=== PATIENT | male | born 1950 | race African-American/Black ===

== ENCOUNTER 2018-08-28 20:59 | Emergency (ER) | payer MEDICARE, MEDICAID ==
[~2018-08-28] VITALS: Ht 193 cm; Wt 111.1 kg
[~2018-08-28 20:59] MED LIST: ACET-1156 PO; BIS10RS PR; DIPH25CA66 PO; DOCU100T15 PO; FAMO-12 PO; HYDR-4683 PO; INSLANTI SC; INSR100KIT IV; IPRIH IN; METF-370 PO; MOMLQ PO; SIMV-8 PO; SODIENE35 RE; WARF2.5T PO
[2018-08-28] MEDS ORDERED: IOHEXOL 300 MG/ML 100ML BOTTLE IJ ONE ×2 (21:39→23:18)
[2018-08-28] MEDS ORDERED: GASTROGRAFIN 30 ML SOL ONE (21:39)
[2018-08-28 22:42] LABS: INR 0.93 (0.9-1.15); Partial Thromboplastin Time 27.7 sec (23.78-33.04)
[2018-08-28 22:46] LABS: Alanine Aminotransferase 42 U/L (16-61); Albumin 2.7 g/dL (3.4-5.0); Amylase 47 U/L (25-115); Anion Gap 8 (5-15); Aspartate Aminotransferase 37 U/L (15-37); Blood Urea Nitrogen 9 mg/dL (7-18); Calcium 9.4 mg/dL (8.5-10.1); Carbon Dioxide 26 mmol/L (21-32); Chloride 107 mmol/L (98-107); Glucose 124 mg/dL (74-106); Lipase 129 U/L (73-393); Magnesium 2.2 mg/dL (1.6-2.6); Potassium 3.5 mmol/L (3.5-5.1); Sodium 141 mmol/L (136-145)
[2018-08-28 22:51] LABS: Alkaline Phosphatase 117 U/L (45-117); Bilirubin, Total 0.2 mg/dL (0.2-1.0); GFR African American 96 mL/min; GFR Non-African American 80 mL/min; Total Protein 9.2 g/dL (6.4-8.2)
[2018-08-28 23:59] LABS: Basophils # (auto) 0.1 uL; Eosinophils # (auto) 0.5 uL; Nucleated Red Blood Cells % 0.1 %
[2018-08-29] LABS: Basophils % (auto) 1.2 % (0.0-2.0); Hematocrit 35.4 % (41.0-53.0); Hemoglobin 11.3 g/dL (13.5-17.5); Lymphocytes # (auto) 3.1 uL; Lymphocytes % (auto) 32.2 % (10.0-50.0); Mean Corpuscular Hemoglobin 28.2 pg (28.0-32.0); Mean Corpuscular Hgb Conc. 32.1 g/dL (32.0-36.0); Mean Corpuscular Volume 87.9 fL (80.0-100.0); Monocytes # (auto) 0.7 uL; Neutrophils # (auto) 5.2 uL; Neutrophils % (auto) 54.6 % (37.0-80.0); Platelet Count (auto) 494 10^3/uL (140-450); Red Blood Cells 4.02 10^6/uL (4.5-5.90); Red Cell Distribution Width 17.1 % (11.8-14.3); White Blood Cell 9.6 10^3/uL (4.4-10.8)
[2018-08-29] MEDS ORDERED: SODIUM CHLORIDE 0.9% 1,000 ML IV ONE (09:15)
[2018-08-29 10:50] VITALS: BP 114/74
== END 2018-08-29 11:09 | disposition home or self-care (01) ==
LOC: ER 20:59 → EDBD 20:59 → ER 08-29 11:09
DX: K86.3 Pseudocyst of pancreas (principal); K57.90 Diverticulosis of intestine, part unspecified, without perforation or abscess without bleeding; J44.9 Chronic obstructive pulmonary disease, unspecified; I11.0 Hypertensive heart disease with heart failure; I50.9 Heart failure, unspecified; E11.65 Type 2 diabetes mellitus with hyperglycemia; K21.9 Gastro-esophageal reflux disease without esophagitis; I48.91 Unspecified atrial fibrillation; E78.5 Hyperlipidemia, unspecified; Z86.73 Personal history of transient ischemic attack (TIA), and cerebral infarction without residual deficits; Z87.440 Personal history of urinary (tract) infections; Z90.49 Acquired absence of other specified parts of digestive tract; Z79.4 Long term (current) use of insulin; Z79.899 Other long term (current) drug therapy
CPT/HCPCS: 36415; 74177; 76705; 80053; 82150; 83605; 83690; 83735; 83880; 84484; 85025; 85610; 85730; 87040; 93005; 94761; 96360; 99284; Q9963; Q9967

== ENCOUNTER 2019-01-26 08:18 | Inpatient (IN) | payer MEDICARE, MEDICAID | END 2019-01-30 16:00 | LOC: ER 08:18 → TELE 08:19 → TELE-EAST 17:23 | DX: A41.9 Sepsis, unspecified organism (principal); G82.50 Quadriplegia, unspecified; I63.9 Cerebral infarction, unspecified; R65.21 Severe sepsis with septic shock; N39.0 Urinary tract infection, site not specified; I13.0 Hypertensive heart and chronic kidney disease with heart failure and stage 1 through stage 4 chronic kidney disease, or unspecified chronic kidney disease; E44.0 Moderate protein-calorie malnutrition; I50.22 Chronic systolic (congestive) heart failure; E11.65 Type 2 diabetes mellitus with hyperglycemia; Z79.4 Long term (current) use of insulin; E11.22 Type 2 diabetes mellitus with diabetic chronic kidney disease; I25.10 Atherosclerotic heart disease of native coronary artery without angina pectoris; J44.9 Chronic obstructive pulmonary disease, unspecified; E66.9 Obesity, unspecified; N18.3 Chronic kidney disease, stage 3 (moderate); Z86.73 Personal history of transient ischemic attack (TIA), and cerebral infarction without residual deficits ==

== ENCOUNTER 2019-04-12 04:13 | Inpatient (IN) | payer MEDICARE, MEDICAID ==
[~2019-04-12] VITALS: Ht 193 cm; Wt 120.0 kg
[~2019-04-12 04:13] MED LIST changes: -HYDR-4683 PO; +HYDR-4833 PO
[2019-04-12 05:15] LABS: Urine Bacteria MOD /hpf (None Seen); Urine Blood 1+ /uL (Negative); Urine Hyaline Cast MANY /lpf (0 - 2); Urine Mucus FEW (None Seen); Urine Specific Gravity 1.014 (1.001-1.035); Urine WBC 203 /hpf (0 - 3); Urine WBC Clumps PRESENT /hpf (None Seen)
[2019-04-12 05:20] LABS: Basophils # (auto) 0.1 uL; Eosinophils # (auto) 0.3 uL; Eosinophils % (auto) 2.7 % (0.0-7.0); Hematocrit 44.8 % (41.0-53.0); Hemoglobin 15.2 g/dL (13.5-17.5); Lymphocytes # (auto) 3.7 uL; Lymphocytes % (auto) 39.5 % (10.0-50.0); Mean Corpuscular Hemoglobin 30.6 pg (28.0-32.0); Mean Corpuscular Hgb Conc. 33.9 g/dL (32.0-36.0); Mean Corpuscular Volume 90.3 fL (80.0-100.0); Monocytes # (auto) 0.6 uL; Monocytes % (auto) 6.5 % (0.0-12.0); Neutrophils # (auto) 4.8 uL; Neutrophils % (auto) 50.3 % (37.0-80.0); Nucleated Red Blood Cells % 0.1 %; Platelet Count (auto) 261 10^3/uL (140-450); Red Blood Cells 4.97 10^6/uL (4.5-5.90); Red Cell Distribution Width 14.3 % (11.8-14.3); White Blood Cell 9.5 10^3/uL (4.4-10.8)
[2019-04-12 05:33] LABS: Albumin 3.1 g/dL (3.4-5.0); Anion Gap 14 (5-15); Blood Urea Nitrogen 12 mg/dL (7-18); Calcium 8.9 mg/dL (8.5-10.1); Carbon Dioxide 20 mmol/L (21-32); Chloride 108 mmol/L (98-107); Glucose 152 mg/dL (74-106); Sodium 142 mmol/L (136-145)
[2019-04-12 05:35] LABS: Potassium 2.9 mmol/L (3.5-5.1)
[2019-04-12 05:38] LABS: Alanine Aminotransferase 25 U/L (16-61); Alkaline Phosphatase 113 U/L (45-117); Aspartate Aminotransferase 28 U/L (15-37); Bilirubin, Total 0.4 mg/dL (0.2-1.0); GFR African American 78 mL/min; GFR Non-African American 64 mL/min
[2019-04-12] MEDS ORDERED: SODIUM CHLORIDE 0.9% 500 ML IV ONE (05:45)
[2019-04-12] MEDS ORDERED: POTASSIUM EFFERVESENT TAB 25 MEQ PO ONE (05:45)
[2019-04-12] MEDS ORDERED: POTASSIUM CHL 20MEQ/100ML 100 ML IV ONE (05:45)
[2019-04-12 07:09] LABS: Lactic Acid w/Reflex 3.2 mmol/L (0.4-2.0)
[2019-04-12] MEDS ORDERED: PIPERACILLIN-TAZOB 3.375GM 100 ML IV ONE (07:30)
[2019-04-12] MEDS ORDERED: DEXTROSE (50%) 50ML SYRG IV PRN (09:15)
[2019-04-12] MEDS ORDERED: ONDANSETRON HCL 4 MG/2 ML VIAL IV PRN (09:15)
[2019-04-12] MEDS ORDERED: ACETAMINOPHEN 500 MG TAB PO PRN (09:15)
[2019-04-12] MEDS ORDERED: NITROGLYCERIN 0.4 MG SL TAB SL PRN (09:15)
[2019-04-12] MEDS ORDERED: HYDROcodone-ACET 5/325MG TAB PO PRN (09:15)
[2019-04-12] MEDS ORDERED: MORPHINE SULF INJ 2 MG/ML SYRINGE 1ML IV PRN ×2 (09:15)
[2019-04-12] MEDS: SODIUM CHLORIDE 0.9% 1,000 ML IV SCH ×3 (09:28→22:14)
[2019-04-12] MEDS: ENOXAPARIN SOD 40 MG/0.4 ML SYRINGE SC SCH (10:13)
[2019-04-12 10:35] LABS: INR 1.09 (0.9-1.15); Partial Thromboplastin Time 30.2 sec (23.64-32.05)
[2019-04-12] MEDS: InsuLIN REG 1unit/0.01ml Soln (100units/ml) SC SCH ×3 (11:30→22:00)
[2019-04-12] MEDS: ACCU-CHEK COMFORT CURVE STRIP VI SCH ×3 (11:30→22:13)
[2019-04-12 12:40] VITALS: BP 127/78
[2019-04-12 13:00] VITALS: BP 127/78
--- NOTE | 2019-04-12 14:06 | NUR ---
RECEIVED PT TO ROOM 282 AT APPROX. 1100. A/O X 4. VSS. WILL CONTINUE TO MONITOR.
[2019-04-12 17:00] VITALS: BP 142/83
[2019-04-12] MEDS: TAMSULOSIN HYDROCHLORIDE 0.4 MG CAP PO SCH (18:25)
[2019-04-12 20:00] VITALS: BP 110/74
[2019-04-12 22:00] VITALS: BP 110/74
[2019-04-13 05:27] VITALS: BP 114/75
[2019-04-13] MEDS: INSULIN LANTUS (GLARGINE) 1 /0.01ml (100units/ml) SC SCH (06:15)
[2019-04-13] MEDS: InsuLIN REG 1unit/0.01ml Soln (100units/ml) SC SCH ×4 (06:15→21:47)
[2019-04-13] MEDS: ACCU-CHEK COMFORT CURVE STRIP VI SCH ×4 (06:15→21:47)
[2019-04-13 08:52] LABS: Basophils # (auto) 0.1 uL; Basophils % (auto) 0.8 % (0.0-2.0); Eosinophils # (auto) 0.3 uL; Eosinophils % (auto) 3.3 % (0.0-7.0); Hematocrit 43.2 % (41.0-53.0); Hemoglobin 14.4 g/dL (13.5-17.5); Lymphocytes # (auto) 3.4 uL; Lymphocytes % (auto) 37.4 % (10.0-50.0); Mean Corpuscular Hemoglobin 30.3 pg (28.0-32.0); Mean Corpuscular Hgb Conc. 33.3 g/dL (32.0-36.0); Mean Corpuscular Volume 91.1 fL (80.0-100.0); Monocytes # (auto) 0.5 uL; Monocytes % (auto) 5.8 % (0.0-12.0); Neutrophils # (auto) 4.7 uL; Neutrophils % (auto) 52.7 % (37.0-80.0); Nucleated Red Blood Cells % 0.2 %; Platelet Count (auto) 221 10^3/uL (140-450); Red Blood Cells 4.74 10^6/uL (4.5-5.90); Red Cell Distribution Width 14.2 % (11.8-14.3)
[2019-04-13] MEDS: cefTRIAXone 1GM/50ML D5W 50 ML IV SCH (09:00)
[2019-04-13 09:06] VITALS: BP 124/81
[2019-04-13 09:09] LABS: BUN/Creatinine Ratio 9.6; Calcium 8.8 mg/dL (8.5-10.1); Potassium 3.5 mmol/L (3.5-5.1)
[2019-04-13] MEDS: SODIUM CHLORIDE 0.9% 1,000 ML IV SCH ×2 (09:30→17:03)
[2019-04-13] MEDS: ENOXAPARIN SOD 40 MG/0.4 ML SYRINGE SC SCH (09:30)
[2019-04-13] MEDS: ASPirin-EC 81 mg tab PO SCH (09:30)
[2019-04-13] MEDS: APIXABAN 2.5 MG TAB PO SCH ×2 (10:00→21:47)
[2019-04-13 12:30] VITALS: BP 108/79
[2019-04-13 12:44] LABS: Folate (Folic Acid) 13.2 ng/mL (5.38-24)
--- NOTE | 2019-04-13 14:50 | NUR ---
Assessment and SS consult Pt is a 68 yr old alert and oriented male. SS consult for "pt lives with brother. Brother not a good caregiver and support for him. Pt is incontinent of bowel and bladder and brother changes him once a day. Pt has nurse coming twice weekly." SW met with pt bedside and pt stated that he was living at [facility] for over a year in fdc care until a week ago, he decided, against medical advisement, that he wanted to move home with his brother. Pt stated that he thought he would get better support from his brother and thought that he personally was more able than he was. Pt stated that he was wrong and that his brother is unable to help him with the high level of care that he needs. Pt stated that through HH he has a nurse come out twice weekly and a ELECTROMECHANIC 3 times weekly and it's not enough. Pt currently is non-ambulatory, uses a powerchair, robert lift and sling and hospital bed in the home. Pt receives 1500 income monthly from and [employer] pension. Pt stated that he has an AD on file. Pt stated that he wants to go back to living at [facility] as a fdc pt. SW discussed situation with Dr Han, and the doctor stated that he has called that facility and that they are going to accept the pt back in fdc care. Pt will be d/c back to [facility] upon medical clearance. Addendum: 04/13/19 at 1508 by JORGE NOLAN Amended: Links added.
--- NOTE | 2019-04-13 16:46 | NUR ---
Discharge planning per consult, patient has orders to dc to skilled nursing SNF placement. Referral was sent to [facility] [phone], patient was accepted to room [address] Han. Patient will dc will IV X Jon. Transportation was set up with the General [phone]. Nurse Patricia was advised of dc plan. Addendum: 04/13/19 at 1656 by LIZZETH GUSMAN Amended: Links added.
[2019-04-13 16:48] VITALS: BP 138/84
[2019-04-13 17:26] VITALS: BP 120/90
--- NOTE | 2019-04-13 17:39 | NUR ---
PER DR LACKEY, PT WILL NOT BE TRANSFERRED TO [facility] UNTIL TOMORROW 04/14. MANAGER RELIABILITY MAP MAKER NOTIFIED.
--- NOTE | 2019-04-13 17:50 | NUR ---
o/c note attempted to call general transport to cancel transport but no milling machine set up operator answered stating mailbox has not been set up, so could not leave message.
[2019-04-13] MEDS: TAMSULOSIN HYDROCHLORIDE 0.4 MG CAP PO SCH (18:24)
--- NOTE | 2019-04-13 18:25 | NUR ---
o/c note General transport called back and stated [facility] had already canceled transport
--- NOTE | 2019-04-13 19:00 | NUR ---
Opening Shift Note Assumed care of patient, awake and alert. No S/S of distress/SOB or pain. POC discussed and questions answered. Patient encouraged to call for assistance as needed, will continue to monitor for changes Q1hr and PRN.
[2019-04-13 21:45] VITALS: BP 125/79
[2019-04-14] MEDS: SODIUM CHLORIDE 0.9% 1,000 ML IV SCH ×3 (03:47→17:03)
[2019-04-14 05:33] VITALS: BP 144/86
[2019-04-14] MEDS: INSULIN LANTUS (GLARGINE) 1 /0.01ml (100units/ml) SC SCH (06:19)
[2019-04-14] MEDS: ACCU-CHEK COMFORT CURVE STRIP VI SCH ×3 (06:19→16:31)
[2019-04-14] MEDS: InsuLIN REG 1unit/0.01ml Soln (100units/ml) SC SCH ×3 (06:19→16:34)
[2019-04-14] MEDS: cefTRIAXone 1GM/50ML D5W 50 ML IV SCH (08:42)
[2019-04-14 09:00] VITALS: BP 150/95
[2019-04-14] MEDS: APIXABAN 2.5 MG TAB PO SCH (10:28)
[2019-04-14] MEDS: ASPirin-EC 81 mg tab PO SCH (10:28)
[2019-04-14 13:00] VITALS: BP 110/81
--- NOTE | 2019-04-14 14:23 | NUR ---
[facility] Lisa to see if [facility] has a bed for today, they did not have one yesterday.
--- NOTE | 2019-04-14 16:11 | NUR ---
SNF pt to go to rm 507 bed 2 and [facility] at 1630 hrs and [facility] to arrange transport
--- NOTE | 2019-04-14 16:36 | NUR ---
Discharge planning per SS consult, patient has orders to dc to SNF. Patient was accepted at [facility] [phone] to room [address] Han. Transportation was arranged with the General [phone] for a pick remover time of 6:30-7:30pm. Nurse Gomez was advised of dc plan.
[2019-04-14 17:00] VITALS: BP 129/89
--- NOTE | 2019-04-14 17:54 | NUR ---
REPORT CALLED TO CAROLEE, RECEIVING NURSE AT [facility].
[2019-04-14] MEDS: TAMSULOSIN HYDROCHLORIDE 0.4 MG CAP PO SCH (18:00)
--- NOTE | 2019-04-14 18:44 | NUR ---
SELLERS REMOVED WITHOUT DIFFICULTY. NOTED SMALL OPEN AREA/SKIN TEAR ON PT LEFT BUTTOCK. PHOTOGRAPH TAKEN. NOTIFIED NURSE AT [facility].
--- NOTE | 2019-04-14 19:30 | NUR ---
PATIENT DISCHARGED TO [facility]. NO SIGNS OR SYMPTOMS OF DISTRESS NOTED.
== END 2019-04-14 19:25 | DRG 690 ==
LOC: EDBD 04:13 → ER 04:14 → OVERFLOW 04:15 → WEST WING 10:34
PROVIDERS: ADMIT Nurse Practitioner Acute Care; ATTEND Family Medicine
DX: N30.00 Acute cystitis without hematuria (principal); E44.1 Mild protein-calorie malnutrition; I25.10 Atherosclerotic heart disease of native coronary artery without angina pectoris; N18.3 Chronic kidney disease, stage 3 (moderate); E11.22 Type 2 diabetes mellitus with diabetic chronic kidney disease; I12.9 Hypertensive chronic kidney disease with stage 1 through stage 4 chronic kidney disease, or unspecified chronic kidney disease; E11.65 Type 2 diabetes mellitus with hyperglycemia; E66.9 Obesity, unspecified; E87.6 Hypokalemia; K21.9 Gastro-esophageal reflux disease without esophagitis; I48.91 Unspecified atrial fibrillation; J44.9 Chronic obstructive pulmonary disease, unspecified; Z79.01 Long term (current) use of anticoagulants; Z79.4 Long term (current) use of insulin; Z68.32 Body mass index [BMI] 32.0-32.9, adult; Z95.5 Presence of coronary angioplasty implant and graft; Z86.73 Personal history of transient ischemic attack (TIA), and cerebral infarction without residual deficits; Z79.899 Other long term (current) drug therapy; Z80.1 Family history of malignant neoplasm of trachea, bronchus and lung
CPT/HCPCS: 36415; 71045; 80048; 80053; 81001; 82607; 82746; 82962; 83036; 83605; 83880; 84443; 84484; 85025; 85379; 85610; 85730; 87040; 87086; 93005; 96361; 96365; 96372; G0378; J0696; J1815; J2543; J3480

== ENCOUNTER 2021-09-18 10:24 | Inpatient (IN) | payer MEDICARE, MEDICAID ==
[~2021-09-18] VITALS: Ht 193 cm; Wt 112.0 kg
[2021-09-18 11:34] LABS: Basophils # (auto) 0.1 10 ^3/uL (0-0.2); Basophils % (auto) 1.1 % (0.0-2.0); Eosinophils # (auto) 0.3 10 ^3/uL (0-0.8); Eosinophils % (auto) 3.5 % (0.0-7.0); Hematocrit 47.4 % (41.0-53.0); Hemoglobin 15.6 g/dL (13.5-17.5); Lymphocytes # (auto) 2.7 10 ^3/uL (0.4-5.4); Lymphocytes % (auto) 30.7 % (10.0-50.0); Mean Corpuscular Hemoglobin 29.9 pg (28.0-32.0); Mean Corpuscular Hgb Conc. 32.9 g/dL (32.0-36.0); Monocytes # (auto) 0.5 10 ^3/uL (0-1.3); Monocytes % (auto) 5.8 % (0.0-12.0); Neutrophils # (auto) 5.1 10 ^3/uL (1.6-8.6); Neutrophils % (auto) 58.9 % (37.0-80.0); Nucleated Red Blood Cells % 0.4 %; Red Blood Cells 5.21 10^6/uL (4.5-5.90); Red Cell Distribution Width 14.4 % (11.8-14.3); White Blood Cell 8.7 10^3/uL (4.4-10.8)
[2021-09-18 11:50] LABS: Albumin 3.5 g/dL (3.4-5.0); Calcium 9.6 mg/dL (8.5-10.1); Potassium 3.8 mmol/L (3.5-5.1)
[2021-09-18 11:52] LABS: Bilirubin, Total 0.6 mg/dL (0.2-1.0); Total Protein 7.9 g/dL (6.4-8.2)
[2021-09-18 13:08] LABS: Urine Bacteria NONE SEEN /hpf (None Seen); Urine Blood 3+ /uL (Negative); Urine Hyaline Cast MANY /lpf (0 - 2); Urine Mucus FEW (None Seen); Urine Specific Gravity 1.018 (1.001-1.035); Urine WBC 2550 /hpf (0 - 3); Urine WBC Clumps PRESENT /hpf (None Seen)
[2021-09-18] MEDS ORDERED: cefTRIAXone 1GM/50ML D5W 50 ML IV ONE (13:15)
[2021-09-18] MEDS ORDERED: ACETAMINOPHEN 325 MG TAB PO PRN (13:45)
[2021-09-18] MEDS ORDERED: NITROGLYCERIN 0.4 MG SL TAB SL PRN (13:45)
[2021-09-18] MEDS ORDERED: ONDANSETRON HCL 4 MG/2 ML VIAL IV PRN (13:45)
[2021-09-18] MEDS ORDERED: MORPHINE SULFATE INJECTION 2 MG/ML SYRG IV PRN (13:45)
[2021-09-18] MEDS ORDERED: SODIUM CHLORIDE 0.9% 1,000 ML IV SCH (13:45)
[2021-09-18] MEDS ORDERED: HYDROmorphone HCL 2 MG/ML VL IV PRN (13:45)
[2021-09-18] MEDS ORDERED: ALUM & MAG HYDROX-SIMETH LIQ(MAALOX) 30 ML PO PRN (13:45)
[2021-09-18] MEDS ORDERED: HYDROcodone-ACET 5/325MG TAB PO PRN (13:45)
[2021-09-18] MEDS: SODIUM CHLOR 0.9% PF (SALINE LOCK) 10ML VIAL/SYR IV SCH ×2 (13:50→22:31)
[2021-09-18 14:12] LABS: INR 1.08 (0.9-1.15)
[2021-09-18] MEDS ORDERED: cloNIDine HCL 0.1 MG TAB PO PRN (17:45)
[2021-09-18] MEDS ORDERED: hydrALAZINE HCL 20 MG/ML VL IV PRN (17:45)
[2021-09-18 18:04] VITALS: BP 102/72
[2021-09-18 22:29] VITALS: BP 110/70
[2021-09-18] MEDS: APIXABAN 2.5 MG TAB PO SCH (22:31)
[2021-09-19 04:35] LABS: Hematocrit 42.6 % (41.0-53.0); Hemoglobin 14.1 g/dL (13.5-17.5); Mean Corpuscular Hemoglobin 29.9 pg (28.0-32.0); Mean Corpuscular Volume 90.5 fL (80.0-100.0); Red Blood Cells 4.71 10^6/uL (4.5-5.90); Red Cell Distribution Width 14.7 % (11.8-14.3); White Blood Cell 8.3 10^3/uL (4.4-10.8)
[2021-09-19 05:29] VITALS: BP 120/75
[2021-09-19] MEDS: SODIUM CHLOR 0.9% PF (SALINE LOCK) 10ML VIAL/SYR IV SCH ×3 (05:34→21:49)
[2021-09-19 09:00] VITALS: BP 120/66
[2021-09-19] MEDS: APIXABAN 2.5 MG TAB PO SCH (09:51)
[2021-09-19] MEDS: cefTRIAXone 1GM/50ML D5W 50 ML IV SCH (09:51)
[2021-09-19 12:49] VITALS: BP 111/66
[2021-09-19] MEDS ORDERED: DEXTROSE (50%) 50ML SYRG IV PRN (14:00)
[2021-09-19 14:45] LABS: Cholesterol 63 mg/dL (< 200); Triglycerides 95 mg/dL (< 150)
[2021-09-19 14:47] LABS: HDL Cholesterol 30 mg/dL (40-59); LDL Cholesterol 28 mg/dL (< 100)
[2021-09-19 16:36] VITALS: BP 116/75
[2021-09-19] MEDS: InsuLIN REG 1unit/0.01ml Soln (100units/ml) SC SCH ×2 (17:00→21:41)
[2021-09-19] MEDS: ACCU-CHEK COMFORT CURVE STRIP VI SCH ×2 (17:00→21:41)
[2021-09-19 22:00] VITALS: BP 98/55
[2021-09-20 05:00] VITALS: BP 110/58
[2021-09-20 05:36] LABS: Basophils # (auto) 0.1 10 ^3/uL (0-0.2); Basophils % (auto) 1.1 % (0.0-2.0); Eosinophils # (auto) 0.2 10 ^3/uL (0-0.8); Hematocrit 43.8 % (41.0-53.0); Hemoglobin 14.7 g/dL (13.5-17.5); Lymphocytes # (auto) 3.2 10 ^3/uL (0.4-5.4); Lymphocytes % (auto) 39.2 % (10.0-50.0); Mean Corpuscular Hemoglobin 30.5 pg (28.0-32.0); Mean Corpuscular Hgb Conc. 33.5 g/dL (32.0-36.0); Mean Corpuscular Volume 90.9 fL (80.0-100.0); Monocytes # (auto) 0.5 10 ^3/uL (0-1.3); Monocytes % (auto) 6.6 % (0.0-12.0); Neutrophils # (auto) 4.1 10 ^3/uL (1.6-8.6); Neutrophils % (auto) 50.1 % (37.0-80.0); Nucleated Red Blood Cells % 0.3 %; Red Blood Cells 4.82 10^6/uL (4.5-5.90); Red Cell Distribution Width 14.6 % (11.8-14.3); White Blood Cell 8.1 10^3/uL (4.4-10.8)
[2021-09-20 05:57] LABS: BUN/Creatinine Ratio 11.5; Calcium 9.1 mg/dL (8.5-10.1); Potassium 3.6 mmol/L (3.5-5.1)
[2021-09-20] MEDS: SODIUM CHLOR 0.9% PF (SALINE LOCK) 10ML VIAL/SYR IV SCH ×3 (06:02→21:03)
[2021-09-20] MEDS: InsuLIN REG 1unit/0.01ml Soln (100units/ml) SC SCH ×4 (06:02→21:02)
[2021-09-20] MEDS: ACCU-CHEK COMFORT CURVE STRIP VI SCH ×4 (06:03→21:03)
[2021-09-20 09:00] VITALS: BP 150/93
[2021-09-20] MEDS: cefTRIAXone 1GM/50ML D5W 50 ML IV SCH ×2 (09:30→11:31)
[2021-09-20] MEDS ORDERED: FLUCONAZOLE 100 MG TAB PO ONE (10:30)
[2021-09-20 13:00] VITALS: BP 140/76
[2021-09-20 17:00] VITALS: BP 139/98
[2021-09-20 21:57] VITALS: BP 133/71
[2021-09-21 04:25] VITALS: BP 144/82
[2021-09-21] MEDS: SODIUM CHLOR 0.9% PF (SALINE LOCK) 10ML VIAL/SYR IV SCH ×3 (05:42→20:57)
[2021-09-21] MEDS: InsuLIN REG 1unit/0.01ml Soln (100units/ml) SC SCH ×4 (06:22→21:00)
[2021-09-21] MEDS: ACCU-CHEK COMFORT CURVE STRIP VI SCH ×4 (06:23→20:57)
[2021-09-21 08:00] VITALS: BP 126/85
[2021-09-21 09:00] VITALS: BP 126/85
[2021-09-21] MEDS: cefTRIAXone 1GM/50ML D5W 50 ML IV SCH (09:07)
[2021-09-21] MEDS: FLUCONAZOLE 100 MG TAB PO SCH (11:13)
[2021-09-21 13:00] VITALS: BP 101/71
[2021-09-21 17:00] VITALS: BP 124/82
[2021-09-21 21:20] VITALS: BP 126/81
[2021-09-22] VITALS (7 sets, daily range): BP systolic 113–140; BP diastolic 77–96
[2021-09-22 05:51] LABS: Basophils # (auto) 0.1 10 ^3/uL (0-0.2); Basophils % (auto) 0.6 % (0.0-2.0); Eosinophils # (auto) 0.4 10 ^3/uL (0-0.8); Eosinophils % (auto) 3.7 % (0.0-7.0); Hemoglobin 15.1 g/dL (13.5-17.5); Lymphocytes # (auto) 3.1 10 ^3/uL (0.4-5.4); Lymphocytes % (auto) 32.4 % (10.0-50.0); Mean Corpuscular Hemoglobin 30.7 pg (28.0-32.0); Mean Corpuscular Hgb Conc. 34.3 g/dL (32.0-36.0); Mean Corpuscular Volume 89.4 fL (80.0-100.0); Monocytes # (auto) 0.6 10 ^3/uL (0-1.3); Neutrophils # (auto) 5.5 10 ^3/uL (1.6-8.6); Neutrophils % (auto) 57.3 % (37.0-80.0); Nucleated Red Blood Cells % 0.1 %; Red Blood Cells 4.92 10^6/uL (4.5-5.90); Red Cell Distribution Width 14.7 % (11.8-14.3); White Blood Cell 9.7 10^3/uL (4.4-10.8)
[2021-09-22] MEDS: SODIUM CHLOR 0.9% PF (SALINE LOCK) 10ML VIAL/SYR IV SCH ×3 (05:58→20:51)
[2021-09-22] MEDS: ACCU-CHEK COMFORT CURVE STRIP VI SCH ×4 (05:58→20:52)
[2021-09-22] MEDS: InsuLIN REG 1unit/0.01ml Soln (100units/ml) SC SCH ×4 (06:03→20:58)
[2021-09-22 06:15] LABS: Potassium 3.6 mmol/L (3.5-5.1)
[2021-09-22 06:27] LABS: Calcium 9.5 mg/dL (8.5-10.1)
[2021-09-22] MEDS: cefTRIAXone 1GM/50ML D5W 50 ML IV SCH (08:48)
[2021-09-22] MEDS ORDERED: ALBUTEROL SULF 2.5 MG/0.5ML(0.5%) NEB SOLN NEB PRN (10:30)
[2021-09-22] MEDS ORDERED: IPRATROPIUM BROM 0.5 MG/2.5ML INH SOL NEB PRN (10:30)
[2021-09-22] MEDS ORDERED: FUROSEMIDE 20 MG/2 ML VIAL IV ONE (10:30)
[2021-09-22] MEDS: FLUCONAZOLE 100 MG TAB PO SCH (11:41)
[2021-09-22] MEDS: LACTULOSE 20Gm/30ML SOLN PO PRN (19:30)
[2021-09-22] MEDS: DOCUSATE SOD 100 MG CAP PO SCH (20:51)
[2021-09-23 05:00] VITALS: BP 126/81
[2021-09-23] MEDS: SODIUM CHLOR 0.9% PF (SALINE LOCK) 10ML VIAL/SYR IV SCH ×2 (05:01→13:20)
[2021-09-23] MEDS: LACTULOSE 20Gm/30ML SOLN PO PRN (05:01)
[2021-09-23] MEDS: ACCU-CHEK COMFORT CURVE STRIP VI SCH ×2 (06:09→11:58)
[2021-09-23] MEDS: InsuLIN REG 1unit/0.01ml Soln (100units/ml) SC SCH ×2 (06:11→12:03)
[2021-09-23 08:00] VITALS: BP 131/90
[2021-09-23 09:00] VITALS: BP 131/90
[2021-09-23] MEDS: DOCUSATE SOD 100 MG CAP PO SCH (10:01)
[2021-09-23] MEDS: FLUCONAZOLE 100 MG TAB PO SCH (10:01)
[2021-09-23] MEDS: cefTRIAXone 1GM/50ML D5W 50 ML IV SCH (10:01)
[2021-09-23] MEDS ORDERED: CEFEPIME 1GM/ 50ML 50 ML IV ONE (11:30)
[2021-09-23] MEDS ORDERED: BISACODYL 10 MG RECT SUPP PR ONE (11:30)
[2021-09-23 13:00] VITALS: BP 134/93
[2021-09-23 14:00] LABS: Basophils # (auto) 0.1 10 ^3/uL (0-0.2); Basophils % (auto) 0.6 % (0.0-2.0); Eosinophils # (auto) 0.4 10 ^3/uL (0-0.8); Eosinophils % (auto) 4.2 % (0.0-7.0); Hematocrit 44.9 % (41.0-53.0); Hemoglobin 15.3 g/dL (13.5-17.5); Lymphocytes # (auto) 3.1 10 ^3/uL (0.4-5.4); Lymphocytes % (auto) 33.3 % (10.0-50.0); Mean Corpuscular Hemoglobin 30.6 pg (28.0-32.0); Mean Corpuscular Hgb Conc. 34.1 g/dL (32.0-36.0); Mean Corpuscular Volume 89.8 fL (80.0-100.0); Monocytes # (auto) 0.7 10 ^3/uL (0-1.3); Monocytes % (auto) 7.2 % (0.0-12.0); Neutrophils # (auto) 5.1 10 ^3/uL (1.6-8.6); Neutrophils % (auto) 54.7 % (37.0-80.0); Nucleated Red Blood Cells % 0.2 %; Red Cell Distribution Width 14.7 % (11.8-14.3); White Blood Cell 9.3 10^3/uL (4.4-10.8)
[2021-09-23 14:14] LABS: Calcium 9.5 mg/dL (8.5-10.1); Potassium 3.5 mmol/L (3.5-5.1)
[2021-09-23 16:32] VITALS: BP 134/93
[2021-09-23 17:00] VITALS: BP 129/97
[2021-09-23] MEDS ORDERED: CEFEPIME 1GM/ 50ML 50 ML IV SCH (21:00)
== END 2021-09-23 17:48 | DRG 689 ==
LOC: EDBD 10:24 → ER 10:24 → OVERFLOW 13:33 → CENTRAL 17:40
PROVIDERS: ADMIT Internal Medicine; ATTEND Internal Medicine Pulmonary Disease
DX: N30.01 Acute cystitis with hematuria (principal); G82.50 Quadriplegia, unspecified; D68.9 Coagulation defect, unspecified; I13.0 Hypertensive heart and chronic kidney disease with heart failure and stage 1 through stage 4 chronic kidney disease, or unspecified chronic kidney disease; N18.30 Chronic kidney disease, stage 3 unspecified; E66.9 Obesity, unspecified; I25.10 Atherosclerotic heart disease of native coronary artery without angina pectoris; I48.91 Unspecified atrial fibrillation; E11.22 Type 2 diabetes mellitus with diabetic chronic kidney disease; I50.9 Heart failure, unspecified; J44.9 Chronic obstructive pulmonary disease, unspecified; Z79.4 Long term (current) use of insulin; Z79.899 Other long term (current) drug therapy; Z80.1 Family history of malignant neoplasm of trachea, bronchus and lung; Z82.49 Family history of ischemic heart disease and other diseases of the circulatory system; Z83.3 Family history of diabetes mellitus; Z85.118 Personal history of other malignant neoplasm of bronchus and lung; Z86.73 Personal history of transient ischemic attack (TIA), and cerebral infarction without residual deficits; Z87.440 Personal history of urinary (tract) infections; Z87.442 Personal history of urinary calculi; K21.9 Gastro-esophageal reflux disease without esophagitis; Z74.01 Bed confinement status; Z90.49 Acquired absence of other specified parts of digestive tract; Z20.822 Contact with and (suspected) exposure to COVID-19
CPT/HCPCS: 36415; 51702; 71045; 80048; 80053; 80061; 81001; 82306; 82962; 83036; 83880; 84154; 84443; 84484; 85025; 85027; 85610; 87040; 87086; 87088; 87186; 96365; G0378; J0696; J1815

== ENCOUNTER 2022-01-27 14:25 | Inpatient (IN) | payer MEDICARE, MEDICAID ==
[~2022-01-27] VITALS: Ht 193 cm; Wt 112.6 kg
[2022-01-27 18:03] LABS: Albumin 3.2 g/dL (3.4-5.0)
[2022-01-27 18:08] LABS: BUN/Creatinine Ratio 19.6; Bilirubin, Total 0.7 mg/dL (0.2-1.0); Total Protein 7.7 g/dL (6.4-8.2)
[2022-01-27 18:17] LABS: Basophils # (auto) 0.1 10 ^3/uL (0-0.2); Basophils % (auto) 0.7 % (0.0-2.0); Eosinophils # (auto) 0.1 10 ^3/uL (0-0.8); Eosinophils % (auto) 1.5 % (0.0-7.0); Hemoglobin 14.3 g/dL (13.5-17.5); Lymphocytes # (auto) 3.5 10 ^3/uL (0.4-5.4); Lymphocytes % (auto) 40.4 % (10.0-50.0); Mean Corpuscular Hemoglobin 29.1 pg (28.0-32.0); Mean Corpuscular Hgb Conc. 31.9 g/dL (32.0-36.0); Mean Corpuscular Volume 91.1 fL (80.0-100.0); Monocytes # (auto) 0.8 10 ^3/uL (0-1.3); Monocytes % (auto) 9.6 % (0.0-12.0); Neutrophils # (auto) 4.1 10 ^3/uL (1.6-8.6); Neutrophils % (auto) 47.8 % (37.0-80.0); Nucleated Red Blood Cells % 0.1 %; Red Blood Cells 4.94 10^6/uL (4.5-5.90); Red Cell Distribution Width 15.1 % (11.8-14.3); White Blood Cell 8.6 10^3/uL (4.4-10.8)
[2022-01-27] MEDS ORDERED: methylPREDNISolone SOD SUCC 125 MG/2 ML VL IV ONE (19:15)
[2022-01-27] MEDS ORDERED: cefTRIAXone 1GM/50ML D5W 50 ML IV ONE (19:15)
[2022-01-27] MEDS ORDERED: SODIUM CHLORIDE 0.9% 1,000 ML IV ONE (19:15)
[2022-01-27 19:42] LABS: Basophils # (auto) 0.3 10 ^3/uL (0-0.2); Basophils % (auto) 3.3 % (0.0-2.0); Eosinophils # (auto) 0.1 10 ^3/uL (0-0.8); Eosinophils % (auto) 1.7 % (0.0-7.0); Hematocrit 45.1 % (41.0-53.0); Hemoglobin 14.8 g/dL (13.5-17.5); Lymphocytes # (auto) 2.5 10 ^3/uL (0.4-5.4); Lymphocytes % (auto) 29.3 % (10.0-50.0); Mean Corpuscular Hemoglobin 29.2 pg (28.0-32.0); Mean Corpuscular Hgb Conc. 32.9 g/dL (32.0-36.0); Mean Corpuscular Volume 88.9 fL (80.0-100.0); Monocytes # (auto) 0.9 10 ^3/uL (0-1.3); Monocytes % (auto) 10.9 % (0.0-12.0); Neutrophils # (auto) 4.7 10 ^3/uL (1.6-8.6); Neutrophils % (auto) 54.8 % (37.0-80.0); Nucleated Red Blood Cells % 0.1 %; Red Blood Cells 5.07 10^6/uL (4.5-5.90); Red Cell Distribution Width 15.2 % (11.8-14.3); White Blood Cell 8.5 10^3/uL (4.4-10.8)
[2022-01-27 20:03] LABS: Albumin 3.4 g/dL (3.4-5.0); BUN/Creatinine Ratio 19.8; Calcium 8.9 mg/dL (8.5-10.1); Potassium 4.1 mmol/L (3.5-5.1)
[2022-01-27 20:06] LABS: Bilirubin, Total 0.8 mg/dL (0.2-1.0); Total Protein 7.4 g/dL (6.4-8.2)
[2022-01-27 20:33] LABS: Urine Bacteria FEW /hpf (None Seen); Urine Blood 3+ /uL (Negative); Urine Mucus FEW (None Seen); Urine Specific Gravity 1.016 (1.001-1.035); Urine WBC 765 /hpf (0 - 3); Urine WBC Clumps PRESENT /hpf (None Seen)
[2022-01-27] MEDS ORDERED: HYDROmorphone HCL 2 MG/ML VL/or syr IV PRN (23:15)
[2022-01-27] MEDS ORDERED: ONDANSETRON HCL 4 MG/2 ML VIAL IV PRN (23:15)
[2022-01-27] MEDS ORDERED: NITROGLYCERIN 0.4 MG SL TAB SL PRN (23:15)
[2022-01-27] MEDS ORDERED: MORPHINE SULFATE INJ 2 MG/ml SYRG IV PRN (23:15)
[2022-01-27] MEDS ORDERED: ACETAMINOPHEN 325 MG TAB PO PRN (23:15)
[2022-01-27] MEDS ORDERED: IPRATROPIUM BROMIDE HFA AER IN PRN (23:15)
[2022-01-27 23:30] VITALS: BP 133/82
[2022-01-27] MEDS ORDERED: ERTAPENEM SOD INJ 1 GM in SODIUM CHL 0.9% 50 ML IV ONE (23:30)
[2022-01-27] MEDS ORDERED: ERGOCALCIFEROL 50,000 UNIT(1.25MG) CAP PO SCH (23:30)
[2022-01-27] MEDS ORDERED: DEXTROSE (50%) 50ML SYRG IV PRN (23:30)
[2022-01-28 05:00] VITALS: BP 150/90
[2022-01-28 05:11] VITALS: BP 150/90
[2022-01-28] MEDS: SODIUM CHLOR 0.9% PF (SALINE LOCK) 10ML VIAL/SYR IV SCH ×3 (06:32→21:25)
[2022-01-28] MEDS: INSULIN LANTUS (GLARGINE) 1 /0.01ml (100units/ml) SC SCH ×2 (06:44→21:40)
[2022-01-28] MEDS: ACCU-CHEK COMFORT CURVE STRIP VI SCH ×4 (06:44→21:43)
[2022-01-28] MEDS: InsuLIN REG 1unit/0.01ml Soln (100units/ml) SC SCH ×4 (06:44→21:38)
[2022-01-28 08:33] LABS: Albumin 3.3 g/dL (3.4-5.0); Potassium 4.9 mmol/L (3.5-5.1)
[2022-01-28 08:36] LABS: BUN/Creatinine Ratio 19.4; Bilirubin, Total 0.6 mg/dL (0.2-1.0); Total Protein 7.9 g/dL (6.4-8.2)
[2022-01-28 09:00] VITALS: BP 152/84
[2022-01-28] MEDS ORDERED: CAR125T PO (09:24)
[2022-01-28] MEDS: APIXABAN 2.5 MG TAB PO SCH ×2 (09:38→21:24)
[2022-01-28] MEDS: ERTAPENEM SOD INJ 1 GM in SODIUM CHL 0.9% 50 ML IV SCH (09:39)
[2022-01-28] MEDS: ASPirin 81 mg TAB PO SCH (09:39)
[2022-01-28 13:00] VITALS: BP 142/93
[2022-01-28 17:01] VITALS: BP 142/92
[2022-01-28] MEDS: ATORVASTATIN 20 MG TAB PO SCH (21:24)
[2022-01-28] MEDS: FAMOTIDINE 20 MG TAB PO SCH (21:25)
[2022-01-28] MEDS: HYDROcodone-ACET 5/325MG TAB PO PRN (21:25)
[2022-01-28 22:00] VITALS: BP 131/84
[2022-01-28] MEDS: ALBUTEROL SULF HFA 90MCG INH 200DOSE IN SCH (22:00)
[2022-01-29 05:00] VITALS: BP 103/76
[2022-01-29] MEDS: ALBUTEROL SULF HFA 90MCG INH 200DOSE IN SCH ×2 (06:00→14:14)
[2022-01-29] MEDS: INSULIN LANTUS (GLARGINE) 1 /0.01ml (100units/ml) SC SCH ×2 (06:41→21:10)
[2022-01-29] MEDS: InsuLIN REG 1unit/0.01ml Soln (100units/ml) SC SCH ×4 (06:42→21:10)
[2022-01-29] MEDS: SODIUM CHLOR 0.9% PF (SALINE LOCK) 10ML VIAL/SYR IV SCH ×3 (06:42→21:03)
[2022-01-29] MEDS: ACCU-CHEK COMFORT CURVE STRIP VI SCH ×4 (06:43→21:03)
[2022-01-29 09:00] VITALS: BP 115/76
[2022-01-29] MEDS: ASPirin 81 mg TAB PO SCH (10:10)
[2022-01-29] MEDS: ERTAPENEM SOD INJ 1 GM in SODIUM CHL 0.9% 50 ML IV SCH (10:10)
[2022-01-29] MEDS: APIXABAN 2.5 MG TAB PO SCH ×2 (10:10→21:02)
[2022-01-29 12:40] VITALS: BP 129/78
[2022-01-29 17:00] VITALS: BP 121/70
[2022-01-29] MEDS: FAMOTIDINE 20 MG TAB PO SCH (21:02)
[2022-01-29] MEDS: HYDROcodone-ACET 5/325MG TAB PO PRN (21:02)
[2022-01-29] MEDS: ATORVASTATIN 20 MG TAB PO SCH (21:02)
[2022-01-29 22:00] VITALS: BP 116/77
[2022-01-30] MEDS ORDERED: ALBUTEROL SULF HFA 90MCG INH 200DOSE IN PRN (02:45)
[2022-01-30 05:00] VITALS: BP 124/75
[2022-01-30] MEDS: InsuLIN REG 1unit/0.01ml Soln (100units/ml) SC SCH ×2 (06:22→12:49)
[2022-01-30] MEDS: SODIUM CHLOR 0.9% PF (SALINE LOCK) 10ML VIAL/SYR IV SCH ×2 (06:22→14:07)
[2022-01-30] MEDS: ACCU-CHEK COMFORT CURVE STRIP VI SCH ×2 (06:22→12:49)
[2022-01-30] MEDS: INSULIN LANTUS (GLARGINE) 1 /0.01ml (100units/ml) SC SCH (06:32)
[2022-01-30 08:00] VITALS: BP 115/78
[2022-01-30 09:00] VITALS: BP 123/79
[2022-01-30] MEDS: ERTAPENEM SOD INJ 1 GM in SODIUM CHL 0.9% 50 ML IV SCH (10:13)
[2022-01-30] MEDS: ASPirin 81 mg TAB PO SCH (10:13)
[2022-01-30] MEDS: APIXABAN 2.5 MG TAB PO SCH (10:13)
[2022-01-30] MEDS: HYDROcodone-ACET 5/325MG TAB PO PRN (10:13)
[2022-01-30 13:00] VITALS: BP 99/70
[2022-01-30] MEDS ORDERED: FLUCONAZOLE 100 MG TAB PO ONE (13:45)
== END 2022-01-30 16:02 | DRG 178 ==
LOC: EDBD 14:25 → ER 14:25 → OVERFLOW 23:15 → CENTRAL 01-28 03:54
PROVIDERS: ADMIT Internal Medicine; ATTEND Internal Medicine
DX: U07.1 COVID-19 (principal); E44.0 Moderate protein-calorie malnutrition; N39.0 Urinary tract infection, site not specified; E11.9 Type 2 diabetes mellitus without complications; I10 Essential (primary) hypertension; I25.10 Atherosclerotic heart disease of native coronary artery without angina pectoris; I48.91 Unspecified atrial fibrillation; J44.9 Chronic obstructive pulmonary disease, unspecified; Z74.01 Bed confinement status; Z85.118 Personal history of other malignant neoplasm of bronchus and lung; Z86.73 Personal history of transient ischemic attack (TIA), and cerebral infarction without residual deficits; Z87.440 Personal history of urinary (tract) infections; Z68.30 Body mass index [BMI] 30.0-30.9, adult
CPT/HCPCS: 36415; 70450; 71045; 80053; 81001; 82962; 83036; 84484; 85025; 87086; 93005; 93306; 94640; 96365; 96375; 99291; G0378; J0696; J1335; J1815

== ENCOUNTER 2023-03-14 10:32 | Inpatient (IN) | payer MEDICARE, MEDICAID ==
[~2023-03-14] VITALS: Ht 193 cm; Wt 122.2 kg
[~2023-03-14 10:32] MED LIST changes: -ACET-1156 PO; +ACET-1881 PO; +CAR125T PO; -SIMV-8 PO; +SIMV20TA20 PO; -WARF2.5T PO
[2023-03-14 12:02] LABS: Basophils # (auto) 0 10 ^3/uL (0-0.2); Basophils % (auto) 0.6 % (0.0-2.0); Eosinophils # (auto) 0.3 10 ^3/uL (0-0.8); Eosinophils % (auto) 3.3 % (0.0-7.0); Hematocrit 39.9 % (41.0-53.0); Hemoglobin 12.9 g/dL (13.5-17.5); Lymphocytes # (auto) 2.4 10 ^3/uL (0.4-5.4); Lymphocytes % (auto) 31.5 % (10.0-50.0); Mean Corpuscular Hemoglobin 28.3 pg (28.0-32.0); Mean Corpuscular Hgb Conc. 32.4 g/dL (32.0-36.0); Mean Corpuscular Volume 87.4 fL (80.0-100.0); Monocytes # (auto) 0.7 10 ^3/uL (0-1.3); Monocytes % (auto) 8.6 % (0.0-12.0); Neutrophils # (auto) 4.3 10 ^3/uL (1.6-8.6); Nucleated Red Blood Cells % 0.1 %; Red Blood Cells 4.57 10^6/uL (4.5-5.90); White Blood Cell 7.7 10^3/uL (4.4-10.8)
[2023-03-14 12:23] LABS: Alkaline Phosphatase 85 U/L (46-116); Anion Gap 7 (5-15); Aspartate Aminotransferase 14 U/L (13-40); BUN/Creatinine Ratio 11.3 (10.0-20.0); Bilirubin, Total 0.4 mg/dL (0.2-1.0); Blood Urea Nitrogen 12 mg/dL (9-23); Calcium 9.6 mg/dL (8.7-10.4); Carbon Dioxide 27 mmol/L (20-30); Chloride 108 mmol/L (98-107); Glucose 127 mg/dL (74-106); Potassium 3.8 mmol/L (3.5-5.1); Sodium 142 mmol/L (136-145); Total Protein 7.2 g/dL (5.7-8.2)
[2023-03-14 12:24] LABS: Alanine Aminotransferase 9 U/L (7-40)
[2023-03-14 12:25] VITALS: PULSE 80; RESP 15; O2SAT 97
[2023-03-14] MEDS ORDERED: MEROPENEM 1GM IVPB 100 ML IV SCH (14:00)
[2023-03-14] MEDS ORDERED: MORPHINE SULFATE INJ 2 MG/ml SYRG IV PRN (14:00)
[2023-03-14] MEDS ORDERED: SODIUM CHLORIDE 0.9% 1,000 ML IV ONE (14:00)
[2023-03-14] MEDS ORDERED: NITROGLYCERIN 0.4 MG SL TAB SL PRN (14:00)
[2023-03-14] MEDS ORDERED: DEXTROSE (50%) 50ML SYRG IV PRN (14:15)
[2023-03-14] MEDS ORDERED: HYDROcodone-ACET 5/325MG TAB PO PRN (14:15)
[2023-03-14] MEDS ORDERED: BISACODYL 10 MG RECT SUPP PR PRN (14:15)
[2023-03-14] MEDS ORDERED: ACETAMINOPHEN 325 MG TAB PO PRN (14:15)
[2023-03-14] MEDS: ERTAPENEM SOD INJ 1 GM in SODIUM CHL 0.9% 50 ML IV SCH (14:16)
[2023-03-14 14:30] LABS: Folate (Folic Acid) > 24.00 ng/mL (>5.38)
[2023-03-14] MEDS: InsuLIN REG 1unit/0.01ml Soln (100units/ml) SC SCH ×2 (17:00→21:27)
[2023-03-14 17:34] VITALS: BP 134/90; PULSE 78; RESP 19; TEMP 97.5; O2SAT 95
[2023-03-14] MEDS: ACCU-CHEK COMFORT CURVE STRIP VI SCH ×2 (17:50→21:18)
[2023-03-14 19:25] LABS: Urine Bacteria FEW /hpf (None Seen); Urine Blood 3+ /uL (Negative); Urine Clarity HAZY (Clear); Urine Color Yellow (Yellow); Urine Mucus FEW (None Seen); Urine Protein, UAD 1+ (Negative); Urine Specific Gravity 1.013 (1.001-1.035); Urine Urobilinogen Normal (Negative); Urine WBC 570 /hpf (0 - 3); Urine WBC Clumps PRESENT /hpf (None Seen)
[2023-03-14 20:00] VITALS: BP 135/80; PULSE 77; RESP 18; O2SAT 98
[2023-03-14] MEDS: SODIUM CHLORIDE 0.9% 1,000 ML IV SCH (21:00)
[2023-03-14] MEDS ORDERED: ONDANSETRON HCL 4 MG/2 ML VIAL IV PRN (21:00)
[2023-03-14] MEDS ORDERED: hydrALAZINE HCL 20 MG/ML VL IV PRN (21:15)
[2023-03-14] MEDS: DOCUSATE SOD 100 MG CAP PO SCH (21:18)
[2023-03-14] MEDS: ATORVASTATIN 20 MG TAB PO SCH (21:18)
[2023-03-14] MEDS: CARVEDILOL 12.5 MG TAB PO SCH (21:18)
[2023-03-14] MEDS: FAMOTIDINE 20 MG TAB PO SCH (21:18)
[2023-03-14 22:00] VITALS: BP 139/59; PULSE 66; RESP 20; TEMP 98.6; O2SAT 95
[2023-03-15] MEDS: INSULIN LANTUS (GLARGINE) 1 /0.01ml (100units/ml) SC SCH ×2 (03:37→21:46)
[2023-03-15 05:02] VITALS: BP 120/74; PULSE 85; RESP 18; TEMP 97.7; O2SAT 93
[2023-03-15] MEDS: ACCU-CHEK COMFORT CURVE STRIP VI SCH ×4 (05:58→21:42)
[2023-03-15] MEDS: SODIUM CHLORIDE 0.9% 1,000 ML IV SCH (06:00)
[2023-03-15] MEDS: InsuLIN REG 1unit/0.01ml Soln (100units/ml) SC SCH ×4 (06:04→21:33)
[2023-03-15 07:19] LABS: Basophils # (auto) 0.1 10 ^3/uL (0-0.2); Basophils % (auto) 0.8 % (0.0-2.0); Eosinophils # (auto) 0.2 10 ^3/uL (0-0.8); Eosinophils % (auto) 3.2 % (0.0-7.0); Hematocrit 39.7 % (41.0-53.0); Hemoglobin 13.1 g/dL (13.5-17.5); Lymphocytes # (auto) 2.3 10 ^3/uL (0.4-5.4); Lymphocytes % (auto) 30.8 % (10.0-50.0); Mean Corpuscular Hemoglobin 28.5 pg (28.0-32.0); Mean Corpuscular Volume 86.3 fL (80.0-100.0); Monocytes # (auto) 0.6 10 ^3/uL (0-1.3); Monocytes % (auto) 8.1 % (0.0-12.0); Neutrophils # (auto) 4.3 10 ^3/uL (1.6-8.6); Neutrophils % (auto) 57.1 % (37.0-80.0); White Blood Cell 7.5 10^3/uL (4.4-10.8)
[2023-03-15 07:31] LABS: % Iron Saturation 25.8 % (20-55); Alanine Aminotransferase 10 U/L (7-40); Albumin 3.8 g/dL (3.2-4.8); Alkaline Phosphatase 80 U/L (46-116); Anion Gap 6 (5-15); Aspartate Aminotransferase 11 U/L (13-40); BUN/Creatinine Ratio 10.9 (10.0-20.0); Bilirubin, Total 0.7 mg/dL (0.2-1.0); Blood Urea Nitrogen 12 mg/dL (9-23); Calcium 9.2 mg/dL (8.5-10.1); Carbon Dioxide 26 mmol/L (20-30); Chloride 110 mmol/L (98-107); Cholesterol 93 mg/dL (< 200); Glucose 143 mg/dL (74-106); HDL Cholesterol 28 mg/dL (40-59); LDL Cholesterol 52 mg/dL (< 100); Potassium 3.7 mmol/L (3.5-5.1); Sodium 142 mmol/L (136-145); Triglycerides 91 mg/dL (< 150)
[2023-03-15 07:51] LABS: Magnesium 1.8 mg/dL (1.6-2.6)
[2023-03-15 07:57] LABS: INR 1.08 (0.9-1.15); Prothrombin Time 11.3 sec (9.3-11.8)
[2023-03-15 08:00] VITALS: BP 135/80; PULSE 77; PULSE 85; RESP 18; O2SAT 98
[2023-03-15] MEDS: DOCUSATE SOD 100 MG CAP PO SCH ×2 (08:24→21:42)
[2023-03-15] MEDS: CARVEDILOL 12.5 MG TAB PO SCH ×2 (08:26→21:43)
[2023-03-15] MEDS: PANTOPRAZOLE 40 MG TAB PO SCH (08:26)
[2023-03-15] MEDS: ERTAPENEM SOD INJ 1 GM in SODIUM CHL 0.9% 50 ML IV SCH (10:39)
[2023-03-15 12:56] VITALS: BP 131/79; PULSE 83; RESP 14; TEMP 98; O2SAT 95
[2023-03-15 17:00] VITALS: BP 148/78; PULSE 77; RESP 16; TEMP 98.2; O2SAT 98
[2023-03-15 20:00] VITALS: PULSE 70; RESP 20; O2SAT 95
[2023-03-15] MEDS: FAMOTIDINE 20 MG TAB PO SCH (21:42)
[2023-03-15] MEDS: ATORVASTATIN 20 MG TAB PO SCH (21:42)
[2023-03-15 22:00] VITALS: BP 123/73; PULSE 89; RESP 20; TEMP 98.7; O2SAT 97
[2023-03-16] VITALS (7 sets, daily range): BP systolic 90–138; BP diastolic 51–79; PULSE 73–89; RESP 14–20; TEMP 98.2–98.8; O2SAT 94–98
[2023-03-16] MEDS: InsuLIN REG 1unit/0.01ml Soln (100units/ml) SC SCH ×4 (06:14→22:00)
[2023-03-16] MEDS: ACCU-CHEK COMFORT CURVE STRIP VI SCH ×4 (06:14→22:24)
[2023-03-16 06:22] LABS: Basophils # (auto) 0.1 10 ^3/uL (0-0.2); Basophils % (auto) 0.8 % (0.0-2.0); Eosinophils # (auto) 0.2 10 ^3/uL (0-0.8); Hematocrit 38.6 % (41.0-53.0); Hemoglobin 12.7 g/dL (13.5-17.5); Lymphocytes # (auto) 2.5 10 ^3/uL (0.4-5.4); Lymphocytes % (auto) 31.2 % (10.0-50.0); Mean Corpuscular Hemoglobin 28.4 pg (28.0-32.0); Mean Corpuscular Volume 86.1 fL (80.0-100.0); Monocytes # (auto) 0.7 10 ^3/uL (0-1.3); Monocytes % (auto) 9.2 % (0.0-12.0); Neutrophils # (auto) 4.4 10 ^3/uL (1.6-8.6); Neutrophils % (auto) 55.8 % (37.0-80.0); Red Blood Cells 4.48 10^6/uL (4.5-5.90); Red Cell Distribution Width 16.1 % (11.8-14.3); White Blood Cell 7.9 10^3/uL (4.4-10.8)
[2023-03-16] MEDS: INSULIN LANTUS (GLARGINE) 1 /0.01ml (100units/ml) SC SCH ×2 (06:29→22:23)
[2023-03-16 06:36] LABS: Calcium 9.4 mg/dL (8.7-10.4); Chloride 108 mmol/L (98-107); Potassium 3.7 mmol/L (3.5-5.1); Sodium 141 mmol/L (136-145)
[2023-03-16 06:37] LABS: Anion Gap 9 (5-15); Carbon Dioxide 24 mmol/L (20-30)
[2023-03-16 06:42] LABS: BUN/Creatinine Ratio 13.3 (10.0-20.0); Blood Urea Nitrogen 14 mg/dL (9-23); Glucose 122 mg/dL (74-106); Magnesium 1.8 mg/dL (1.6-2.6)
[2023-03-16] MEDS: PANTOPRAZOLE 40 MG TAB PO SCH (09:21)
[2023-03-16] MEDS: ERTAPENEM SOD INJ 1 GM in SODIUM CHL 0.9% 50 ML IV SCH (09:21)
[2023-03-16] MEDS: DOCUSATE SOD 100 MG CAP PO SCH ×2 (09:23→22:14)
[2023-03-16] MEDS: CARVEDILOL 12.5 MG TAB PO SCH ×2 (09:23→22:15)
[2023-03-16] MEDS: SODIUM CHLORIDE 0.9% 1,000 ML IV SCH (09:26)
[2023-03-16] MEDS: FAMOTIDINE 20 MG TAB PO SCH (22:15)
[2023-03-16] MEDS: ATORVASTATIN 20 MG TAB PO SCH (22:17)
[2023-03-17 05:00] VITALS: BP 141/78; PULSE 79; RESP 20; TEMP 97.9; O2SAT 94
[2023-03-17] MEDS: INSULIN LANTUS (GLARGINE) 1 /0.01ml (100units/ml) SC SCH (06:50)
[2023-03-17] MEDS: ACCU-CHEK COMFORT CURVE STRIP VI SCH ×3 (06:50→17:00)
[2023-03-17] MEDS: InsuLIN REG 1unit/0.01ml Soln (100units/ml) SC SCH ×3 (06:50→17:00)
[2023-03-17 06:57] LABS: Basophils # (auto) 0.1 10 ^3/uL (0-0.2); Basophils % (auto) 0.7 % (0.0-2.0); Eosinophils # (auto) 0.2 10 ^3/uL (0-0.8); Eosinophils % (auto) 2.9 % (0.0-7.0); Hematocrit 39.6 % (41.0-53.0); Hemoglobin 12.8 g/dL (13.5-17.5); Lymphocytes # (auto) 2.6 10 ^3/uL (0.4-5.4); Lymphocytes % (auto) 31.2 % (10.0-50.0); Mean Corpuscular Hgb Conc. 32.3 g/dL (32.0-36.0); Mean Corpuscular Volume 86.5 fL (80.0-100.0); Monocytes # (auto) 0.8 10 ^3/uL (0-1.3); Monocytes % (auto) 9.6 % (0.0-12.0); Neutrophils # (auto) 4.6 10 ^3/uL (1.6-8.6); Neutrophils % (auto) 55.6 % (37.0-80.0); Nucleated Red Blood Cells % 0.2 %; Red Blood Cells 4.57 10^6/uL (4.5-5.90); Red Cell Distribution Width 16.3 % (11.8-14.3); White Blood Cell 8.3 10^3/uL (4.4-10.8)
[2023-03-17 07:09] LABS: Albumin 3.9 g/dL (3.2-4.8); Alkaline Phosphatase 88 U/L (46-116); Anion Gap 6 (5-15); Aspartate Aminotransferase 8 U/L (13-40); BUN/Creatinine Ratio 11.1 (10.0-20.0); Bilirubin, Total 0.7 mg/dL (0.2-1.0); Blood Urea Nitrogen 13 mg/dL (9-23); Calcium 9.1 mg/dL (8.7-10.4); Carbon Dioxide 27 mmol/L (20-30); Chloride 109 mmol/L (98-107); Glucose 106 mg/dL (74-106); Potassium 3.7 mmol/L (3.5-5.1); Sodium 142 mmol/L (136-145); Total Protein 6.9 g/dL (5.7-8.2)
[2023-03-17 07:30] LABS: Alanine Aminotransferase < 9 U/L (7-40)
[2023-03-17] MEDS: PANTOPRAZOLE 40 MG TAB PO SCH (09:27)
[2023-03-17] MEDS: CARVEDILOL 12.5 MG TAB PO SCH (09:27)
[2023-03-17] MEDS: DOCUSATE SOD 100 MG CAP PO SCH (09:27)
[2023-03-17] MEDS: ERTAPENEM SOD INJ 1 GM in SODIUM CHL 0.9% 50 ML IV SCH (09:28)
[2023-03-17] MEDS: SODIUM CHLORIDE 0.9% 1,000 ML IV SCH (09:28)
[2023-03-17 13:00] VITALS: BP 108/71; PULSE 78; RESP 14; TEMP 97.5; O2SAT 98
[2023-03-17 17:00] VITALS: BP 115/78; PULSE 83; RESP 16; TEMP 98.7; O2SAT 95
[2023-03-17] MEDS ORDERED: FLUCONAZOLE 100 MG TAB PO SCH (17:45)
[2023-03-17] MEDS ORDERED: TAMSULOSIN HYDROCHLORIDE 0.4 MG CAP PO SCH (18:00)
[2023-03-17 18:20] VITALS: BP 108/71; PULSE 78; RESP 14; TEMP 97.8; O2SAT 98
== END 2023-03-17 19:01 | DRG 689 ==
LOC: ER 10:32 → EDUNIT# 10:32 → EDBD 10:32 → OVERFLOW 14:02 → WEST WING 17:18
PROVIDERS: ADMIT Internal Medicine; ATTEND Student in an Organized Health Care Education/Training Program
DX: N13.6 Pyonephrosis (principal); G82.50 Quadriplegia, unspecified; D64.9 Anemia, unspecified; I10 Essential (primary) hypertension; E66.9 Obesity, unspecified; E11.65 Type 2 diabetes mellitus with hyperglycemia; J44.9 Chronic obstructive pulmonary disease, unspecified; I25.10 Atherosclerotic heart disease of native coronary artery without angina pectoris; L97.519 Non-pressure chronic ulcer of other part of right foot with unspecified severity; I48.91 Unspecified atrial fibrillation; K21.9 Gastro-esophageal reflux disease without esophagitis; Z79.4 Long term (current) use of insulin; Z79.899 Other long term (current) drug therapy; Z86.73 Personal history of transient ischemic attack (TIA), and cerebral infarction without residual deficits; Z79.84 Long term (current) use of oral hypoglycemic drugs; Z80.1 Family history of malignant neoplasm of trachea, bronchus and lung; Z74.01 Bed confinement status
CPT/HCPCS: 36415; 71045; 71250; 74176; 80048; 80053; 80061; 81001; 82306; 82607; 82746; 82962; 83036; 83540; 83550; 83605; 83735; 83880; 84443; 84484; 85025; 85610; 87040; 87081; 87086; 87088; 96365; G0378; J1335; J1815

== ENCOUNTER 2023-04-01 18:00 | Inpatient (IN) | payer MEDICARE, MEDICAID ==
[~2023-04-01] VITALS: Ht 193 cm; Wt 113.0 kg
[2023-04-01 19:30] VITALS: PULSE 99; RESP 20; O2SAT 92
[2023-04-01 21:09] LABS: Basophils # (auto) 0.1 10 ^3/uL (0-0.2); Basophils % (auto) 0.8 % (0.0-2.0); Eosinophils # (auto) 0 10 ^3/uL (0-0.8); Eosinophils % (auto) 0.3 % (0.0-7.0); Hematocrit 38.1 % (41.0-53.0); Hemoglobin 12.1 g/dL (13.5-17.5); Lymphocytes # (auto) 2.8 10 ^3/uL (0.4-5.4); Lymphocytes % (auto) 18.9 % (10.0-50.0); Mean Corpuscular Hemoglobin 27.6 pg (28.0-32.0); Mean Corpuscular Hgb Conc. 31.6 g/dL (32.0-36.0); Mean Corpuscular Volume 87.1 fL (80.0-100.0); Monocytes # (auto) 1.2 10 ^3/uL (0-1.3); Monocytes % (auto) 8.2 % (0.0-12.0); Neutrophils # (auto) 10.8 10 ^3/uL (1.6-8.6); Neutrophils % (auto) 71.8 % (37.0-80.0); Red Blood Cells 4.38 10^6/uL (4.5-5.90); Red Cell Distribution Width 16.1 % (11.8-14.3)
[2023-04-01 21:24] LABS: INR 1.12 (0.9-1.15); Partial Thromboplastin Time 34.2 SEC (24.5-34.5); Prothrombin Time 11.7 sec (9.3-11.8)
[2023-04-01 21:27] LABS: Lipase 37 U/L (12-53); Magnesium 1.8 mg/dL (1.6-2.6)
[2023-04-01 21:30] LABS: BUN/Creatinine Ratio 6.3 (10.0-20.0)
[2023-04-01 21:39] LABS: Alanine Aminotransferase 12 U/L (7-40); Albumin 3.9 g/dL (3.2-4.8); Alkaline Phosphatase 113 U/L (46-116); Anion Gap 7 (5-15); Aspartate Aminotransferase 14 U/L (13-40); Blood Urea Nitrogen 9 mg/dL (9-23); CRP High Sensitivity 5.99 mg/dL (<1.0); Carbon Dioxide 27 mmol/L (20-30); Chloride 107 mmol/L (98-107); Glucose 150 mg/dL (74-106); Potassium 3.6 mmol/L (3.5-5.1); Sodium 141 mmol/L (136-145); Total Protein 7.5 g/dL (5.7-8.2)
[2023-04-01 22:09] LABS: Erythrocyte Sedimentation Rate 53 mm/hr (0-20)
[2023-04-01 22:31] LABS: Urine Bacteria FEW /hpf (None Seen); Urine Blood 1+ /uL (Negative); Urine Clarity HAZY (Clear); Urine Color Yellow (Yellow); Urine Mucus FEW (None Seen); Urine Protein, UAD 2+ (Negative); Urine Specific Gravity 1.015 (1.001-1.035); Urine Urobilinogen Normal (Negative); Urine WBC 254 /hpf (0 - 3)
[2023-04-01] MEDS ORDERED: ONDANSETRON HCL 4 MG/2 ML VIAL IV PRN (22:45)
[2023-04-01] MEDS ORDERED: HYDROcodone-ACET 5/325MG TAB PO PRN (22:45)
[2023-04-01] MEDS ORDERED: ACETAMINOPHEN 325 MG TAB PO PRN (22:45)
[2023-04-01] MEDS ORDERED: DEXTROSE (50%) 50ML SYRG IV PRN (22:45)
[2023-04-01 22:57] LABS: COVID19 ANTIGEN SOFIA FIA NEGATIVE (NEGATIVE)
[2023-04-01] MEDS ORDERED: levoFLOXacin 500MG 100 ML IV ONE (23:30)
[2023-04-02 05:51] LABS: Basophils # (auto) 0.1 10 ^3/uL (0-0.2); Basophils % (auto) 0.4 % (0.0-2.0); Eosinophils # (auto) 0.1 10 ^3/uL (0-0.8); Eosinophils % (auto) 0.6 % (0.0-7.0); Hematocrit 36.1 % (41.0-53.0); Hemoglobin 11.8 g/dL (13.5-17.5); Lymphocytes # (auto) 2.5 10 ^3/uL (0.4-5.4); Lymphocytes % (auto) 18.9 % (10.0-50.0); Mean Corpuscular Hemoglobin 28.1 pg (28.0-32.0); Mean Corpuscular Hgb Conc. 32.6 g/dL (32.0-36.0); Monocytes % (auto) 7.9 % (0.0-12.0); Neutrophils # (auto) 9.6 10 ^3/uL (1.6-8.6); Neutrophils % (auto) 72.2 % (37.0-80.0); Red Cell Distribution Width 16.1 % (11.8-14.3); White Blood Cell 13.2 10^3/uL (4.4-10.8)
[2023-04-02 06:01] LABS: Alanine Aminotransferase 11 U/L (7-40); Albumin 3.9 g/dL (3.2-4.8); Alkaline Phosphatase 110 U/L (46-116); Anion Gap 8 (5-15); Aspartate Aminotransferase 14 U/L (13-40); BUN/Creatinine Ratio 8.7 (10.0-20.0); Bilirubin, Total 1.2 mg/dL (0.2-1.0); Blood Urea Nitrogen 11 mg/dL (9-23); Carbon Dioxide 26 mmol/L (20-30); Chloride 108 mmol/L (98-107); Glucose 155 mg/dL (74-106); Potassium 3.8 mmol/L (3.5-5.1); Sodium 142 mmol/L (136-145); Total Protein 7.3 g/dL (5.7-8.2)
[2023-04-02] MEDS: ACCU-CHEK COMFORT CURVE STRIP VI SCH ×4 (06:41→21:13)
[2023-04-02] MEDS: InsuLIN REG 1unit/0.01ml Soln (100units/ml) SC SCH ×4 (06:46→21:16)
[2023-04-02 08:00] VITALS: PULSE 83; RESP 13; O2SAT 99
[2023-04-02] MEDS ORDERED: ENOXAPARIN SOD 30 MG/0.3 ML SYRINGE SC SCH (10:00)
[2023-04-02] MEDS: APIXABAN 2.5 MG TAB PO SCH ×2 (11:02→21:12)
[2023-04-02] MEDS: CARVEDILOL 12.5 MG TAB PO SCH ×2 (11:02→21:12)
[2023-04-02] MEDS ORDERED: ERTAPENEM SOD INJ 1 GM in SODIUM CHL 0.9% 50 ML IV ONE (11:45)
[2023-04-02] MEDS ORDERED: IOHEXOL 350 MG/ML 100ML IJ ONE (14:04)
[2023-04-02 16:58] VITALS: BP 106/63; PULSE 84; RESP 18; TEMP 97.9; O2SAT 96
[2023-04-02] MEDS: TAMSULOSIN HYDROCHLORIDE 0.4 MG CAP PO SCH (18:32)
[2023-04-02 19:00] VITALS: PULSE 76; RESP 16; O2SAT 98
[2023-04-02 19:43] VITALS: BP 106/63; PULSE 84; RESP 18; TEMP 97.9; O2SAT 98
[2023-04-02 20:00] VITALS: PULSE 76; RESP 16; O2SAT 98
[2023-04-02] MEDS: DOXYCYCLINE 100 MG TAB/CAP PO SCH (21:12)
[2023-04-02] MEDS: ATORVASTATIN 20 MG TAB PO SCH (21:12)
[2023-04-02 22:00] VITALS: BP 122/68; PULSE 68; PULSE 76; RESP 16; TEMP 98.4; O2SAT 100; O2SAT 98
[2023-04-02] MEDS ORDERED: levoFLOXacin 500MG 100 ML IV SCH (22:00)
[2023-04-03 05:00] VITALS: BP 98/61; PULSE 84; RESP 18; TEMP 98.4; O2SAT 98
[2023-04-03] MEDS: ACCU-CHEK COMFORT CURVE STRIP VI SCH ×4 (06:49→21:00)
[2023-04-03] MEDS: InsuLIN REG 1unit/0.01ml Soln (100units/ml) SC SCH ×4 (06:51→21:06)
[2023-04-03 06:55] LABS: Chloride 107 mmol/L (98-107); Potassium 3.8 mmol/L (3.5-5.1); Sodium 139 mmol/L (136-145)
[2023-04-03 07:01] LABS: BUN/Creatinine Ratio 7.8 (10.0-20.0); Blood Urea Nitrogen 9 mg/dL (9-23); Glucose 151 mg/dL (74-106)
[2023-04-03 07:05] LABS: Basophils # (auto) 0 10 ^3/uL (0-0.2); Basophils % (auto) 0.4 % (0.0-2.0); Eosinophils # (auto) 0.3 10 ^3/uL (0-0.8); Eosinophils % (auto) 2.5 % (0.0-7.0); Hematocrit 36.9 % (41.0-53.0); Hemoglobin 11.7 g/dL (13.5-17.5); Lymphocytes # (auto) 1.9 10 ^3/uL (0.4-5.4); Lymphocytes % (auto) 17.7 % (10.0-50.0); Mean Corpuscular Hgb Conc. 31.6 g/dL (32.0-36.0); Mean Corpuscular Volume 88.6 fL (80.0-100.0); Monocytes # (auto) 0.8 10 ^3/uL (0-1.3); Monocytes % (auto) 7.6 % (0.0-12.0); Neutrophils # (auto) 7.9 10 ^3/uL (1.6-8.6); Neutrophils % (auto) 71.8 % (37.0-80.0); Nucleated Red Blood Cells % 0.1 %; Red Blood Cells 4.17 10^6/uL (4.5-5.90); Red Cell Distribution Width 16.2 % (11.8-14.3)
[2023-04-03 07:36] LABS: Anion Gap 11 (5-15); Carbon Dioxide 21 mmol/L (20-30)
[2023-04-03] MEDS ORDERED: CHOL1CAP58 PO (07:48)
[2023-04-03] MEDS ORDERED: ATOR10TA52 PO (07:48)
[2023-04-03] MEDS ORDERED: INSLANTI SC (07:48)
[2023-04-03] MEDS ORDERED: INSREG3 SC (07:48)
[2023-04-03] MEDS ORDERED: ONDA-155 PO (07:48)
[2023-04-03] MEDS ORDERED: TAMS-35 PO (07:48)
[2023-04-03] MEDS ORDERED: PANT40TA2 PO (07:48)
[2023-04-03] MEDS ORDERED: MULT-733 OR (07:48)
[2023-04-03] MEDS ORDERED: MISC1CAP PO (07:48)
[2023-04-03] MEDS ORDERED: NITR0.4S29 SL (07:48)
[2023-04-03 09:13] LABS: Hepatitis B Surface Antigen Negative (Negative)
[2023-04-03 09:34] LABS: Hepatitis C Antibody Negative (Negative)
[2023-04-03] MEDS: DOXYCYCLINE 100 MG TAB/CAP PO SCH ×2 (09:40→21:02)
[2023-04-03] MEDS: CARVEDILOL 12.5 MG TAB PO SCH ×2 (09:40→21:01)
[2023-04-03] MEDS: ERTAPENEM SOD INJ 1 GM in SODIUM CHL 0.9% 50 ML IV SCH (09:53)
[2023-04-03] MEDS ORDERED: PROPOFOL 10 MG/ML 20 ML IV ONE (13:09)
[2023-04-03] MEDS ORDERED: LIDOCAINE 2% (LOCAL ANESTH.) PF 5ml SDV ONE (13:10)
[2023-04-03] MEDS ORDERED: DexAMETHasone SOD PHOS 10MG/1ML VIAL INJ ONE (13:10)
[2023-04-03] MEDS ORDERED: KETOROLAC TROMETH 30 MG/ML 1ML VIAL ONE (13:10)
[2023-04-03] MEDS ORDERED: GLYCOPYRROLATE 0.2 MG/ML 1ML VIAL ONE (13:10)
[2023-04-03] MEDS ORDERED: ONDANSETRON HCL 4 MG/2 ML VIAL ONE (13:10)
[2023-04-03] MEDS ORDERED: fentaNYL CITRATE 100 MCG/2 ML VL ONE (13:11)
[2023-04-03] MEDS ORDERED: ceFAZolin 2 GM/D5W100ml 100 ML IV ONE (14:37)
[2023-04-03] MEDS ORDERED: SODIUM CHLORIDE LOCK 10 ML ONE ×2 (14:47→14:58)
[2023-04-03] MEDS ORDERED: ePHEDrine SULFATE 50 MG/ML AMP ONE (14:47)
[2023-04-03] MEDS ORDERED: PHENYLEPHRINE HCL 10 MG/ML VL ONE (14:58)
[2023-04-03 16:19] VITALS: O2SAT 99
[2023-04-03 17:00] VITALS: BP 89/29; PULSE 74; RESP 18; TEMP 98.3; O2SAT 98
[2023-04-03] MEDS: TAMSULOSIN HYDROCHLORIDE 0.4 MG CAP PO SCH (17:39)
[2023-04-03 20:02] VITALS: PULSE 74; RESP 16; O2SAT 98
[2023-04-03] MEDS: APIXABAN 2.5 MG TAB PO SCH (21:01)
[2023-04-03] MEDS: ATORVASTATIN 20 MG TAB PO SCH (21:01)
[2023-04-03 22:00] VITALS: BP 133/101; PULSE 94; RESP 18; TEMP 98.2; O2SAT 97
[2023-04-04] VITALS (7 sets, daily range): BP systolic 98–150; BP diastolic 53–70; PULSE 74–80; RESP 16–20; TEMP 97.3–98; O2SAT 94–98
[2023-04-04] MEDS: InsuLIN REG 1unit/0.01ml Soln (100units/ml) SC SCH ×4 (06:11→21:48)
[2023-04-04] MEDS: ACCU-CHEK COMFORT CURVE STRIP VI SCH ×4 (06:11→21:48)
[2023-04-04 06:46] LABS: Basophils # (auto) 0 10 ^3/uL (0-0.2); Basophils % (auto) 0.2 % (0.0-2.0); Eosinophils # (auto) 0 10 ^3/uL (0-0.8); Hematocrit 36.6 % (41.0-53.0); Hemoglobin 12.1 g/dL (13.5-17.5); Lymphocytes # (auto) 1.1 10 ^3/uL (0.4-5.4); Lymphocytes % (auto) 11.5 % (10.0-50.0); Mean Corpuscular Hemoglobin 28.5 pg (28.0-32.0); Mean Corpuscular Hgb Conc. 33.2 g/dL (32.0-36.0); Mean Corpuscular Volume 86.1 fL (80.0-100.0); Monocytes # (auto) 0.4 10 ^3/uL (0-1.3); Monocytes % (auto) 3.7 % (0.0-12.0); Neutrophils # (auto) 8.4 10 ^3/uL (1.6-8.6); Neutrophils % (auto) 84.6 % (37.0-80.0); Nucleated Red Blood Cells % 0.1 %; Red Blood Cells 4.25 10^6/uL (4.5-5.90); White Blood Cell 9.9 10^3/uL (4.4-10.8)
[2023-04-04 06:52] LABS: Chloride 104 mmol/L (98-107); Potassium 4.2 mmol/L (3.5-5.1); Sodium 139 mmol/L (136-145)
[2023-04-04 06:53] LABS: Anion Gap 9 (5-15); Carbon Dioxide 26 mmol/L (20-30)
[2023-04-04 06:54] LABS: Calcium 9.3 mg/dL (8.5-10.1)
[2023-04-04 06:58] LABS: BUN/Creatinine Ratio 12.3 (10.0-20.0); Blood Urea Nitrogen 16 mg/dL (9-23); Glucose 216 mg/dL (74-106)
[2023-04-04] MEDS: APIXABAN 2.5 MG TAB PO SCH ×2 (10:00→10:44)
[2023-04-04] MEDS: ERTAPENEM SOD INJ 1 GM in SODIUM CHL 0.9% 50 ML IV SCH (10:44)
[2023-04-04] MEDS: DOXYCYCLINE 100 MG TAB/CAP PO SCH ×2 (10:44→21:45)
[2023-04-04] MEDS: CARVEDILOL 12.5 MG TAB PO SCH ×2 (10:45→21:48)
[2023-04-04] MEDS: TAMSULOSIN HYDROCHLORIDE 0.4 MG CAP PO SCH (18:18)
[2023-04-04] MEDS: ATORVASTATIN 20 MG TAB PO SCH (21:45)
[2023-04-05 05:00] VITALS: BP 133/78; PULSE 83; RESP 16; TEMP 97.9; O2SAT 94
[2023-04-05] MEDS: ACCU-CHEK COMFORT CURVE STRIP VI SCH ×4 (06:28→22:17)
[2023-04-05] MEDS: InsuLIN REG 1unit/0.01ml Soln (100units/ml) SC SCH ×4 (06:30→22:19)
[2023-04-05 06:32] LABS: Basophils # (auto) 0.1 10 ^3/uL (0-0.2); Basophils % (auto) 0.7 % (0.0-2.0); Eosinophils # (auto) 0.1 10 ^3/uL (0-0.8); Eosinophils % (auto) 0.8 % (0.0-7.0); Hematocrit 35.2 % (41.0-53.0); Hemoglobin 11.3 g/dL (13.5-17.5); Lymphocytes # (auto) 2.2 10 ^3/uL (0.4-5.4); Lymphocytes % (auto) 23.3 % (10.0-50.0); Mean Corpuscular Hemoglobin 27.7 pg (28.0-32.0); Mean Corpuscular Hgb Conc. 32.1 g/dL (32.0-36.0); Monocytes # (auto) 0.7 10 ^3/uL (0-1.3); Monocytes % (auto) 7.3 % (0.0-12.0); Neutrophils # (auto) 6.3 10 ^3/uL (1.6-8.6); Neutrophils % (auto) 67.9 % (37.0-80.0); Red Cell Distribution Width 15.9 % (11.8-14.3); White Blood Cell 9.3 10^3/uL (4.4-10.8)
[2023-04-05 07:20] LABS: Anion Gap 9 (5-15); Carbon Dioxide 25 mmol/L (20-30); Chloride 106 mmol/L (98-107); Potassium 3.7 mmol/L (3.5-5.1); Sodium 140 mmol/L (136-145)
[2023-04-05 07:21] LABS: Calcium 9.1 mg/dL (8.7-10.4)
[2023-04-05 07:26] LABS: BUN/Creatinine Ratio 15.8 (10.0-20.0); Blood Urea Nitrogen 21 mg/dL (9-23); Glucose 187 mg/dL (74-106)
[2023-04-05 09:00] VITALS: BP 116/70; PULSE 82; RESP 18; TEMP 98.9; O2SAT 95
[2023-04-05] MEDS: DOXYCYCLINE 100 MG TAB/CAP PO SCH ×2 (09:32→22:16)
[2023-04-05] MEDS: CARVEDILOL 12.5 MG TAB PO SCH ×2 (09:33→22:16)
[2023-04-05] MEDS: ERTAPENEM SOD INJ 1 GM in SODIUM CHL 0.9% 50 ML IV SCH (09:33)
[2023-04-05 17:20] VITALS: BP 130/82; PULSE 75; RESP 19; TEMP 98.1; O2SAT 95
[2023-04-05] MEDS: TAMSULOSIN HYDROCHLORIDE 0.4 MG CAP PO SCH (17:20)
[2023-04-05 20:00] VITALS: BP 136/60; PULSE 79; RESP 16; TEMP 98.1; O2SAT 96
[2023-04-05 22:00] VITALS: BP 136/60; PULSE 79; RESP 16; TEMP 98.1; O2SAT 96
[2023-04-05] MEDS: ATORVASTATIN 20 MG TAB PO SCH (22:16)
[2023-04-06 04:59] VITALS: BP 124/72; PULSE 72; RESP 17; TEMP 98.2; O2SAT 95
[2023-04-06] MEDS: ACCU-CHEK COMFORT CURVE STRIP VI SCH ×4 (06:23→23:23)
[2023-04-06] MEDS: InsuLIN REG 1unit/0.01ml Soln (100units/ml) SC SCH ×4 (06:32→23:24)
[2023-04-06 06:56] LABS: Basophils # (auto) 0.1 10 ^3/uL (0-0.2); Basophils % (auto) 0.9 % (0.0-2.0); Eosinophils # (auto) 0.3 10 ^3/uL (0-0.8); Eosinophils % (auto) 3.2 % (0.0-7.0); Hematocrit 35.1 % (41.0-53.0); Hemoglobin 11.3 g/dL (13.5-17.5); Lymphocytes # (auto) 2.4 10 ^3/uL (0.4-5.4); Lymphocytes % (auto) 29.5 % (10.0-50.0); Mean Corpuscular Hgb Conc. 32.3 g/dL (32.0-36.0); Mean Corpuscular Volume 86.7 fL (80.0-100.0); Monocytes # (auto) 0.7 10 ^3/uL (0-1.3); Monocytes % (auto) 9.1 % (0.0-12.0); Neutrophils # (auto) 4.7 10 ^3/uL (1.6-8.6); Neutrophils % (auto) 57.3 % (37.0-80.0); Nucleated Red Blood Cells % 0.1 %; Red Blood Cells 4.05 10^6/uL (4.5-5.90); Red Cell Distribution Width 15.8 % (11.8-14.3); White Blood Cell 8.3 10^3/uL (4.4-10.8)
[2023-04-06 07:05] LABS: Chloride 107 mmol/L (98-107); Potassium 3.7 mmol/L (3.5-5.1); Sodium 141 mmol/L (136-145)
[2023-04-06 07:06] LABS: Anion Gap 7 (5-15); Carbon Dioxide 27 mmol/L (20-30)
[2023-04-06 07:07] LABS: Calcium 9.1 mg/dL (8.5-10.1)
[2023-04-06 07:11] LABS: BUN/Creatinine Ratio 13.3 (10.0-20.0); Blood Urea Nitrogen 14 mg/dL (9-23); Glucose 168 mg/dL (74-106)
[2023-04-06 09:11] VITALS: BP 158/83; PULSE 82; RESP 20; TEMP 97.8; O2SAT 94
[2023-04-06] MEDS: DOXYCYCLINE 100 MG TAB/CAP PO SCH ×2 (09:31→23:21)
[2023-04-06] MEDS: CARVEDILOL 12.5 MG TAB PO SCH ×2 (09:32→23:22)
[2023-04-06] MEDS: ERTAPENEM SOD INJ 1 GM in SODIUM CHL 0.9% 50 ML IV SCH (13:11)
[2023-04-06 13:12] VITALS: BP 132/76; PULSE 76; RESP 20; TEMP 97.9; O2SAT 96
[2023-04-06] MEDS: TAMSULOSIN HYDROCHLORIDE 0.4 MG CAP PO SCH (17:15)
[2023-04-06 17:32] VITALS: BP 125/78; PULSE 71; RESP 20; TEMP 97.9; O2SAT 92
[2023-04-06 20:00] VITALS: BP 135/71; PULSE 82; RESP 16; TEMP 98.2; O2SAT 96
[2023-04-06 22:00] VITALS: BP 135/71; PULSE 82; RESP 16; TEMP 98.2; O2SAT 96
[2023-04-06] MEDS: ATORVASTATIN 20 MG TAB PO SCH (23:22)
[2023-04-07 04:56] LABS: Basophils # (auto) 0 10 ^3/uL (0-0.2); Basophils % (auto) 0.4 % (0.0-2.0); Eosinophils # (auto) 0.2 10 ^3/uL (0-0.8); Eosinophils % (auto) 2.9 % (0.0-7.0); Hematocrit 34.8 % (41.0-53.0); Hemoglobin 11.4 g/dL (13.5-17.5); Lymphocytes # (auto) 2.3 10 ^3/uL (0.4-5.4); Lymphocytes % (auto) 27.4 % (10.0-50.0); Mean Corpuscular Hemoglobin 28.2 pg (28.0-32.0); Mean Corpuscular Hgb Conc. 32.8 g/dL (32.0-36.0); Monocytes # (auto) 0.7 10 ^3/uL (0-1.3); Neutrophils # (auto) 5.2 10 ^3/uL (1.6-8.6); Neutrophils % (auto) 61.3 % (37.0-80.0); Nucleated Red Blood Cells % 0.2 %; Red Blood Cells 4.05 10^6/uL (4.5-5.90); Red Cell Distribution Width 15.6 % (11.8-14.3); White Blood Cell 8.4 10^3/uL (4.4-10.8)
[2023-04-07 05:00] VITALS: BP 125/83; PULSE 85; RESP 16; TEMP 98.1; O2SAT 97
[2023-04-07 05:04] LABS: Chloride 106 mmol/L (98-107); Potassium 3.7 mmol/L (3.5-5.1); Sodium 139 mmol/L (136-145)
[2023-04-07 05:05] LABS: Anion Gap 9 (5-15); Carbon Dioxide 24 mmol/L (20-30)
[2023-04-07 05:06] LABS: Calcium 9.2 mg/dL (8.7-10.4)
[2023-04-07 05:10] LABS: BUN/Creatinine Ratio 11.7 (10.0-20.0); Blood Urea Nitrogen 12 mg/dL (9-23); Glucose 161 mg/dL (74-106)
[2023-04-07 05:11] LABS: Magnesium 1.8 mg/dL (1.6-2.6)
[2023-04-07] MEDS: ACCU-CHEK COMFORT CURVE STRIP VI SCH ×3 (06:26→17:00)
[2023-04-07] MEDS: InsuLIN REG 1unit/0.01ml Soln (100units/ml) SC SCH ×3 (06:36→17:00)
[2023-04-07 09:00] VITALS: BP 122/77; PULSE 77; RESP 19; TEMP 97.8; O2SAT 97
[2023-04-07] MEDS: DOXYCYCLINE 100 MG TAB/CAP PO SCH (10:12)
[2023-04-07] MEDS: ERTAPENEM SOD INJ 1 GM in SODIUM CHL 0.9% 50 ML IV SCH (10:12)
[2023-04-07] MEDS: CARVEDILOL 12.5 MG TAB PO SCH (10:13)
[2023-04-07 13:00] VITALS: BP 114/74; PULSE 84; RESP 16; TEMP 98; O2SAT 99
[2023-04-07] MEDS ORDERED: CIPROFLOXACIN HCL 500 MG TAB PO ONE (13:45)
== END 2023-04-07 16:58 | DRG 853 ==
LOC: EDBD 18:00 → ER 18:00 → OVERFLOW 22:53 → WEST WING 04-02 16:17
PROVIDERS: ADMIT Internal Medicine
PROC: 5A09357 Assistance with Respiratory Ventilation, Less than 24 Consecutive Hours, Continuous Positive Airway Pressure (ICD-10-PCS; 2023-04-02)
PROC: 0TC78ZZ Extirpation of Matter from Left Ureter, Via Natural or Artificial Opening Endoscopic (ICD-10-PCS; 2023-04-03)
PROC: 0T778DZ Dilation of Left Ureter with Intraluminal Device, Via Natural or Artificial Opening Endoscopic (ICD-10-PCS; principal; 2023-04-03 14:40)
PROC: 0TC18ZZ Extirpation of Matter from Left Kidney, Via Natural or Artificial Opening Endoscopic (ICD-10-PCS; 2023-04-03 14:40)
PROC: 05HF33Z Insertion of Infusion Device into Left Cephalic Vein, Percutaneous Approach (ICD-10-PCS; 2023-04-04)
PROC: B54NZZA Ultrasonography of Left Upper Extremity Veins, Guidance (ICD-10-PCS; 2023-04-04)
DX: A41.9 Sepsis, unspecified organism (principal); G82.50 Quadriplegia, unspecified; J96.01 Acute respiratory failure with hypoxia; J15.69 Pneumonia due to other Gram-negative bacteria; J15.9 Unspecified bacterial pneumonia; N13.6 Pyonephrosis; J44.0 Chronic obstructive pulmonary disease with (acute) lower respiratory infection; D64.9 Anemia, unspecified; E78.5 Hyperlipidemia, unspecified; Z20.822 Contact with and (suspected) exposure to COVID-19; I48.91 Unspecified atrial fibrillation; R33.9 Retention of urine, unspecified; R79.82 Elevated C-reactive protein (CRP); Z74.01 Bed confinement status; I12.9 Hypertensive chronic kidney disease with stage 1 through stage 4 chronic kidney disease, or unspecified chronic kidney disease; E11.22 Type 2 diabetes mellitus with diabetic chronic kidney disease; E66.9 Obesity, unspecified; N18.2 Chronic kidney disease, stage 2 (mild); R70.0 Elevated erythrocyte sedimentation rate; K21.9 Gastro-esophageal reflux disease without esophagitis; Z80.1 Family history of malignant neoplasm of trachea, bronchus and lung; Z82.49 Family history of ischemic heart disease and other diseases of the circulatory system; Z83.3 Family history of diabetes mellitus; Z86.73 Personal history of transient ischemic attack (TIA), and cerebral infarction without residual deficits; Z87.440 Personal history of urinary (tract) infections; Z87.442 Personal history of urinary calculi; Z90.49 Acquired absence of other specified parts of digestive tract; Z68.30 Body mass index [BMI] 30.0-30.9, adult
CPT/HCPCS: 36415; 71045; 71275; 74176; 80048; 80053; 81001; 82010; 82962; 83605; 83690; 83735; 83880; 84443; 84484; 85025; 85610; 85652; 85730; 86141; 86803; 86850; 86900; 86901; 87081; 87086; 87088; 87186; 87340; 87426; 93005; 94660; G0378; J1100; J1335; J1815; J1885; J1956; J2001; J2405; J2704

== ENCOUNTER 2023-04-26 19:07 | Inpatient (IN) | payer MEDICARE, MEDICAID ==
[~2023-04-26] VITALS: Ht 193 cm; Wt 114.0 kg
[~2023-04-26 19:07] MED LIST changes: +ATOR10TA52 PO; +CHOL1CAP58 PO; -DIPH25CA66 PO; -INSR100KIT IV; +INSREG3 SC; -IPRIH IN; -METF-370 PO; +MISC1CAP PO; +MULT-733 OR; +NITR0.4S29 SL; +ONDA-155 PO; +PANT40TA2 PO; -SIMV20TA20 PO; +TAMS-35 PO
[2023-04-26 20:38] LABS: Basophils # (auto) 0.1 10 ^3/uL (0-0.2); Basophils % (auto) 0.5 % (0.0-2.0); Eosinophils # (auto) 0.1 10 ^3/uL (0-0.8); Eosinophils % (auto) 0.5 % (0.0-7.0); Hematocrit 42.5 % (41.0-53.0); Hemoglobin 13.7 g/dL (13.5-17.5); Lymphocytes % (auto) 7.6 % (10.0-50.0); Mean Corpuscular Hemoglobin 27.6 pg (28.0-32.0); Mean Corpuscular Hgb Conc. 32.1 g/dL (32.0-36.0); Mean Corpuscular Volume 85.8 fL (80.0-100.0); Monocytes # (auto) 0.7 10 ^3/uL (0-1.3); Monocytes % (auto) 5.6 % (0.0-12.0); Neutrophils # (auto) 11.4 10 ^3/uL (1.6-8.6); Neutrophils % (auto) 85.8 % (37.0-80.0); Red Blood Cells 4.95 10^6/uL (4.5-5.90); Red Cell Distribution Width 16.6 % (11.8-14.3); White Blood Cell 13.3 10^3/uL (4.4-10.8)
[2023-04-26 20:55] LABS: Alanine Aminotransferase 12 U/L (7-40); Alkaline Phosphatase 111 U/L (46-116); Anion Gap 6 (5-15); Aspartate Aminotransferase 19 U/L (13-40); BUN/Creatinine Ratio 9.6 (10.0-20.0); Blood Urea Nitrogen 11 mg/dL (9-23); Calcium 9.2 mg/dL (8.7-10.4); Carbon Dioxide 26 mmol/L (20-30); Chloride 108 mmol/L (98-107); Glucose 146 mg/dL (74-106); Potassium 3.8 mmol/L (3.5-5.1); Sodium 140 mmol/L (136-145)
[2023-04-26 20:56] LABS: Bilirubin, Total 1.1 mg/dL (0.2-1.0); Total Protein 7.5 g/dL (5.7-8.2)
[2023-04-26] MEDS ORDERED: ACETAMINOPHEN 325 MG TAB PO PRN (21:15)
[2023-04-26] MEDS ORDERED: VANCOMYCIN PER PHARMACY 0 MG IV SCH (21:15)
[2023-04-26] MEDS ORDERED: SODIUM CHLORIDE 0.9% 4,500 ML IV ONE (21:15)
[2023-04-26] MEDS ORDERED: PANTOPRAZOLE 40 MG/10 ML VIAL INJ IV ONE (21:15)
[2023-04-26 21:52] LABS: INR 1.09 (0.9-1.15); Partial Thromboplastin Time 32.6 SEC (24.5-34.5); Prothrombin Time 11.4 sec (9.3-11.8)
[2023-04-26 22:00] VITALS: PULSE 106; RESP 28; O2SAT 98
[2023-04-26] MEDS ORDERED: VANCOMYCIN 1GM/250ML 250 ML IV ONE (22:30)
[2023-04-26 23:48] LABS: COVID19 ANTIGEN SOFIA FIA NEGATIVE (NEGATIVE)
[2023-04-26 23:49] LABS: Rapid Influenza A Negative (Negative); Rapid Influenza B Negative (Negative)
[2023-04-27] MEDS ORDERED: PIPERACILLIN-TAZOB 3.375GM 100 ML IV SCH
[2023-04-27 01:37] LABS: Urine Bacteria FEW /hpf (None Seen); Urine Blood 3+ /uL (Negative); Urine Clarity HAZY (Clear); Urine Color Yellow (Yellow); Urine Hyaline Cast MOD /lpf (0 - 2); Urine Mucus FEW (None Seen); Urine Protein, UAD 1+ (Negative); Urine Specific Gravity 1.014 (1.001-1.035); Urine Urobilinogen Normal (Negative); Urine WBC 541 /hpf (0 - 3); Urine WBC Clumps PRESENT /hpf (None Seen)
[2023-04-27] MEDS ORDERED: ALBUMIN 25% 100 ML IV ONE (03:00)
[2023-04-27] MEDS ORDERED: SODIUM CHLORIDE 0.9% 1,000 ML IV ONE (03:00)
[2023-04-27] MEDS ORDERED: ALBUMIN 5% 250 ML IV ONE (05:30)
[2023-04-27] MEDS ORDERED: MORPHINE SULFATE INJ 2 MG/ml SYRG IV PRN (05:30)
[2023-04-27] MEDS ORDERED: DEXTROSE (50%) 50ML SYRG IV PRN (05:30)
[2023-04-27] MEDS ORDERED: ALBUTEROL MEDNEB 2.5 mg/3ml NEB NEB PRN (05:30)
[2023-04-27] MEDS ORDERED: ONDANSETRON HCL 4 MG/2 ML VIAL IV PRN (05:30)
[2023-04-27] MEDS ORDERED: NITROGLYCERIN 0.4 MG SL TAB SL PRN (05:30)
[2023-04-27] MEDS: InsuLIN REG 1unit/0.01ml Soln (100units/ml) SC SCH ×4 (07:16→22:17)
[2023-04-27] MEDS: ACCU-CHEK COMFORT CURVE STRIP VI SCH ×4 (07:17→22:11)
[2023-04-27 07:36] VITALS: BP 84/55; PULSE 106; RESP 28; TEMP 99.1; O2SAT 98
[2023-04-27 07:44] VITALS: O2SAT 98
[2023-04-27 07:45] VITALS: PULSE 69; RESP 16; O2SAT 95
[2023-04-27] MEDS: cefTRIAXone 1GM/50ML D5W 50 ML IV SCH (09:34)
[2023-04-27] MEDS: AZITHROMYCIN 500MG/ 250ML 250 ML IV SCH (10:00)
[2023-04-27] MEDS: FUROSEMIDE 40 MG TAB PO SCH (10:36)
[2023-04-27] MEDS: VANCOMYCIN 1GM/250ML 250 ML IV SCH ×2 (10:38→18:21)
[2023-04-27 19:15] VITALS: O2SAT 100
[2023-04-27 19:30] VITALS: PULSE 85; RESP 20; O2SAT 95
[2023-04-27] MEDS: ATORVASTATIN 20 MG TAB PO SCH (22:16)
[2023-04-28] VITALS (7 sets, daily range): BP systolic 93–140; BP diastolic 54–80; PULSE 65–83; RESP 16–20; TEMP 97.5–98.4; O2SAT 91–99
[2023-04-28] MEDS: VANCOMYCIN 1GM/250ML 250 ML IV SCH ×3 (02:35→17:37)
[2023-04-28] MEDS: ACCU-CHEK COMFORT CURVE STRIP VI SCH ×4 (05:38→22:51)
[2023-04-28] MEDS: InsuLIN REG 1unit/0.01ml Soln (100units/ml) SC SCH ×4 (05:38→22:47)
[2023-04-28 07:28] LABS: Basophils # (auto) 0 10 ^3/uL (0-0.2); Basophils % (auto) 0.5 % (0.0-2.0); Eosinophils # (auto) 0.4 10 ^3/uL (0-0.8); Eosinophils % (auto) 3.9 % (0.0-7.0); Hematocrit 34.9 % (41.0-53.0); Hemoglobin 11.2 g/dL (13.5-17.5); Lymphocytes # (auto) 1.4 10 ^3/uL (0.4-5.4); Lymphocytes % (auto) 15.5 % (10.0-50.0); Mean Corpuscular Hemoglobin 27.9 pg (28.0-32.0); Mean Corpuscular Hgb Conc. 32.2 g/dL (32.0-36.0); Mean Corpuscular Volume 86.8 fL (80.0-100.0); Monocytes # (auto) 0.7 10 ^3/uL (0-1.3); Monocytes % (auto) 7.4 % (0.0-12.0); Neutrophils # (auto) 6.6 10 ^3/uL (1.6-8.6); Neutrophils % (auto) 72.7 % (37.0-80.0); Nucleated Red Blood Cells % 0.1 %; Red Blood Cells 4.02 10^6/uL (4.5-5.90)
[2023-04-28 07:42] LABS: Alanine Aminotransferase 11 U/L (7-40); Albumin 3.6 g/dL (3.2-4.8); Alkaline Phosphatase 76 U/L (46-116); Anion Gap 2 (5-15); Aspartate Aminotransferase 24 U/L (13-40); BUN/Creatinine Ratio 10.2 (10.0-20.0); Bilirubin, Total 0.9 mg/dL (0.2-1.0); Blood Urea Nitrogen 11 mg/dL (9-23); Calcium 8.4 mg/dL (8.7-10.4); Carbon Dioxide 29 mmol/L (20-30); Chloride 109 mmol/L (98-107); Glucose 186 mg/dL (74-106); Potassium 3.7 mmol/L (3.5-5.1); Sodium 140 mmol/L (136-145); Total Protein 6.6 g/dL (5.7-8.2)
[2023-04-28] MEDS: AZITHROMYCIN 500MG/ 250ML 250 ML IV SCH (10:02)
[2023-04-28] MEDS: FUROSEMIDE 40 MG TAB PO SCH (10:03)
[2023-04-28] MEDS: cefTRIAXone 1GM/50ML D5W 50 ML IV SCH (10:03)
[2023-04-28] MEDS ORDERED: APIX5TAB4 PO (13:53)
[2023-04-28] MEDS ORDERED: METF-370 PO (13:54)
[2023-04-28] MEDS ORDERED: INSU100I68 SC (13:54)
[2023-04-28] MEDS: ACETAMINOPHEN 325 MG TAB PO PRN (15:48)
[2023-04-28] MEDS ORDERED: FUROSEMIDE 20 MG/2 ML VIAL IV ONE (17:15)
[2023-04-28] MEDS ORDERED: POTASSIUM CHL 20 Meq TABLET PO ONE (17:15)
[2023-04-28] MEDS: ATORVASTATIN 20 MG TAB PO SCH (22:48)
[2023-04-29] VITALS (8 sets, daily range): BP systolic 118–149; BP diastolic 72–85; PULSE 75–94; RESP 16–20; TEMP 97.8–100.5; O2SAT 95–98
[2023-04-29] MEDS: VANCOMYCIN 1GM/250ML 250 ML IV SCH ×3 (02:06→18:29)
[2023-04-29 05:24] LABS: Chloride 106 mmol/L (98-107); Potassium 3.2 mmol/L (3.5-5.1); Sodium 140 mmol/L (136-145)
[2023-04-29 05:25] LABS: Anion Gap 6 (5-15); Calcium 8.8 mg/dL (8.7-10.4); Carbon Dioxide 28 mmol/L (20-30)
[2023-04-29 05:30] LABS: Glucose 153 mg/dL (74-106)
[2023-04-29 05:31] LABS: BUN/Creatinine Ratio 8.8 (10.0-20.0); Blood Urea Nitrogen 10 mg/dL (9-23); Magnesium 1.7 mg/dL (1.6-2.6)
[2023-04-29 05:37] LABS: Basophils # (auto) 0 10 ^3/uL (0-0.2); Basophils % (auto) 0.4 % (0.0-2.0); Eosinophils # (auto) 0.3 10 ^3/uL (0-0.8); Hematocrit 34.5 % (41.0-53.0); Hemoglobin 11.4 g/dL (13.5-17.5); Lymphocytes # (auto) 2.2 10 ^3/uL (0.4-5.4); Lymphocytes % (auto) 25.2 % (10.0-50.0); Mean Corpuscular Hemoglobin 28.6 pg (28.0-32.0); Mean Corpuscular Hgb Conc. 33.1 g/dL (32.0-36.0); Mean Corpuscular Volume 86.4 fL (80.0-100.0); Monocytes # (auto) 0.8 10 ^3/uL (0-1.3); Monocytes % (auto) 9.9 % (0.0-12.0); Neutrophils # (auto) 5.3 10 ^3/uL (1.6-8.6); Neutrophils % (auto) 61.5 % (37.0-80.0); Red Blood Cells 3.99 10^6/uL (4.5-5.90); Red Cell Distribution Width 16.6 % (11.8-14.3); White Blood Cell 8.6 10^3/uL (4.4-10.8)
[2023-04-29] MEDS: InsuLIN REG 1unit/0.01ml Soln (100units/ml) SC SCH ×4 (06:51→22:27)
[2023-04-29] MEDS: ACCU-CHEK COMFORT CURVE STRIP VI SCH ×4 (06:52→22:11)
[2023-04-29] MEDS: cefTRIAXone 1GM/50ML D5W 50 ML IV SCH (08:45)
[2023-04-29] MEDS ORDERED: MAGNESIUM OXIDE 400 MG TAB PO ONE (09:45)
[2023-04-29] MEDS ORDERED: POTASSIUM CHL 20 Meq TABLET PO ONE (09:45)
[2023-04-29] MEDS: FUROSEMIDE 20 MG/2 ML VIAL IV SCH (10:12)
[2023-04-29] MEDS: AZITHROMYCIN 500MG/ 250ML 250 ML IV SCH (11:28)
[2023-04-29] MEDS ORDERED: FLUCONAZOLE 100 MG TAB PO ONE (13:00)
[2023-04-29] MEDS ORDERED: LACTULOSE 20Gm/30ML SOLN PO ONE (16:30)
[2023-04-29] MEDS: ACETAMINOPHEN 325 MG TAB PO PRN (16:39)
[2023-04-29] MEDS: DOXYCYCLINE 100 MG TAB/CAP PO SCH (22:03)
[2023-04-29] MEDS: APIXABAN 2.5 MG TAB PO SCH (22:04)
[2023-04-29] MEDS: ATORVASTATIN 20 MG TAB PO SCH (22:04)
[2023-04-30] MEDS: ACETAMINOPHEN 325 MG TAB PO PRN ×2 (01:23→23:21)
[2023-04-30] MEDS: VANCOMYCIN 1GM/250ML 250 ML IV SCH (02:00)
[2023-04-30 05:00] LABS: Basophils # (auto) 0.1 10 ^3/uL (0-0.2); Basophils % (auto) 0.9 % (0.0-2.0); Eosinophils # (auto) 0.2 10 ^3/uL (0-0.8); Eosinophils % (auto) 2.4 % (0.0-7.0); Hematocrit 35.5 % (41.0-53.0); Hemoglobin 11.6 g/dL (13.5-17.5); Lymphocytes # (auto) 2.2 10 ^3/uL (0.4-5.4); Mean Corpuscular Hemoglobin 27.9 pg (28.0-32.0); Mean Corpuscular Hgb Conc. 32.8 g/dL (32.0-36.0); Monocytes # (auto) 0.8 10 ^3/uL (0-1.3); Monocytes % (auto) 9.4 % (0.0-12.0); Neutrophils # (auto) 5.7 10 ^3/uL (1.6-8.6); Neutrophils % (auto) 63.3 % (37.0-80.0); Nucleated Red Blood Cells % 0.1 %; Red Blood Cells 4.18 10^6/uL (4.5-5.90); Red Cell Distribution Width 16.1 % (11.8-14.3)
[2023-04-30 05:08] LABS: Chloride 105 mmol/L (98-107); Potassium 3.6 mmol/L (3.5-5.1); Sodium 139 mmol/L (136-145)
[2023-04-30 05:09] LABS: Anion Gap 6 (5-15); Calcium 9.2 mg/dL (8.5-10.1); Carbon Dioxide 28 mmol/L (20-30)
[2023-04-30 05:14] LABS: BUN/Creatinine Ratio 8.6 (10.0-20.0); Blood Urea Nitrogen 9 mg/dL (9-23); Glucose 165 mg/dL (74-106)
[2023-04-30 05:33] LABS: Magnesium 1.8 mg/dL (1.6-2.6)
[2023-04-30] MEDS: ACCU-CHEK COMFORT CURVE STRIP VI SCH ×4 (06:51→21:24)
[2023-04-30] MEDS: InsuLIN REG 1unit/0.01ml Soln (100units/ml) SC SCH ×4 (06:52→21:03)
[2023-04-30 08:50] VITALS: BP 128/78; PULSE 96; RESP 20; TEMP 98.4; O2SAT 96
[2023-04-30] MEDS: cefTRIAXone 1GM/50ML D5W 50 ML IV SCH (09:00)
[2023-04-30] MEDS: DOXYCYCLINE 100 MG TAB/CAP PO SCH ×2 (11:36→21:01)
[2023-04-30] MEDS: FLUCONAZOLE 100 MG TAB PO SCH (11:37)
[2023-04-30] MEDS: APIXABAN 2.5 MG TAB PO SCH ×2 (11:37→21:00)
[2023-04-30] MEDS: FUROSEMIDE 20 MG/2 ML VIAL IV SCH (11:37)
[2023-04-30 13:00] VITALS: BP 129/84; PULSE 91; RESP 20; TEMP 97.8; O2SAT 98
[2023-04-30] MEDS ORDERED: PANTOPRAZOLE 40 MG TAB PO ONE (13:15)
[2023-04-30 14:15] VITALS: BP 128/78
[2023-04-30 17:00] VITALS: BP 120/79; PULSE 94; RESP 20; TEMP 98.3; O2SAT 97
[2023-04-30] MEDS: ATORVASTATIN 20 MG TAB PO SCH (21:01)
[2023-04-30 22:00] VITALS: BP 129/77; PULSE 103; RESP 19; TEMP 98.4; O2SAT 93
[2023-05-01 05:00] VITALS: BP 106/73; PULSE 106; RESP 18; TEMP 97.8; O2SAT 95
[2023-05-01] MEDS: ACCU-CHEK COMFORT CURVE STRIP VI SCH ×2 (06:44→12:45)
[2023-05-01] MEDS: InsuLIN REG 1unit/0.01ml Soln (100units/ml) SC SCH ×2 (06:47→12:49)
[2023-05-01 08:55] VITALS: BP 123/83; PULSE 98; RESP 18; TEMP 97.8; O2SAT 95
[2023-05-01] MEDS: cefTRIAXone 1GM/50ML D5W 50 ML IV SCH (08:56)
[2023-05-01] MEDS ORDERED: PANTOPRAZOLE 40 MG TAB PO SCH (10:00)
[2023-05-01] MEDS: FLUCONAZOLE 100 MG TAB PO SCH (10:15)
[2023-05-01] MEDS: FUROSEMIDE 20 MG/2 ML VIAL IV SCH (10:15)
[2023-05-01] MEDS: DOXYCYCLINE 100 MG TAB/CAP PO SCH (10:15)
[2023-05-01] MEDS: APIXABAN 2.5 MG TAB PO SCH (10:15)
[2023-05-01 12:40] VITALS: BP 116/72; PULSE 106; RESP 18; TEMP 98.3; O2SAT 93
[2023-05-01 17:00] VITALS: BP 123/80; PULSE 104; RESP 18; TEMP 98.3; O2SAT 93
== END 2023-05-01 17:30 | DRG 871 ==
LOC: ER 19:07 → EDBD 19:07 → TELE 04-27 05:25 → TELE-EAST 04-28 04:14 → EAST 04-28 05:25
PROVIDERS: ADMIT Nurse Practitioner; ATTEND Internal Medicine
DX: A41.9 Sepsis, unspecified organism (principal); G82.50 Quadriplegia, unspecified; I50.31 Acute diastolic (congestive) heart failure; J15.69 Pneumonia due to other Gram-negative bacteria; D68.9 Coagulation defect, unspecified; I13.0 Hypertensive heart and chronic kidney disease with heart failure and stage 1 through stage 4 chronic kidney disease, or unspecified chronic kidney disease; J44.0 Chronic obstructive pulmonary disease with (acute) lower respiratory infection; N39.0 Urinary tract infection, site not specified; Z68.42 Body mass index [BMI] 45.0-49.9, adult; K21.9 Gastro-esophageal reflux disease without esophagitis; E66.01 Morbid (severe) obesity due to excess calories; E11.22 Type 2 diabetes mellitus with diabetic chronic kidney disease; N18.9 Chronic kidney disease, unspecified; I48.91 Unspecified atrial fibrillation; Z86.73 Personal history of transient ischemic attack (TIA), and cerebral infarction without residual deficits; Z74.01 Bed confinement status; Z90.49 Acquired absence of other specified parts of digestive tract
CPT/HCPCS: 36415; 71045; 80048; 80053; 80202; 81001; 82962; 83605; 83735; 83880; 84484; 85025; 85610; 85730; 86850; 86900; 86901; 87040; 87081; 87086; 87088; 87186; 87426; 87804; 93005; 93306; C9113; G0378; J0696; J1815; J2543; P9047

== ENCOUNTER 2023-10-24 05:07 | Inpatient (IN) | payer MEDICARE, MEDICAID ==
[~2023-10-24] VITALS: Ht 188 cm; Wt 112.0 kg
[~2023-10-24 05:07] MED LIST changes: +APIX2.5T PO; +CRAN400T6 PO; -FAMO-12 PO; -HYDR-4833 PO; -INSLANTI SC; +INSU100I74 SC; +MAGN1TAB29 PO; +METF-370 PO; -ONDA-155 PO
[2023-10-24 06:01] LABS: Basophils # (auto) 0.1 10 ^3/uL (0-0.2); Basophils % (auto) 0.5 % (0.0-2.0); Eosinophils # (auto) 0 10 ^3/uL (0-0.8); Hematocrit 40.6 % (41.0-53.0); Hemoglobin 13.4 g/dL (13.5-17.5); Lymphocytes # (auto) 1.7 10 ^3/uL (0.4-5.4); Lymphocytes % (auto) 9.8 % (10.0-50.0); Mean Corpuscular Hemoglobin 26.6 pg (28.0-32.0); Mean Corpuscular Hgb Conc. 32.9 g/dL (32.0-36.0); Mean Corpuscular Volume 80.9 fL (80.0-100.0); Monocytes # (auto) 1.3 10 ^3/uL (0-1.3); Monocytes % (auto) 7.9 % (0.0-12.0); Neutrophils # (auto) 13.9 10 ^3/uL (1.6-8.6); Neutrophils % (auto) 81.8 % (37.0-80.0); Red Blood Cells 5.02 10^6/uL (4.5-5.90); Red Cell Distribution Width 18.6 % (11.8-14.3)
[2023-10-24 06:17] LABS: Alanine Aminotransferase 11 U/L (7-40); Albumin 4.6 g/dL (3.2-4.8); Alkaline Phosphatase 99 U/L (46-116); Anion Gap 8 (5-15); Aspartate Aminotransferase 16 U/L (13-40); BUN/Creatinine Ratio 8.3 (10.0-20.0); Blood Urea Nitrogen 14 mg/dL (9-23); Calcium 10.6 mg/dL (8.5-10.1); Carbon Dioxide 25 mmol/L (20-30); Chloride 104 mmol/L (98-107); Glucose 122 mg/dL (74-106); Potassium 4.2 mmol/L (3.5-5.1); Sodium 137 mmol/L (136-145)
[2023-10-24 06:18] LABS: Bilirubin, Total 0.7 mg/dL (0.2-1.0); Total Protein 8.4 g/dL (5.7-8.2)
[2023-10-24 07:30] VITALS: PULSE 104; RESP 14; O2SAT 99
[2023-10-24] MEDS: FUROSEMIDE 40 MG/4 ML VIAL IV ONE (07:48)
[2023-10-24] MEDS ORDERED: MAGNESIUM PO SCH ×2 (10:00→10:15)
[2023-10-24] MEDS ORDERED: MORPHINE SULFATE INJ 2 MG/ml SYRG IV PRN (10:00)
[2023-10-24] MEDS: CARVEDILOL 12.5 MG TAB PO SCH (10:00)
[2023-10-24] MEDS ORDERED: NITROGLYCERIN 0.4 MG SL TAB SL PRN (10:00)
[2023-10-24] MEDS ORDERED: ENOXAPARIN SOD 40 MG/0.4 ML SYRINGE SC SCH (10:00)
[2023-10-24] MEDS ORDERED: DEXTROSE (50%) 50ML SYRG IV PRN ×2 (10:15→10:30)
[2023-10-24 10:22] LABS: Urine Bacteria FEW /hpf (None Seen); Urine Blood 2+ /uL (Negative); Urine Clarity Ex.Turbid (Clear); Urine Color Light-Orange (Yellow); Urine Mucus FEW (None Seen); Urine Protein, UAD 1+ (Negative); Urine Specific Gravity 1.009 (1.001-1.035); Urine Urobilinogen Normal (Negative); Urine WBC 1824 /hpf (0 - 3); Urine WBC Clumps PRESENT /hpf (None Seen); Urine pH 5.5 (5.0-9.0)
[2023-10-24 10:31] LABS: Triglycerides 74 mg/dL (< 150)
[2023-10-24 10:32] LABS: LDL Cholesterol 50 mg/dL (< 100)
[2023-10-24 10:33] LABS: Cholesterol 98 mg/dL (< 200); HDL Cholesterol 32 mg/dL (40-59)
[2023-10-24 11:16] LABS: INR 1.23 (0.9-1.15); Prothrombin Time 12.8 sec (9.3-11.8)
[2023-10-24] MEDS: InsuLIN REG 1unit/0.01ml Soln (100units/ml) SC SCH (11:30)
[2023-10-24] MEDS ORDERED: InsuLIN REG 1unit/0.01ml Soln (100units/ml) SC SCH (11:30)
[2023-10-24] MEDS ORDERED: ACCU-CHEK COMFORT CURVE STRIP VI SCH (11:30)
[2023-10-24] MEDS: ACCU-CHEK COMFORT CURVE STRIP VI SCH (11:53)
[2023-10-24] MEDS: SODIUM CHLORIDE 0.9% 1,000 ML IV ONE (11:59)
[2023-10-24] MEDS: PANTOPRAZOLE 40 MG TAB PO SCH (13:21)
[2023-10-24 15:03] VITALS: RESP 16
[2023-10-24 15:13] VITALS: BP 96/56; PULSE 94; RESP 14; TEMP 98.7; O2SAT 95
[2023-10-24 17:00] VITALS: BP 85/55; PULSE 88; RESP 15; TEMP 98.3; O2SAT 91
[2023-10-24] MEDS: TAMSULOSIN HYDROCHLORIDE 0.4 MG CAP PO SCH (17:17)
[2023-10-24] MEDS ORDERED: PATIENTS OWN MEDICATION (Atorvastatin Calcium 1 TAB) PO SCH ×2 (18:00)
[2023-10-24 19:30] VITALS: PULSE 78; PULSE 79; RESP 16; O2SAT 97
[2023-10-24 21:00] VITALS: BP 86/59; PULSE 78; RESP 21; TEMP 97.8; O2SAT 100
[2023-10-24] MEDS: MAGNESIUM OXIDE 400 MG TAB PO SCH (21:24)
[2023-10-24] MEDS: ATORVASTATIN 20 MG TAB PO SCH (21:24)
[2023-10-25] VITALS (9 sets, daily range): BP systolic 106–119; BP diastolic 59–90; PULSE 79–101; RESP 16–21; TEMP 98.1–101.1; O2SAT 96–100
[2023-10-25 06:04] LABS: Basophils # (auto) 0.1 10 ^3/uL (0-0.2); Basophils % (auto) 0.4 % (0.0-2.0); Lymphocytes # (auto) 2.1 10 ^3/uL (0.4-5.4); Neutrophils # (auto) 11.7 10 ^3/uL (1.6-8.6); Red Cell Distribution Width 18.8 % (11.8-14.3)
[2023-10-25 06:07] LABS: Eosinophils # (auto) 0.2 10 ^3/uL (0-0.8); Hematocrit 34.8 % (41.0-53.0); Hemoglobin 11.3 g/dL (13.5-17.5); Lymphocytes % (auto) 13.9 % (10.0-50.0); Mean Corpuscular Hemoglobin 26.2 pg (28.0-32.0); Mean Corpuscular Hgb Conc. 32.5 g/dL (32.0-36.0); Mean Corpuscular Volume 80.7 fL (80.0-100.0); Monocytes # (auto) 1.1 10 ^3/uL (0-1.3); Monocytes % (auto) 7.4 % (0.0-12.0); Neutrophils % (auto) 77.3 % (37.0-80.0); Red Blood Cells 4.31 10^6/uL (4.5-5.90); White Blood Cell 15.1 10^3/uL (4.4-10.8)
[2023-10-25 06:30] LABS: Alanine Aminotransferase 15 U/L (7-40); Albumin 3.9 g/dL (3.2-4.8); Alkaline Phosphatase 88 U/L (46-116); Anion Gap 8 (5-15); Aspartate Aminotransferase 20 U/L (13-40); Carbon Dioxide 25 mmol/L (20-30); Chloride 104 mmol/L (98-107); Glucose 102 mg/dL (74-106); Potassium 3.9 mmol/L (3.5-5.1); Sodium 137 mmol/L (136-145)
[2023-10-25 06:33] LABS: BUN/Creatinine Ratio 13.1 (10.0-20.0); Blood Urea Nitrogen 17 mg/dL (9-23)
[2023-10-25 06:35] LABS: Bilirubin, Total 0.8 mg/dL (0.2-1.0); Total Protein 7.3 g/dL (5.7-8.2)
[2023-10-25] MEDS ORDERED: FUROSEMIDE 20 MG/2 ML VIAL IV SCH (10:00)
[2023-10-25] MEDS: ENOXAPARIN SOD 40 MG/0.4 ML SYRINGE SC SCH (10:18)
[2023-10-25] MEDS: FUROSEMIDE 20 MG/2 ML VIAL IV SCH (10:20)
[2023-10-25] MEDS: cefTRIAXone 1GM/50ML D5W 50 ML IV ONE (13:07)
[2023-10-25] MEDS: ACETAMINOPHEN 500 MG TAB PO ONE (17:45)
[2023-10-25] MEDS: FLECAINIDE ACETATE 50 MG TAB PO SCH (22:00)
[2023-10-26] VITALS (8 sets, daily range): BP systolic 104–131; BP diastolic 65–72; PULSE 77–95; RESP 16–20; TEMP 98.4–100; O2SAT 94–100
[2023-10-26] MEDS: ACETAMINOPHEN 500 MG TAB PO PRN (01:55)
[2023-10-26] MEDS: cefTRIAXone 1GM/50ML D5W 50 ML IV SCH (09:49)
[2023-10-26] MEDS: MUPIROCIN 2% OINT 15gm or 22gm FOR MRSA NARES EACHNOSTRI SCH (21:27)
[2023-10-27] VITALS (8 sets, daily range): BP systolic 98–139; BP diastolic 62–77; PULSE 65–96; RESP 14–20; TEMP 97.3–98.4; O2SAT 94–98
[2023-10-27 07:03] LABS: Basophils # (auto) 0.1 10 ^3/uL (0-0.2); Basophils % (auto) 0.7 % (0.0-2.0); Eosinophils # (auto) 0.2 10 ^3/uL (0-0.8); Eosinophils % (auto) 2.3 % (0.0-7.0); Hematocrit 32.2 % (41.0-53.0); Hemoglobin 10.5 g/dL (13.5-17.5); Lymphocytes # (auto) 2.4 10 ^3/uL (0.4-5.4); Lymphocytes % (auto) 24.5 % (10.0-50.0); Mean Corpuscular Hemoglobin 26.5 pg (28.0-32.0); Mean Corpuscular Hgb Conc. 32.5 g/dL (32.0-36.0); Mean Corpuscular Volume 81.4 fL (80.0-100.0); Neutrophils % (auto) 62.5 % (37.0-80.0); Red Blood Cells 3.95 10^6/uL (4.5-5.90); Red Cell Distribution Width 18.3 % (11.8-14.3); White Blood Cell 9.6 10^3/uL (4.4-10.8)
[2023-10-27 09:47] LABS: Anion Gap 7 (5-15); Carbon Dioxide 26 mmol/L (20-30); Chloride 103 mmol/L (98-107); Potassium 3.9 mmol/L (3.5-5.1); Sodium 136 mmol/L (136-145)
[2023-10-27 09:48] LABS: Calcium 9.9 mg/dL (8.5-10.1)
[2023-10-27 09:53] LABS: BUN/Creatinine Ratio 10.5 (10.0-20.0); Blood Urea Nitrogen 13 mg/dL (9-23); Glucose 110 mg/dL (74-106)
[2023-10-27 09:54] LABS: Magnesium 1.9 mg/dL (1.6-2.6)
[2023-10-28] VITALS (7 sets, daily range): BP systolic 97–116; BP diastolic 46–67; PULSE 58–87; RESP 17–20; TEMP 97.9–98.5; O2SAT 95–100
== END 2023-10-28 18:30 | DRG 871 ==
LOC: ER 05:07 → TELE 10:06 → ER 10:06 → TELE-WESTW 14:30 → WEST WING 10-25 03:35 → TELE-WESTW 10-25 16:13
PROVIDERS: ADMIT Registered Nurse; ATTEND Internal Medicine
DX: A41.9 Sepsis, unspecified organism (principal); G82.50 Quadriplegia, unspecified; I50.33 Acute on chronic diastolic (congestive) heart failure; J81.0 Acute pulmonary edema; I48.20 Chronic atrial fibrillation, unspecified; I13.0 Hypertensive heart and chronic kidney disease with heart failure and stage 1 through stage 4 chronic kidney disease, or unspecified chronic kidney disease; N13.6 Pyonephrosis; N17.9 Acute kidney failure, unspecified; S00.81XA Abrasion of other part of head, initial encounter; N18.32 Chronic kidney disease, stage 3b; E11.22 Type 2 diabetes mellitus with diabetic chronic kidney disease; K21.9 Gastro-esophageal reflux disease without esophagitis; N40.0 Benign prostatic hyperplasia without lower urinary tract symptoms; I48.0 Paroxysmal atrial fibrillation; E66.9 Obesity, unspecified; B96.20 Unspecified Escherichia coli [E. coli] as the cause of diseases classified elsewhere; E78.00 Pure hypercholesterolemia, unspecified; J44.9 Chronic obstructive pulmonary disease, unspecified; S09.8XXA Other specified injuries of head, initial encounter; W18.39XA Other fall on same level, initial encounter; G90.9 Disorder of the autonomic nervous system, unspecified; R29.6 Repeated falls; Z79.01 Long term (current) use of anticoagulants; Z74.01 Bed confinement status; Z87.442 Personal history of urinary calculi; I25.2 Old myocardial infarction; Z90.49 Acquired absence of other specified parts of digestive tract; Z83.3 Family history of diabetes mellitus; Z86.718 Personal history of other venous thrombosis and embolism; Y93.89 Activity, other specified; Y92.89 Other specified places as the place of occurrence of the external cause; Y99.8 Other external cause status; Z82.49 Family history of ischemic heart disease and other diseases of the circulatory system; Z80.1 Family history of malignant neoplasm of trachea, bronchus and lung; Z79.4 Long term (current) use of insulin; I69.365 Other paralytic syndrome following cerebral infarction, bilateral; Z68.31 Body mass index [BMI] 31.0-31.9, adult
CPT/HCPCS: 36415; 70450; 71045; 71250; 72125; 74176; 80048; 80053; 80061; 81001; 82962; 83036; 83605; 83735; 83880; 84443; 84484; 85025; 85610; 87040; 87081; 87086; 87088; 87186; 93005; 93306; 96361; 96374; 99291; G0378; J1815

== ENCOUNTER 2024-02-26 11:33 | Inpatient (IN) | payer MEDICARE, MEDICAID ==
[~2024-02-26] VITALS: Ht 177.8 cm; Wt 110.1 kg
[2024-02-26] MEDS: ONDANSETRON HCL 4 MG/2 ML VIAL IV ONE (11:45)
[2024-02-26 12:13] VITALS: PULSE 93; RESP 16; O2SAT 97
[2024-02-26 12:16] LABS: Basophils # (auto) 0.1 10 ^3/uL (0-0.2); Basophils % (auto) 0.7 % (0.0-2.0); Eosinophils # (auto) 0.1 10 ^3/uL (0-0.8); Eosinophils % (auto) 0.5 % (0.0-7.0); Hematocrit 44.2 % (41.0-53.0); Lymphocytes # (auto) 2.1 10 ^3/uL (0.4-5.4); Mean Corpuscular Hemoglobin 30.6 pg (28.0-32.0); Mean Corpuscular Hgb Conc. 33.9 g/dL (32.0-36.0); Mean Corpuscular Volume 90.5 fL (80.0-100.0); Monocytes # (auto) 1.2 10 ^3/uL (0-1.3); Monocytes % (auto) 10.5 % (0.0-12.0); Neutrophils # (auto) 7.7 10 ^3/uL (1.6-8.6); Neutrophils % (auto) 69.3 % (37.0-80.0); Nucleated Red Blood Cells % 0.1 %; Platelet Count (auto) 184 10^3/uL (140-450); Red Blood Cells 4.88 10^6/uL (4.5-5.90); Red Cell Distribution Width 14.3 % (11.8-14.3); White Blood Cell 11.1 10^3/uL (4.4-10.8)
[2024-02-26 12:34] LABS: Alanine Aminotransferase 13 U/L (7-40); Albumin 3.7 g/dL (3.2-4.8); Alkaline Phosphatase 89 U/L (46-116); Anion Gap 8 (5-15); Aspartate Aminotransferase 28 U/L (13-40); BUN/Creatinine Ratio 7.2 (10.0-20.0); Blood Urea Nitrogen 16 mg/dL (9-23); Calcium 9.3 mg/dL (8.7-10.4); Carbon Dioxide 26 mmol/L (20-31); Chloride 106 mmol/L (98-107); Glucose 99 mg/dL (74-106); Potassium 3.6 mmol/L (3.5-5.1); Sodium 140 mmol/L (136-145)
[2024-02-26 12:35] LABS: Bilirubin, Total 1.3 mg/dL (0.2-1.0); Total Protein 6.9 g/dL (5.7-8.2)
[2024-02-26 13:39] LABS: Urine Bacteria None Seen /hpf (None Seen)
[2024-02-26 14:03] LABS: Urine Blood 3+ /uL (Negative); Urine Clarity Ex.Turbid (Clear); Urine Color Light-Orange (Yellow); Urine Protein, UAD 2+ (Negative); Urine Specific Gravity 1.014 (1.001-1.035); Urine Urobilinogen Normal (Negative); Urine WBC 3562 /hpf (0 - 3); Urine WBC Clumps PRESENT /hpf (None Seen); Urine pH 5.5 (5.0-9.0)
[2024-02-26] MEDS: ACETAMINOPHEN 325 MG TAB PO ONE (20:22)
[2024-02-27] MEDS ORDERED: DOCUSATE SOD 100 MG CAP PO PRN
[2024-02-27] MEDS ORDERED: HYDROcodone-ACET 5/325MG TAB PO PRN
[2024-02-27] MEDS ORDERED: ONDANSETRON HCL 4 MG/2 ML VIAL IV PRN
[2024-02-27] MEDS ORDERED: MORPHINE SULFATE INJ 2 MG/ml SYRG IV PRN
[2024-02-27] MEDS ORDERED: NITROGLYCERIN 0.4 MG SL TAB SL PRN
[2024-02-27] MEDS ORDERED: DEXTROSE (50%) 50ML SYRG IV PRN
[2024-02-27] MEDS: cefTRIAXone 1GM/50ML D5W 50 ML IV ONE (01:02)
[2024-02-27] MEDS: cefTRIAXone 1GM/50ML D5W 50 ML IV SCH (01:08)
[2024-02-27] MEDS: ACETAMINOPHEN 325 MG TAB PO PRN (01:34)
[2024-02-27 04:23] LABS: Basophils # (auto) 0 10 ^3/uL (0-0.2); Basophils % (auto) 0.3 % (0.0-2.0); Eosinophils # (auto) 0.1 10 ^3/uL (0-0.8); Eosinophils % (auto) 0.5 % (0.0-7.0); Hematocrit 42.2 % (41.0-53.0); Hemoglobin 14.3 g/dL (13.5-17.5); Lymphocytes # (auto) 1.6 10 ^3/uL (0.4-5.4); Lymphocytes % (auto) 13.5 % (10.0-50.0); Mean Corpuscular Hemoglobin 30.6 pg (28.0-32.0); Mean Corpuscular Hgb Conc. 33.9 g/dL (32.0-36.0); Mean Corpuscular Volume 90.4 fL (80.0-100.0); Monocytes # (auto) 1.3 10 ^3/uL (0-1.3); Neutrophils # (auto) 8.7 10 ^3/uL (1.6-8.6); Neutrophils % (auto) 74.7 % (37.0-80.0); Platelet Count (auto) 185 10^3/uL (140-450); Red Blood Cells 4.67 10^6/uL (4.5-5.90); Red Cell Distribution Width 14.4 % (11.8-14.3); White Blood Cell 11.7 10^3/uL (4.4-10.8)
[2024-02-27 04:38] LABS: Alanine Aminotransferase 12 U/L (7-40); Albumin 3.7 g/dL (3.2-4.8); Alkaline Phosphatase 87 U/L (46-116); Anion Gap 9 (5-15); Aspartate Aminotransferase 28 U/L (13-40); BUN/Creatinine Ratio 7.8 (10.0-20.0); Blood Urea Nitrogen 17 mg/dL (9-23); Calcium 9.2 mg/dL (8.7-10.4); Carbon Dioxide 25 mmol/L (20-31); Chloride 104 mmol/L (98-107); Glucose 101 mg/dL (74-106); Potassium 3.8 mmol/L (3.5-5.1); Sodium 138 mmol/L (136-145)
[2024-02-27] MEDS ORDERED: MEROPENEM 500MG IVPB 50 ML IV ONE (05:45)
[2024-02-27] MEDS: SODIUM CHLOR 0.9% PF (SALINE LOCK) 10ML VIAL/SYR IV SCH (05:52)
[2024-02-27] MEDS: MEROPENEM 1GM IVPB 50 ML IV SCH (06:47)
[2024-02-27] MEDS: InsuLIN REG 1unit/0.01ml Soln (100units/ml) SC SCH (06:56)
[2024-02-27] MEDS: ACCU-CHEK COMFORT CURVE STRIP VI SCH (06:56)
[2024-02-27] MEDS: APIXABAN 2.5 MG TAB PO SCH (12:05)
[2024-02-27] MEDS: CARVEDILOL 3.125 MG TAB PO SCH (12:05)
[2024-02-27 14:12] VITALS: BP 164/90; PULSE 116; RESP 18; TEMP 98.7; O2SAT 95
[2024-02-27 14:20] VITALS: BP 164/90; PULSE 116; RESP 18; TEMP 98.7; O2SAT 95
[2024-02-27 17:02] VITALS: BP 152/95; PULSE 62; RESP 20; TEMP 99; O2SAT 95
[2024-02-27 20:00] VITALS: PULSE 74
[2024-02-27 20:58] VITALS: BP 113/63; PULSE 82; RESP 19; TEMP 100.3; O2SAT 95
[2024-02-27] MEDS: ATORVASTATIN 20 MG TAB PO SCH (22:25)
[2024-02-27] MEDS ORDERED: hydrALAZINE HCL 20 MG/ML VL IV PRN (23:00)
[2024-02-28 00:56] VITALS: BP 123/81; PULSE 93; RESP 18; TEMP 100.3; O2SAT 95
[2024-02-28 04:46] VITALS: BP 102/63; PULSE 78; RESP 18; TEMP 98.7; O2SAT 94
[2024-02-28 06:57] LABS: Basophils # (auto) 0 10 ^3/uL (0-0.2); Basophils % (auto) 0.3 % (0.0-2.0); Eosinophils # (auto) 0 10 ^3/uL (0-0.8); Hematocrit 43.2 % (41.0-53.0); Hemoglobin 14.6 g/dL (13.5-17.5); Lymphocytes # (auto) 0.9 10 ^3/uL (0.4-5.4); Lymphocytes % (auto) 7.5 % (10.0-50.0); Mean Corpuscular Hemoglobin 30.5 pg (28.0-32.0); Mean Corpuscular Hgb Conc. 33.8 g/dL (32.0-36.0); Monocytes % (auto) 7.8 % (0.0-12.0); Neutrophils # (auto) 10.6 10 ^3/uL (1.6-8.6); Neutrophils % (auto) 84.4 % (37.0-80.0); Nucleated Red Blood Cells % 0.1 %; Platelet Count (auto) 190 10^3/uL (140-450); Red Cell Distribution Width 14.3 % (11.8-14.3); White Blood Cell 12.6 10^3/uL (4.4-10.8)
[2024-02-28 07:16] LABS: Alanine Aminotransferase 15 U/L (7-40); Albumin 3.8 g/dL (3.2-4.8); Alkaline Phosphatase 92 U/L (46-116); Anion Gap 12 (5-15); Aspartate Aminotransferase 25 U/L (13-40); BUN/Creatinine Ratio 8.7 (10.0-20.0); Blood Urea Nitrogen 19 mg/dL (9-23); Calcium 9.6 mg/dL (8.7-10.4); Carbon Dioxide 25 mmol/L (20-31); Chloride 100 mmol/L (98-107); Glucose 94 mg/dL (74-106); Potassium 4.2 mmol/L (3.5-5.1); Sodium 137 mmol/L (136-145)
[2024-02-28 07:17] LABS: Total Protein 7.1 g/dL (5.7-8.2)
[2024-02-28 09:00] VITALS: BP 141/73; PULSE 110; RESP 18; TEMP 100.9; O2SAT 98
[2024-02-28 13:00] VITALS: BP 131/66; PULSE 59; RESP 18; TEMP 100.7; O2SAT 98
[2024-02-28 17:00] VITALS: BP 152/66; PULSE 58; RESP 18; TEMP 102.8; O2SAT 93
[2024-02-28 19:28] LABS: Creatinine, Urine 168.27 mg/dL (30.0-125.0)
[2024-02-28 19:32] LABS: Protein, Urine 411.5 mg/dL (1-14)
[2024-02-28 21:00] VITALS: BP 116/52; PULSE 55; RESP 19; TEMP 98.2; O2SAT 96
[2024-02-28] MEDS: MUPIROCIN 2% OINT 15gm or 22gm FOR MRSA NARES EACHNOSTRI SCH (21:50)
[2024-02-29] VITALS (10 sets, daily range): BP systolic 92–128; BP diastolic 53–69; PULSE 43–99; RESP 14–19; TEMP 98.1–101.3; O2SAT 94–100
[2024-02-29 11:03] LABS: Basophils # (auto) 0.1 10 ^3/uL (0-0.2); Basophils % (auto) 0.8 % (0.0-2.0); Eosinophils # (auto) 0 10 ^3/uL (0-0.8); Eosinophils % (auto) 0.1 % (0.0-7.0); Hematocrit 44.8 % (41.0-53.0); Hemoglobin 15.3 g/dL (13.5-17.5); Lymphocytes # (auto) 0.8 10 ^3/uL (0.4-5.4); Lymphocytes % (auto) 9.4 % (10.0-50.0); Mean Corpuscular Hemoglobin 30.5 pg (28.0-32.0); Mean Corpuscular Hgb Conc. 34.1 g/dL (32.0-36.0); Mean Corpuscular Volume 89.5 fL (80.0-100.0); Monocytes # (auto) 0.8 10 ^3/uL (0-1.3); Monocytes % (auto) 9.5 % (0.0-12.0); Neutrophils # (auto) 6.6 10 ^3/uL (1.6-8.6); Neutrophils % (auto) 80.2 % (37.0-80.0); Platelet Count (auto) 199 10^3/uL (140-450); Red Blood Cells 5.01 10^6/uL (4.5-5.90); Red Cell Distribution Width 14.4 % (11.8-14.3); White Blood Cell 8.2 10^3/uL (4.4-10.8)
[2024-02-29 11:16] LABS: Alanine Aminotransferase 31 U/L (7-40); Albumin 3.8 g/dL (3.2-4.8); Alkaline Phosphatase 92 U/L (46-116); Anion Gap 8 (5-15); Aspartate Aminotransferase 51 U/L (13-40); BUN/Creatinine Ratio 12.6 (10.0-20.0); Blood Urea Nitrogen 24 mg/dL (9-23); Calcium 9.5 mg/dL (8.7-10.4); Carbon Dioxide 25 mmol/L (20-31); Chloride 103 mmol/L (98-107); Glucose 101 mg/dL (74-106); Potassium 4.3 mmol/L (3.5-5.1); Sodium 136 mmol/L (136-145)
[2024-02-29 11:17] LABS: Bilirubin, Total 0.5 mg/dL (0.2-1.0); Total Protein 7.4 g/dL (5.7-8.2)
[2024-03-01] VITALS (8 sets, daily range): BP systolic 98–132; BP diastolic 65–83; PULSE 64–95; RESP 19–20; TEMP 97.8–99; O2SAT 97–99
[2024-03-01 08:06] LABS: PSA Free 0.51 ng/mL; Prostate Specific Antigen 7.8 ng/mL (0.0-4.0)
[2024-03-01 08:56] LABS: Hepatitis B Surface Antigen Negative (Negative)
[2024-03-01 09:17] LABS: Hepatitis C Antibody Negative (Negative)
[2024-03-01 10:04] LABS: Basophils # (auto) 0 10 ^3/uL (0-0.2); Basophils % (auto) 0.5 % (0.0-2.0); Eosinophils # (auto) 0 10 ^3/uL (0-0.8); Eosinophils % (auto) 0.5 % (0.0-7.0); Hematocrit 43.2 % (41.0-53.0); Hemoglobin 14.7 g/dL (13.5-17.5); Lymphocytes # (auto) 1.1 10 ^3/uL (0.4-5.4); Lymphocytes % (auto) 14.5 % (10.0-50.0); Mean Corpuscular Hemoglobin 30.6 pg (28.0-32.0); Mean Corpuscular Hgb Conc. 34.1 g/dL (32.0-36.0); Mean Corpuscular Volume 89.7 fL (80.0-100.0); Monocytes # (auto) 0.9 10 ^3/uL (0-1.3); Monocytes % (auto) 11.6 % (0.0-12.0); Neutrophils # (auto) 5.4 10 ^3/uL (1.6-8.6); Neutrophils % (auto) 72.9 % (37.0-80.0); Platelet Count (auto) 199 10^3/uL (140-450); Red Blood Cells 4.82 10^6/uL (4.5-5.90); Red Cell Distribution Width 14.4 % (11.8-14.3); White Blood Cell 7.4 10^3/uL (4.4-10.8)
[2024-03-01 10:27] LABS: Chloride 101 mmol/L (98-107); Potassium 3.6 mmol/L (3.5-5.1); Sodium 134 mmol/L (136-145)
[2024-03-01 10:28] LABS: Anion Gap 5 (5-15); Calcium 9.6 mg/dL (8.7-10.4); Carbon Dioxide 28 mmol/L (20-31)
[2024-03-01 10:33] LABS: Blood Urea Nitrogen 25 mg/dL (9-23); Glucose 134 mg/dL (74-106)
[2024-03-01] MEDS: SODIUM CHLORIDE 0.9% 500 ML IV ONE (14:40)
[2024-03-01 16:58] LABS: INR 1.15 (0.9-1.15); Partial Thromboplastin Time 41.3 SEC (24.5-34.5); Prothrombin Time 12.1 sec (9.3-11.8)
[2024-03-02] VITALS (9 sets, daily range): BP systolic 20–122; BP diastolic 52–134; PULSE 65–92; RESP 17–20; TEMP 97.8–98.9; O2SAT 91–97
[2024-03-02 07:41] LABS: Basophils # (auto) 0 10 ^3/uL (0-0.2); Basophils % (auto) 0.5 % (0.0-2.0); Eosinophils # (auto) 0 10 ^3/uL (0-0.8); Eosinophils % (auto) 0.2 % (0.0-7.0); Hematocrit 41.3 % (41.0-53.0); Lymphocytes # (auto) 1.4 10 ^3/uL (0.4-5.4); Lymphocytes % (auto) 16.1 % (10.0-50.0); Mean Corpuscular Hemoglobin 30.5 pg (28.0-32.0); Mean Corpuscular Hgb Conc. 33.9 g/dL (32.0-36.0); Mean Corpuscular Volume 89.8 fL (80.0-100.0); Monocytes # (auto) 1.3 10 ^3/uL (0-1.3); Monocytes % (auto) 15.5 % (0.0-12.0); Neutrophils # (auto) 5.7 10 ^3/uL (1.6-8.6); Neutrophils % (auto) 67.7 % (37.0-80.0); Platelet Count (auto) 211 10^3/uL (140-450); Red Blood Cells 4.59 10^6/uL (4.5-5.90); Red Cell Distribution Width 14.4 % (11.8-14.3); White Blood Cell 8.4 10^3/uL (4.4-10.8)
[2024-03-02 08:10] LABS: Alanine Aminotransferase 74 U/L (7-40); Albumin 3.6 g/dL (3.2-4.8); Alkaline Phosphatase 89 U/L (46-116); Anion Gap 7 (5-15); Aspartate Aminotransferase 87 U/L (13-40); Bilirubin, Total 0.4 mg/dL (0.2-1.0); Blood Urea Nitrogen 26 mg/dL (9-23); Calcium 9.4 mg/dL (8.7-10.4); Carbon Dioxide 26 mmol/L (20-31); Chloride 104 mmol/L (98-107); Glucose 98 mg/dL (74-106); Potassium 3.7 mmol/L (3.5-5.1); Sodium 137 mmol/L (136-145); Total Protein 6.8 g/dL (5.7-8.2)
[2024-03-02] MEDS: AMPICILLIN INJ 1 GM in SODIUM CHL 0.9% 100 ML IV SCH (12:00)
[2024-03-02] MEDS: levoFLOXacin 500MG 100 ML IV ONE (12:22)
[2024-03-02] MEDS ORDERED: MIDAZOLAM HCL 2MG/2ML 2ml VIAL (1mg/ml) ONE (13:43)
[2024-03-02] MEDS ORDERED: KETAMINE 50mg/ML 1ml syringe ONE (13:43)
[2024-03-02] MEDS ORDERED: GLYCOPYRROLATE 0.2 MG/ML 1ML VIAL ONE (13:44)
[2024-03-02] MEDS ORDERED: PROPOFOL 10 MG/ML 20 ML IV ONE (13:44)
[2024-03-02] MEDS ORDERED: ONDANSETRON HCL 4 MG/2 ML VIAL ONE (13:44)
[2024-03-02] MEDS: IOHEXOL 300 MG/ML 100ML BOTTLE IJ ONE (14:16)
[2024-03-02] MEDS: ACCU-CHEK COMFORT CURVE STRIP VI ONE (14:45)
[2024-03-02] MEDS ORDERED: NITR-52 PO (15:46)
[2024-03-03 01:00] VITALS: BP 99/58; PULSE 76; RESP 18; TEMP 98; O2SAT 95
[2024-03-03 05:00] VITALS: BP 106/70; PULSE 67; RESP 20; TEMP 98.8; O2SAT 96
[2024-03-03 08:00] VITALS: PULSE 70; RESP 17; O2SAT 97
[2024-03-03 09:00] VITALS: BP 121/74; PULSE 70; RESP 17; TEMP 98.5; O2SAT 97
[2024-03-03 13:00] VITALS: BP 106/69; PULSE 69; RESP 21; TEMP 97.7; O2SAT 93
== END 2024-03-03 16:06 | DRG 853 ==
LOC: EDBD 11:33 → ER 11:33 → EDUNIT# 11:33 → TELE 23:56 → TELE-EAST 02-27 14:06 → TELE-E-ADS 02-27 23:51 → TELE-CENTR 02-28 18:08 → CENTRAL 03-03 05:04
PROVIDERS: ADMIT Internal Medicine; ATTEND Internal Medicine
PROC: 0T778DZ Dilation of Left Ureter with Intraluminal Device, Via Natural or Artificial Opening Endoscopic (ICD-10-PCS; principal; 2024-03-02 13:45)
DX: A41.81 Sepsis due to Enterococcus (principal); N17.0 Acute kidney failure with tubular necrosis; G82.20 Paraplegia, unspecified; N13.6 Pyonephrosis; K52.9 Noninfective gastroenteritis and colitis, unspecified; I12.9 Hypertensive chronic kidney disease with stage 1 through stage 4 chronic kidney disease, or unspecified chronic kidney disease; J44.9 Chronic obstructive pulmonary disease, unspecified; N18.31 Chronic kidney disease, stage 3a; E11.22 Type 2 diabetes mellitus with diabetic chronic kidney disease; K21.9 Gastro-esophageal reflux disease without esophagitis; E78.5 Hyperlipidemia, unspecified; I48.0 Paroxysmal atrial fibrillation; I25.2 Old myocardial infarction; Z86.73 Personal history of transient ischemic attack (TIA), and cerebral infarction without residual deficits; Z83.3 Family history of diabetes mellitus; Z90.49 Acquired absence of other specified parts of digestive tract; Z87.442 Personal history of urinary calculi; Z82.49 Family history of ischemic heart disease and other diseases of the circulatory system; Z80.1 Family history of malignant neoplasm of trachea, bronchus and lung; Z74.01 Bed confinement status; Z79.01 Long term (current) use of anticoagulants
CPT/HCPCS: 36415; 71045; 74018; 74176; 76000; 76775; 80048; 80053; 81001; 82570; 82962; 83880; 83935; 84154; 84156; 84300; 84484; 85025; 85610; 85730; 86803; 86850; 86900; 86901; 87081; 87086; 87088; 87186; 87340; 97110; 97163; 97530; 99291; G0378; J1815; J1956; J2185; J2250; J2405; J2704

== ENCOUNTER 2024-03-19 05:13 | Inpatient (IN) | payer MEDICARE, MEDICAID ==
[~2024-03-19] VITALS: Ht 193 cm; Wt 106.2 kg
[2024-03-19] VITALS (17 sets, daily range): BP systolic 93–111; BP diastolic 53–87; PULSE 73–123; RESP 10–20; TEMP 97.3–102.8; O2SAT 85–100
[~2024-03-19 05:13] MED LIST changes: +NITR-52 PO
[2024-03-19 06:58] LABS: Basophils # (auto) 0 10 ^3/uL (0-0.2); Basophils % (auto) 0.3 % (0.0-2.0); Eosinophils # (auto) 0 10 ^3/uL (0-0.8); Eosinophils % (auto) 0.2 % (0.0-7.0); Hematocrit 46.3 % (41.0-53.0); Hemoglobin 15.6 g/dL (13.5-17.5); Lymphocytes # (auto) 1.3 10 ^3/uL (0.4-5.4); Lymphocytes % (auto) 8.8 % (10.0-50.0); Mean Corpuscular Hemoglobin 30.1 pg (28.0-32.0); Mean Corpuscular Hgb Conc. 33.7 g/dL (32.0-36.0); Mean Corpuscular Volume 89.5 fL (80.0-100.0); Monocytes # (auto) 0.9 10 ^3/uL (0-1.3); Monocytes % (auto) 5.9 % (0.0-12.0); Neutrophils # (auto) 12.3 10 ^3/uL (1.6-8.6); Neutrophils % (auto) 84.8 % (37.0-80.0); Platelet Count (auto) 200 10^3/uL (140-450); Red Blood Cells 5.17 10^6/uL (4.5-5.90); White Blood Cell 14.5 10^3/uL (4.4-10.8)
[2024-03-19 07:08] LABS: Alanine Aminotransferase 15 U/L (7-40); Albumin 3.9 g/dL (3.2-4.8); Alkaline Phosphatase 113 U/L (46-116); Anion Gap 8 (5-15); Aspartate Aminotransferase 17 U/L (13-40); BUN/Creatinine Ratio 7.8 (10.0-20.0); Blood Urea Nitrogen 10 mg/dL (9-23); Calcium 9.6 mg/dL (8.7-10.4); Carbon Dioxide 25 mmol/L (20-31); Chloride 108 mmol/L (98-107); Glucose 170 mg/dL (74-106); Potassium 4.3 mmol/L (3.5-5.1); Sodium 141 mmol/L (136-145)
[2024-03-19 07:09] LABS: Bilirubin, Total 1.7 mg/dL (0.2-1.0); Total Protein 7.5 g/dL (5.7-8.2)
[2024-03-19 07:50] LABS: Urine Bacteria FEW /hpf (None Seen); Urine Blood 2+ /uL (Negative); Urine Mucus FEW (None Seen); Urine Protein, UAD 2+ (Negative); Urine Specific Gravity 1.014 (1.001-1.035); Urine Urobilinogen Normal (Negative); Urine WBC 1657 /hpf (0 - 3); Urine WBC Clumps PRESENT /hpf (None Seen)
[2024-03-19 07:51] LABS: Urine Clarity Cloudy (Clear); Urine Color Yellow (Yellow)
[2024-03-19] MEDS: IOHEXOL 350 MG/ML 100ML IJ ONE (08:16)
[2024-03-19 08:43] LABS: Rapid Influenza A Negative (Negative); Rapid Influenza B Negative (Negative)
[2024-03-19 08:44] LABS: COVID19 ANTIGEN SOFIA FIA NEGATIVE (NEGATIVE)
[2024-03-19] MEDS: cefTRIAXone 1GM/50ML D5W 50 ML IV ONE (09:07)
[2024-03-19] MEDS ORDERED: ACETAMINOPHEN 325 MG TAB PO PRN (11:15)
[2024-03-19] MEDS ORDERED: NITROGLYCERIN 0.4 MG SL TAB SL PRN (11:15)
[2024-03-19] MEDS ORDERED: MORPHINE SULFATE INJ 2 MG/ml SYRG IV PRN ×2 (11:15)
[2024-03-19] MEDS ORDERED: HYDROcodone-ACET 5/325MG TAB PO PRN (11:15)
[2024-03-19] MEDS ORDERED: BISACODYL 10 MG RECT SUPP PR PRN (11:15)
[2024-03-19] MEDS ORDERED: DEXTROSE (50%) 50ML SYRG IV PRN (11:15)
[2024-03-19] MEDS ORDERED: ONDANSETRON HCL 4 MG/2 ML VIAL IV PRN (11:15)
[2024-03-19] MEDS ORDERED: MILK OF MAGNESIA 30ML SUSP PO PRN (11:15)
[2024-03-19] MEDS ORDERED: VANCOMYCIN PER PHARMACY 0 MG IV SCH (11:15)
[2024-03-19] MEDS: ACCU-CHEK COMFORT CURVE STRIP VI SCH (11:30)
[2024-03-19] MEDS: InsuLIN REG 1unit/0.01ml Soln (100units/ml) SC SCH ×2 (11:30→22:00)
[2024-03-19] MEDS ORDERED: InsuLIN REG 1unit/0.01ml Soln (100units/ml)(for Drip) SC SCH (11:30)
[2024-03-19] MEDS ORDERED: InsuLIN REG 1unit/0.01ml Soln (100units/ml) SC SCH (11:44)
[2024-03-19] MEDS: VANCOMYCIN 1GM/200ML PREMIX 200 ML IV SCH (12:06)
[2024-03-19] MEDS: AMIODARONE BOLUS KIT 100 ML IV ONE (12:06)
[2024-03-19] MEDS: AMIODARONE 450mg/250ml AE 250 ML IV SCH (12:07)
[2024-03-19] MEDS: FLUCONAZOLE 200MG/100ML 100 ML IV SCH (13:00)
[2024-03-19 13:13] LABS: Urine Bacteria FEW /hpf (None Seen); Urine Blood 1+ /uL (Negative); Urine Protein, UAD Negative (Negative); Urine Specific Gravity 1.016 (1.001-1.035); Urine Urobilinogen Normal (Negative); Urine WBC 221 /hpf (0 - 3); Urine pH 5.5 (5.0-9.0)
[2024-03-19 13:16] LABS: Urine Clarity Cloudy (Clear); Urine Color Yellow (Yellow)
[2024-03-19] MEDS: SODIUM CHLOR 0.9% PF (SALINE LOCK) 10ML VIAL/SYR IV SCH (14:00)
[2024-03-19] MEDS: ACETAMINOPHEN 325 MG TAB PO PRN (16:13)
[2024-03-19] MEDS: SODIUM CHLORIDE 0.9% 2,000 ML IV ONE (17:30)
[2024-03-19] MEDS: CEFEPIME 1GM/ 50ML 50 ML IV SCH (17:54)
[2024-03-19] MEDS: TAMSULOSIN HYDROCHLORIDE 0.4 MG CAP PO SCH (18:34)
[2024-03-19] MEDS: ENOXAPARIN SOD 100 MG/1 ML SYRINGE SC SCH (22:00)
[2024-03-20] VITALS (67 sets, daily range): BP systolic 80–124; BP diastolic 45–74; PULSE 59–103; RESP 7–18; TEMP 97.7–100.2; O2SAT 86–99
[2024-03-20] MEDS: VANCOMYCIN 1GM/200ML PREMIX IV SCH
[2024-03-20] MEDS: NOREPINEPHRINE 8 MG/250ML KIT 250 ML IV SCH (01:20)
[2024-03-20] MEDS: AMIODARONE 450mg/250ml AE 250 ML IV SCH (01:30)
[2024-03-20 05:04] LABS: Basophils # (auto) 0 10 ^3/uL (0-0.2); Basophils % (auto) 0.3 % (0.0-2.0); Eosinophils # (auto) 0.1 10 ^3/uL (0-0.8); Eosinophils % (auto) 0.9 % (0.0-7.0); Hematocrit 42.3 % (41.0-53.0); Hemoglobin 13.9 g/dL (13.5-17.5); Lymphocytes % (auto) 16.7 % (10.0-50.0); Mean Corpuscular Hemoglobin 30.1 pg (28.0-32.0); Mean Corpuscular Hgb Conc. 32.8 g/dL (32.0-36.0); Mean Corpuscular Volume 91.7 fL (80.0-100.0); Monocytes % (auto) 8.4 % (0.0-12.0); Neutrophils # (auto) 8.7 10 ^3/uL (1.6-8.6); Neutrophils % (auto) 73.7 % (37.0-80.0); Platelet Count (auto) 138 10^3/uL (140-450); Red Blood Cells 4.61 10^6/uL (4.5-5.90); Red Cell Distribution Width 14.9 % (11.8-14.3); White Blood Cell 11.8 10^3/uL (4.4-10.8)
[2024-03-20 05:22] LABS: Chloride 111 mmol/L (98-107); Potassium 3.8 mmol/L (3.5-5.1); Sodium 136 mmol/L (136-145)
[2024-03-20 05:23] LABS: Anion Gap 5 (5-15); Carbon Dioxide 20 mmol/L (20-31)
[2024-03-20 05:24] LABS: Calcium 9.1 mg/dL (8.7-10.4)
[2024-03-20 05:28] LABS: Glucose 149 mg/dL (74-106)
[2024-03-20 05:29] LABS: BUN/Creatinine Ratio 8.5 (10.0-20.0); Blood Urea Nitrogen 12 mg/dL (9-23)
[2024-03-20] MEDS: PANTOPRAZOLE 40 MG TAB PO SCH (08:12)
[2024-03-20] MEDS: MULTIPLE VITAMINS W/ MINERALS TAB PO SCH (08:12)
[2024-03-20] MEDS: FLUCONAZOLE 200MG/100ML 100 ML IV SCH (08:12)
[2024-03-20] MEDS: CEFEPIME 1GM/ 50ML 50 ML IV SCH (10:01)
[2024-03-20] MEDS: AMIODARONE HCL 200 MG TAB PO ONE (15:32)
[2024-03-20] MEDS: SODIUM CHLORIDE 0.9% 1,000 ML IV SCH (15:33)
[2024-03-20] MEDS: AMIODARONE HCL 200 MG TAB ONE (15:38)
[2024-03-20] MEDS: AMIODARONE HCL 200 MG TAB PO SCH (21:50)
[2024-03-20] MEDS: MUPIROCIN 2% OINT 15gm or 22gm FOR MRSA NARES EACHNOSTRI SCH (22:00)
[2024-03-21] VITALS (8 sets, daily range): BP systolic 107–126; BP diastolic 53–69; PULSE 64–87; RESP 16–18; TEMP 97.9–99.2; O2SAT 94–98
[2024-03-21 08:09] LABS: Basophils # (auto) 0 10 ^3/uL (0-0.2); Basophils % (auto) 0.6 % (0.0-2.0); Eosinophils # (auto) 0.1 10 ^3/uL (0-0.8); Eosinophils % (auto) 1.2 % (0.0-7.0); Hematocrit 39.2 % (41.0-53.0); Hemoglobin 13.3 g/dL (13.5-17.5); Lymphocytes # (auto) 1.4 10 ^3/uL (0.4-5.4); Lymphocytes % (auto) 19.3 % (10.0-50.0); Mean Corpuscular Hemoglobin 30.3 pg (28.0-32.0); Mean Corpuscular Hgb Conc. 33.8 g/dL (32.0-36.0); Mean Corpuscular Volume 89.6 fL (80.0-100.0); Monocytes # (auto) 0.6 10 ^3/uL (0-1.3); Monocytes % (auto) 8.8 % (0.0-12.0); Neutrophils % (auto) 70.1 % (37.0-80.0); Platelet Count (auto) 157 10^3/uL (140-450); Red Blood Cells 4.37 10^6/uL (4.5-5.90); Red Cell Distribution Width 14.9 % (11.8-14.3); White Blood Cell 7.2 10^3/uL (4.4-10.8)
[2024-03-21 08:28] LABS: Alanine Aminotransferase 13 U/L (7-40); Albumin 3.5 g/dL (3.2-4.8); Alkaline Phosphatase 92 U/L (46-116); Anion Gap 9 (5-15); Aspartate Aminotransferase 15 U/L (13-40); BUN/Creatinine Ratio 10.8 (10.0-20.0); Blood Urea Nitrogen 14 mg/dL (9-23); Calcium 9.3 mg/dL (8.7-10.4); Carbon Dioxide 20 mmol/L (20-31); Chloride 109 mmol/L (98-107); Glucose 125 mg/dL (74-106); Potassium 3.7 mmol/L (3.5-5.1); Sodium 138 mmol/L (136-145)
[2024-03-21 08:29] LABS: Bilirubin, Total 1.1 mg/dL (0.2-1.0); Total Protein 6.9 g/dL (5.7-8.2)
[2024-03-21] MEDS: VANCOMYCIN 1GM/200ML PREMIX 200 ML IV SCH (18:03)
[2024-03-21] MEDS: CEFEPIME 1GM/ 50ML 50 ML IV SCH (19:18)
[2024-03-21] MEDS: FLECAINIDE ACETATE 50 MG TAB PO SCH (22:12)
[2024-03-22] VITALS (8 sets, daily range): BP systolic 106–139; BP diastolic 59–83; PULSE 64–87; RESP 16–18; TEMP 97.6–98.9; O2SAT 91–97
[2024-03-22 06:30] LABS: Basophils # (auto) 0 10 ^3/uL (0-0.2); Basophils % (auto) 0.8 % (0.0-2.0); Eosinophils # (auto) 0.1 10 ^3/uL (0-0.8); Eosinophils % (auto) 2.7 % (0.0-7.0); Hematocrit 37.7 % (41.0-53.0); Hemoglobin 12.8 g/dL (13.5-17.5); Lymphocytes % (auto) 38.4 % (10.0-50.0); Mean Corpuscular Hemoglobin 30.2 pg (28.0-32.0); Mean Corpuscular Hgb Conc. 33.9 g/dL (32.0-36.0); Mean Corpuscular Volume 89.2 fL (80.0-100.0); Monocytes # (auto) 0.8 10 ^3/uL (0-1.3); Monocytes % (auto) 14.5 % (0.0-12.0); Neutrophils # (auto) 2.3 10 ^3/uL (1.6-8.6); Neutrophils % (auto) 43.6 % (37.0-80.0); Platelet Count (auto) 158 10^3/uL (140-450); Red Blood Cells 4.23 10^6/uL (4.5-5.90); Red Cell Distribution Width 15.3 % (11.8-14.3); White Blood Cell 5.3 10^3/uL (4.4-10.8)
[2024-03-22] MEDS ORDERED: ERTAPENEM SOD INJ 1 GM in SODIUM CHL 0.9% 50 ML IV ONE (17:30)
[2024-03-22] MEDS: MEROPENEM 1GM IVPB 50 ML IV SCH (18:26)
[2024-03-23 05:00] VITALS: BP 138/82; PULSE 82; RESP 18; TEMP 98.3; O2SAT 95
[2024-03-23 05:29] LABS: Anion Gap 6 (5-15); Carbon Dioxide 23 mmol/L (20-31); Chloride 112 mmol/L (98-107); Potassium 3.6 mmol/L (3.5-5.1); Sodium 141 mmol/L (136-145)
[2024-03-23 05:30] LABS: Calcium 9.6 mg/dL (8.7-10.4)
[2024-03-23 05:35] LABS: BUN/Creatinine Ratio 7.3 (10.0-20.0); Blood Urea Nitrogen 8 mg/dL (9-23); Glucose 99 mg/dL (74-106)
[2024-03-23 08:00] VITALS: PULSE 84
[2024-03-23 09:00] VITALS: BP 133/76; PULSE 67; RESP 20; TEMP 97.9; O2SAT 94
[2024-03-23] MEDS ORDERED: ERTAPENEM SOD INJ 1 GM in SODIUM CHL 0.9% 50 ML IV SCH (10:00)
[2024-03-23 13:00] VITALS: BP 121/73; PULSE 76; RESP 20; TEMP 97.3; O2SAT 96
[2024-03-23 16:37] VITALS: BP 113/66; PULSE 77; RESP 19; TEMP 97.6; O2SAT 93
[2024-03-23 16:56] VITALS: BP 113/66; PULSE 77; RESP 19; TEMP 97.3; O2SAT 97
== END 2024-03-23 19:36 | DRG 871 ==
LOC: ER 05:13 → EDBD 05:13 → TELE 11:10 → TELE-WESTW 15:28 → DOU IN ICU 22:06 → ICU CENTRL 03-20 02:28 → TELE-CENTR 03-20 17:16
PROVIDERS: ADMIT Internal Medicine; ATTEND Internal Medicine
DX: A41.9 Sepsis, unspecified organism (principal); G82.50 Quadriplegia, unspecified; J69.0 Pneumonitis due to inhalation of food and vomit; R65.21 Severe sepsis with septic shock; J18.9 Pneumonia, unspecified organism; J44.0 Chronic obstructive pulmonary disease with (acute) lower respiratory infection; N10 Acute pyelonephritis; N13.8 Other obstructive and reflux uropathy; N20.2 Calculus of kidney with calculus of ureter; I13.0 Hypertensive heart and chronic kidney disease with heart failure and stage 1 through stage 4 chronic kidney disease, or unspecified chronic kidney disease; N17.9 Acute kidney failure, unspecified; I50.32 Chronic diastolic (congestive) heart failure; I25.10 Atherosclerotic heart disease of native coronary artery without angina pectoris; I44.0 Atrioventricular block, first degree; I49.1 Atrial premature depolarization; K21.9 Gastro-esophageal reflux disease without esophagitis; E78.5 Hyperlipidemia, unspecified; E66.9 Obesity, unspecified; E11.65 Type 2 diabetes mellitus with hyperglycemia; N18.32 Chronic kidney disease, stage 3b; E11.22 Type 2 diabetes mellitus with diabetic chronic kidney disease; Z20.822 Contact with and (suspected) exposure to COVID-19; N40.1 Benign prostatic hyperplasia with lower urinary tract symptoms; I48.0 Paroxysmal atrial fibrillation; Z79.2 Long term (current) use of antibiotics; Z79.899 Other long term (current) drug therapy; Z87.442 Personal history of urinary calculi; Z85.118 Personal history of other malignant neoplasm of bronchus and lung; Z83.3 Family history of diabetes mellitus; Z82.49 Family history of ischemic heart disease and other diseases of the circulatory system; Z80.1 Family history of malignant neoplasm of trachea, bronchus and lung; Z79.84 Long term (current) use of oral hypoglycemic drugs; Z79.4 Long term (current) use of insulin; Z79.01 Long term (current) use of anticoagulants; Z90.49 Acquired absence of other specified parts of digestive tract; Z68.28 Body mass index [BMI] 28.0-28.9, adult; Z74.01 Bed confinement status
CPT/HCPCS: 36415; 71275; 76775; 80048; 80053; 80202; 81001; 82565; 82962; 83036; 83605; 83735; 84484; 85025; 85379; 87040; 87081; 87086; 87088; 87186; 87426; 87804; 93005; 93306; 99291; G0378; J1450; J1815; J2185; J2405

== ENCOUNTER 2024-04-24 13:45 | Emergency (ER) | payer MEDICARE, MEDICAID ==
[~2024-04-24] VITALS: Ht 193 cm; Wt 106.0 kg
[2024-04-24 15:08] LABS: Basophils # (auto) 0.1 10 ^3/uL (0-0.2); Basophils % (auto) 0.7 % (0.0-2.0); Eosinophils # (auto) 0 10 ^3/uL (0-0.8); Eosinophils % (auto) 0.3 % (0.0-7.0); Hematocrit 46.3 % (41.0-53.0); Hemoglobin 15.7 g/dL (13.5-17.5); Lymphocytes # (auto) 1.7 10 ^3/uL (0.4-5.4); Lymphocytes % (auto) 15.7 % (10.0-50.0); Mean Corpuscular Hemoglobin 30.4 pg (28.0-32.0); Mean Corpuscular Hgb Conc. 33.9 g/dL (32.0-36.0); Mean Corpuscular Volume 89.7 fL (80.0-100.0); Monocytes # (auto) 0.7 10 ^3/uL (0-1.3); Monocytes % (auto) 6.7 % (0.0-12.0); Neutrophils # (auto) 8.1 10 ^3/uL (1.6-8.6); Neutrophils % (auto) 76.6 % (37.0-80.0); Platelet Count (auto) 236 10^3/uL (140-450); Red Blood Cells 5.16 10^6/uL (4.5-5.90); White Blood Cell 10.6 10^3/uL (4.4-10.8)
--- NOTE | 2024-04-24 15:16 | ED.PDOC ---
Musculoskeletal HPI Comments 73y M who presents to the ED via EMS for chief complaint of lower extremity pain. Pt states he has been having bilateral lower extremity leg pain. Pt states he has been having this pain for the past few months and states it has gotten progressively worse over the last month until today when the pain became unbearable. Pt is bed bound. Pt states he also feels constipated with last bowel movement 4 days prior. Pt otherwise denies any other symptoms at this time. Chief Complaint: Lower Extremity Time Seen by MD: 15:12 Primary Care Provider: UNKNOWN NAME Reviewed Notes: Drugless Physician Notes Allergies: Coded Allergies: NO KNOWN ALLERGIES (Unverified , 01/27/22) Home Meds Active Scripts Nitrofurantoin (Nitrofurantoin) 100 Mg Cap, 1 CAP PO BID for 5 Days, #14 CAP Prov:DEVEN RAMIREZ RESIDENT 03/02/24 Reported Medications Apixaban Base (ELIQUIS) 2.5 Mg Tab, 2.5 MG PO BID, TAB 08/15/23 Cranberry (CRANBERRY) 400 Mg Tab, 400 MG PO DAILY, TAB 08/15/23 Magnesium (Magnesium 400 mg) 1 Tab Tab, 1 TAB PO BID, TAB 08/15/23 Insulin Glargine (Insulin Glargine Solostar) 100 Unit/Ml Inj, 10 UNIT SC HS, INJ 04/28/23 Metformin Hydrochloride (Metformin Hcl) 500 Mg Tab, 1000 MG PO BID for 30 Days, MG 04/28/23 Nitroglycerin (Nitrostat) 0.4 Mg Sub, 0.4 MG SL, INJ 04/03/23 Insulin Regular (Human) (Humulin R) 100 Unit/Ml Inj, UNIT SC ACHS, INJ 04/03/23 Atorvastatin Calcium (ATORVASTATIN CALCIUM) 10 Mg Tab, 1 TAB PO QPM, #30 TAB 5 Refills 04/03/23 Tamsulosin Hcl (Flomax) 0.4 Mg Cap, 0.4 MG PO QPM, CAP 04/03/23 Misc Natural Products (Neuriva) 1 Cap Cap, 1 CAP PO QPM, CAP 04/03/23 Multiple Vitamins W/ Minerals (Centrum Silver) Silver Tab, 1 OR DAILY, TAB 04/03/23 Cholecalciferol (Vitamin D3 1.25 mg (27648 Ut)) 1 Cap Cap, 1 CAP PO DAILY, CAP 04/03/23 Pantoprazole Sodium Sesquihydr (Protonix) 40 Mg Tab, 40 MG PO DAILY, #30 TAB 04/03/23 Carvedilol (Coreg) 12.5 Mg Tab, 1 TAB PO BID, #180 TAB 1 Refill 01/28/22 Bisacodyl (DULCOLAX SUPPOSITORY) 10 Mg Rc, 10 MG CA DAILYP PRN for FOR CONSTIPATION, MG 08/06/18 Magnesium Hydroxide (MILK OF MAGNESIA ORAL SUSPENSION) 30 Ml Ss, 30 ML PO DAILYP PRN for FOR CONSTIPATION 08/06/18 Sodium Phosphates (FLEET ENEMA SIX PACK) Enema Sharon, 1 RE DAILYP PRN for FOR CONSTIPATION 08/06/18 Acetaminophen (Acetaminophen) 325 Mg Tab, 500 MG PO Q6HP PRN for MILD PAIN, 0 Refills 08/06/18 Docusate Sodium (Docusate Sodium) 100 Mg Tab, 100 MG PO BID 08/06/18 Information Source: Patient, Emergency Med Personnel Mode of Arrival: EMS Brought in by: EMS Past Medical History PAST MEDICAL HISTORY: AFIB, Anemia, CKF, COPD, CVA, DM, GERD, High Lipids, HTN, Kidney Stones, OR, TIA, UTI'S Surgical History: Appendectomy, Cholecystectomy Family History Family History: Reviewed,noncontributory to illness, Family hx of DM Social History Smoker: Non-Smoker Alcohol: Denies ETOH Use Drugs: Denies Drug Use Lives In: Assisted Care Constitutional: denies: chills, diaphoresis, fatigue, fever, malaise, sweats, weakness, others EENTM: denies: blurred vision, double vision, ear bleeding, ear discharge, ear drainage, ear pain, ear ringing, eye pain, eye redness, hearing loss, mouth pain, mouth swelling, nasal discharge, nose bleeding, nose congestion, nose pain, photophobia, tearing, throat pain, throat swelling, voice changes, others Respiratory: denies: cough, hemoptysis, orthopnea, SOB at rest, shortness of breath, SOB with excertion, stridor, wheezing, others Cardiovascular: denies: chest pain, dizzy spells, diaphoresis, Dyspnea on exertion, edema, irregular heart beat, left arm pain, lightheadedness, palpitations, PND, syncope, others Gastrointestinal: reports: constipated; denies: abdomen distended, abdominal pain, blood streaked bowels, diarrhea, dysphagia, difficulty swallowing, hematemesis, melena, nausea, poor appetite, poor fluid intake, rectal bleeding, rectal pain, vomiting, others Genitourinary: denies: burning, dysuria, flank pain, frequency, hematuria, incontinence, penile discharge, penile sore, pain, testicle pain, testicle swelling, urgency, others Neurological: denies: dizziness, fainting, headache, left sided numbness, left sided weakness, numbness, paresthesia, pre-existing deficit, right sided numbness, right sided weakness, seizure, speech problems, tingling, tremors, weakness, others Musculoskeletal: reports: joint pain (b/l lower extremity); denies: back pain, gout, joint swelling, muscle pain, muscle stiffness, neck pain, others Integumetry: denies: bruises, change in color, change in hair/nails, dryness, laceration, lesions, lumps, rash, wounds, others Allergic/Immunocompromised: denies: Difficulty Healing, Frequent Infections, Hives, Itching, others Hematologic/Lymphatic: denies: anemia, blood clots, easy bleeding, easy bruising, swollen glands, others Endocrine: denies: excessive hunger, excessive sweating, excessive thirst, excessive urination, flushing, intolerance to cold, intolerance to heat, unexplained weight gain, unexplained weight loss, others Psychiatric: denies: anxiety, bipolar disorder, depression, hopeless, panic disorder, schizophrenia, sleepless, suicidal, others All Other Systems: Reviewed and Negative Physical Exam General Appearance: No Apparent Distress, Normal HEENT: Normal ENT Inspection, Pharynx Normal, TMs Normal Neck: Full Range of Motion, Non-Tender, Normal, Normal Inspection Respiratory: Chest Non-Tender, Lungs Clear, No Accessory Muscle Use, No Respiratory Distress, Normal Breath Sounds Cardiovascular: No Edema, No JVD, No Murmur, No Gallop, Normal Peripheral Pulses, Regular Rate/Rhythm Breast Exam: Deferred Gastrointestinal: Other (decreased bowel sounds) Genitalia: Deferred Pelvic: Deferred Rectal: Deferred Extremities: No calf tenderness, Normal capillary refill, Normal inspection, Normal range of motion, Non-tender, No pedal edema Musculoskeletal : Apperance: Normal Neurologic: Alert, contract serviceman II-XII nml as Tested, No Motor Deficits, Normal Affect, Normal Mood, No Sensory Deficits Cerebellar Function: Normal Reflexes: Normal Skin: Dry, Normal Color, Warm Lymphatic: No Adenopathy Was a procedure done? Was a procedure done?: No Differential Diagnosis EXT Differential Diagnosis: CHF, Deep Vein Thrombosis, Neurovascular injury, Arthritis Other Differential Diagnosis constipation, lumbar radiculopathy, constipation, abdominal pain, colitis, sbo, stones X-Ray, Labs, Meds, VS Vital Signs Date Time Temp Pulse Resp B/P (MAP) Pulse Ox O2 Delivery O2 Flow Rate FiO2 04/24/24 14:48 98.6 88 18 114/72 (86) 94 Lab Test 04/24/24 14:49 Range/Units White Blood Count 10.6 4.4-10.8 10^3/uL Red Blood Count 5.16 4.5-5.90 10^6/uL Hemoglobin 15.7 13.5-17.5 g/dL Hematocrit 46.3 41.0-53.0 % Mean Corpuscular Volume 89.7 80.0-100.0 fL Mean Corpuscular Hemoglobin 30.4 28.0-32.0 pg Mean Corpuscular Hemoglobin Concent 33.9 32.0-36.0 g/dL Red Cell Distribution Width 16.0 H 11.8-14.3 % Platelet Count 236 140-450 10^3/uL Mean Platelet Volume 7.3 6.9-10.8 fL Neutrophils (%) (Auto) 76.6 37.0-80.0 % Lymphocytes (%) (Auto) 15.7 10.0-50.0 % Monocytes (%) (Auto) 6.7 0.0-12.0 % Eosinophils (%) (Auto) 0.3 0.0-7.0 % Basophils (%) (Auto) 0.7 0.0-2.0 % Neutrophils # (Auto) 8.1 1.6-8.6 10 ^3/uL Lymphocytes # (Auto) 1.7 0.4-5.4 10 ^3/uL Monocytes # (Auto) 0.7 0-1.3 10 ^3/uL Eosinophils # (Auto) 0 0-0.8 10 ^3/uL Basophils # (Auto) 0.1 0-0.2 10 ^3/uL Nucleated Red Blood Cells 0.0 % Sodium Level 139 136-145 mmol/L Potassium Level 4.4 3.5-5.1 mmol/L Chloride Level 105 98-107 mmol/L Carbon Dioxide Level 25 20-31 mmol/L Anion Gap 9 5-15 Blood Urea Nitrogen 11 9-23 mg/dL Creatinine 1.45 H 0.700-1.30 mg/dL Glomerular Filtration Rate Calc 52 >90 mL/min BUN/Creatinine Ratio 7.6 L 10.0-20.0 Serum Glucose 139 H 74-106 mg/dL Calcium Level 9.9 8.7-10.4 mg/dL Total Bilirubin 1.5 H 0.2-1.0 mg/dL Aspartate Amino Transferase (AST) 13 13-40 U/L Alanine Aminotransferase (ALT) 14 7-40 U/L Alkaline Phosphatase 126 H 46-116 U/L Total Protein 8.0 5.7-8.2 g/dL Albumin 4.2 3.2-4.8 g/dL Lipase 28 12-53 U/L [place] [id number] DIAGNOSTIC IMAGING Diagnostic Imaging Report : [id number] Signed PATIENT: INA PENA ACCT: [id number] UNIT: [id number] : 1950 LOC: ER ROOM / BED: / AGE / SEX: 73 / M ADM STATUS: REG ER SERVICE 1432 ORDERING PHYSICIAN: LEON MCRAE MD PROCEDURE(s): ABPL - CT AB PEL WO CON-NO ORAL OR IV REASON: pain ORDER NUMBER(s): [id number], ACCESSION NUMBER(s): [id number] Exam: CT CT AB PEL WO CON-NO ORAL OR IV History: pain Comparison Study: CT CT AB PEL WO CON-NO ORAL OR IV on DOS: 02/28/24, CT [facility] AB PEL WO CON-NO IV/ORAL on DOS: 10/24/23, CT CT AB PEL WO CON-NO ORAL OR IV on DOS: 04/01/23 TECHNIQUE: Multidetector CT of the abdomen and pelvis was performed from lung bases to pubic symphysis. Imaging was performed without IV contrast. Axial, coronal, and sagittal multiplanar reformats were obtained from the axial data set by the technologist. RADIATION DOSE: DLP 1460.44 mGy.cm; CTDI vol 25.39 mGy. Findings: Limited evaluation given noncontrast technique. Lungs: Dependent atelectasis Heart: The visualized heart is unremarkable. No cardiomegaly or pericardial effusion. Liver: Unremarkable. Gallbladder: Cholecystectomy. Spleen: Unremarkable Pancreas: Unremarkable Adrenals: Unremarkable Kidneys: Right renal hypodense lesion. Left nephrolithiasis with mild perinephric inflammatory changes. Resolved left hydronephrosis. Left double J nephroureteral stent. GI tract: Diverticulosis without evidence of acute diverticulitis. : The urinary bladder is decompressed via Luevano catheter. Vasculature: Mild aortoiliac atherosclerosis. Lymphadenopathy: Absent Peritoneum: No ascites Musculoskeletal: Moderate multilevel degenerative changes of the thoracolumbar spine Soft tissues: Unremarkable Impression: 1. Limited evaluation given noncontrast technique. 2. No acute abdominopelvic abnormalities. 3. Left nephrolithiasis with mild perinephric inflammatory changes. Resolved left hydronephrosis. 4. Double J nephroureteral stent is in adequate position. 5. Other non-acute, ancillary findings as described above. ATED BY: LAURA CRUZ DO DICTATED DATE/TIME: 04/24/241550 SIGNED BY: LAURA CRUZ DO SIGNED DATE/TIME: 04/24/241550 CC: Time of 1ST Reevaluation: 15:45 Reevaluation 1ST: Unchanged Time of 2ND Reevaluation: 17:19 Reevaluation 2ND: Resolved Patient Education/Counseling: Diagnosis, Treatment, Prognosis, Need For Follow Up Family Education/Counseling: No Family Present Additional Information pt had: no prior external notes the following tests were ordered in the ED: CBC, CMP, lipase, UA, CT abdomen- pelvis without contrast independent historians: EMS, reviewed and agreed with results interpreted by independent provider: radiologist results and treatments performed in the ED were discussed with: patient and medical personnel Departure 1 Departure Time of Disposition: 17:20 Impression: Primary Impression: Constipation Qualified Codes: K59.01 - Slow transit constipation Disposition: HOME / SELF CARE / HOMELESS Condition: Good e-Prescriptions Bisacodyl (Dulcolax) 10 Mg Sup 10 MG RE DAILY for 5 Days, #5 SUPP Prov: LEON MCRAE MD 11/23/24 Discharged With: Self Critical Care Note Critical Care Time?: No Stability Stability form required: No Heart Score Heart Score: Heart Score Response (Comments) Value History N/A 0 EKG N/A 0 Age N/A 0 Risk Factors N/A 0 Troponin N/A 0 Total 0 I personally scribed for LEON MCRAE MD ([facility]) on 04/24/24 at 15:16. Electronically submitted by Rick Romero ([facility] I personally scribed for LEON MCRAE MD ([facility]) on 04/24/24 at 16:20. Electronically submitted by Rick Romero ([facility] LEON MCRAE MD Apr 24, 2024 15:16
[2024-04-24 15:19] LABS: Alanine Aminotransferase 14 U/L (7-40); Albumin 4.2 g/dL (3.2-4.8); Alkaline Phosphatase 126 U/L (46-116); Anion Gap 9 (5-15); Aspartate Aminotransferase 13 U/L (13-40); BUN/Creatinine Ratio 7.6 (10.0-20.0); Bilirubin, Total 1.5 mg/dL (0.2-1.0); Blood Urea Nitrogen 11 mg/dL (9-23); Calcium 9.9 mg/dL (8.7-10.4); Carbon Dioxide 25 mmol/L (20-31); Chloride 105 mmol/L (98-107); Glucose 139 mg/dL (74-106); Lipase 28 U/L (12-53); Potassium 4.4 mmol/L (3.5-5.1); Sodium 139 mmol/L (136-145)
--- NOTE | 2024-04-24 15:54 | DVH ---
Exam: CT CT AB PEL WO CON-NO ORAL OR IV History: pain Comparison Study: CT CT AB PEL WO CON-NO ORAL OR IV on DOS: 02/28/24, CT [facility] AB PEL WO CON-NO IV/ORAL on DOS: 10/24/23, CT CT AB PEL WO CON-NO ORAL OR IV on DOS: 04/01/23 TECHNIQUE: Multidetector CT of the abdomen and pelvis was performed from lung bases to pubic symphysi s. Imaging was performed without IV contrast. Axial, coronal, and sagittal multiplanar reformats were obtained from the axial data set by the technologist. RADIATION DOSE: DLP 1460.44 mGy.cm; CTDI vol 25.39 mGy. Findings: Limited evaluation given noncontrast technique. Lungs: Dependent atelectasis Heart: The visualized heart is unremarkable. No cardiomegaly or pericardial effusion. Liver: Unremarkable. Gallbladder: Cholecystectomy. Spleen: Unremarkable Pancreas: Unremarkable Adrenals: Unremarkable Kidneys: Right renal hypodense lesion. Left nephrolithiasis with mild perinephric inflammatory change s. Resolved left hydronephrosis. Left double J nephroureteral stent. GI tract: Diverticulosis without evidence of acute diverticulitis. : The urinary bladder is decompressed via Luevano catheter. Vasculature: Mild aortoiliac atherosclerosis. Lymphadenopathy: Absent Peritoneum: No ascites Musculoskeletal: Moderate multilevel degenerative changes of the thoracolumbar spine Soft tissues: Unremarkable Impression: 1. Limited evaluation given noncontrast technique. 2. No acute abdominopelvic abnormalities. 3. Left nephrolithiasis with mild perinephric inflammatory changes. Resolved left hydronephrosis. 4. Double J nephroureteral stent is in adequate position. 5. Other non-acute, ancillary findings as described above.
[2024-04-24] MEDS ORDERED: BISA10SU45 RE (17:20)
[2024-04-24] MEDS: HYDROcodone-ACET 5/325MG TAB PO ONE (18:16)
[2024-04-24 18:22] VITALS: BP 107/70; PULSE 92; RESP 20; TEMP 98.2; O2SAT 96
== END 2024-04-24 18:27 | disposition home or self-care (01) ==
LOC: EDBD 13:45 → ER 13:45
DX: K59.00 Constipation, unspecified (principal); I12.9 Hypertensive chronic kidney disease with stage 1 through stage 4 chronic kidney disease, or unspecified chronic kidney disease; E11.22 Type 2 diabetes mellitus with diabetic chronic kidney disease; N18.9 Chronic kidney disease, unspecified; J44.9 Chronic obstructive pulmonary disease, unspecified; K21.9 Gastro-esophageal reflux disease without esophagitis; E78.5 Hyperlipidemia, unspecified; Z90.49 Acquired absence of other specified parts of digestive tract; Z90.89 Acquired absence of other organs; Z79.899 Other long term (current) drug therapy
CPT/HCPCS: 36415; 74176; 80053; 83690; 85025

== ENCOUNTER 2024-08-30 16:47 | Inpatient (IN) | payer MEDICARE, MEDICAID ==
[~2024-08-30] VITALS: Ht 193 cm; Wt 109.0 kg
[~2024-08-30 16:47] MED LIST changes: -CAR125T PO; +CARV3.1240 PO; +FLEC100T PO; +FURO20TA3 PO; +INSLANTI SC; +INSREG3 IV; -INSREG3 SC; -INSU100I74 SC; -NITR-52 PO
--- NOTE | 2024-08-30 17:02 | ECG ---
[facility] Test Date: 2024-08-30 Test Time: 16:53:03 Pat Name: INA PENA Department: ED Room: 0277 Gender: M Solderer Assembler: dejah : 1950 Requested By: EMERGENCY EMERGENCY Order Number: [id number] Reading MD: Mitch Plaza Measurements Intervals [place] Rate: 106 P: 0 AK: 0 QRS: -79 QRSD: 131 T: 41 QT: 356 QTc: 473 Interpretive Statements Junctional tachycardia Nonspecific IVCD with LAD ST elevation suggests acute pericarditis Baseline wander in lead(s) V3,V5 Electronically Signed On 09-01-2024 22:09:16 PDT by Mitch Plaza Please click the below link to view image of tracing.
[2024-08-30 18:19] VITALS: PULSE 104; RESP 18; O2SAT 94
--- NOTE | 2024-08-30 19:07 | DVH ---
CHEST RADIOGRAPH Indication: sob/fever Technique: Single frontal view of the chest was obtained Comparison: XY CHEST PORTABLE on DOS: 05/27/24, XY CHEST PORTABLE on DOS: 02/26/24, XY CHEST PORTABLE on DOS: 10/25/23 FINDINGS: Lungs are hypoventilated with interstitial edema particularly in the right lung and there is fluid in the right minor fissure. Heart size appears to be within normal limits. Findings are very similar to prior CT examination of March 2024 IMPRESSION: 1. Apparent interstitial edema in the right lung. Follow-up CT examination of the chest would be help ful for comparison to prior CT examination.
[2024-08-30 19:24] LABS: Basophils # (auto) 0.1 10 ^3/uL (0-0.2); Basophils % (auto) 0.5 % (0.0-2.0); Eosinophils # (auto) 0 10 ^3/uL (0-0.8); Eosinophils % (auto) 0.1 % (0.0-7.0); Hematocrit 48.3 % (41.0-53.0); Hemoglobin 15.9 g/dL (13.5-17.5); Lymphocytes # (auto) 1.5 10 ^3/uL (0.4-5.4); Mean Corpuscular Hemoglobin 29.3 pg (28.0-32.0); Mean Corpuscular Hgb Conc. 32.9 g/dL (32.0-36.0); Mean Corpuscular Volume 89.2 fL (80.0-100.0); Monocytes % (auto) 7.7 % (0.0-12.0); Neutrophils % (auto) 80.7 % (37.0-80.0); Nucleated Red Blood Cells % 0.1 %; Platelet Count (auto) 171 10^3/uL (140-450); Red Blood Cells 5.41 10^6/uL (4.5-5.90); Red Cell Distribution Width 16.1 % (11.8-14.3); White Blood Cell 13.6 10^3/uL (4.4-10.8)
--- NOTE | 2024-08-30 19:36 | ED.PDOC ---
GI ASSESSMENT HPI Comments 73 y.o male presents to the ED for a chief complaint of lower abdominal pain associated with SOB that started yesterday. Patient reports pain is constant with no alleviating or precipitating factors. Patient resides at [facility] facility in which staff today reported patient was hypoxic at 89% on room air. Patient is on oxygen at the facility. Patient was placed on 3 liters with SPO2 increasing to 95%. Patient denies any other symptoms or pain. VITALS: Temp: 97.7 F BP: 118/68 HR: 104 RR: 18 SPO2: 95% on 3 liters. Past medical history: PA< GERD, lipids, HTN, CVA x3, CKF, paraplegic, kidney stones, anemia and AFIB Past surgical history: Appendectomy, cholecystectomy kidney stones. Day, HPI: Poor Historian. REVIEW OF SYSTEMS: CONSTITUTIONAL: Denies acute: fever, diaphoresis, chills, HEAD: Denies acute: headache, photophobia Eyes: Denies acute: Double vision, vision loss, eye pain, eye discharge. EARS: Denies acute: tinnitus, hearing loss, ear discharge, ear pain, THROAT: Denies acute: sore throat, swelling, difficulty swallowing , pain with swallowing, change in voice. NECK: Denies acute: neck pain, neck swelling, stiff neck. HEART: Denies acute : chest pain, palpitations, LUNGS: Denies acute: , wheezing, cough, hemoptysis ABDOMEN: Denies acute: Nausea, Vomiting, diarrhea, melena , hematemesis, hematochezia SKIN: Denies acute: rash, redness, lesions, itchiness. EXTREMITIES: Denies acute: calf pain, numbness, tingling, weakness, denies pain in extremity. Denies acute: Low back pain. Neuro: Denies acute: focal neurological deficit, motor or sensory focal neurological deficit, tremors, seizure like activity, confusion, dizziness, change in mental status, loss of bowel or bladder function, cauda equina like symptoms. : Denies acute: dysuria, hematuria, flank pain, increase in urinary frequency. PSYCH: Denies acute: hallucination, suicidal ideation, homicidal ideation. PHYSICAL EXAM: General: ---[id number]----acute distress, awake and alert. Head: normocephalic, atraumatic. Neck: supple, trachea is midline, no swelling. Throat: Normal phonation. Eyes:, no erythema, no purulent discharge, no proptosis, no icterus. Heart: regular rate, regular rhythm, no significant murmur appreciated. Lungs: no apparent respiratory distress while on supplemental oxygen, Able to speak in full sentences. No wheezing, no rhonchi, no crackles. No stridors Clear to auscultation bilaterally. Abdomen: Periumbilical tender to palpation, non distended, soft, no guarding, no rebound, + bowel sounds. Neuro: Awake, Alert, oriented to name, self, situation, follows commands GCS=15. Speech is normal. Skin: no petechia, no purpura, no cyanosis, non-pale, not jaundice. Lower extremities: --no - Pitting edema no deformity, no focal swelling, no calf TTP. Makes eye contact. Face: no apparent facial droop. ED COURSE: Chief Complaint: Abdominal Pain Time Seen by MD: 19:25 Primary Care Provider: DARYA Reviewed Notes: Nurses Notes, Allergies Allergies: Coded Allergies: NO KNOWN ALLERGIES (Unverified , 01/27/22) Home Meds Reported Medications Insulin Regular (Human) (Humulin R) 100 Unit/Ml Inj, UNIT IV UD for 15 Days, #10 05/26/24 Insulin Glargine (Lantus) 100 Unit/Ml Inj, UNIT SC UD for 28 Days, #10 05/26/24 Flecainide Acetate (Flecainide Acetate) 100 Mg Tab, 1 TAB PO BID for 31 Days, #62 05/26/24 Carvedilol (Carvedilol) 3.125 Mg Tab, 1 TAB PO BID for 31 Days, #62 05/26/24 Apixaban Base (ELIQUIS) 2.5 Mg Tab, 1 TAB PO BID for 28 Days, #14 08/15/23 Nitroglycerin (Nitrostat) 0.4 Mg Sub, 0.4 MG SL, INJ 04/03/23 Atorvastatin Calcium (ATORVASTATIN CALCIUM) 10 Mg Tab, 1 TAB PO QPM for 31 Days, #31 04/03/23 Tamsulosin Hcl (Flomax) 0.4 Mg Cap, 1 TAB PO DAILY for 31 Days, #31 04/03/23 Multiple Vitamins W/ Minerals (Centrum Silver) Silver Tab, 1 OR DAILY, TAB 04/03/23 Pantoprazole Sodium Sesquihydr (Protonix) 40 Mg Tab, 1 TAB PO DAILY for 31 Days, #31 04/03/23 Bisacodyl (DULCOLAX SUPPOSITORY) 10 Mg Rc, 10 MG MD DAILYP PRN for FOR CONSTIPATION, MG 08/06/18 Magnesium Hydroxide (MILK OF MAGNESIA ORAL SUSPENSION) 30 Ml Ss, 30 ML PO DAILYP PRN for FOR CONSTIPATION 08/06/18 Sodium Phosphates (FLEET ENEMA SIX PACK) Enema Sharon, 1 RE DAILYP PRN for FOR CONSTIPATION 08/06/18 Acetaminophen (Acetaminophen) 325 Mg Tab, 500 MG PO Q6HP PRN for MILD PAIN, 0 Refills 08/06/18 Docusate Sodium (Docusate Sodium) 100 Mg Tab, 100 MG PO BID 08/06/18 Discontinued Reported Medications Furosemide (Furosemide) 20 Mg Tab, 1 TAB PO DAILY for 31 Days, #31 05/26/24 Cranberry (CRANBERRY) 400 Mg Tab, 400 MG PO DAILY, TAB 08/15/23 Magnesium (Magnesium 400 mg) 1 Tab Tab, 1 TAB PO BID, TAB 08/15/23 Metformin Hydrochloride (Metformin Hcl) 500 Mg Tab, 1000 MG PO BID for 30 Days, MG 04/28/23 Misc Natural Products (Neuriva) 1 Cap Cap, 1 CAP PO QPM, CAP 04/03/23 Cholecalciferol (Vitamin D3 1.25 mg (33081 Ut)) 1 Cap Cap, 1 CAP PO DAILY, CAP 04/03/23 Information Source: Patient Mode of Arrival: EMS Past Medical History PAST MEDICAL HISTORY: AFIB, Anemia, CKF, COPD, CVA, DM, GERD, High Lipids, HTN, Kidney Stones, PA, TIA, UTI'S Surgical History: Appendectomy, Cholecystectomy, PTCA Family History Family History: Reviewed,noncontributory to illness, Family hx of DM Social History Smoker: Non-Smoker Alcohol: Denies ETOH Use Drugs: Denies Drug Use Lives In: Assisted Care, [facility] Was a procedure done? Was a procedure done?: No GI differential Dx Differential Diagnosis: Esophagitis, Gastroenteritis, Viral, Other (DDx include ACS, unstable angina, anxiety, PE, pneumothroax, neoplasm, cardiac ischemia, COPD, asthma, CHF, pleural effusion, tobacco abuse, pneumonia, hypoxia, hypercapnia, anemia., infection/sepsis., pulmonary edema. Asthma, Cardiac tamponade, infection.) X-Ray, Labs, Meds, VS Vital Signs Date Time Temp Pulse Resp B/P (MAP) Pulse Ox O2 Delivery O2 Flow Rate FiO2 08/30/24 22:45 98.8 87 17 98/56 (70) 99 98.8 08/30/24 22:10 98.9 98.9 08/30/24 21:47 98.5 94 20 110/65 (80) 99 98.5 08/30/24 20:47 90 15 99 Nasal Cannula* 2 28 08/30/24 19:58 98.4 90 15 95/64 (74) 99 98.4 08/30/24 18:41 104 08/30/24 18:19 104 18 94 Nasal Cannula* 2 28 08/30/24 18:12 104 24 95/54 (68) 90 08/30/24 17:24 97.6 97.6 08/30/24 16:53 106 08/30/24 16:53 97.7 104 18 118/68 (85) 95 97.7 Lab Test 08/30/24 21:46 08/30/24 19:40 08/30/24 19:38 08/30/24 18:40 Range/Units Sodium Level 142 136-145 mmol/L Potassium Level 4.6 3.5-5.1 mmol/L Chloride Level 110 H 98-107 mmol/L Carbon Dioxide Level 23 20-31 mmol/L Anion Gap 9 5-15 Blood Urea Nitrogen 18 9-23 mg/dL Creatinine 1.73 H 0.700-1.30 mg/dL Glomerular Filtration Rate Calc 42 >90 mL/min BUN/Creatinine Ratio 10.4 10.0-20.0 Serum Glucose 159 H 74-106 mg/dL Calcium Level 9.4 8.7-10.4 mg/dL Magnesium Level 2.0 1.6-2.6 mg/dL Total Bilirubin 1.6 H 0.2-1.0 mg/dL Aspartate Amino Transferase (AST) 23 13-40 U/L Alanine Aminotransferase (ALT) 16 7-40 U/L Alkaline Phosphatase 106 46-116 U/L Troponin I High Sensitivity 15 14 15 </=54 ng/L Total Protein 7.4 5.7-8.2 g/dL Albumin 4.0 3.2-4.8 g/dL Influenza Type A Antigen Negative Negative Influenza Type B Antigen Negative Negative SARS-CoV-2 Antigen (Rapid) Negative NEGATIVE White Blood Count 13.6 H 4.4-10.8 10^3/uL Red Blood Count 5.41 4.5-5.90 10^6/uL Hemoglobin 15.9 13.5-17.5 g/dL Hematocrit 48.3 41.0-53.0 % Mean Corpuscular Volume 89.2 80.0-100.0 fL Mean Corpuscular Hemoglobin 29.3 28.0-32.0 pg Mean Corpuscular Hemoglobin Concent 32.9 32.0-36.0 g/dL Red Cell Distribution Width 16.1 H 11.8-14.3 % Platelet Count 171 140-450 10^3/uL Mean Platelet Volume 8.0 6.9-10.8 fL Neutrophils (%) (Auto) 80.7 H 37.0-80.0 % Lymphocytes (%) (Auto) 11.0 10.0-50.0 % Monocytes (%) (Auto) 7.7 0.0-12.0 % Eosinophils (%) (Auto) 0.1 0.0-7.0 % Basophils (%) (Auto) 0.5 0.0-2.0 % Neutrophils # (Auto) 11.0 H 1.6-8.6 10 ^3/uL Lymphocytes # (Auto) 1.5 0.4-5.4 10 ^3/uL Monocytes # (Auto) 1.0 0-1.3 10 ^3/uL Eosinophils # (Auto) 0 0-0.8 10 ^3/uL Basophils # (Auto) 0.1 0-0.2 10 ^3/uL Nucleated Red Blood Cells 0.1 % D-Dimer, Quantitative 0.57 H 0.0-0.49 mg/L FEU Lactic Acid Level 1.3 0.4-2.0 mmol/L B-Type Natriuretic Peptide 276.51 0-100 pg/mL Microbiology Date/Time Source Procedure Growth Status 08/30/24 18:40 Blood Blood Culture - Preliminary NO GROWTH AFTER 72 HOURS OF INCUBATION. Resulted 08/30/24 18:30 Blood Blood Culture - Preliminary NO GROWTH AFTER 72 HOURS OF INCUBATION. Resulted [place] [address] Ph: [phone] DIAGNOSTIC IMAGING Diagnostic Imaging Report : [id number] Signed PATIENT: INA PENA ACCT: [id number] UNIT: [id number] : 1950 LOC: ER ROOM / BED: / AGE / SEX: 73 / M ADM STATUS: REG ER SERVICE 06 ORDERING PHYSICIAN: STEFANO PADILLA DO PROCEDURE(s): CXRP - CHEST PORTABLE REASON: sob/fever ORDER NUMBER(s): [id number], ACCESSION NUMBER(s): [id number] CHEST RADIOGRAPH Indication: sob/fever Technique: Single frontal view of the chest was obtained Comparison: XY CHEST PORTABLE on DOS: 05/27/24, XY CHEST PORTABLE on DOS: 02/26/24, XY CHEST PORTABLE on DOS: 10/25/23 FINDINGS: Lungs are hypoventilated with interstitial edema particularly in the right lung and there is fluid in the right minor fissure. Heart size appears to be within normal limits. Findings are very similar to prior CT examination of March 2024 IMPRESSION: 1. Apparent interstitial edema in the right lung. Follow-up CT examination of the chest would be helpful for comparison to prior CT examination. ATED BY: KURT HUERTA MD DICTATED DATE/TIME: 08/30/241904 SIGNED BY: KURT HUERTA MD SIGNED DATE/TIME: 08/30/241904 CC: [place] [address] Ph: [phone] DIAGNOSTIC IMAGING Diagnostic Imaging Report : [id number] Signed PATIENT: INA PENA ACCT: [id number] UNIT: [id number] : 1950 LOC: ER ROOM / BED: / AGE / SEX: 73 / M ADM STATUS: REG ER SERVICE 06 ORDERING PHYSICIAN: STEFANO PADILLA DO PROCEDURE(s): ABPL - CT AB PEL WO CON-NO ORAL OR IV REASON: sob/fever ORDER NUMBER(s): [id number], ACCESSION NUMBER(s): [id number] Procedure: CT CT AB PEL WO CON-NO ORAL OR IV 08/30/2024 06:18 PM Indication: sob/fever Comparison Study: CT CT AB PEL WO CON-NO ORAL OR IV on DOS: 05/25/24, CT CT AB PEL WO CON-NO ORAL OR IV on DOS: 04/24/24, CT CT AB PEL WO CON-NO ORAL OR IV on DOS: 02/28/24 Technique: Axial images were obtained and reformatted in coronal and sagittal planes. All CT scans at this medical facility are performed using dose modulation techniques as appropriate to a performed exam including the following: Automated exposure control was utilized; adjustment of the MA and/or KV according to patient size; and use of iterative reconstruction technique. CT Dose: CTDI volume is 24.43 mGy. Dose-length product is 1514.42 mGy*cm FINDINGS: Lower Chest: Bibasilar subsegmental atelectasis is noted. Mild bibasilar pulmonary opacities Hepatobiliary: Gallbladder is surgically absent. Spleen: Unremarkable. Pancreas: Unremarkable. Adrenal Glands: Unremarkable. tract: The kidneys are normal in size bilaterally . Mild left hydronephrosis and hydroureter noted without obstructing calculi. Several left renal nonobstructing calculi are seen measuring up to 1.4 cm. Moderate bilateral perinephric fat stranding noted. Several small right renal cysts measuring up to 1.2 cm. Circumferential mural thickening of the urinary bladder and mild pericystic fat stranding. GI tract: The stomach is grossly normal in appearance. No evidence of small bowel obstruction. Scattered colonic diverticula are noted without evidence of diverticulitis. The appendix is not visualized. No inflammatory change is noted in the right lower quadrant. Lymphatics: No mesenteric, retroperitoneal or periportal lymphadenopathy. Vasculature: The abdominal aorta is normal in caliber. Diffuse calcified plaque formation is noted. Pelvic Organs: Unremarkable Bones/soft tissues: No acute to abnormality. Other: None. IMPRESSION: 1. Mild left hydronephrosis and hydroureter without obstructing calculi. There is bladder wall thickening pericystic inflammation. The findings are suggestive of UTI with cystitis pyelitis/pyelonephritis. Differential diagnosis includes a recently passed stone. Recommend clinical and biochemical correlation.Several nonobstructing 2. Left renal calculi noted. 3. Diffuse colonic diverticulosis without diverticulitis. 4. Mild bibasilar streaky opacities likely subsegmental atelectasis. Developing pneumonia can not be ruled out. Recommend clinical and biochemical correlation. ATED BY: AMMY PULIDO MD DICTATED DATE/TIME: 08/30/242001 SIGNED BY: AMMY PULIDO MD SIGNED DATE/TIME: 08/30/242001 CC: Time of 1ST Reevaluation: 19:29 Reevaluation 1ST: Unchanged Time of 2ND Reevaluation: 21:29 (CMP is still pending) Time of 3RD Reevaluation: 21:52 (CMP and urinalysis are still pending) Patient Education/Counseling: Diagnosis, Treatment Family Education/Counseling: No Family Present Comments Sepsis protocol was initiated. Given the patient's history of chronic kidney disease and chest x-ray findings of interstitial edema, patient was given conservative fluid hydration. Patient presented with the above HPI.----abdominal pain and dyspnea--workup was initiated. patient was found with the above mentioned diagnosis. the following medications were ordered: please refer to order lists of meds and tests obtained by myself Dr. Padilla. Patient ED course and VS have been stabilized. Patient has been reassessed in the ED and remained in a stable condition. Pertinent incidental findings were discussed with the patient and/or family. Patient/family voices understanding and is agreeable with plan. Patient has been observed in the ED adequate length of time to insure improvement/stability. Escalation of care considered: Consideration of escalation to observation or admission Patient was ADMITTED to the medicine team for further evaluation and treatment of their presentation. All the reports of any imaging studies that were ordered by myself were reviewed by myself. Departure 1 Departure Time of Disposition: 20:14 Impression: Primary Impression: Hypoxemia Additional Impressions: Pneumonia Pyelonephritis Sepsis Disposition: ADMITTED INPATIENT Admit to: Tele Condition: Guarded Discharged With: Self Critical Care Note Critical Care Time?: Yes (45 min-critical care time only) I personally scribed for STEFANO PADILLA DO ([email or web address]) on 08/30/24 at 19:36. Electronically submitted by Jessica Porter ([facility]). I personally scribed for STEFANO PADILLA DO ([email or web address]) on 08/30/24 at 20:08. Electronically submitted by Jessica Porter ([facility]). STEFANO PADILLA DO Aug 30, 2024 19:36
[2024-08-30] MEDS: PIPERACILLIN-TAZOB 3.375GM 100 ML IV ONE (19:47)
--- NOTE | 2024-08-30 20:04 | DVH ---
Procedure: CT CT AB PEL WO CON-NO ORAL OR IV 08/30/2024 06:18 PM Indication: sob/fever Comparison Study: CT CT AB PEL WO CON-NO ORAL OR IV on DOS: 05/25/24, CT CT AB PEL WO CON-NO ORAL OR IV on DOS: 04/24/24, CT CT AB PEL WO CON-NO ORAL OR IV on DOS: 02/28/24 Technique: Axial images were obtained and reformatted in coronal and sagittal planes. All CT scans at this medical facility are performed using dose modulation techniques as appropriate to a performed e xam including the following: Automated exposure control was utilized; adjustment of the MA and/or KV according to patient size; and use of iterative reconstruction technique. CT Dose: CTDI volume is 24. 43 mGy. Dose-length product is 1514.42 mGy*cm FINDINGS: Lower Chest: Bibasilar subsegmental atelectasis is noted. Mild bibasilar pulmonary opacities Hepatobiliary: Gallbladder is surgically absent. Spleen: Unremarkable. Pancreas: Unremarkable. Adrenal Glands: Unremarkable. tract: The kidneys are normal in size bilaterally . Mild left hydronephrosis and hydroureter note d without obstructing calculi. Several left renal nonobstructing calculi are seen measuring up to 1. 4 cm. Moderate bilateral perinephric fat stranding noted. Several small right renal cysts measuring up to 1.2 cm. Circumferential mural thickening of the urinary bladder and mild pericystic fat strandi ng. GI tract: The stomach is grossly normal in appearance. No evidence of small bowel obstruction. Scatte red colonic diverticula are noted without evidence of diverticulitis. The appendix is not visualized. No inflammatory change is noted in the right lower quadrant. Lymphatics: No mesenteric, retroperitoneal or periportal lymphadenopathy. Vasculature: The abdominal aorta is normal in caliber. Diffuse calcified plaque formation is noted. Pelvic Organs: Unremarkable Bones/soft tissues: No acute to abnormality. Other: None. IMPRESSION: 1. Mild left hydronephrosis and hydroureter without obstructing calculi. There is bladder wall thicke mj pericystic inflammation. The findings are suggestive of UTI with cystitis pyelitis/pyelonephrit is. Differential diagnosis includes a recently passed stone. Recommend clinical and biochemical elizabeth elation.Several nonobstructing 2. Left renal calculi noted. 3. Diffuse colonic diverticulosis without diverticulitis. 4. Mild bibasilar streaky opacities likely subsegmental atelectasis. Developing pneumonia can not be ruled out. Recommend clinical and biochemical correlation.
[2024-08-30 20:47] VITALS: PULSE 90; RESP 15; O2SAT 99
[2024-08-30 21:05] LABS: Rapid Influenza A Negative (Negative); Rapid Influenza B Negative (Negative)
[2024-08-30 21:06] LABS: COVID19 ANTIGEN SOFIA FIA NEGATIVE (NEGATIVE)
[2024-08-30] MEDS: SODIUM CHLORIDE 0.9% 500 ML IV ONE (22:04)
[2024-08-30 23:07] LABS: BUN/Creatinine Ratio 10.4 (10.0-20.0)
[2024-08-30 23:09] LABS: Alanine Aminotransferase 16 U/L (7-40); Alkaline Phosphatase 106 U/L (46-116); Aspartate Aminotransferase 23 U/L (13-40); Blood Urea Nitrogen 18 mg/dL (9-23); Carbon Dioxide 23 mmol/L (20-31); Glucose 159 mg/dL (74-106)
[2024-08-30 23:10] LABS: Bilirubin, Total 1.6 mg/dL (0.2-1.0); Calcium 9.4 mg/dL (8.7-10.4); Total Protein 7.4 g/dL (5.7-8.2)
--- NOTE | 2024-08-30 23:15 | DVHHPRES ---
History of Present Illness Resident Creating Document: CAMILLA SALVADOR RESIDENT Reason for Visit: hypoxic and adominal pains History of Present Illness Patient is a 73 year old male with a past medical history of NC, GERD,CVA with hemiplegic presented to the ED today with complaints of severe abdominal pain of one day's duration. Patient is a poor historian who a resident at the [facility]. He was brought into the ED today because of abdominal pain and discomfort. Patient kept saying the is due to have stents removed form his abdomen. He had obvious surgical scars but not fresh wounds. Also patient was noted to be hypoxic with SpO2 of 89 on room air at the [facility]. Thus, he was brought to the ED for evaluation. Initial lab work and vitals reveal a septic picture. Past medical history: NC. GERD, lipids, HTN, CVA x3, CKF, paraplegic, kidney stones, anemia and AFIB Past surgical history: Appendectomy, cholecystectomy kidney stones. Social history: Lives at [facility] Family history: Noncontributory Past Medical History See HPI Family History See HPI Review of Systems Review of Systems Constitutional: Denies fever no chills no feeling of malaise HEENT: Denies headache, ear pain, ear discharges, conjunctivitis, nasal discharge throat pain Cardiovascular: Denies chest pain, palpitation, orthopnea, PND, or pedal edema Respiratory: Denies shortness of breath, cough cough, sputum production, hemoptysis, GI: abdominal pain, nausea, vomiting, diarrhea, hematemesis, hematochezia, : Denies frequency, urgency, hematuria, Endocrine: Denies unintentional weight gain or weight loss, feeling of hot flashes, [place]: Denies easy bruising, bleeding disorders, epistaxis Musculoskeletal: muscle weakness bilateral R> left Psych: No evidence of depression, zohreh, suicidal ideation Allergies: Coded Allergies: NO KNOWN ALLERGIES (Unverified , 01/27/22) Exam Vital Signs Vital Signs Date Time Temp Pulse Resp B/P (MAP) Pulse Ox O2 Delivery O2 Flow Rate FiO2 08/30/24 22:45 98.8 87 17 98/56 (70) 99 98.8 08/30/24 20:47 Nasal Cannula* 2 28 Exam General Appearance: seemed confused and repeating same comment about his abdomen HEENT: Atraumatic, PERRLA, EOMI, Respiratory: diminished air entry, faint crackles Cardiovascular: Regular rate, Normal S1, Normal S2, No murmurs, no chest wall tenderness Abdominal: soft and tenderness, bowel sounds present, no scars noted Extremities: No clubbing, No cyanosis, No edema, Normal pulses, No tenderness/swelling Skin: No rashes, No breakdown, No significant lesion Neur Normal speech, Strength weak R> L Sensation intact, Cranial nerves 3-12 NL, Reflexes 2+ unable to test clearly, but patient was not cooperating Psych/Mental Status: unable to assess. Labs/Xrays Labs Test 08/30/24 21:46 08/30/24 19:40 08/30/24 18:40 Range/Units Carbon Dioxide Level 23 20-31 mmol/L Blood Urea Nitrogen 18 9-23 mg/dL Creatinine 1.73 H 0.700-1.30 mg/dL Glomerular Filtration Rate Calc 42 >90 mL/min BUN/Creatinine Ratio 10.4 10.0-20.0 Serum Glucose 159 H 74-106 mg/dL Calcium Level 9.4 8.7-10.4 mg/dL Magnesium Level 2.0 1.6-2.6 mg/dL Total Bilirubin 1.6 H 0.2-1.0 mg/dL Aspartate Amino Transferase (AST) 23 13-40 U/L Alanine Aminotransferase (ALT) 16 7-40 U/L Alkaline Phosphatase 106 46-116 U/L Troponin I High Sensitivity 15 </=54 ng/L Total Protein 7.4 5.7-8.2 g/dL Albumin 4.0 3.2-4.8 g/dL Influenza Type A Antigen Negative Negative Influenza Type B Antigen Negative Negative SARS-CoV-2 Antigen (Rapid) Negative NEGATIVE White Blood Count 13.6 H 4.4-10.8 10^3/uL Red Blood Count 5.41 4.5-5.90 10^6/uL Hemoglobin 15.9 13.5-17.5 g/dL Hematocrit 48.3 41.0-53.0 % Mean Corpuscular Volume 89.2 80.0-100.0 fL Mean Corpuscular Hemoglobin 29.3 28.0-32.0 pg Mean Corpuscular Hemoglobin Concent 32.9 32.0-36.0 g/dL Red Cell Distribution Width 16.1 H 11.8-14.3 % Platelet Count 171 140-450 10^3/uL Mean Platelet Volume 8.0 6.9-10.8 fL Neutrophils (%) (Auto) 80.7 H 37.0-80.0 % Lymphocytes (%) (Auto) 11.0 10.0-50.0 % Monocytes (%) (Auto) 7.7 0.0-12.0 % Eosinophils (%) (Auto) 0.1 0.0-7.0 % Basophils (%) (Auto) 0.5 0.0-2.0 % Neutrophils # (Auto) 11.0 H 1.6-8.6 10 ^3/uL Lymphocytes # (Auto) 1.5 0.4-5.4 10 ^3/uL Monocytes # (Auto) 1.0 0-1.3 10 ^3/uL Eosinophils # (Auto) 0 0-0.8 10 ^3/uL Basophils # (Auto) 0.1 0-0.2 10 ^3/uL Nucleated Red Blood Cells 0.1 % D-Dimer, Quantitative 0.57 H 0.0-0.49 mg/L FEU Lactic Acid Level 1.3 0.4-2.0 mmol/L B-Type Natriuretic Peptide 276.51 0-100 pg/mL Assessment/Plan Assessment/Plan ASSESSMENT Severe Sepsis due to UTI, Pneumonia Pneumonia UTI with cystitis pyelitis/pyelonephritis Mild left hydronephrosis and hydroureter without obstructing calculi. Left renal calculi noted. Diffuse colonic diverticulosis without diverticulitis. Mild bibasilar streaky opacities likely subsegmental atelectasis. STEFFEN on CKD 3 due to VMN Metabolic encephalopathy hyperbilirubinemia DVT ruled out Coagulopathy Plan Continue antibiotics(Vancomycin and Zosyn) Furosemide 20 mg one time dose for congestion Give lactated ringers 500ml over 5 hours Repeat labs in the AM Adequate hydration, whilst monitory the heart Echo pending Pending UA Diet: renal diet DVT prophylaxis: Lovenox Goal of care discussed for more than 35 minutes: Full code Case and plan discussed with Dr. Han Plan discussed with: Patient Date of Service: Aug 30, 2024 Billing Provider: ALEXIA HAN MD Common Visit Codes: [id number] INP/OBS CARE (HIGH) Secondary Visit Codes: [id number] CARE PLAN 30 MINUTES CAMILLA SALVADOR RESIDENT Aug 30, 2024 23:15 ALEXIA HAN MD Aug 31, 2024 11:04
[2024-08-30 23:17] LABS: Anion Gap 9 (5-15); Chloride 110 mmol/L (98-107); Potassium 4.6 mmol/L (3.5-5.1); Sodium 142 mmol/L (136-145)
--- NOTE | 2024-08-31 01:08 | DVH ---
Bilateral lower extremity venous duplex Clinical History: RULE OUT dvt Comparison: None Technique: Duplex Doppler evaluation of the deep venous systems of both lower extremities from the common femora l veins to the popliteal veins including color Doppler and spectral/pulsed waveform analysis was perf ormed. Findings: RIGHT SIDE: The common femoral vein demonstrates appropriate compressibility and waveform variability. There is compressibility/patency of the great saphenous vein at the proximal thigh. The femoral vein demonstrates appropriate compressibility and waveform variability. The deep femoral vein demonstrates appropriate compressibility and waveform variability. The popliteal vein demonstrates appropriate compressibility and waveform variability. There is normal compressibility at the tibioperoneal trunk. LEFT SIDE: The common femoral vein demonstrates appropriate compressibility and waveform variability. There is compressibility/patency of the great saphenous vein at the proximal thigh. The femoral vein demonstrates appropriate compressibility and waveform variability. The deep femoral vein demonstrates appropriate compressibility and waveform variability. The popliteal vein demonstrates appropriate compressibility and waveform variability. There is normal compressibility at the tibioperoneal trunk. Impression: No right or left femoropopliteal venous thrombosis.
[2024-08-31] MEDS: ONDANSETRON HCL 4 MG/2 ML VIAL IV PRN (01:45)
[2024-08-31] MEDS: ACETAMINOPHEN 325 MG TAB PO PRN (01:45)
[2024-08-31] MEDS ORDERED: VANCOMYCIN PER PHARMACY 0 MG IV SCH (02:45)
[2024-08-31] MEDS: FUROSEMIDE 20 MG/2 ML VIAL IV ONE ×2 (03:18→09:22)
[2024-08-31] MEDS: LACTATED RINGER'S 500 ML IV SCH (03:27)
[2024-08-31] MEDS: VANCOMYCIN 1GM/250mL NS or D5W KIT IV SCH (03:30)
[2024-08-31] MEDS ORDERED: PIPERACILLIN-TAZOB 3.375GM 100 ML IV SCH (06:00)
[2024-08-31 07:44] LABS: Basophils # (auto) 0.1 10 ^3/uL (0-0.2); Basophils % (auto) 0.3 % (0.0-2.0); Eosinophils # (auto) 0 10 ^3/uL (0-0.8); Eosinophils % (auto) 0.1 % (0.0-7.0); Hematocrit 44.6 % (41.0-53.0); Hemoglobin 14.8 g/dL (13.5-17.5); Lymphocytes # (auto) 3.5 10 ^3/uL (0.4-5.4); Lymphocytes % (auto) 18.1 % (10.0-50.0); Mean Corpuscular Hemoglobin 29.7 pg (28.0-32.0); Mean Corpuscular Hgb Conc. 33.2 g/dL (32.0-36.0); Mean Corpuscular Volume 89.6 fL (80.0-100.0); Monocytes # (auto) 2.9 10 ^3/uL (0-1.3); Neutrophils % (auto) 66.5 % (37.0-80.0); Platelet Count (auto) 161 10^3/uL (140-450); Red Blood Cells 4.98 10^6/uL (4.5-5.90); Red Cell Distribution Width 16.3 % (11.8-14.3); White Blood Cell 19.6 10^3/uL (4.4-10.8)
[2024-08-31 08:01] LABS: Alanine Aminotransferase 19 U/L (7-40); Albumin 3.9 g/dL (3.2-4.8); Alkaline Phosphatase 104 U/L (46-116); Aspartate Aminotransferase 16 U/L (13-40); BUN/Creatinine Ratio 11.7 (10.0-20.0); Blood Urea Nitrogen 21 mg/dL (9-23); Calcium 9.1 mg/dL (8.7-10.4); Carbon Dioxide 24 mmol/L (20-31); Potassium 4.1 mmol/L (3.5-5.1); Sodium 141 mmol/L (136-145); Total Protein 7.2 g/dL (5.7-8.2)
[2024-08-31 08:02] LABS: Bilirubin, Total 2.1 mg/dL (0.2-1.0); Glucose 130 mg/dL (74-106)
[2024-08-31 09:16] LABS: Anion Gap 8 (5-15)
--- NOTE | 2024-08-31 09:23 | DVH ---
RENAL ULTRASOUND CLINICAL HISTORY: r/o obstruction TECHNIQUE: Multiple ultrasound images of the kidneys and bladder were obtained. COMPARISON: CT abdomen and pelvis 08/30/2024 FINDINGS: The right kidney measures 10.9 cm in length. The left kidney measures 10.3 cm. There are calculi in t he upper pole of the left kidney measuring up to 6 mm. There is no right renal calculus. There is no significant hydronephrosis identified by ultrasound. The bladder prevoid volume measures 263 cc. There is layering debris seen within the bladder. IMPRESSION: 1. There are calculi in the left kidney measuring up to 6 mm. There is no significant hydronephrosis identified by ultrasound. 2. Layering debris seen in the bladder. HS:Y
[2024-08-31 09:24] LABS: Chloride 109 mmol/L (98-107)
[2024-08-31 09:41] LABS: Erythrocyte Sedimentation Rate 33 mm/hr (0-20)
[2024-08-31 09:45] LABS: Opiate Scree,Urine Neg (NEGATIVE)
[2024-08-31 09:53] LABS: Amphetamine Screen, Urine Neg (NEGATIVE); Barbiturate Scree,Urine Neg (NEGATIVE); Benzodiazephine Screen, Urine Neg (NEGATIVE); Cannabinoid Screen, Urine Neg (NEGATIVE); Cocaine Screen, Urine Neg (NEGATIVE); Phencyclidine Screen, Urine Neg (NEGATIVE)
[2024-08-31] MEDS: MEROPENEM 1GM IVPB 50 ML IV ONE (10:14)
[2024-08-31] MEDS: LACTULOSE 20Gm/30ML SOLN PO SCH (10:16)
[2024-08-31] MEDS: ENOXAPARIN SOD 40 MG/0.4 ML SYRINGE SC SCH (10:16)
--- NOTE | 2024-08-31 11:56 | DVHPNRES ---
Progress Note Date Seen: Aug 31, 2024 Resident Creating Document: ABIMAEL HILARIO RESIDENT Medical Necessity Reason Pt with a Central, PICC or Fol: No Subjective Review of Systems This is a 73 year old male who presented to the ED today with complaints of severe abdominal pain of one day's duration. Past medical history: ND. GERD, lipids, HTN, CVA x3, CKF, paraplegic, kidney stones, anemia and AFIB Past surgical history: Appendectomy, cholecystectomy kidney stones. Social history: Lives at [facility] Family history: Noncontributory Patient is a resident at the [facility]. He was brought into the ED today because of abdominal pain and discomfort. Patient kept saying the is due to have stents removed form his abdomen. Also patient was noted to be hypoxic with SpO2 of 89 on room air at the facility. Thus, he was brought to the ED for evaluation. Initial lab work and vitals reveal a septic picture. On my initial assessment, patient was seen and examined at bedside. He currently states feeling better than on admission. Denies any significant shortness of breath, chest pain, abdominal pain, dysuria, nausea, vomiting, diarrhea, constipation, dizziness, lightheadedness. He's currently tolerating diet. Patient's has a left ureteral stent placed last year, he is coming in today for possible removal of the stents. A CT revealed mild left hydronephrosis, left renal calculi. Patient was placed on IV fluids, he will also seem to have UTI, she was started on meropenem and vancomycin given history of ESBL Klebsiella and Enterococcus faecalis. Objective vital signs Vital Sign Date Time Temp Pulse Resp B/P (MAP) Pulse Ox O2 Delivery O2 Flow Rate FiO2 08/31/24 10:00 82 18 119/74 (89) 99 08/31/24 08:00 97.8 97.8 08/30/24 20:47 Nasal Cannula* 2 28 Total Intake and Output 08/30/24 08/30/24 08/31/24 15:00 23:00 07:00 Intake Total 600 ml 800 ml Balance 600 ml 800 ml medications Current Medications Medications Dose Ordered Sig/Karely Route Start Time Stop Time Status Last Admin Dose Admin Acetaminophen 650 mg Q6HP PRN PO 08/30/24 23:15 08/31/24 01:45 650 MG Ondansetron HCl 4 mg Q4HP PRN IV 3/31/25 23:15 08/31/24 01:45 4 MG Enoxaparin Sodium 40 mg DAILY SC 08/31/24 10:00 08/31/24 10:16 40 MG Vancomycin HCl 0 ml @ 0 mls/hr UD IV 08/31/24 02:45 Meropenem 50 ml @ 17 mls/hr Q8HR IV 08/31/24 14:00 Tamsulosin HCl 0.4 mg QPM PO 08/31/24 18:00 Lactulose 10 ml BID PO 08/31/24 10:00 08/31/24 10:16 10 ML Examination Physical examination as below: General: Awake, alert, comfortable appearing, in no acute distress. HEENT: Head is normocephalic and atraumatic. Pupils are equal, round, and reactive to light. Extraocular muscles are intact. No nasal discharge. No facial trauma. Intraoral exam shows moist mucous membranes with no tonsillar enlargement or exudate. Neck: Supple with no cervical lymphadenopathy. Heart: Regular rate without murmur, rub, or gallop. Lungs: Equal breath sounds bilaterally with no wheezing, rales, or rhonchi. There is no chest wall tenderness or instability. Abdomen: No external sign of injury. Bowel sounds are present. Abdomen is soft, nontender. No rebound, no guarding, no rigidity. There are no palpable masses. There is no flank pain on exam. Extremities: Strong peripheral pulses. There is no clubbing, no cyanosis, and no edema. Skin: No rash. Neuro: Strength weak R> L Sensation intact laboratory and microbiology Laboratory Tests 08/31/24 07:30 Test 08/31/24 07:30 Range/Units Serum Glucose 130 H 74-106 mg/dL Labs and/or images reviewed: Labs reviewed by me, Image(s) reviewed by me Problem List/Assessment/Plan Problem List/Assessment/Plan Sepsis due to UTI, Pneumonia Pneumonia gram (+) vs gram (-), atypicals UTI with cystitis, pyelonephritis Mild left hydronephrosis and hydroureter Left renal calculi Diffuse colonic diverticulosis without diverticulitis. Atelectasis STEFFEN on CKD 3 due to VMN Metabolic encephalopathy hyperbilirubinemia DVT ruled out Bedbound Plan: Continue antibiotics Vancomycin and Merrem IV, given history of ESBL Klebsiella and Enterococcus faecalis Pending UA Pending urologist consult for possible left ureteral stent removal Pending urine culture Duonebs prn Diet: renal diet DVT prophylaxis: Lovenox Goal of care discussed for more than 30 minutes: Full code Case and plan discussed with Dr. Han Plan discussed with: Patient, Other (RN) Date of Service: Aug 31, 2024 Billing Provider: ALEXIA HAN MD Common Visit Codes: [id number] INP/OBS CARE(HIGH) ABIMAEL HILARIO RESIDENT Aug 31, 2024 11:56 ALEXIA HAN MD Sep 01, 2024 14:22
[2024-08-31] MEDS: MEROPENEM 1GM IVPB 50 ML IV SCH (13:53)
[2024-08-31 17:25] VITALS: BP 115/69; PULSE 75; RESP 18; TEMP 97.6; O2SAT 98
[2024-08-31] MEDS ORDERED: IPRATROPIUM BROM 0.5 MG/2.5ML INH SOL NEB PRN (19:00)
[2024-08-31] MEDS ORDERED: ALBUTEROL SULF 2.5 MG/0.5ML(0.5%) NEB SOLN NEB PRN (19:00)
[2024-08-31] MEDS: TAMSULOSIN HYDROCHLORIDE 0.4 MG CAP PO SCH (19:46)
[2024-08-31 20:21] VITALS: O2SAT 100
[2024-08-31 20:22] VITALS: BP 115/69; PULSE 79; RESP 16; TEMP 97.6; O2SAT 100
[2024-09-01] VITALS (10 sets, daily range): BP systolic 104–126; BP diastolic 54–72; PULSE 74–83; RESP 16–20; TEMP 97.7–98.2; O2SAT 93–100
[2024-09-01 07:31] LABS: Basophils # (auto) 0 10 ^3/uL (0-0.2); Basophils % (auto) 0.4 % (0.0-2.0); Eosinophils # (auto) 0.1 10 ^3/uL (0-0.8); Eosinophils % (auto) 1.3 % (0.0-7.0); Hematocrit 44.9 % (41.0-53.0); Hemoglobin 14.9 g/dL (13.5-17.5); Lymphocytes # (auto) 1.6 10 ^3/uL (0.4-5.4); Lymphocytes % (auto) 14.4 % (10.0-50.0); Mean Corpuscular Hemoglobin 29.9 pg (28.0-32.0); Mean Corpuscular Hgb Conc. 33.3 g/dL (32.0-36.0); Mean Corpuscular Volume 89.7 fL (80.0-100.0); Monocytes # (auto) 0.8 10 ^3/uL (0-1.3); Monocytes % (auto) 6.9 % (0.0-12.0); Neutrophils # (auto) 8.4 10 ^3/uL (1.6-8.6); Platelet Count (auto) 164 10^3/uL (140-450); Red Cell Distribution Width 15.9 % (11.8-14.3); White Blood Cell 10.9 10^3/uL (4.4-10.8)
--- NOTE | 2024-09-01 07:36 | DVHINCON2 ---
Date of service: Sep 01, 2024 Referring Physician Hospitalist Reason for Consultation UTI and urinary obstruction History of Present Illness History Source: Patient, RN Notes, MD Notes, Old Records Exam Limitations: No limitations HPI 73 yo male SNF resident, known to service for kidney stones. He had left [facility] with Calyxo and stent removal 05/27/24. past medical history of GA, GERD,CVA with hemiplegia presented to the ED today with complaints of severe abdominal pain of one day's duration. Patient is a poor historian who a resident at the [facility]. He was brought into the ED today because of abdominal pain and discomfort. Home Meds Reported Medications Insulin Regular (Human) (Humulin R) 100 Unit/Ml Inj, UNIT IV UD for 15 Days, #10 05/26/24 Insulin Glargine (Lantus) 100 Unit/Ml Inj, UNIT SC UD for 28 Days, #10 05/26/24 Flecainide Acetate (Flecainide Acetate) 100 Mg Tab, 1 TAB PO BID for 31 Days, # 62 05/26/24 Carvedilol (Carvedilol) 3.125 Mg Tab, 1 TAB PO BID for 31 Days, #62 05/26/24 Apixaban Base (ELIQUIS) 2.5 Mg Tab, 1 TAB PO BID for 28 Days, #14 08/15/23 Nitroglycerin (Nitrostat) 0.4 Mg Sub, 0.4 MG SL, INJ 04/03/23 Atorvastatin Calcium (ATORVASTATIN CALCIUM) 10 Mg Tab, 1 TAB PO QPM for 31 Days, #31 04/03/23 Tamsulosin Hcl (Flomax) 0.4 Mg Cap, 1 TAB PO DAILY for 31 Days, #31 04/03/23 Multiple Vitamins W/ Minerals (Centrum Silver) Silver Tab, 1 OR DAILY, TAB 04/03/23 Pantoprazole Sodium Sesquihydr (Protonix) 40 Mg Tab, 1 TAB PO DAILY for 31 Days, #31 04/03/23 Bisacodyl (DULCOLAX SUPPOSITORY) 10 Mg Rc, [address] DAILYP PRN for FOR CONSTIPATION, MG 08/06/18 Magnesium Hydroxide (MILK OF MAGNESIA ORAL SUSPENSION) 30 Ml Ss, 30 ML PO DAILYP PRN for FOR CONSTIPATION 08/06/18 Sodium Phosphates (FLEET ENEMA SIX PACK) Enema Sharon, 1 RE DAILYP PRN for FOR CONSTIPATION 08/06/18 Acetaminophen (Acetaminophen) 325 Mg Tab, 500 MG PO Q6HP PRN for MILD PAIN, 0 Refills 08/06/18 Docusate Sodium (Docusate Sodium) 100 Mg Tab, 100 MG PO BID 08/06/18 Discontinued Reported Medications Furosemide (Furosemide) 20 Mg Tab, 1 TAB PO DAILY for 31 Days, #31 05/26/24 Cranberry (CRANBERRY) 400 Mg Tab, 400 MG PO DAILY, TAB 08/15/23 Magnesium (Magnesium 400 mg) 1 Tab Tab, 1 TAB PO BID, TAB 08/15/23 Metformin Hydrochloride (Metformin Hcl) 500 Mg Tab, 1000 MG PO BID for 30 Days, MG 04/28/23 Misc Natural Products (Neuriva) 1 Cap Cap, 1 CAP PO QPM, CAP 04/03/23 Cholecalciferol (Vitamin D3 1.25 mg (90699 Ut)) 1 Cap Cap, 1 CAP PO DAILY, CAP 04/03/23 Past Medical History Patient Family History: Cardiovascular disease G8 MOTHER Diabetes mellitus G8 MOTHER FH: lung cancer G8 FATHER Sepsis G8 MOTHER H&P Exam Vital Signs Vital Signs Date Time Temp Pulse Resp B/P (MAP) Pulse Ox O2 Delivery O2 Flow Rate FiO2 09/01/24 05:00 98.0 82 16 118/71 (87) 98 98.0 08/31/24 20:22 3.0 32 08/31/24 20:21 Nasal Cannula* Labs/Xrays [place] [address] Ph: [phone] DIAGNOSTIC IMAGING Diagnostic Imaging Report : [id number] Signed PATIENT: INA PENA ACCT: [id number] UNIT: [id number] : 1950 LOC: OVERFLOW ROOM / BED: [address] [place] [address] / A AGE / SEX: 73 / M ADM STATUS: ADM IN SERVICE 5 ORDERING PHYSICIAN: LAMONT BUTT RESIDENT PROCEDURE(s): KIDUS - KIDNEY REASON: r/o obstruction ORDER NUMBER(s): [id number], ACCESSION NUMBER(s): [id number] RENAL ULTRASOUND CLINICAL HISTORY: r/o obstruction TECHNIQUE: Multiple ultrasound images of the kidneys and bladder were obtained. COMPARISON: CT abdomen and pelvis 08/30/2024 FINDINGS: The right kidney measures 10.9 cm in length. The left kidney measures 10.3 cm. There are calculi in the upper pole of the left kidney measuring up to 6 mm. There is no right renal calculus. There is no significant hydronephrosis identified by ultrasound. The bladder prevoid volume measures 263 cc. There is layering debris seen within the bladder. IMPRESSION: 1. There are calculi in the left kidney measuring up to 6 mm. There is no significant hydronephrosis identified by ultrasound. 2. Layering debris seen in the bladder. HS:Y ATED BY: TERRY GRANT MD DICTATED DATE/TIME: 08/31/24920 SIGNED BY: TERRY GRANT MD SIGNED DATE/TIME: 08/31/24920 CC: [place] [address] Ph: [phone] DIAGNOSTIC IMAGING Diagnostic Imaging Report : [id number] Signed PATIENT: INA PENA ACCT: [id number] UNIT: [id number] : 1950 LOC: ER ROOM / BED: / AGE / SEX: 73 / M ADM STATUS: REG ER SERVICE 06 ORDERING PHYSICIAN: STEFANO PADILLA DO PROCEDURE(s): ABPL - CT AB PEL WO CON-NO ORAL OR IV REASON: sob/fever ORDER NUMBER(s): [id number], ACCESSION NUMBER(s): [id number] Procedure: CT CT AB PEL WO CON-NO ORAL OR IV 08/30/2024 06:18 PM Indication: sob/fever Comparison Study: CT CT AB PEL WO CON-NO ORAL OR IV on DOS: 05/25/24, CT CT AB PEL WO CON-NO ORAL OR IV on DOS: 04/24/24, CT CT AB PEL WO CON-NO ORAL OR IV on DOS: 02/28/24 Technique: Axial images were obtained and reformatted in coronal and sagittal planes. All CT scans at this medical facility are performed using dose modulation techniques as appropriate to a performed exam including the following: Automated exposure control was utilized; adjustment of the MA and/or KV according to patient size; and use of iterative reconstruction technique. CT Dose: CTDI volume is 24.43 mGy. Dose-length product is 1514.42 mGy*cm FINDINGS: Lower Chest: Bibasilar subsegmental atelectasis is noted. Mild bibasilar pulmonary opacities Hepatobiliary: Gallbladder is surgically absent. Spleen: Unremarkable. Pancreas: Unremarkable. Adrenal Glands: Unremarkable. tract: The kidneys are normal in size bilaterally . Mild left hydronephrosis and hydroureter noted without obstructing calculi. Several left renal nonobstructing calculi are seen measuring up to 1.4 cm. Moderate bilateral perinephric fat stranding noted. Several small right renal cysts measuring up to 1.2 cm. Circumferential mural thickening of the urinary bladder and mild pericystic fat stranding. GI tract: The stomach is grossly normal in appearance. No evidence of small bowel obstruction. Scattered colonic diverticula are noted without evidence of diverticulitis. The appendix is not visualized. No inflammatory change is noted in the right lower quadrant. Lymphatics: No mesenteric, retroperitoneal or periportal lymphadenopathy. Vasculature: The abdominal aorta is normal in caliber. Diffuse calcified plaque formation is noted. Pelvic Organs: Unremarkable Bones/soft tissues: No acute to abnormality. Other: None. IMPRESSION: 1. Mild left hydronephrosis and hydroureter without obstructing calculi. There is bladder wall thickening pericystic inflammation. The findings are suggestive of UTI with cystitis pyelitis/pyelonephritis. Differential diagnosis includes a recently passed stone. Recommend clinical and biochemical correlation.Several nonobstructing 2. Left renal calculi noted. 3. Diffuse colonic diverticulosis without diverticulitis. 4. Mild bibasilar streaky opacities likely subsegmental atelectasis. Developing pneumonia can not be ruled out. Recommend clinical and biochemical correlation. ATED BY: AMMY PULIDO MD DICTATED DATE/TIME: 08/30/242001 SIGNED BY: AMMY PULIDO MD SIGNED DATE/TIME: 08/30/242001 CC: Labs Test 09/01/24 05:46 08/31/24 09:11 08/31/24 07:30 08/30/24 21:46 Range/Units Urine Opiates Screen Neg NEGATIVE Urine Fentanyl Screen Neg NEGATIVE Urine Barbiturates Screen Neg NEGATIVE Urine Phencyclidine Screen Neg NEGATIVE Urine Amphetamines Screen Neg NEGATIVE Urine Benzodiazepines Screen Neg NEGATIVE Urine Cocaine Screen Neg NEGATIVE Urine Cannabinoids Screen Neg NEGATIVE Eosinophils (%) (Auto) 0.1 0.0-7.0 % Eosinophils # (Auto) 0 0-0.8 10 ^3/uL Basophils # (Auto) 0.1 0-0.2 10 ^3/uL Nucleated Red Blood Cells 0.0 % Erythrocyte Sedimentation Rate 33 H 0-20 mm/hr Hemoglobin A1c 6.4 H <5.7 % A1C Lactic Acid Level 1.4 0.4-2.0 mmol/L Ammonia < 10 L 11-32 umol/L C-Reactive Protein High Sensitivity 11.33 H <1.0 mg/dL Thyroid Stimulating Hormone (TSH) 0.67 0.55-4.78 uIU/mL Magnesium Level 2.0 1.6-2.6 mg/dL Troponin I High Sensitivity 15 </=54 ng/L Test 08/30/24 19:40 08/30/24 18:40 Range/Units Influenza Type A Antigen Negative Negative Influenza Type B Antigen Negative Negative SARS-CoV-2 Antigen (Rapid) Negative NEGATIVE D-Dimer, Quantitative 0.57 H 0.0-0.49 mg/L FEU B-Type Natriuretic Peptide 276.51 0-100 pg/mL Microbiology Date/Time Source Procedure Growth Status 08/30/24 18:40 Blood Blood Culture - Preliminary NO GROWTH AFTER 24 HOURS OF INCUBATION. Resulted Assessment/Plan Problem List: (1) Renal stones (2) Sepsis due to urinary tract infection (3) Leukocytosis (4) History of CVA with residual deficit (5) Acute cystitis without hematuria (6) Insulin dependent diabetes mellitus Plan treat UTI - UCX pending CT A/P NC - non obstructing stones outpt f/u 2 weeks signing off Plan discussed with: Patient, Other ARTI LAWS NP Sep 01, 2024 07:36
[2024-09-01 07:56] LABS: Albumin 4.1 g/dL (3.2-4.8); Alkaline Phosphatase 101 U/L (46-116); Anion Gap 10 (5-15); Aspartate Aminotransferase 13 U/L (13-40); Blood Urea Nitrogen 22 mg/dL (9-23); Calcium 9.7 mg/dL (8.7-10.4); Carbon Dioxide 25 mmol/L (20-31); Chloride 105 mmol/L (98-107); Glucose 81 mg/dL (74-106); Sodium 140 mmol/L (136-145); Total Protein 7.8 g/dL (5.7-8.2)
[2024-09-01 07:57] LABS: Alanine Aminotransferase 9 U/L (7-40); Bilirubin, Total 1.6 mg/dL (0.2-1.0)
[2024-09-01 08:57] LABS: Urine Bacteria None Seen /hpf (None Seen)
[2024-09-01 09:23] LABS: Urine Blood 3+ /uL (Negative); Urine Clarity Turbid (Clear); Urine Color Light-Orange (Yellow); Urine Protein, UAD 2+ (Negative); Urine Specific Gravity 1.015 (1.001-1.035); Urine Squamous Epithelial Cell None Seen /hpf (<5); Urine Urobilinogen Normal (Negative); Urine WBC 354 /HPF (0-3); Urine WBC Clumps PRESENT /hpf (None Seen); Urine pH 5.5 (5.0-9.0)
--- NOTE | 2024-09-01 12:30 | DVH ---
CT CT AB PEL WO CON-NO ORAL OR IV INDICATION: stones EXAM DATE: 09/01/2024 10:46 AM COMPARISON: CT CT AB PEL WO CON-NO ORAL OR IV on DOS: 08/30/24, CT CT AB PEL WO CON-NO ORAL OR IV on D OS: 05/25/24, CT CT AB PEL WO CON-NO ORAL OR IV on DOS: 04/24/24 RADIATION DOSE: CTDIvol: 19.11 mGy, DLP: 1358.97 mGy*cm PROCEDURE: Helical CT images were obtained of the abdomen and pelvis without IV contrast Sagittal and coronal reconstructions are provided. ORAL CONTRAST: None. ADDITIONAL IMAGES / REFORMATS: None All C T scans at this medical facility are performed using dose modulation techniques as appropriate to a p erformed exam including the following: Automated exposure control was utilized; adjustment of the MA and/or KV according to patient size; and use of iterative reconstruction technique. FINDINGS: LUNG BASE: Streaky bibasilar airspace opacity. LIVER: Normal. GALLBLADDER AND BILIARY TREE: Cholecystectomy clips are seen. No intra- or extrahepatic biliary ducta l dilation. PANCREAS: Subcentimeter 7 mm cystic lesion in the pancreatic head could be an IPMN. SPLEEN: Normal. BOWEL: Severe colonic diverticulosis. ADRENALS: Normal. KIDNEYS AND URETER: Nonobstructive left kidney stones and small right kidney cysts with mild bilatera l perinephric edema. BLADDER: [place] is seen in the bladder. REPRODUCTIVE ORGANS: Normal. LYMPH NODES:No lymphadenopathy. PERITONEUM: No ascites or free air. No other fluid collection. VESSELS: Scattered atherosclerotic calcifications are noted. RETROPERITONEUM: Normal. ABDOMINAL WALL: Normal. BONES: Scattered osseous degenerative changes are noted. IMPRESSION: Nonobstructive left kidney stones and small right kidney cysts with mild bilateral perinephric edema.
[2024-09-01] MEDS: VANCOMYCIN 750mg/150ml 150 ML IV ONE (12:57)
--- NOTE | 2024-09-01 16:48 | DVHPNRES ---
Progress Note Date Seen: Sep 01, 2024 Resident Creating Document: ABIMAEL HILARIO RESIDENT Medical Necessity Reason Pt with a Central, PICC or Fol: No Subjective Review of Systems On my assessment, patient was seen and examined at bedside. Currently states feeling well, denies any significant shortness of breath, chest pain, abdominal pain, dysuria, nausea, vomiting, diarrhea, constipation, dizziness, lightheadedness. Currently tolerating diet. Objective vital signs Vital Sign Date Time Temp Pulse Resp B/P (MAP) Pulse Ox O2 Delivery O2 Flow Rate FiO2 09/01/24 12:49 97.7 80 16 104/54 (71) 98 97.7 09/01/24 10:00 Nasal Cannula 3.0 09/01/24 10:00 32 Total Intake and Output 08/31/24 08/31/24 09/01/24 15:00 23:00 07:00 Intake Total 17 ml 850 ml Output Total 1500 ml Balance 17 ml -650 ml medications Current Medications Medications Dose Ordered Sig/Karely Route Start Time Stop Time Status Last Admin Dose Admin Acetaminophen 650 mg Q6HP PRN PO 08/30/24 23:15 09/01/24 05:39 650 MG Ondansetron HCl 4 mg Q4HP PRN IV 08/30/24 23:15 08/31/24 01:45 4 MG Enoxaparin Sodium 40 mg DAILY SC 08/31/24 10:00 09/01/24 08:51 40 MG Vancomycin HCl 0 ml @ 0 mls/hr UD IV 08/31/24 02:45 Meropenem 50 ml @ 17 mls/hr Q8HR IV 08/31/24 14:00 09/01/24 05:28 17 MLS/HR Tamsulosin HCl 0.4 mg QPM PO 08/31/24 18:00 08/31/24 19:46 0.4 MG Lactulose 10 ml BID PO 08/31/24 10:00 09/01/24 08:50 10 ML Albuterol 2.5 mg Q6HPRN PRN NEB 08/31/24 19:00 Ipratropium [place] 0.5 mg Q6HPRN PRN NEB 08/31/24 19:00 Examination Physical examination as below: General: Awake, alert, comfortable appearing, in no acute distress. HEENT: Head is normocephalic and atraumatic. Pupils are equal, round, and reactive to light. Extraocular muscles are intact. No nasal discharge. No facial trauma. Intraoral exam shows moist mucous membranes with no tonsillar enlargement or exudate. Neck: Supple with no cervical lymphadenopathy. Heart: Regular rate without murmur, rub, or gallop. Lungs: Equal breath sounds bilaterally with no wheezing, rales, or rhonchi. There is no chest wall tenderness or instability. Abdomen: No external sign of injury. Bowel sounds are present. Abdomen is soft, nontender. No rebound, no guarding, no rigidity. There are no palpable masses. There is no flank pain on exam. Extremities: Strong peripheral pulses. There is no clubbing, no cyanosis, and no edema. Skin: No rash. Neuro: Strength weak R> L Sensation intact laboratory and microbiology Laboratory Tests 09/01/24 05:46 Test 09/01/24 05:46 Range/Units Serum Glucose 81 74-106 mg/dL Microbiology Date/Time Source Procedure Growth Status 08/31/24 09:11 Voided Urine Urine Culture - Preliminary Resulted 08/30/24 18:40 Blood Blood Culture - Preliminary NO GROWTH AFTER 24 HOURS OF INCUBATION. Resulted Labs and/or images reviewed: Labs reviewed by me, Image(s) reviewed by me Problem List/Assessment/Plan Problem List/Assessment/Plan Sepsis due to UTI, Pneumonia Pneumonia gram (+) vs gram (-), atypicals UTI with cystitis, pyelonephritis Mild left hydronephrosis and hydroureter Left renal calculi Diffuse colonic diverticulosis without diverticulitis. Atelectasis STEFFEN on CKD 3 due to VMN Metabolic encephalopathy hyperbilirubinemia DVT ruled out Bedbound Plan: Continue antibiotics Merrem IV, given history of ESBL Klebsiella, DC vancomycin Pending urine culture, growing gram (-) rods Duonebs prn Left ureteral stent was removed on 05/27/24 Continue home meds Diet: renal diet DVT prophylaxis: Lovenox Goal of care discussed for more than 30 minutes: Full code Case and plan discussed with Dr. Han Plan discussed with: Patient, Other (RN) My Orders My Orders Orders - ABIMAEL HILARIO Procedure Category Date Status Time Albuterol Medneb PHA 08/31/24 In Process (Ventolin Medneb) 19:00 Ipratropium Medneb PHA 08/31/24 In Process (Atrovent Medneb) 19:00 Med Neb Initial RT 08/31/24 Verified Treatment 18:59 Dietary NOTICE 09/01/24 Transmitted Recommendations 14:03 NS PHA 09/01/24 Transmitted 16:45 Complete Blood Count LAB 09/02/24 Verified 04:00 Basic Metabolic Panel LAB 09/02/24 Verified 04:00 Dietary Evaluation Review Comments: 1) CCHO 75 + renal specific 70gm protein 2) refer to CDCES on DC 3) Continue current plan of care Expected Outcomes/Goals: Pt will meet >75% estimated needs Fu 3-5 days Date of Service: Sep 01, 2024 Billing Provider: ALEXIA HAN MD Common Visit Codes: [id number] INP/OBS CARE(MOD) ABIMAEL HILARIO RESIDENT Sep 01, 2024 16:48 ALEXIA HAN MD Sep 07, 2024 12:11
[2024-09-01] MEDS: SODIUM CHLORIDE 0.9% 500 ML IV ONE (18:03)
--- NOTE | 2024-09-01 23:58 | DVHSR ---
APPROVED REPORT EXAM: LIMITED Two-dimensional echocardiogram with contrast. Blood Pressure: 118/71 mmHg INDICATION pleural effusion RISK FACTORS Height: 6'4, Weight: 232 DIMENSIONS LVDd (3.8-5.7cm)LA (2D)3.4 (1.9-4.0cm)Aortic Root3.3 (2.0-3.7cm) LVDs (2.5-4.0cm)LA (MM) (1.9-4.0cm)Aortic Cusp Exc1.7 (1.5-2.0cm) EF (%) 55.0 (55-70%)Rt. Atrium2.7 (1.9-4.0cm)Asc. Aorta cm IVSd (0.7-1.1cm)RV (D)4.0 (1.8-2.4cm) Mitral Valve MitralMitral Stenosis E wave0.59m/sMV Mean GR.mmHg A wave0.83m/sMV Peak GR.82mmHg E/A ratio0.72D MVAcm2 DECEL [id number] 1/2 Timems Aortic Valve Aortic ValveAortic Stenosis V10.88m/Ladi Mean GR.mmHg V21.16m/Ladi Peak GR.5mmHg LVOT Diameter2.1 (1.8-2.4cm)Doppler AVA2.63cm2 Tricuspid Valve TR Velocity2.17m/s [id number] Other Information Quality : Technically LimitedRhythm : Technically limited study due to patient position.body habitus. Conclusion TDS. Limited views. Grossly normal biventricular size and systolic function. LVEF 60-65%. Normal wall motion. Grade 1 bell stolic dysfunction. No obvious significant valvular disease. IVC not assessed. No pericardial effusion.
[2024-09-02] VITALS (8 sets, daily range): BP systolic 137–148; BP diastolic 67–75; PULSE 65–77; RESP 17–19; TEMP 98.1–98.5; O2SAT 96–100
[2024-09-02 06:36] LABS: Basophils # (auto) 0 10 ^3/uL (0-0.2); Basophils % (auto) 0.6 % (0.0-2.0); Eosinophils # (auto) 0.2 10 ^3/uL (0-0.8); Eosinophils % (auto) 2.5 % (0.0-7.0); Hematocrit 38.7 % (41.0-53.0); Lymphocytes # (auto) 1.2 10 ^3/uL (0.4-5.4); Lymphocytes % (auto) 17.2 % (10.0-50.0); Mean Corpuscular Hemoglobin 29.8 pg (28.0-32.0); Mean Corpuscular Hgb Conc. 33.6 g/dL (32.0-36.0); Mean Corpuscular Volume 88.8 fL (80.0-100.0); Monocytes # (auto) 0.7 10 ^3/uL (0-1.3); Monocytes % (auto) 9.7 % (0.0-12.0); Neutrophils # (auto) 4.9 10 ^3/uL (1.6-8.6); Platelet Count (auto) 160 10^3/uL (140-450); Red Blood Cells 4.36 10^6/uL (4.5-5.90); White Blood Cell 7.1 10^3/uL (4.4-10.8)
[2024-09-02 06:50] LABS: Potassium 3.9 mmol/L (3.5-5.1); Sodium 140 mmol/L (136-145)
[2024-09-02 06:51] LABS: Anion Gap 7 (5-15); Calcium 9.2 mg/dL (8.7-10.4); Carbon Dioxide 26 mmol/L (20-31)
[2024-09-02 06:52] LABS: Chloride 107 mmol/L (98-107)
[2024-09-02 06:56] LABS: BUN/Creatinine Ratio 12.3 (10.0-20.0); Blood Urea Nitrogen 18 mg/dL (9-23)
[2024-09-02 06:58] LABS: Glucose 132 mg/dL (74-106)
[2024-09-02] MEDS: SODIUM CHLORIDE 0.9% 500 ML IV ONE (11:13)
--- NOTE | 2024-09-02 12:42 | DVHPNRES ---
Progress Note Date Seen: Sep 02, 2024 Resident Creating Document: ABIMAEL HILARIO RESIDENT Medical Necessity Reason Pt with a Central, PICC or Fol: No Subjective Review of Systems On my assessment, patient was seen and examined at bedside. Currently states feeling well, denies any significant shortness of breath, chest pain, abdominal pain, dysuria, nausea, vomiting, diarrhea, constipation, dizziness, lightheadedness. Currently tolerating diet. Objective vital signs Vital Sign Date Time Temp Pulse Resp B/P (MAP) Pulse Ox O2 Delivery O2 Flow Rate FiO2 09/02/24 09:00 98.3 65 19 137/67 (90) 99 98.3 09/02/24 08:00 Nasal Cannula* 3 32 Total Intake and Output 09/01/24 09/01/24 09/02/24 14:59 22:59 06:59 Intake Total 1460 ml 720 ml Output Total 500 ml 650 ml Balance 960 ml 70 ml medications Current Medications Medications Dose Ordered Sig/Karely Route Start Time Stop Time Status Last Admin Dose Admin Acetaminophen 650 mg Q6HP PRN PO 08/30/24 23:15 09/01/24 18:06 650 MG Ondansetron HCl 4 mg Q4HP PRN IV 08/30/24 23:15 08/31/24 01:45 4 MG Enoxaparin Sodium 40 mg DAILY SC 08/31/24 10:00 09/02/24 09:48 40 MG Meropenem 50 ml @ 17 mls/hr Q8HR IV 08/31/24 14:00 09/02/24 05:36 17 MLS/HR Tamsulosin HCl 0.4 mg QPM PO 08/31/24 18:00 09/02/24 09:48 0.4 MG Lactulose 10 ml BID PO 08/31/24 10:00 09/02/24 09:47 10 ML Examination Physical examination as below: General: Awake, alert, comfortable appearing, in no acute distress. HEENT: Head is normocephalic and atraumatic. Pupils are equal, round, and reactive to light. Extraocular muscles are intact. No nasal discharge. No facial trauma. Intraoral exam shows moist mucous membranes with no tonsillar enlargement or exudate. Neck: Supple with no cervical lymphadenopathy. Heart: Regular rate without murmur, rub, or gallop. Lungs: Equal breath sounds bilaterally with no wheezing, rales, or rhonchi. There is no chest wall tenderness or instability. Abdomen: No external sign of injury. Bowel sounds are present. Abdomen is soft, nontender. No rebound, no guarding, no rigidity. There are no palpable masses. There is no flank pain on exam. Extremities: Strong peripheral pulses. There is no clubbing, no cyanosis, and no edema. Skin: No rash. Neuro: Strength weak R> L Sensation intact laboratory and microbiology Laboratory Tests 09/02/24 05:31 Test 09/02/24 05:31 Range/Units Serum Glucose 132 H 74-106 mg/dL Microbiology Date/Time Source Procedure Growth Status 08/31/24 09:11 Voided Urine Urine Culture - Preliminary Resulted 08/30/24 18:40 Blood Blood Culture - Preliminary NO GROWTH AFTER 48 HOURS OF INCUBATION. Resulted Labs and/or images reviewed: Labs reviewed by me, Image(s) reviewed by me Problem List/Assessment/Plan Problem List/Assessment/Plan Sepsis due to UTI, Pneumonia Pneumonia gram (+) vs gram (-), atypicals UTI with cystitis, pyelonephritis Mild left hydronephrosis and hydroureter Left renal calculi Diffuse colonic diverticulosis without diverticulitis. 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 pending picc line Left ureteral stent was removed on 05/27/24 Continue home meds Diet: renal diet DVT prophylaxis: Lovenox Goal of care discussed for more than 30 minutes: Full code Case and plan discussed with Dr. Padron Plan discussed with: Patient, Other (RN) My Orders My Orders Orders - ABIMAEL HILARIO RESIDENT Procedure Category Date Status Time Dietary NOTICE 09/01/24 Transmitted Recommendations 14:03 Dietary Evaluation Review Comments: 1) CCHO 75 + renal specific 70gm protein 2) refer to [facility] on DC 3) Continue current plan of care Expected Outcomes/Goals: Pt will meet >75% estimated needs Fu 3-5 days Date of Service: Sep 02, 2024 Billing Provider: YUE PADRON DO Common Visit Codes: [id number] INP/OBS CARE(HIGH) ABIMAEL HILARIO RESIDENT Sep 02, 2024 12:42 YUE PADRON DO Sep 03, 2024 11:56
[2024-09-03] VITALS (8 sets, daily range): BP systolic 136–173; BP diastolic 65–82; PULSE 73–95; RESP 17–18; TEMP 97.9–98.8; O2SAT 88–98
[2024-09-03] MEDS ORDERED: SORE THROAT SPRAY 6OZ BOTTLE MT PRN (13:00)
--- NOTE | 2024-09-03 13:40 | DVHDSRES ---
Discharge Summary Date of Admission Resident Creating Document: ABIMAEL HILARIO RESIDENT Aug 30, 2024 at 23:08 Date of Discharge: Sep 03, 2024 Admitting Diagnosis UTI Labs/Diagnostic Data: Laboratory Results Test 09/02/24 05:31 09/01/24 08:40 09/01/24 05:46 08/31/24 09:11 White Blood Count 7.1 10^3/uL (4.4-10.8) Red Blood Count 4.36 10^6/uL (4.5-5.90) Hemoglobin 13.0 g/dL (13.5-17.5) Hematocrit 38.7 % (41.0-53.0) Mean Corpuscular Volume 88.8 fL (80.0-100.0) Mean Corpuscular Hemoglobin 29.8 pg (28.0-32.0) Mean Corpuscular Hemoglobin Concent 33.6 g/dL (32.0-36.0) Red Cell Distribution Width 16.0 % (11.8-14.3) Platelet Count 160 10^3/uL (140-450) Mean Platelet Volume 7.9 fL (6.9-10.8) Neutrophils (%) (Auto) 70.0 % (37.0-80.0) Lymphocytes (%) (Auto) 17.2 % (10.0-50.0) Monocytes (%) (Auto) 9.7 % (0.0-12.0) Eosinophils (%) (Auto) 2.5 % (0.0-7.0) Basophils (%) (Auto) 0.6 % (0.0-2.0) Neutrophils # (Auto) 4.9 10 ^3/uL (1.6-8.6) Lymphocytes # (Auto) 1.2 10 ^3/uL (0.4-5.4) Monocytes # (Auto) 0.7 10 ^3/uL (0-1.3) Eosinophils # (Auto) 0.2 10 ^3/uL (0-0.8) Basophils # (Auto) 0 10 ^3/uL (0-0.2) Nucleated Red Blood Cells 0.0 % Sodium Level 140 mmol/L (136-145) Potassium Level 3.9 mmol/L (3.5-5.1) Chloride Level 107 mmol/L (98-107) Carbon Dioxide Level 26 mmol/L (20-31) Anion Gap 7 (5-15) Blood Urea Nitrogen 18 mg/dL (9-23) Creatinine 1.46 mg/dL (0.700-1.30) Glomerular Filtration Rate Calc 51 mL/min (>90) BUN/Creatinine Ratio 12.3 (10.0-20.0) Serum Glucose 132 mg/dL (74-106) Calcium Level 9.2 mg/dL (8.7-10.4) Urine Color Light-orange (Yellow) Urine Clarity Turbid (Clear) Urine pH 5.5 (5.0-9.0) Urine Specific Wisner 1.015 (1.001-1.035) Urine Protein 2+ (Negative) Urine Ketones Trace (Negative) Urine Blood 3+ /uL (Negative) Urine Nitrite Negative (Negative) Urine Bilirubin Negative (Negative) Urine Urobilinogen Normal mg/dL (Negative) Urine Leukocyte Esterase 3+ /uL (Negative) Urine RBC 94 /hpf (0 - 3) Urine WBC Clumps Present /hpf (None Seen) Urine Microscopic WBC 354 /HPF (0-3) Urine Squamous Epithelial Cells None seen /hpf (<5) Urine Bacteria None seen /hpf (None Seen) Urine Glucose Normal mg/dL (Normal) Total Bilirubin 1.6 mg/dL (0.2-1.0) Aspartate Amino Transferase (AST) 13 U/L (13-40) Alanine Aminotransferase (ALT) 9 U/L (7-40) Alkaline Phosphatase 101 U/L (46-116) Total Protein 7.8 g/dL (5.7-8.2) Albumin 4.1 g/dL (3.2-4.8) Random Vancomycin Level 7.7 ug/mL (5-10) Urine Opiates Screen Neg (NEGATIVE) Urine Fentanyl Screen Neg (NEGATIVE) Urine Barbiturates Screen Neg (NEGATIVE) Urine Phencyclidine Screen Neg (NEGATIVE) Urine Amphetamines Screen Neg (NEGATIVE) Urine Benzodiazepines Screen Neg (NEGATIVE) Urine Cocaine Screen Neg (NEGATIVE) Urine Cannabinoids Screen Neg (NEGATIVE) Test 08/31/24 07:30 08/30/24 21:46 08/30/24 19:40 08/30/24 18:40 Erythrocyte Sedimentation Rate 33 mm/hr (0-20) Hemoglobin A1c 6.4 % A1C (<5.7) Lactic Acid Level 1.4 mmol/L (0.4-2.0) Ammonia < 10 umol/L (11-32) C-Reactive Protein High Sensitivity 11.33 mg/dL (<1.0) Thyroid Stimulating Hormone (TSH) 0.67 uIU/mL (0.55-4.78) Magnesium Level 2.0 mg/dL (1.6-2.6) Troponin I High Sensitivity 15 ng/L (</=54) Influenza Type A Antigen Negative (Negative) Influenza Type B Antigen Negative (Negative) SARS-CoV-2 Antigen (Rapid) Negative (NEGATIVE) D-Dimer, Quantitative 0.57 mg/L FEU (0.0-0.49) B-Type Natriuretic Peptide 276.51 pg/mL (0-100) Other Laboratory Tests 09/02/24 05:31 Brief Hx & Hospital Course: This is a 73 year old male who presented to the ED today with complaints of severe abdominal pain of one day's duration. Past medical history: ND. GERD, lipids, HTN, CVA x3, CKF, paraplegic, kidney stones, anemia and AFIB Past surgical history: Appendectomy, cholecystectomy kidney stones. Social history: Lives at [facility] Family history: Noncontributory Patient is a resident at the [facility]. He was brought into the ED today because of abdominal pain and discomfort. Patient kept saying the is due to have stents removed form his abdomen. Also patient was noted to be hypoxic with SpO2 of 89 on room air at the facility. Thus, he was brought to the ED for evaluation. Initial lab work and vitals reveal a septic picture. On my initial assessment, patient was seen and examined at bedside. He currently states feeling better than on admission. Denies any significant shortness of breath, chest pain, abdominal pain, dysuria, nausea, vomiting, diarrhea, constipation, dizziness, lightheadedness. He's currently tolerating diet. Patient's had a left ureteral stent placed last year, he is coming in today for possible removal of the stents. A CT revealed mild left hydronephrosis, left renal calculi. Patient was placed on IV fluids, he will also seem to have UTI, she was started on meropenem and vancomycin given history of ESBL Klebsiella and Enterococcus faecalis. Further investigation revealed that the patient has had a left ureteral stent removed on 05/27/2024. A urine culture later grew ESBL Klebsiella sensitive to meropenem. Patient was continued on meropenem and we discontinued vancomycin. Patient has had significant clinical improvement from admission, he denied any significant abdominal pain, nausea, vomiting, fevers, chills, shortness of breath, chest pain. Currently tolerating diet. Physical examination as below: General: Awake, alert, comfortable appearing, in no acute distress. HEENT: Head is normocephalic and atraumatic. Pupils are equal, round, and reactive to light. Extraocular muscles are intact. No nasal discharge. No facial trauma. Intraoral exam shows moist mucous membranes with no tonsillar enlargement or exudate. Neck: Supple with no cervical lymphadenopathy. Heart: Regular rate without murmur, rub, or gallop. Lungs: Equal breath sounds bilaterally with no wheezing, rales, or rhonchi. There is no chest wall tenderness or instability. Abdomen: No external sign of injury. Bowel sounds are present. Abdomen is soft, nontender. No rebound, no guarding, no rigidity. There are no palpable masses. There is no flank pain on exam. Extremities: Strong peripheral pulses. There is no clubbing, no cyanosis, and no edema. Skin: No rash. Neuro: Strength weak R> L Sensation intact Patient will be discharge back to senior care facility to resume physical therapy and he will also continue on IV antibiotics meropenem 1 g every 8 hours for the next 10 days through midline, will continue home medications as prescribed. Follow-up with PCP in 1-2 weeks. Patient verbalized understanding and agree with the DC plan, we spent over 30 minutes explaining the plan. Case and plan discussed with Dr. Blum Consults/Reason for consult Urology was consulted due to urinary obstruction Operations or Procedures [place] [address] Ph: [phone] DIAGNOSTIC IMAGING Diagnostic Imaging Report : [id number] Signed PATIENT: INA PENA ACCT: [id number] UNIT: [id number] : 1950 LOC: [facility] ROOM / BED: 0277 / A AGE / SEX: 73 / M ADM STATUS: ADM IN SERVICE 0233 ORDERING PHYSICIAN: CAMILLA SALVADOR RESIDENT PROCEDURE(s): ECIDC - ECHO 2D MODE CARDIAC DOP REASON: PLEURAL EFFUSION ORDER NUMBER(s): [id number], ACCESSION NUMBER(s): [id number] APPROVED REPORT EXAM: LIMITED Two-dimensional echocardiogram with contrast. Blood Pressure: 118/71 mmHg INDICATION pleural effusion RISK FACTORS Height: 6'4, Weight: 232 DIMENSIONS LVDd (3.8-5.7cm) LA (2D) 3.4 (1.9-4.0cm) Aortic Root 3.3 (2.0- 3.7cm) LVDs (2.5-4.0cm) LA (MM) (1.9-4.0cm) Aortic Cusp Exc 1.7 (1.5- 2.0cm) EF (%) 55.0 (55-70%) Rt. Atrium 2.7 (1.9-4.0cm) Asc. Aorta cm IVSd (0.7-1.1cm) RV (D) 4.0 (1.8-2.4cm) Mitral Valve Mitral Mitral Stenosis E wave 0.59m/s MV Mean GR. mmHg A wave 0.83m/s MV Peak GR. 82mmHg E/A ratio 0.7 2D MVA cm2 DECEL Time 142ms PRESS 1/2 Time ms Aortic Valve Aortic Valve Aortic Stenosis V1 0.88m/s AO Mean GR. mmHg V2 1.16m/s AO Peak GR. 5mmHg LVOT Diameter 2.1 (1.8-2.4cm) Doppler FELICIANO 2.63cm2 Tricuspid Valve TR Velocity 2.17m/s RVSP 19mmHg Other Information Quality : Technically Limited Rhythm : Technically limited study due to patient position.body habitus. Conclusion TDS. Limited views. Grossly normal biventricular size and systolic function. LVEF 60-65%. Normal wall motion. Grade 1 diastolic dysfunction. No obvious significant valvular disease. IVC not assessed. No pericardial effusion. SIGNED BY: KECIA SHEPPARD DO SIGNED DATE/TIME: 09/01/24 0647 CC: [address] [address] Ph: [phone] DIAGNOSTIC IMAGING Diagnostic Imaging Report : [id number] Signed PATIENT: INA PENA ACCT: [id number] UNIT: [id number] : 1950 LOC: [facility] ROOM / BED: 0277 / A AGE / SEX: 73 / M ADM STATUS: ADM IN SERVICE 0233 ORDERING PHYSICIAN: CAMILLA SALVADOR PROCEDURE(s): ECIDC - ECHO 2D MODE CARDIAC DOP REASON: PLEURAL EFFUSION ORDER NUMBER(s): [id number], ACCESSION NUMBER(s): [id number] APPROVED REPORT EXAM: LIMITED Two-dimensional echocardiogram with contrast. Blood Pressure: 118/71 mmHg INDICATION pleural effusion RISK FACTORS Height: 6'4, Weight: 232 DIMENSIONS LVDd (3.8-5.7cm) LA (2D) 3.4 (1.9-4.0cm) Aortic Root 3.3 (2.0- 3.7cm) LVDs (2.5-4.0cm) LA (MM) (1.9-4.0cm) Aortic Cusp Exc 1.7 (1.5- 2.0cm) EF (%) 55.0 (55-70%) Rt. Atrium 2.7 (1.9-4.0cm) Asc. Aorta cm IVSd (0.7-1.1cm) RV (D) 4.0 (1.8-2.4cm) Mitral Valve Mitral Mitral Stenosis E wave 0.59m/s MV Mean GR. mmHg A wave 0.83m/s MV Peak GR. 82mmHg E/A ratio 0.7 2D MVA cm2 DECEL Time 142ms PRESS 1/2 Time ms Aortic Valve Aortic Valve Aortic Stenosis V1 0.88m/s AO Mean GR. mmHg V2 1.16m/s AO Peak GR. 5mmHg LVOT Diameter 2.1 (1.8-2.4cm) Doppler FELICIANO 2.63cm2 Tricuspid Valve TR Velocity 2.17m/s RVSP 19mmHg Other Information Quality : Technically Limited Rhythm : Technically limited study due to patient position.body habitus. Conclusion TDS. Limited views. Grossly normal biventricular size and systolic function. LVEF 60-65%. Normal wall motion. Grade 1 diastolic dysfunction. No obvious significant valvular disease. IVC not assessed. No pericardial effusion. SIGNED BY: KECIA SHEPPARD DO SIGNED DATE/TIME: 09/01/24 6769 CC: [address] [address] Ph: [phone] DIAGNOSTIC IMAGING Diagnostic Imaging Report : [id number] Signed PATIENT: INA PENA ACCT: [id number] UNIT: [id number] : 1950 LOC: [facility] ROOM / BED: [facility] / A AGE / SEX: 73 / M ADM STATUS: ADM IN SERVICE 2 ORDERING PHYSICIAN: CAMILLA SALVADOR PROCEDURE(s): ECIDC - ECHO 2D MODE CARDIAC DOP REASON: PLEURAL EFFUSION ORDER NUMBER(s): [id number], ACCESSION NUMBER(s): [id number] APPROVED REPORT EXAM: LIMITED Two-dimensional echocardiogram with contrast. Blood Pressure: 118/71 mmHg INDICATION pleural effusion RISK FACTORS Height: 6'4, Weight: 232 DIMENSIONS LVDd (3.8-5.7cm) LA (2D) 3.4 (1.9-4.0cm) Aortic Root 3.3 (2.0- 3.7cm) LVDs (2.5-4.0cm) LA (MM) (1.9-4.0cm) Aortic Cusp Exc 1.7 (1.5- 2.0cm) EF (%) 55.0 (55-70%) Rt. Atrium 2.7 (1.9-4.0cm) Asc. Aorta cm IVSd (0.7-1.1cm) RV (D) 4.0 (1.8-2.4cm) Mitral Valve Mitral Mitral Stenosis E wave 0.59m/s MV Mean GR. mmHg A wave 0.83m/s MV Peak GR. 82mmHg E/A ratio 0.7 2D MVA cm2 DECEL Time 142ms PRESS 1/2 Time ms Aortic Valve Aortic Valve Aortic Stenosis V1 0.88m/s AO Mean GR. mmHg V2 1.16m/s AO Peak GR. 5mmHg LVOT Diameter 2.1 (1.8-2.4cm) Doppler FELICIANO 2.63cm2 Tricuspid Valve TR Velocity 2.17m/s RVSP 19mmHg Other Information Quality : Technically Limited Rhythm : Technically limited study due to patient position.body habitus. Conclusion TDS. Limited views. Grossly normal biventricular size and systolic function. LVEF 60-65%. Normal wall motion. Grade 1 diastolic dysfunction. No obvious significant valvular disease. IVC not assessed. No pericardial effusion. SIGNED BY: KECIA SHEPPARD DO SIGNED DATE/TIME: 09/01/24 5992 CC: [place] [address] Ph: [phone] DIAGNOSTIC IMAGING Diagnostic Imaging Report : [id number] Signed PATIENT: INA PENA ACCT: [id number] UNIT: [id number] : 1950 LOC: ER ROOM / BED: / AGE / SEX: 73 / M ADM STATUS: REG ER SERVICE 06 ORDERING PHYSICIAN: STEFANO PADILLA DO PROCEDURE(s): ABPL - CT AB PEL WO CON-NO ORAL OR IV REASON: sob/fever ORDER NUMBER(s): [id number], ACCESSION NUMBER(s): [id number] Procedure: CT CT AB PEL WO CON-NO ORAL OR IV 08/30/2024 06:18 PM Indication: sob/fever Comparison Study: CT CT AB PEL WO CON-NO ORAL OR IV on DOS: 05/25/24, CT CT AB PEL WO CON-NO ORAL OR IV on DOS: 04/24/24, CT CT AB PEL WO CON-NO ORAL OR IV on DOS: 02/28/24 Technique: Axial images were obtained and reformatted in coronal and sagittal planes. All CT scans at this medical facility are performed using dose modulation techniques as appropriate to a performed exam including the following: Automated exposure control was utilized; adjustment of the MA and/or KV according to patient size; and use of iterative reconstruction technique. CT Dose: CTDI volume is 24.43 mGy. Dose-length product is 1514.42 mGy*cm FINDINGS: Lower Chest: Bibasilar subsegmental atelectasis is noted. Mild bibasilar pulmonary opacities Hepatobiliary: Gallbladder is surgically absent. Spleen: Unremarkable. Pancreas: Unremarkable. Adrenal Glands: Unremarkable. tract: The kidneys are normal in size bilaterally . Mild left hydronephrosis and hydroureter noted without obstructing calculi. Several left renal nonobstructing calculi are seen measuring up to 1.4 cm. Moderate bilateral perinephric fat stranding noted. Several small right renal cysts measuring up to 1.2 cm. Circumferential mural thickening of the urinary bladder and mild pericystic fat stranding. GI tract: The stomach is grossly normal in appearance. No evidence of small bowel obstruction. Scattered colonic diverticula are noted without evidence of diverticulitis. The appendix is not visualized. No inflammatory change is noted in the right lower quadrant. Lymphatics: No mesenteric, retroperitoneal or periportal lymphadenopathy. Vasculature: The abdominal aorta is normal in caliber. Diffuse calcified plaque formation is noted. Pelvic Organs: Unremarkable Bones/soft tissues: No acute to abnormality. Other: None. IMPRESSION: 1. Mild left hydronephrosis and hydroureter without obstructing calculi. There is bladder wall thickening pericystic inflammation. The findings are suggestive of UTI with cystitis pyelitis/pyelonephritis. Differential diagnosis includes a recently passed stone. Recommend clinical and biochemical correlation.Several nonobstructing 2. Left renal calculi noted. 3. Diffuse colonic diverticulosis without diverticulitis. 4. Mild bibasilar streaky opacities likely subsegmental atelectasis. Developing pneumonia can not be ruled out. Recommend clinical and biochemical correlation. ATED BY: AMMY PULIDO MD DICTATED DATE/TIME: 08/30/242001 SIGNED BY: AMMY PULIDO MD SIGNED DATE/TIME: 08/30/242001 CC: [place] [address] Ph: [phone] DIAGNOSTIC IMAGING Diagnostic Imaging Report : [id number] Signed PATIENT: INA PENA ACCT: [id number] UNIT: [id number] : 1950 LOC: ER ROOM / BED: / AGE / SEX: 73 / M ADM STATUS: REG ER SERVICE 717 ORDERING PHYSICIAN: STEFANO PADILLA DO PROCEDURE(s): CXRP - CHEST PORTABLE REASON: sob/fever ORDER NUMBER(s): [id number], ACCESSION NUMBER(s): [id number] CHEST RADIOGRAPH Indication: sob/fever Technique: Single frontal view of the chest was obtained Comparison: XY CHEST PORTABLE on DOS: 05/27/24, XY CHEST PORTABLE on DOS: 02/26/24, XY CHEST PORTABLE on DOS: 10/25/23 FINDINGS: Lungs are hypoventilated with interstitial edema particularly in the right lung and there is fluid in the right minor fissure. Heart size appears to be within normal limits. Findings are very similar to prior CT examination of March 2024 IMPRESSION: 1. Apparent interstitial edema in the right lung. Follow-up CT examination of the chest would be helpful for comparison to prior CT examination. ATED BY: KURT RUSHING MD DICTATED DATE/TIME: 08/30/241904 SIGNED BY: KURT RUSHING MD SIGNED DATE/TIME: 08/30/241904 CC: [place] [address] Ph: [phone] DIAGNOSTIC IMAGING Diagnostic Imaging Report : [id number] Signed PATIENT: INA PENA ACCT: [id number] UNIT: [id number] : 1950 LOC: OVERFLOW ROOM / BED: [address] [place] [address] AGE / SEX: 73 / M ADM STATUS: ADM IN SERVICE 07 ORDERING PHYSICIAN: CAMILLA SALVADOR RESIDENT PROCEDURE(s): BLDVT - BiLat Lower DVT REASON: RULE OUT dvt ORDER NUMBER(s): [id number], ACCESSION NUMBER(s): [id number] Bilateral lower extremity venous duplex Clinical History: RULE OUT dvt Comparison: None Technique: Duplex Doppler evaluation of the deep venous systems of both lower extremities from the common femoral veins to the popliteal veins including color Doppler and spectral/pulsed waveform analysis was performed. Findings: RIGHT SIDE: The common femoral vein demonstrates appropriate compressibility and waveform variability. There is compressibility/patency of the great saphenous vein at the proximal thigh. The femoral vein demonstrates appropriate compressibility and waveform variability. The deep femoral vein demonstrates appropriate compressibility and waveform variability. The popliteal vein demonstrates appropriate compressibility and waveform variability. There is normal compressibility at the tibioperoneal trunk. LEFT SIDE: The common femoral vein demonstrates appropriate compressibility and waveform variability. There is compressibility/patency of the great saphenous vein at the proximal thigh. The femoral vein demonstrates appropriate compressibility and waveform variability. The deep femoral vein demonstrates appropriate compressibility and waveform variability. The popliteal vein demonstrates appropriate compressibility and waveform variability. There is normal compressibility at the tibioperoneal trunk. Impression: No right or left femoropopliteal venous thrombosis. ATED BY: CARL ALLEN DO DICTATED DATE/TIME: 08/31/24104 SIGNED BY: CARL ALLEN DO SIGNED DATE/TIME: 08/31/24104 CC: [place] [address] Ph: [phone] DIAGNOSTIC IMAGING Diagnostic Imaging Report : [id number] Signed PATIENT: INA PENA ACCT: [id number] UNIT: [id number] : 1950 LOC: OVERFLOW ROOM / BED: [address] [place] [address] AGE / SEX: 73 / M ADM STATUS: ADM IN SERVICE 5 ORDERING PHYSICIAN: LAMONT BUTT RESIDENT PROCEDURE(s): KIDUS - KIDNEY REASON: r/o obstruction ORDER NUMBER(s): [id number], ACCESSION NUMBER(s): [id number] RENAL ULTRASOUND CLINICAL HISTORY: r/o obstruction TECHNIQUE: Multiple ultrasound images of the kidneys and bladder were obtained. COMPARISON: CT abdomen and pelvis 08/30/2024 FINDINGS: The right kidney measures 10.9 cm in length. The left kidney measures 10.3 cm. There are calculi in the upper pole of the left kidney measuring up to 6 mm. There is no right renal calculus. There is no significant hydronephrosis identified by ultrasound. The bladder prevoid volume measures 263 cc. There is layering debris seen within the bladder. IMPRESSION: 1. There are calculi in the left kidney measuring up to 6 mm. There is no significant hydronephrosis identified by ultrasound. 2. Layering debris seen in the bladder. HS:Y ATED BY: BLANCHE GRANT MD DICTATED DATE/TIME: 08/31/24920 SIGNED BY: BLANCHE GRANT MD SIGNED DATE/TIME: 08/31/24920 CC: [place] [address] Ph: [phone] DIAGNOSTIC IMAGING Diagnostic Imaging Report : [id number] Signed PATIENT: INA PENA ACCT: [id number] UNIT: [id number] : 1950 LOC: [facility] ROOM / BED: [facility] / A AGE / SEX: 73 / M ADM STATUS: ADM IN SERVICE 5 ORDERING PHYSICIAN: ARTI LAWS NP PROCEDURE(s): ABPL - CT AB PEL WO CON-NO ORAL OR IV REASON: stones ORDER NUMBER(s): [id number], ACCESSION NUMBER(s): [id number] CT CT AB PEL WO CON-NO ORAL OR IV INDICATION: stones EXAM DATE: 09/01/2024 10:46 AM COMPARISON: CT CT AB PEL WO CON-NO ORAL OR IV on DOS: 08/30/24, CT CT AB PEL WO CON-NO ORAL OR IV on DOS: 05/25/24, CT CT AB PEL WO CON-NO ORAL OR IV on DOS: 04/24/24 RADIATION DOSE: CTDIvol: 19.11 mGy, DLP: 1358.97 mGy*cm PROCEDURE: Helical CT images were obtained of the abdomen and pelvis without IV contrast Sagittal and coronal reconstructions are provided. ORAL CONTRAST: None. ADDITIONAL IMAGES / REFORMATS: None All CT scans at this medical facility are performed using dose modulation techniques as appropriate to a performed exam including the following: Automated exposure control was utilized; adjustment of the MA and/or KV according to patient size; and use of iterative reconstruction technique. FINDINGS: LUNG BASE: Streaky bibasilar airspace opacity. LIVER: Normal. GALLBLADDER AND BILIARY TREE: Cholecystectomy clips are seen. No intra- or extrahepatic biliary ductal dilation. PANCREAS: Subcentimeter 7 mm cystic lesion in the pancreatic head could be an IPMN. SPLEEN: Normal. BOWEL: Severe colonic diverticulosis. ADRENALS: Normal. KIDNEYS AND URETER: Nonobstructive left kidney stones and small right kidney cysts with mild bilateral perinephric edema. BLADDER: [place] is seen in the bladder. REPRODUCTIVE ORGANS: Normal. LYMPH NODES:No lymphadenopathy. PERITONEUM: No ascites or free air. No other fluid collection. VESSELS: Scattered atherosclerotic calcifications are noted. RETROPERITONEUM: Normal. ABDOMINAL WALL: Normal. BONES: Scattered osseous degenerative changes are noted. IMPRESSION: Nonobstructive left kidney stones and small right kidney cysts with mild bilateral perinephric edema. ATED BY: RAFFY LEE MD DICTATED DATE/TIME: 09/01/24 122 SIGNED BY: RAFFY LEE MD SIGNED DATE/TIME: 09/01/248 CC: Condition at Discharge: Guarded Final Diagnosis/Problems List Sepsis due to UTI, Pneumonia Pneumonia gram (+) vs gram (-), atypicals UTI, complicated with cystitis, pyelonephritis due to ESBL Klebsiella p. Mild left hydronephrosis and hydroureter Left renal calculi Diffuse colonic diverticulosis without diverticulitis. 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 Patient was counseled about treatment plan, medications, possible side effects, patientverbalized understanding. All questions were answered to the best of my ability. This discharge took greater then 30 minutes in planning, reviewing documentation, counseling the patient, and discussing with other team members." ASSESSMENT ASSESSMENT Assessment UTI ESBL Date of Service: Sep 03, 2024 Billing Provider: CLIFF BLUM MD Common Visit Codes: 52596-MIN/OBS DISCH DAY >30min ABIMAEL HILARIO RESIDENT Sep 03, 2024 13:40 CLIFF BLUM MD Sep 03, 2024 20:52
[2024-09-03] MEDS: SORE THROAT SPRAY 6OZ BOTTLE MT ONE (14:11)
--- NOTE | 2024-09-03 20:29 | DVHPN2 ---
Progress Note - Dictate Date Seen: Sep 03, 2024 Medical Necessity Reason Pt with a Central, PICC or Fol: No Subjective Patient was seen and evaluated in follow up. No acute events overnight. Patient reports feeling better. No new complaints. Luevano catheter discontinued. vital signs Vital Sign Date Time Temp Pulse Resp B/P (MAP) Pulse Ox O2 Delivery O2 Flow Rate FiO2 09/03/24 17:00 98.8 94 17 136/82 (100) 93 98.8 09/03/24 10:00 Nasal Cannula* 2 28 Total Intake and Output 09/02/24 09/02/24 09/03/24 15:00 23:00 07:00 Intake Total 900 ml 400 ml Output Total 700 ml 200 ml Balance 200 ml 200 ml objective Vitals and nursing notes reviewed. General: Comfortable appearing, in no acute distress. HEENT: Head is normocephalic and atraumatic. Pupils are equal, round, and reactive to light. Extraocular muscles are intact. No nasal discharge. Neck: Supple with no cervical lymphadenopathy. Heart: Regular rate without murmur, rub, or gallop. Lungs: Equal breath sounds bilaterally with no wheezing, rales, or rhonchi. There is no chest wall tenderness or instability. Abdomen: No external sign of injury. Bowel sounds are present. Abdomen is soft, nontender. No rebound, no guarding, no rigidity. Extremities: Strong peripheral pulses. There is no clubbing, no cyanosis, and no edema. Skin: No rash. Neuro: Alert and oriented x 3. Strength weak R> L Sensation intact laboratory and microbiology Laboratory Tests 09/02/24 05:31 Test 09/02/24 05:31 Range/Units Serum Glucose 132 H 74-106 mg/dL Problem List Severe Sepsis Pneumonia UTI with cystitis pyelitis/pyelonephritis STEFFEN on CKD 3 Metabolic encephalopathy Hyperbilirubinemia Assessment/Plan DC planning in progress. Will return back to SNF for PT and continue IV Abx with Meropenem x 10 days via midline. Cleared for discharge from Nephrology standpoint. Dietary Evaluation Review Comments: 1) CCHO 75 + renal specific 70gm protein 2) refer to [facility] on DC 3) Continue current plan of care Expected Outcomes/Goals: Pt will meet >75% estimated needs Fu 3-5 days Plan discussed with: Patient, Other (RN) RUI PALACIOS DO Sep 03, 2024 20:29
--- NOTE | 2024-09-03 20:29 | DVHINCON2 ---
Date of service: Sep 02, 2024 Referring Physician Ventura Emmanuel MD Reason for Consultation Elevated Creatinine History of Present Illness Harmeet Clark is a 73 year old M with a Past Medical History pertinent for [place], GERD, Hypertension, Hyperlipidemia, Anemia, A-Fib and CVA x3 with hemiplegic who presented to the hospital with complaints of severe abdominal pain x 1 day. Patient is a poor historian. He currently resides at [facility] ([facility]). While in ED, CT Abdomen Pelvis revealed mild left hydronephrosis, left renal calculi. Also found to have UTI. Urine cultures grew ESBL Klebsiella sensitive to meropenem. Blood cultures are negative to date. Patient currently s tates feeling better than on admission. Tolerating diet. Labs this morning are remarkable for Creatinine 1.46 decreased from 1.83. eGFR 51. K is wnl. Na 140. Allergies: Coded Allergies: NO KNOWN ALLERGIES (Unverified , 01/27/22) Home Meds Reported Medications Insulin Regular (Human) (Humulin R) 100 Unit/Ml Inj, UNIT IV UD for 15 Days, #10 05/26/24 Insulin Glargine (Lantus) 100 Unit/Ml Inj, UNIT SC UD for 28 Days, #10 05/26/24 Flecainide Acetate (Flecainide Acetate) 100 Mg Tab, 1 TAB PO BID for 31 Days, #62 05/26/24 Carvedilol (Carvedilol) 3.125 Mg Tab, 1 TAB PO BID for 31 Days, #62 05/26/24 Apixaban Base (ELIQUIS) 2.5 Mg Tab, 1 TAB PO BID for 28 Days, #14 08/15/23 Nitroglycerin (Nitrostat) 0.4 Mg Sub, 0.4 MG SL, INJ 04/03/23 Atorvastatin Calcium (ATORVASTATIN CALCIUM) 10 Mg Tab, 1 TAB PO QPM for 31 Days, #31 04/03/23 Tamsulosin Hcl (Flomax) 0.4 Mg Cap, 1 TAB PO DAILY for 31 Days, #31 04/03/23 Multiple Vitamins W/ Minerals (Centrum Silver) Silver Tab, 1 OR DAILY, TAB 04/03/23 Pantoprazole Sodium Sesquihydr (Protonix) 40 Mg Tab, 1 TAB PO DAILY for 31 Days, #31 04/03/23 Bisacodyl (DULCOLAX SUPPOSITORY) 10 Mg Rc, 10 MG [place] DAILYP PRN for FOR CONSTIPATION, MG 08/06/18 Magnesium Hydroxide (MILK OF MAGNESIA ORAL SUSPENSION) 30 Ml Ss, 30 ML PO DAILYP PRN for FOR CONSTIPATION 08/06/18 Sodium Phosphates (FLEET ENEMA SIX PACK) Enema Sharon, 1 RE DAILYP PRN for FOR CONSTIPATION 08/06/18 Acetaminophen (Acetaminophen) 325 Mg Tab, 500 MG PO Q6HP PRN for MILD PAIN, 0 Refills 08/06/18 Docusate Sodium (Docusate Sodium) 100 Mg Tab, 100 MG PO BID 08/06/18 Discontinued Reported Medications Furosemide (Furosemide) 20 Mg Tab, 1 TAB PO DAILY for 31 Days, #31 05/26/24 Cranberry (CRANBERRY) 400 Mg Tab, 400 MG PO DAILY, TAB 08/15/23 Magnesium (Magnesium 400 mg) 1 Tab Tab, 1 TAB PO BID, TAB 08/15/23 Metformin Hydrochloride (Metformin Hcl) 500 Mg Tab, 1000 MG PO BID for 30 Days, MG 04/28/23 Misc Natural Products (Neuriva) 1 Cap Cap, 1 CAP PO QPM, CAP 04/03/23 Cholecalciferol (Vitamin D3 1.25 mg (30129 Ut)) 1 Cap Cap, 1 CAP PO DAILY, CAP 04/03/23 Current Medications Current Medications Medications (Trade) Dose Ordered Sig/Karely Route PRN Reason Start Time Stop Time Status Last Admin Phenol/Menthol (Chloraseptic) 1 spr Q2HP PRN MT FOR SORE THROAT 09/03/24 13:00 09/03/24 19:14 DC Family History: Cardiovascular disease G8 MOTHER Diabetes mellitus G8 MOTHER FH: lung cancer G8 FATHER Sepsis G8 MOTHER Review of Systems Constitutional: Denies fever no chills no feeling of malaise HEENT: Denies headache, ear pain, ear discharges, conjunctivitis, nasal discharge throat pain Cardiovascular: Denies chest pain, palpitation, orthopnea, PND, or pedal edema Respiratory: Denies shortness of breath, cough cough, sputum production, hemoptysis, GI: abdominal pain. No nausea, vomiting, diarrhea, hematemesis, hematochezia, : Denies frequency, urgency, hematuria Musculoskeletal: muscle weakness bilateral right greater than left All other systems reviewed and negative unless otherwise noted in HPI. H&P Exam Vital Signs/I&O Vital Sign Date Time Temp Pulse Resp B/P (MAP) Pulse Ox O2 Delivery O2 Flow Rate FiO2 09/03/24 17:00 98.8 94 17 136/82 (100) 93 98.8 09/03/24 10:00 Nasal Cannula* 2 28 l Intake and Output 09/02/24 09/03/24 19:00 07:00 Intake Total 900 ml 400 ml Output Total 700 ml 200 ml Balance 200 ml 200 ml Intake Oral 900 ml 400 ml Output Urine Total 700 ml 200 ml Physical Exam Vitals and nursing notes reviewed. General: Comfortable appearing, in no acute distress. HEENT: Head is normocephalic and atraumatic. Pupils are equal, round, and reactive to light. Extraocular muscles are intact. No nasal discharge. Neck: Supple with no cervical lymphadenopathy. Heart: Regular rate without murmur, rub, or gallop. Lungs: Equal breath sounds bilaterally with no wheezing, rales, or rhonchi. There is no chest wall tenderness or instability. Abdomen: No external sign of injury. Bowel sounds are present. Abdomen is soft, nontender. No rebound, no guarding, no rigidity. Extremities: Strong peripheral pulses. There is no clubbing, no cyanosis, and no edema. Skin: No rash. Neuro: Alert and oriented x 3. Strength weak R> L Sensation intact Labs/Diagnostic Data Labs/Diagnostic Data Laboratory Tests Test 09/02/24 05:31 09/01/24 08:40 09/01/24 05:46 08/31/24 09:11 Range/Units White Blood Count 7.1 # 10.9 #H 4.4-10.8 10^3/uL Red Blood Count 4.36 L 5.00 4.5-5.90 10^6/uL Hemoglobin 13.0 L 14.9 13.5-17.5 g/dL Hematocrit 38.7 #L 44.9 41.0-53.0 % Mean Corpuscular Volume 88.8 89.7 80.0-100.0 fL Mean Corpuscular Hemoglobin 29.8 29.9 28.0-32.0 pg Mean Corpuscular Hemoglobin Concent 33.6 33.3 32.0-36.0 g/dL Red Cell Distribution Width 16.0 H 15.9 H 11.8-14.3 % Platelet Count 160 164 140-450 10^3/uL Mean Platelet Volume 7.9 8.2 6.9-10.8 fL Neutrophils (%) (Auto) 70.0 77.0 37.0-80.0 % Lymphocytes (%) (Auto) 17.2 14.4 10.0-50.0 % Monocytes (%) (Auto) 9.7 6.9 0.0-12.0 % Eosinophils (%) (Auto) 2.5 1.3 0.0-7.0 % Basophils (%) (Auto) 0.6 0.4 0.0-2.0 % Neutrophils # (Auto) 4.9 8.4 1.6-8.6 10 ^3/uL Lymphocytes # (Auto) 1.2 1.6 0.4-5.4 10 ^3/uL Monocytes # (Auto) 0.7 0.8 0-1.3 10 ^3/uL Eosinophils # (Auto) 0.2 0.1 0-0.8 10 ^3/uL Basophils # (Auto) 0 0 0-0.2 10 ^3/uL Nucleated Red Blood Cells 0.0 0.0 % Sodium Level 140 140 136-145 mmol/L Potassium Level 3.9 4.0 3.5-5.1 mmol/L Chloride Level 107 105 98-107 mmol/L Carbon Dioxide Level 26 25 20-31 mmol/L Anion Gap 7 10 5-15 Blood Urea Nitrogen 18 22 9-23 mg/dL Creatinine 1.46 H 1.83 H 0.700-1.30 mg/dL Glomerular Filtration Rate Calc 51 39 >90 mL/min BUN/Creatinine Ratio 12.3 12.0 10.0-20.0 Serum Glucose 132 H 81 74-106 mg/dL Calcium Level 9.2 9.7 8.7-10.4 mg/dL Urine Color Light-orange Yellow Urine Clarity Turbid H Clear Urine pH 5.5 5.0-9.0 Urine Specific [place] 1.015 1.001-1.035 Urine Protein 2+ H Negative Urine Ketones Trace Negative Urine Blood 3+ H Negative /uL Urine Nitrite Negative Negative Urine Bilirubin Negative Negative Urine Urobilinogen Normal Negative mg/dL Urine Leukocyte Esterase 3+ Negative /uL Urine RBC 94 0 - 3 /hpf Urine WBC Clumps Present None Seen /hpf Urine Microscopic WBC 354 H 0-3 /HPF Urine Squamous Epithelial Cells None seen <5 /hpf Urine Bacteria None seen None Seen /hpf Urine Glucose Normal Normal mg/dL Total Bilirubin 1.6 H 0.2-1.0 mg/dL Aspartate Amino Transferase (AST) 13 13-40 U/L Alanine Aminotransferase (ALT) 9 7-40 U/L Alkaline Phosphatase 101 46-116 U/L Total Protein 7.8 5.7-8.2 g/dL Albumin 4.1 3.2-4.8 g/dL Random Vancomycin Level 7.7 5-10 ug/mL Urine Opiates Screen Neg NEGATIVE Urine Fentanyl Screen Neg NEGATIVE Urine Barbiturates Screen Neg NEGATIVE Urine Phencyclidine Screen Neg NEGATIVE Urine Amphetamines Screen Neg NEGATIVE Urine Benzodiazepines Screen Neg NEGATIVE Urine Cocaine Screen Neg NEGATIVE Urine Cannabinoids Screen Neg NEGATIVE Test 08/31/24 07:30 08/30/24 21:46 08/30/24 19:40 08/30/24 19:38 Range/Units White Blood Count 19.6 #H 4.4-10.8 10^3/uL Red Blood Count 4.98 4.5-5.90 10^6/uL Hemoglobin 14.8 13.5-17.5 g/dL Hematocrit 44.6 41.0-53.0 % Mean Corpuscular Volume 89.6 80.0-100.0 fL Mean Corpuscular Hemoglobin 29.7 28.0-32.0 pg Mean Corpuscular Hemoglobin Concent 33.2 32.0-36.0 g/dL Red Cell Distribution Width 16.3 H 11.8-14.3 % Platelet Count 161 140-450 10^3/uL Mean Platelet Volume 7.5 6.9-10.8 fL Neutrophils (%) (Auto) 66.5 37.0-80.0 % Lymphocytes (%) (Auto) 18.1 10.0-50.0 % Monocytes (%) (Auto) 15.0 H 0.0-12.0 % Eosinophils (%) (Auto) 0.1 0.0-7.0 % Basophils (%) (Auto) 0.3 0.0-2.0 % Neutrophils # (Auto) 13.0 H 1.6-8.6 10 ^3/uL Lymphocytes # (Auto) 3.5 0.4-5.4 10 ^3/uL Monocytes # (Auto) 2.9 H 0-1.3 10 ^3/uL Eosinophils # (Auto) 0 0-0.8 10 ^3/uL Basophils # (Auto) 0.1 0-0.2 10 ^3/uL Nucleated Red Blood Cells 0.0 % Erythrocyte Sedimentation Rate 33 H 0-20 mm/hr Sodium Level 141 142 136-145 mmol/L Potassium Level 4.1 4.6 3.5-5.1 mmol/L Chloride Level 109 H 110 H 98-107 mmol/L Carbon Dioxide Level 24 23 20-31 mmol/L Anion Gap 8 9 5-15 Blood Urea Nitrogen 21 18 9-23 mg/dL Creatinine 1.80 H 1.73 H 0.700-1.30 mg/dL Glomerular Filtration Rate Calc 40 42 >90 mL/min BUN/Creatinine Ratio 11.7 10.4 10.0-20.0 Serum Glucose 130 H 159 H 74-106 mg/dL Hemoglobin A1c 6.4 H <5.7 % A1C Lactic Acid Level 1.4 0.4-2.0 mmol/L Calcium Level 9.1 9.4 8.7-10.4 mg/dL Total Bilirubin 2.1 H 1.6 H 0.2-1.0 mg/dL Aspartate Amino Transferase (AST) 16 23 13-40 U/L Alanine Aminotransferase (ALT) 19 16 7-40 U/L Alkaline Phosphatase 104 106 46-116 U/L Ammonia < 10 L 11-32 umol/L C-Reactive Protein High Sensitivity 11.33 H <1.0 mg/dL Total Protein 7.2 7.4 5.7-8.2 g/dL Albumin 3.9 4.0 3.2-4.8 g/dL Thyroid Stimulating Hormone (TSH) 0.67 0.55-4.78 uIU/mL Magnesium Level 2.0 1.6-2.6 mg/dL Troponin I High Sensitivity 15 14 </=54 ng/L Influenza Type A Antigen Negative Negative Influenza Type B Antigen Negative Negative SARS-CoV-2 Antigen (Rapid) Negative NEGATIVE Test 08/30/24 18:40 Range/Units White Blood Count 13.6 H 4.4-10.8 10^3/uL Red Blood Count 5.41 4.5-5.90 10^6/uL Hemoglobin 15.9 13.5-17.5 g/dL Hematocrit 48.3 41.0-53.0 % Mean Corpuscular Volume 89.2 80.0-100.0 fL Mean Corpuscular Hemoglobin 29.3 28.0-32.0 pg Mean Corpuscular Hemoglobin Concent 32.9 32.0-36.0 g/dL Red Cell Distribution Width 16.1 H 11.8-14.3 % Platelet Count 171 140-450 10^3/uL Mean Platelet Volume 8.0 6.9-10.8 fL Neutrophils (%) (Auto) 80.7 H 37.0-80.0 % Lymphocytes (%) (Auto) 11.0 10.0-50.0 % Monocytes (%) (Auto) 7.7 0.0-12.0 % Eosinophils (%) (Auto) 0.1 0.0-7.0 % Basophils (%) (Auto) 0.5 0.0-2.0 % Neutrophils # (Auto) 11.0 H 1.6-8.6 10 ^3/uL Lymphocytes # (Auto) 1.5 0.4-5.4 10 ^3/uL Monocytes # (Auto) 1.0 0-1.3 10 ^3/uL Eosinophils # (Auto) 0 0-0.8 10 ^3/uL Basophils # (Auto) 0.1 0-0.2 10 ^3/uL Nucleated Red Blood Cells 0.1 % D-Dimer, Quantitative 0.57 H 0.0-0.49 mg/L FEU Lactic Acid Level 1.3 0.4-2.0 mmol/L Troponin I High Sensitivity 15 </=54 ng/L B-Type Natriuretic Peptide 276.51 0-100 pg/mL Microbiology Date/Time Source Procedure Growth Status 08/31/24 09:11 Voided Urine Urine Culture - Final Klebsiella pneumoniae - ESBL Complete Assessment Severe Sepsis Pneumonia UTI with cystitis pyelitis/pyelonephritis STEFFEN on CKD 3 Metabolic encephalopathy Hyperbilirubinemia Plan/Recommendation Agreement with your ongoing assessment and plan of care. Monitor daily labs to include renal function and electrolytes. Electrolyte replacement prn. IVFs with LR given. IV antibiotics with Meropenem. Flomax. Bowel care regimen. DVT prophylaxis with Enoxaparin. Additional plan as per the hospital course. Plan discussed with: Patient, Other (RN) RUI PALACIOS DO Sep 03, 2024 20:29
== END 2024-09-03 19:00 | DRG 871 ==
LOC: EDBD 16:47 → ER 16:47 → OVERFLOW 23:08 → WEST WING 08-31 16:11 → EAST 09-02 12:23
PROVIDERS: ADMIT Internal Medicine; ATTEND Internal Medicine
DX: A41.50 Gram-negative sepsis, unspecified (principal); G93.41 Metabolic encephalopathy; N17.0 Acute kidney failure with tubular necrosis; J15.69 Pneumonia due to other Gram-negative bacteria; J15.9 Unspecified bacterial pneumonia; J98.11 Atelectasis; N13.6 Pyonephrosis; J44.0 Chronic obstructive pulmonary disease with (acute) lower respiratory infection; D68.9 Coagulation defect, unspecified; N30.00 Acute cystitis without hematuria; G82.20 Paraplegia, unspecified; R65.20 Severe sepsis without septic shock; Z20.822 Contact with and (suspected) exposure to COVID-19; K57.30 Diverticulosis of large intestine without perforation or abscess without bleeding; E78.5 Hyperlipidemia, unspecified; E11.22 Type 2 diabetes mellitus with diabetic chronic kidney disease; K21.9 Gastro-esophageal reflux disease without esophagitis; I12.9 Hypertensive chronic kidney disease with stage 1 through stage 4 chronic kidney disease, or unspecified chronic kidney disease; I25.2 Old myocardial infarction; N20.0 Calculus of kidney; I25.10 Atherosclerotic heart disease of native coronary artery without angina pectoris; I48.91 Unspecified atrial fibrillation; N18.30 Chronic kidney disease, stage 3 unspecified; E80.6 Other disorders of bilirubin metabolism; Z83.3 Family history of diabetes mellitus; Z82.49 Family history of ischemic heart disease and other diseases of the circulatory system; Z80.1 Family history of malignant neoplasm of trachea, bronchus and lung; Z79.899 Other long term (current) drug therapy; Z79.84 Long term (current) use of oral hypoglycemic drugs; Z79.4 Long term (current) use of insulin; Z79.01 Long term (current) use of anticoagulants; Z85.118 Personal history of other malignant neoplasm of bronchus and lung; Z90.49 Acquired absence of other specified parts of digestive tract; Z74.01 Bed confinement status
CPT/HCPCS: 36415; 71045; 74176; 76775; 80048; 80053; 80202; 80307; 81001; 82140; 83036; 83605; 83735; 83880; 84443; 84484; 85025; 85379; 85652; 86141; 87040; 87086; 87088; 87186; 87426; 87804; 93005; 93306; 93970; 96365; 99291; G0378; J2185; J2405; J2543

== ENCOUNTER 2024-09-15 15:46 | Inpatient (IN) | payer MEDICARE, MEDICAID ==
[~2024-09-15] VITALS: Ht 193 cm; Wt 116.0 kg
[~2024-09-15 15:46] MED LIST changes: -CHOL1CAP58 PO; -CRAN400T6 PO; -FURO20TA3 PO; -MAGN1TAB29 PO; -METF-370 PO; -MISC1CAP PO
--- NOTE | 2024-09-15 15:55 | ED.PDOC ---
General HPI Comments 73 y/o M, brought in by EMS, with PMHx of HTN, DM, CVA, [place], and CKD presents to the ED for CC of UTI symptoms. Per EMS, patient is coming from [facility] for possible UTI. EMS reports, that [facility] received a call from patient's PCP Dr. Han and was relayed to go to the ED for a urinary tract infection. Patient states, that he was discharged from [facility] for DX: Sepsis due to UTI on 09/03/24. Patient denies any current pain, dysuria, hematuria, fever, chills, fatigue, weakness, penile discharge, or testicular swelling. NO other symptoms or modifying factors present at this time. Time Seen by MD: 15:50 Primary Care Provider: DARYA Reviewed notes: Nurses Notes, Sewing Machine Operator Zipper Notes, Medications, Allergies Allergies: Coded Allergies: NO KNOWN ALLERGIES (Unverified , 01/27/22) Home Meds Reported Medications Insulin Regular (Human) (Humulin R) 100 Unit/Ml Inj, UNIT IV UD for 15 Days, #10 05/26/24 Insulin Glargine (Lantus) 100 Unit/Ml Inj, UNIT SC UD for 28 Days, #10 05/26/24 Flecainide Acetate (Flecainide Acetate) 100 Mg Tab, 1 TAB PO BID for 31 Days, #62 05/26/24 Carvedilol (Carvedilol) 3.125 Mg Tab, 1 TAB PO BID for 31 Days, #62 05/26/24 Apixaban Base (ELIQUIS) 2.5 Mg Tab, 1 TAB PO BID for 28 Days, #14 08/15/23 Nitroglycerin (Nitrostat) 0.4 Mg Sub, 0.4 MG SL, INJ 04/03/23 Atorvastatin Calcium (ATORVASTATIN CALCIUM) 10 Mg Tab, 1 TAB PO QPM for 31 Days, #31 04/03/23 Tamsulosin Hcl (Flomax) 0.4 Mg Cap, 1 TAB PO DAILY for 31 Days, #31 04/03/23 Multiple Vitamins W/ Minerals (Centrum Silver) Silver Tab, 1 OR DAILY, TAB 04/03/23 Pantoprazole Sodium Sesquihydr (Protonix) 40 Mg Tab, 1 TAB PO DAILY for 31 Days, #31 04/03/23 Bisacodyl (DULCOLAX SUPPOSITORY) 10 Mg Rc, 10 MG ND DAILYP PRN for FOR CONSTIPATION, MG 08/06/18 Magnesium Hydroxide (MILK OF MAGNESIA ORAL SUSPENSION) 30 Ml Ss, 30 ML PO DAILYP PRN for FOR CONSTIPATION 08/06/18 Sodium Phosphates (FLEET ENEMA SIX PACK) Enema Sharon, 1 RE DAILYP PRN for FOR CONSTIPATION 08/06/18 Acetaminophen (Acetaminophen) 325 Mg Tab, 500 MG PO Q6HP PRN for MILD PAIN, 0 Refills 08/06/18 Docusate Sodium (Docusate Sodium) 100 Mg Tab, 100 MG PO BID 08/06/18 Information Source: Patient, Emergency Med Personnel Mode of Arrival: EMS Severity: Moderate Inability to void: None Timing: Days Duration: Since onset Prehospital treatment: None Onset: Spontaneous Symptoms: None History of: UTI Location: None Penile discharge: None Modifying factors: None associated signs and symptoms: None Past Medical History PAST MEDICAL HISTORY: AFIB, Anemia, CKF, COPD, CVA, DM, GERD, High Lipids, HTN, Kidney Stones, [place], TIA, UTI'S Surgical History: Appendectomy, Cholecystectomy, PTCA Family History Family History: Reviewed,noncontributory to illness, Family hx of DM Social History Smoker: Non-Smoker Alcohol: Denies ETOH Use Drugs: Denies Drug Use Lives In: Assisted Care, Longterm Constitutional: denies: chills, diaphoresis, fatigue, fever, malaise, sweats, weakness, others EENTM: denies: blurred vision, double vision, ear bleeding, ear discharge, ear drainage, ear pain, ear ringing, eye pain, eye redness, hearing loss, mouth pain, mouth swelling, nasal discharge, nose bleeding, nose congestion, nose pain, photophobia, tearing, throat pain, throat swelling, voice changes, others Respiratory: denies: cough, hemoptysis, orthopnea, SOB at rest, shortness of breath, SOB with excertion, stridor, wheezing, others Cardiovascular: denies: chest pain, dizzy spells, diaphoresis, Dyspnea on exertion, edema, irregular heart beat, left arm pain, lightheadedness, palpitations, PND, syncope, others Gastrointestinal: denies: abdomen distended, abdominal pain, blood streaked bowels, constipated, diarrhea, dysphagia, difficulty swallowing, hematemesis, melena, nausea, poor appetite, poor fluid intake, rectal bleeding, rectal pain, vomiting, others Genitourinary: denies: burning, dysuria, flank pain, frequency, hematuria, incontinence, penile discharge, penile sore, pain, testicle pain, testicle swelling, urgency, others Neurological: denies: dizziness, fainting, headache, left sided numbness, left sided weakness, numbness, paresthesia, pre-existing deficit, right sided numbness, right sided weakness, seizure, speech problems, tingling, tremors, weakness, others Musculoskeletal: denies: back pain, gout, joint pain, joint swelling, muscle pain, muscle stiffness, neck pain, others Integumetry: denies: bruises, change in color, change in hair/nails, dryness, laceration, lesions, lumps, rash, wounds, others Allergic/Immunocompromised: denies: Difficulty Healing, Frequent Infections, Hives, Itching, others Hematologic/Lymphatic: denies: anemia, blood clots, easy bleeding, easy bruising, swollen glands, others Endocrine: denies: excessive hunger, excessive sweating, excessive thirst, excessive urination, flushing, intolerance to cold, intolerance to heat, unexplained weight gain, unexplained weight loss, others Psychiatric: denies: anxiety, bipolar disorder, depression, hopeless, panic disorder, schizophrenia, sleepless, suicidal, others All Other Systems: Reviewed and Negative Physical Exam General Appearance: Moderate Distress HEENT: Normal ENT Inspection, Pharynx Normal, TMs Normal Neck: Full Range of Motion, Non-Tender, Normal, Normal Inspection Respiratory: Chest Non-Tender, Lungs Clear, No Accessory Muscle Use, No Respiratory Distress, Normal Breath Sounds Cardiovascular: No Edema, No JVD, No Murmur, No Gallop, Normal Peripheral Pulses, Regular Rate/Rhythm Breast Exam: Deferred Gastrointestinal: No Organomegaly, Non Tender, No Pulsatile Mass, Normal Bowel Sounds, Soft Genitalia: Deferred Pelvic: Deferred Rectal: Deferred Extremities: No calf tenderness, Normal capillary refill, Normal inspection, Normal range of motion, Non-tender, No pedal edema Musculoskeletal : Location: Left Extremity Location: Back Apperance: Limited ROM, Tenderness: Moderate Neurologic: Alert, delicatessen store manager II-XII nml as Tested, No Motor Deficits, Normal Affect, Normal Mood, No Sensory Deficits Cerebellar Function: Normal Reflexes: Normal Skin: Dry, Normal Color, Warm Lymphatic: No Adenopathy Was a procedure done? Was a procedure done?: No Differential Diagnosis Kidney stone (Female): N/A Kidney stone (Male): Strain, Urinary obstruction, Urolithiasis, Renal infarction Urinary Problem (Male): UTI X-Ray, Labs, Meds, VS Vital Signs Date Time Temp Pulse Resp B/P (MAP) Pulse Ox O2 Delivery O2 Flow Rate FiO2 09/15/24 16:11 97.7 71 24 140/60 (86) 97 97.7 Lab Test 09/15/24 16:00 Range/Units White Blood Count 6.5 4.4-10.8 10^3/uL Red Blood Count 4.97 4.5-5.90 10^6/uL Hemoglobin 14.3 13.5-17.5 g/dL Hematocrit 44.6 41.0-53.0 % Mean Corpuscular Volume 89.7 80.0-100.0 fL Mean Corpuscular Hemoglobin 28.9 28.0-32.0 pg Mean Corpuscular Hemoglobin Concent 32.2 32.0-36.0 g/dL Red Cell Distribution Width 15.8 H 11.8-14.3 % Platelet Count 259 140-450 10^3/uL Mean Platelet Volume 7.1 6.9-10.8 fL Neutrophils (%) (Auto) 59.9 37.0-80.0 % Lymphocytes (%) (Auto) 27.7 10.0-50.0 % Monocytes (%) (Auto) 8.4 0.0-12.0 % Eosinophils (%) (Auto) 2.7 0.0-7.0 % Basophils (%) (Auto) 1.3 0.0-2.0 % Neutrophils # (Auto) 3.9 1.6-8.6 10 ^3/uL Lymphocytes # (Auto) 1.8 0.4-5.4 10 ^3/uL Monocytes # (Auto) 0.5 0-1.3 10 ^3/uL Eosinophils # (Auto) 0.2 0-0.8 10 ^3/uL Basophils # (Auto) 0.1 0-0.2 10 ^3/uL Nucleated Red Blood Cells 0.0 % Sodium Level 144 136-145 mmol/L Potassium Level 4.3 3.5-5.1 mmol/L Chloride Level 106 98-107 mmol/L Carbon Dioxide Level 31 20-31 mmol/L Anion Gap 7 5-15 Blood Urea Nitrogen 17 9-23 mg/dL Creatinine 1.36 H 0.700-1.30 mg/dL Glomerular Filtration Rate Calc 56 >90 mL/min BUN/Creatinine Ratio 12.5 10.0-20.0 Serum Glucose 121 H 74-106 mg/dL Lactic Acid Level 1.2 0.4-2.0 mmol/L Calcium Level 10.0 8.7-10.4 mg/dL Time of 1ST Reevaluation: 16:20 Reevaluation 1ST: Unchanged Patient Education/Counseling: Diagnosis, Treatment, Prognosis Family Education/Counseling: No Family Present Departure 1 Departure Time of Disposition: 18:43 Impression: Primary Impression: Acute cystitis without hematuria Additional Impression: Anemia Qualified Codes: D64.9 - Anemia, unspecified Disposition: ADMITTED INPATIENT Admit to: Med Surg Condition: Fair Critical Care Note Critical Care Time?: No Stability Stability form required: No Heart Score Heart Score: Heart Score Response (Comments) Value History N/A 0 EKG N/A 0 Age N/A 0 Risk Factors N/A 0 Troponin N/A 0 Total 0 I personally scribed for ANDRES RILEY MD ([email or web address]) on 09/15/24 at 15:55. Electronically submitted by Dora Spence ([email or web address]). I personally scribed for ANDRES RILEY MD ([email or web address]) on 09/15/24 at 15:59. Electronically submitted by Dora Spence ([email or web address]). I personally scribed for ANDRES RILEY MD ([email or web address]) on 09/15/24 at 16:02. Electronically submitted by Dora Spence ([email or web address]). ANDRES RILEY MD Sep 15, 2024 15:55
[2024-09-15 16:19] LABS: Basophils # (auto) 0.1 10 ^3/uL (0-0.2); Basophils % (auto) 1.3 % (0.0-2.0); Eosinophils # (auto) 0.2 10 ^3/uL (0-0.8); Eosinophils % (auto) 2.7 % (0.0-7.0); Hematocrit 44.6 % (41.0-53.0); Hemoglobin 14.3 g/dL (13.5-17.5); Lymphocytes # (auto) 1.8 10 ^3/uL (0.4-5.4); Lymphocytes % (auto) 27.7 % (10.0-50.0); Mean Corpuscular Hemoglobin 28.9 pg (28.0-32.0); Mean Corpuscular Hgb Conc. 32.2 g/dL (32.0-36.0); Mean Corpuscular Volume 89.7 fL (80.0-100.0); Monocytes # (auto) 0.5 10 ^3/uL (0-1.3); Monocytes % (auto) 8.4 % (0.0-12.0); Neutrophils # (auto) 3.9 10 ^3/uL (1.6-8.6); Neutrophils % (auto) 59.9 % (37.0-80.0); Platelet Count (auto) 259 10^3/uL (140-450); Red Blood Cells 4.97 10^6/uL (4.5-5.90); Red Cell Distribution Width 15.8 % (11.8-14.3); White Blood Cell 6.5 10^3/uL (4.4-10.8)
[2024-09-15 16:29] LABS: Chloride 106 mmol/L (98-107); Potassium 4.3 mmol/L (3.5-5.1); Sodium 144 mmol/L (136-145)
[2024-09-15 16:30] LABS: Anion Gap 7 (5-15); Carbon Dioxide 31 mmol/L (20-31)
[2024-09-15 16:35] LABS: BUN/Creatinine Ratio 12.5 (10.0-20.0); Blood Urea Nitrogen 17 mg/dL (9-23)
[2024-09-15 16:36] LABS: Glucose 121 mg/dL (74-106)
[2024-09-15 19:57] VITALS: PULSE 82; RESP 12; O2SAT 98
[2024-09-15] MEDS: SODIUM CHLORIDE 0.9% 500 ML IV ONE (20:17)
--- NOTE | 2024-09-15 23:13 | DVHHPRES ---
History of Present Illness Resident Creating Document: SIMRAN MCCLURE RESIDENT History of Present Illness Daniel Clark a 73 year old male patient who presented to the ED via EMS today with complaint of dysuria severe suprapubic abdominal pain which started the day of his admission. Patient reports recent hospitalization approximately 10 days ago where he was diagnosed with UTI to multi resistant bacteria. Patient denies any other associated symptoms. 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 Family history: Noncontributory Social history: Lives at [facility] . Ex tobacco abuse (5 pack-year history of smoking) quit approximately 10 years ago Denies current tobacco, alcohol and other drug abuse. Allergies: Denies Home medication: Tylenol p.r.n., apixaban 2.5 mg p.o. b.i.d., atorvastatin 10 mg p.o. daily, Dulcolax p.r.n., carvedilol 3.125 mg b.i.d., docusate 100 mg p.o. b.i.d., flecainide1 mg p.o. b.i.d., insulin alovcpzz42 units subcutaneous daily, insulin regular, magnesium hydroxide p.r.n., multivitamin daily, nitroglycerin p.r.n., pantoprazole 40 mg p.o. daily, tamsulosin 0.4 mg p.o. daily Patient seen and examined at bedside. Currently no other complaints Past Medical History Per HPI Past Surgical History Per HPI Family History Per HPI Past Social History Per HPI Review of Systems Review of Systems Per HPI Allergies: Coded Allergies: NO KNOWN ALLERGIES (Unverified , 01/27/22) Exam Vital Signs Vital Signs Date Time Temp Pulse Resp B/P (MAP) Pulse Ox O2 Delivery O2 Flow Rate FiO2 09/15/24 19:57 82 12 98 Room Air* 0 21 09/15/24 19:56 97.9 133/87 (102) 97.9 Exam Patient lying in bed, in no acute distress General: Lucid, afebrile, mucosae are moist Cardiovascular: Normal S1 and S2. No murmurs, gallops or rubs Respiratory: Normal ventilation mechanics. Clear lung sounds on auscultation Abdomen: Soft, per previous tenderness, rest of abdomen nontender, no organomegaly, normal bowel sounds MSK/skin: Mobilizes 4 limbs. Skin is dry and warm. Presents sacral wound grade three Neurological: Oriented in 3 spheres. Patient is paraplegic, but presents lift weakness greater than right, sensation is intact. Pupils are isocoric and reactive Labs/Xrays Labs Test 09/15/24 16:00 Range/Units White Blood Count 6.5 4.4-10.8 10^3/uL Red Blood Count 4.97 4.5-5.90 10^6/uL Hemoglobin 14.3 13.5-17.5 g/dL Hematocrit 44.6 41.0-53.0 % Mean Corpuscular Volume 89.7 80.0-100.0 fL Mean Corpuscular Hemoglobin 28.9 28.0-32.0 pg Mean Corpuscular Hemoglobin Concent 32.2 32.0-36.0 g/dL Red Cell Distribution Width 15.8 H 11.8-14.3 % Platelet Count 259 140-450 10^3/uL Mean Platelet Volume 7.1 6.9-10.8 fL Neutrophils (%) (Auto) 59.9 37.0-80.0 % Lymphocytes (%) (Auto) 27.7 10.0-50.0 % Monocytes (%) (Auto) 8.4 0.0-12.0 % Eosinophils (%) (Auto) 2.7 0.0-7.0 % Basophils (%) (Auto) 1.3 0.0-2.0 % Neutrophils # (Auto) 3.9 1.6-8.6 10 ^3/uL Lymphocytes # (Auto) 1.8 0.4-5.4 10 ^3/uL Monocytes # (Auto) 0.5 0-1.3 10 ^3/uL Eosinophils # (Auto) 0.2 0-0.8 10 ^3/uL Basophils # (Auto) 0.1 0-0.2 10 ^3/uL Nucleated Red Blood Cells 0.0 % Sodium Level 144 136-145 mmol/L Potassium Level 4.3 3.5-5.1 mmol/L Chloride Level 106 98-107 mmol/L Carbon Dioxide Level 31 20-31 mmol/L Anion Gap 7 5-15 Blood Urea Nitrogen 17 9-23 mg/dL Creatinine 1.36 H 0.700-1.30 mg/dL Glomerular Filtration Rate Calc 56 >90 mL/min BUN/Creatinine Ratio 12.5 10.0-20.0 Serum Glucose 121 H 74-106 mg/dL Lactic Acid Level 1.2 0.4-2.0 mmol/L Calcium Level 10.0 8.7-10.4 mg/dL Assessment/Plan Assessment/Plan Assessment: UTI probably secondary to Klebsiella ESBL Hypertension Dyslipidemia Diabetes Questionable coronary artery disease with history of AR in 2020 Multiple CVAs Paroxysmal atrial fibrillation (chads Vasc 5/Has Bled 3)-hypercoagulability state Cervical lipoma status postop complicated by paraplegia Bed-bound GERD Chronic kidney disease probably secondary to kidney stones Decubitus ulcers - present on admission Plan: Patient currently under empiric IV antibiotic (meropenem) UA are a pending. Ordered carballo cultures (blood, wound and urine). Wound consult ordered plan ordered Luevano placement Evaluate requirement of Urology consult (patient has history of multiple kidney stones) Goals of care discussed with patient for over18 minutes: Full code status Discussed plan with Dr. Han, patient and nurses: Patient is currently under empiric IV antibiotic, gave IV fluids. Ordered culture (ordered Luevano catheter placement, pending bed for placement). Obtaining culture (blood, wound and urine). Patient has poor prognosis. Plan discussed with: Patient, Other (Nurses) My Orders Orders - SIMRAN MCCLURE RESIDENT Procedure Category Date Status Time Meropenem 1gm Ivpb PHA 09/16/24 Transmitted Q8hr 06:00 Admit ADMIT 09/15/24 Transmitted 23:06 Code Status CODE 09/15/24 Transmitted 23:06 Vital Signs GUANAKO 09/15/24 In Process 23:06 Review Orders With GUANAKO 09/15/24 In Process Adm. 23:06 Consistent DIET 09/16/24 Transmitted Carb(Ccho)Diabetes Breakfast Lorazepam Tablet PHA 09/15/24 Transmitted (Ativan Tablet) 23:15 Acetaminophen Tablet PHA 09/15/24 Transmitted (Tylenol Tablet) 23:15 Notify Md Of Changes [facility] 09/15/24 Transmitted From Base 23:06 Advance Directive GUANAKO 09/15/24 Transmitted 23:06 Patient Condition ORDERS 09/15/24 Transmitted 23:06 Allergies GUANAKO 09/15/24 Transmitted 23:06 Morphine 2mg Iv Q4hprn PHA 09/15/24 Transmitted 23:15 Lovenox 40mg PHA 09/16/24 Transmitted 10:00 Oxygen By Nasal RT 09/15/24 Transmitted Cannula 23:06 Stat Ekg For Chest GUA[facility]KO 09/15/24 Transmitted Pain 23:06 Notify Md Of Changes [facility] 09/15/24 Transmitted From Base 23:06 Director Export For [facility] 09/15/24 Transmitted 24 Hours 23:06 Emergency Dysrhythmia [facility] 09/15/24 Transmitted Protocol 23:06 Rhythm Strips Once [facility] 09/15/24 Transmitted Every Shift 23:06 Vitamin D, 25-Hydroxy LAB 09/15/24 Transmitted 23:06 Vitamin B12 LAB 09/15/24 Transmitted 23:06 Urinalysis LAB 09/15/24 Transmitted 23:06 Thyroid Stimulating LAB 09/15/24 Transmitted Hormone 23:06 Phosphorus LAB 09/15/24 Transmitted 23:06 Magnesium LAB 09/15/24 Transmitted 23:06 Lipid Panel LAB 09/15/24 Transmitted 23:06 Drug Screen LAB 09/15/24 Transmitted 23:06 Hemoglobin A1c LAB 09/15/24 Transmitted 23:06 Urine Bacterial [facility] 09/15/24 Transmitted Culture 23:06 Insert Luevano Catheter [facility] 09/15/24 Transmitted 23:06 Luevano Catheters ED NURSING 09/15/24 Transmitted * Wound Consult CONS 09/15/24 Transmitted Wound Culture W/ Gs [facility] 09/15/24 Transmitted 23:06 Date of Service: Sep 15, 2024 Billing Provider: ALEXIA HAN MD Common Visit Codes: [id number] INP/OBS CARE (HIGH) Secondary Visit Codes: [id number] CARE PLAN 30 MINUTES SIMRAN MCCLURE RESIDENT Sep 15, 2024 23:13 ALEXIA HAN MD Sep 16, 2024 19:02
[2024-09-15] MEDS ORDERED: MORPHINE SULFATE INJ 2 MG/ml SYRG IV PRN (23:15)
[2024-09-15 23:45] LABS: Phosphorus 3.1 mg/dL (2.4-5.1)
[2024-09-16 02:03] LABS: Albumin 4.2 g/dL (3.2-4.8); Bilirubin, Direct 0.1 mg/dL (<0.3); Bilirubin, Total 0.6 mg/dL (0.2-1.0); Total Protein 7.9 g/dL (5.7-8.2)
[2024-09-16] MEDS ORDERED: ACETAMINOPHEN 325 MG TAB PO PRN (05:00)
[2024-09-16] MEDS ORDERED: InsuLIN REG 1unit/0.01ml Soln (100units/ml)(for Drip) IV SCH (05:00)
[2024-09-16] MEDS ORDERED: MILK OF MAGNESIA 30ML SUSP PO PRN (05:00)
[2024-09-16] MEDS ORDERED: INSULIN LANTUS (GLARGINE) 1 /0.01ml (100units/ml) SC SCH (05:00)
[2024-09-16] MEDS ORDERED: BISACODYL 10 MG RECT SUPP PR PRN (05:00)
[2024-09-16] MEDS: SODIUM CHLORIDE 0.9% 500 ML IV ONE (05:09)
[2024-09-16] MEDS: ACETAMINOPHEN 325 MG TAB PO PRN (05:14)
[2024-09-16] MEDS: TAMSULOSIN HYDROCHLORIDE 0.4 MG CAP PO ONE (05:14)
[2024-09-16] MEDS: MEROPENEM 1GM IVPB 50 ML IV SCH (05:55)
[2024-09-16 06:23] LABS: Urine Bacteria None Seen /hpf (None Seen)
[2024-09-16 06:34] LABS: Urine Blood 1+ /uL (Negative); Urine Clarity Turbid (Clear); Urine Color Light-Yellow (Yellow); Urine Protein, UAD TRACE (Negative); Urine Specific Gravity 1.012 (1.001-1.035); Urine Squamous Epithelial Cell None Seen /hpf (<5); Urine Urobilinogen Normal (Negative); Urine WBC 231 /HPF (0-3); Urine pH 6.5 (5.0-9.0)
[2024-09-16 06:45] LABS: Amphetamine Screen, Urine Neg (NEGATIVE); Barbiturate Scree,Urine Neg (NEGATIVE); Benzodiazephine Screen, Urine Neg (NEGATIVE); Cannabinoid Screen, Urine Neg (NEGATIVE); Cocaine Screen, Urine Neg (NEGATIVE); Opiate Scree,Urine Neg (NEGATIVE); Phencyclidine Screen, Urine Neg (NEGATIVE)
[2024-09-16 07:44] LABS: Anion Gap 10 (5-15); Carbon Dioxide 27 mmol/L (20-31); Sodium 144 mmol/L (136-145)
[2024-09-16 07:46] LABS: Calcium 9.9 mg/dL (8.7-10.4)
[2024-09-16 07:50] LABS: BUN/Creatinine Ratio 12.4 (10.0-20.0); Blood Urea Nitrogen 16 mg/dL (9-23)
[2024-09-16 07:57] LABS: Chloride 107 mmol/L (98-107); Glucose 116 mg/dL (74-106)
[2024-09-16 07:58] VITALS: BP 106/64; PULSE 94; RESP 16; TEMP 97.8; O2SAT 93
[2024-09-16 08:06] LABS: Basophils # (auto) 0 10 ^3/uL (0-0.2); Basophils % (auto) 0.6 % (0.0-2.0); Eosinophils # (auto) 0.1 10 ^3/uL (0-0.8); Eosinophils % (auto) 1.7 % (0.0-7.0); Hematocrit 45.2 % (41.0-53.0); Hemoglobin 14.5 g/dL (13.5-17.5); Lymphocytes # (auto) 2.1 10 ^3/uL (0.4-5.4); Lymphocytes % (auto) 26.3 % (10.0-50.0); Mean Corpuscular Hemoglobin 28.9 pg (28.0-32.0); Mean Corpuscular Hgb Conc. 32.1 g/dL (32.0-36.0); Mean Corpuscular Volume 89.9 fL (80.0-100.0); Monocytes # (auto) 0.6 10 ^3/uL (0-1.3); Monocytes % (auto) 7.2 % (0.0-12.0); Neutrophils # (auto) 5.2 10 ^3/uL (1.6-8.6); Neutrophils % (auto) 64.2 % (37.0-80.0); Nucleated Red Blood Cells % 0.2 %; Platelet Count (auto) 250 10^3/uL (140-450); Red Blood Cells 5.03 10^6/uL (4.5-5.90); Red Cell Distribution Width 15.9 % (11.8-14.3); White Blood Cell 8.1 10^3/uL (4.4-10.8)
--- NOTE | 2024-09-16 08:20 | DVH ---
CHEST RADIOGRAPH Indication: poss chf Technique: Single frontal view of the chest was obtained Comparison: XY CHEST PORTABLE on DOS: 08/30/24, XY CHEST PORTABLE on DOS: 05/27/24, XY CHEST PORTABLE on DOS: 02/26/24, XY CHEST PORTABLE on DOS: 10/25/23, XY CHEST PORTABLE on DOS: 10/24/23 FINDINGS: Lines and Tubes: None Lungs: No focal consolidation. Pleura: No effusion. No pneumothorax. Cardiomediastinal contours: Unremarkable Bones: No acute osseous abnormality. IMPRESSION: No acute cardiopulmonary disease.
[2024-09-16] MEDS ORDERED: PATIENTS OWN MEDICATION (Docusate Sodium 100 MG) PO SCH (10:00)
[2024-09-16] MEDS ORDERED: TAMSULOSIN HYDROCHLORIDE 0.4 MG CAP PO SCH (10:00)
[2024-09-16] MEDS: CARVEDILOL 3.125 MG TAB PO SCH (10:00)
[2024-09-16] MEDS ORDERED: ENOXAPARIN SOD 40 MG/0.4 ML SYRINGE SC SCH (10:00)
[2024-09-16] MEDS ORDERED: PATIENTS OWN MEDICATION (Flecainide Acetate 1 TAB) PO SCH (10:00)
[2024-09-16] MEDS: DOCUSATE SOD 100 MG CAP PO SCH (10:06)
[2024-09-16] MEDS: PANTOPRAZOLE 40 MG TAB PO SCH (10:06)
[2024-09-16] MEDS: ENOXAPARIN SOD 100 MG/1 ML SYRINGE SC SCH (10:07)
[2024-09-16] MEDS: MULTIPLE VITAMINS W/ MINERALS TAB PO SCH (10:14)
--- NOTE | 2024-09-16 10:44 | DVHPNRES ---
Progress Note Date Seen: Sep 16, 2024 Resident Creating Document: REBECCA VALENZUELA RESIDENT Has the PT tested + for MRSA If YES, has PT been informed?: No Medical Necessity Reason Pt with a Central, PICC or Fol: No Subjective Review of Systems This is a 73-year-old male with past medical history of hypertension, dyslipidemia, type 2 diabetes, [place] in 2020 with no stent placement, COPD, CVA, left hemiplegia, 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 Patient presented to the ED with chief complaint of severe suprapubic abdominal tenderness. Patient stated that he was recently hospitalized at our facility approximately 10 days ago and was diagnosed with UTI with a multi resistant bacteria which was Klebsiella pneumoniae ESBL. Upon admission, initial labs showed a normal CBC, creatinine was slightly elevated at 1.29 and BUN 16. UA came back suggesting UTI. We ordered urine, wound and bacterial cultures. Patient was admitted for IV antibiotics. Patient seen and examined at bedside. Patient is currently alert and oriented in person, place and time. Patient reports severe suprapubic tenderness on palpation denies abdominal tenderness in any of the abdominal quadrants. Patient is currently on 2 L of oxygen through nasal cannula. Patient denies fever/chills, chest pain, shortness of breath or any other complaints. Previous CT scan of the abdomen which was performed on 09/01/2024 showed a nonobstructive left kidney stones and small right kidney cyst with mild bilateral perinephric edema. A renal ultrasound performed at that time showed a calculi in the left kidney measuring 6 mm with no significant hydronephrosis. We will repeat renal ultrasound at this time to rule out significant hydronephrosis or obstructive kidney stone. Meanwhile we will continue the patient on IV meropenem, enoxaparin therapeutic dose for history of AFib, flecainide 100 mg b.i.d., carvedilol 3.125 mg b.i.d. we will consult Urology for further assessment and management. ROS Constitutional: Denies weight loss, fever and chills. HEENT: Denies changes in vision and hearing. Respiratory: Denies shortness of breath and cough Cardiovascular: Denies chest discomfort or palpitations GI: Denies abdominal pain, nausea, vomiting and diarrhea. : Reports severe suprapubic tenderness to palpation. Musculoskeletal: Denies myalgias and joint pain Skin: Denies rash and pruritus. Neurological: Denies dizziness, headache, vision or hearing problems Objective vital signs Vital Sign Date Time Temp Pulse Resp B/P (MAP) Pulse Ox O2 Delivery O2 Flow Rate FiO2 09/16/24 10:00 80 105/71 09/16/24 07:58 97.8 16 93 97.8 09/15/24 19:57 Room Air* 0 21 Total Intake and Output 09/15/24 09/15/24 09/16/24 15:00 23:00 07:00 Intake Total 500 ml Balance 500 ml medications Current Medications Medications Dose Ordered Sig/Karely Route Start Time Stop Time Status Last Admin Dose Admin Meropenem 50 ml @ 17 mls/hr Q8HR IV 09/16/24 06:00 09/16/24 05:55 17 MLS/HR Lorazepam 0.5 mg Q6HP PRN PO 09/15/24 23:15 Acetaminophen 650 mg Q6HP PRN PO 09/15/24 23:15 09/16/24 05:14 650 MG Morphine Sulfate 2 mg Q4HPRN PRN IV 09/15/24 23:15 Tamsulosin HCl 0.4 mg QPM PO 09/16/24 18:00 Acetaminophen 500 mg Q6HP PRN PO 09/16/24 05:00 Bisacodyl 10 mg DAILYP PRN OH 09/16/24 05:00 Carvedilol 3.125 mg BID PO 09/16/24 10:00 Insulin Glargine 28 units UD SC 09/16/24 05:00 Hold Insulin Human Regular 15 units UD IV 09/16/24 05:00 Hold Magnesium Hydroxide 30 ml DAILYP PRN PO 09/16/24 05:00 Multivitamins/ Minerals 1 tab DAILY PO 09/16/24 10:00 09/16/24 10:14 1 TAB Pantoprazole Sodium 40 mg DAILY PO 09/16/24 10:00 09/16/24 10:06 40 MG Enoxaparin Sodium 110 mg Q12HR SC 09/16/24 10:00 09/16/24 10:07 110 MG Atorvastatin Calcium 10 mg HS PO 09/16/24 22:00 Flecainide Acetate 100 mg BID PO 09/16/24 10:00 Docusate Sodium 100 mg BID PO 09/16/24 10:00 09/16/24 10:06 100 MG Examination Physical Examination General: Patient alert and oriented in person, place and time. Patient following commands. HEENT: Normocephalic, atraumatic, moist mucous membranes Respiratory/pulmonary: Clear lungs bilaterally, no associated crackles or wheezes. On 2 L of oxygen through nasal cannula Cardiovascular: Normal heart sounds S1 and S2 with no associated murmurs Abdomen: Abdomen nondistended, there is no pain to palpation in any of the abdominal quadrants, no palpable masses. There is severe suprapubic tenderness to palpation. Extremities: There is no peripheral edema present at the lower extremities. Peripheral Pulses: 3+ Radial (R). 3+ Radial (L). 3+ Dorsalis pedis (R). 3+ Dorsalis pedis(L) Skin: No rashes or pruritus, there is no sacral edema present at this time. Neurological: Intact cranial nerves with no focal neurologic deficits laboratory and microbiology Laboratory Tests 09/16/24 07:03 Test 09/16/24 07:03 Range/Units Serum Glucose 116 H 74-106 mg/dL Problem List/Assessment/Plan Problem List/Assessment/Plan Assessment/Plan Acute suprapubic tenderness likelu do to UTI Acute UTI likely due to KP. ESBL -patient had a recent hospitalization 10 days ago where he got isolated Klebsiella pneumoniae ESBL in the urine culture -CT scan of the abdomen performed on 09/01/2024 showed nonobstructive left kidney stone and small right kidney cyst with mild bilateral perinephric edema -previous renal ultrasound at that time, showed calculi in the left kidney measuring 6 mm with no significant hydronephrosis -ordered new renal ultrasound to rule out obstructing kidney stone or hydronephrosis -UA came back suggesting UTI -started IV meropenem -ordered urine, blood and wound cultures -Luevano catheter is in place -we will consult Urology STEFFEN on CKD stage IIIA likely postobstructive -creatinine is 1.29, BUN 16 -ordered renal ultrasound Acute on chronic nephrolithiasis Status post lithotripsy and stent placed on March 2024 -ordered renal ultrasound Paroxysmal AFib, -chads Vasc score 5/has bled 3 -enoxaparin therapeutic dosage -currently on flecainide 100 mg b.i.d. -continue carvedilol 3.125 mg b.i.d. Primary hypertension -continue carvedilol 3.125 mg b.i.d. -monitor blood pressure closely Dyslipidemia -continue atorvastatin 10 mg daily GERD -continue pantoprazole 40 mg daily Type 2 diabetes mellitus -last hemoglobin A1c was 6.4% on 08/31/2024 -monitor blood glucose BPH -currently on tamsulosin 0.4 mg daily Bed-bound, cervical lipoma status postoperative complicated by paraplegia Decubitus ulcer present on admission -move the patient q.2 hours to prevent decubitus ulcers Goals of care discussed with the patient at bedside for > 25min, FULL CODE Plan discused with Dr. Han Plan discussed with: Patient My Orders My Orders Orders - REBECCA VALENZUELA Procedure Category Date Status Time Chest Xray 1 View XY 09/16/24 Resulted 07:08 Kidney US 09/16/24 Logged 10:00 Date of Service: Sep 16, 2024 Billing Provider: ALEIXA HAN MD Common Visit Codes: [id number] INP/OBS CARE(HIGH) REBECCA VALENZUELA RESIDENT Sep 16, 2024 10:44 ALEXIA HAN MD Sep 16, 2024 19:18
[2024-09-16] MEDS: FLECAINIDE ACETATE 50 MG TAB PO SCH (11:45)
--- NOTE | 2024-09-16 12:14 | DVHINCON2 ---
Date of service: Sep 16, [address] Han Reason for Consultation Kidney stone History of Present Illness Patient was under scheduled for outpatient lithotripsy with stent placement today. However patient has not been made NPO and will need to be rescheduled for Friday09/20/2024. He is currently being treated for Klebsiella UTI with meropenem IV. 73 year old male patient who presented to the ED via EMS today with complaint of dysuria severe suprapubic abdominal pain which started the day of his admission. Patient reports recent hospitalization approximately 10 days ago where he was diagnosed with UTI to multi resistant bacteria. Patient denies any other associated symptoms. 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 Family History: Cardiovascular disease G8 MOTHER Diabetes mellitus G8 MOTHER FH: lung cancer G8 FATHER Sepsis G8 MOTHER Allergies: Coded Allergies: NO KNOWN ALLERGIES (Unverified , 01/27/22) Home Meds Reported Medications Insulin Regular (Human) (Humulin R) 100 Unit/Ml Inj, UNIT IV UD for 15 Days, #10 05/26/24 Insulin Glargine (Lantus) 100 Unit/Ml Inj, UNIT SC UD for 28 Days, #10 05/26/24 Flecainide Acetate (Flecainide Acetate) 100 Mg Tab, 1 TAB PO BID for 31 Days, #62 05/26/24 Carvedilol (Carvedilol) 3.125 Mg Tab, 1 TAB PO BID for 31 Days, #62 05/26/24 Apixaban Base (ELIQUIS) 2.5 Mg Tab, 1 TAB PO BID for 28 Days, #14 08/15/23 Nitroglycerin (Nitrostat) 0.4 Mg Sub, 0.4 MG SL, INJ 04/03/23 Atorvastatin Calcium (ATORVASTATIN CALCIUM) 10 Mg Tab, 1 TAB PO QPM for 31 Days, #31 04/03/23 Tamsulosin Hcl (Flomax) 0.4 Mg Cap, 1 TAB PO DAILY for 31 Days, #31 04/03/23 Multiple Vitamins W/ Minerals (Centrum Silver) Silver Tab, 1 OR DAILY, TAB 04/03/23 Pantoprazole Sodium Sesquihydr (Protonix) 40 Mg Tab, 1 TAB PO DAILY for 31 Days, #31 04/03/23 Bisacodyl (DULCOLAX SUPPOSITORY) 10 Mg Rc, 10 MG [place] DAILYP PRN for FOR CONSTIPATION, MG 08/06/18 Magnesium Hydroxide (MILK OF MAGNESIA ORAL SUSPENSION) 30 Ml Ss, 30 ML PO DAILYP PRN for FOR CONSTIPATION 08/06/18 Sodium Phosphates (FLEET ENEMA SIX PACK) Enema Sharon, 1 RE DAILYP PRN for FOR CONSTIPATION 08/06/18 Acetaminophen (Acetaminophen) 325 Mg Tab, 500 MG PO Q6HP PRN for MILD PAIN, 0 Refills 08/06/18 Docusate Sodium (Docusate Sodium) 100 Mg Tab, 100 MG PO BID 08/06/18 Current Medications Current Medications Medications (Trade) Dose Ordered Sig/Karely Route PRN Reason Start Time Stop Time Status Last Admin Meropenem 50 ml @ 17 mls/hr Q8HR IV 09/16/24 06:00 09/16/24 05:55 Lorazepam (Ativan Tablet) 0.5 mg Q6HP PRN PO ANXIETY 09/15/24 23:15 Acetaminophen (Tylenol Tablet) 650 mg Q6HP PRN PO PAIN SCALE 1-3 OR TEMP>100.4 09/15/24 23:15 09/16/24 05:14 Morphine Sulfate 2 mg Q4HPRN PRN IV SEVERE PAIN (7-10 PAIN SCALE) 09/15/24 23:15 Enoxaparin Sodium (Lovenox) 40 mg DAILY SC 09/16/24 10:00 09/16/24 05:03 DC Tamsulosin HCl (Flomax) 0.4 mg QPM PO 09/16/24 18:00 Acetaminophen (Tylenol Tablet) 500 mg Q6HP PRN PO MILD PAIN (1-3 PAIN SCALE) 09/16/24 05:00 Bisacodyl (Dulcolax Suppository) 10 mg DAILYP PRN NJ FOR CONSTIPATION 09/16/24 05:00 Carvedilol (Coreg Tablet) 3.125 mg BID PO 09/16/24 10:00 Insulin Glargine (Lantus) 28 units UD SC 09/16/24 05:00 Hold Insulin Human Regular (InsuLIN R) 15 units UD IV 09/16/24 05:00 Hold Magnesium Hydroxide (Milk Of Magnesia Oral Suspension) 30 ml DAILYP PRN PO FOR CONSTIPATION 09/16/24 05:00 Multivitamins/ Minerals (Mvi W/ Minerals Tablet) 1 tab DAILY PO 09/16/24 10:00 09/16/24 10:14 Pantoprazole Sodium (Protonix Tablet) 40 mg DAILY PO 09/16/24 10:00 09/16/24 10:06 Tamsulosin HCl (Flomax) 0.4 mg DAILY PO 09/16/24 10:00 09/16/24 05:10 DC Patient Own Medication 1 tab QPM PO 09/16/24 18:00 09/16/24 05:14 DC Patient Own Medication 100 mg BID PO 09/16/24 10:00 09/16/24 05:14 DC Patient Own Medication 1 tab BID PO 09/16/24 10:00 09/16/24 05:15 DC Enoxaparin Sodium (Lovenox) 110 mg Q12HR SC 09/16/24 10:00 09/16/24 10:07 Atorvastatin Calcium (Lipitor) 10 mg HS PO 09/16/24 22:00 Flecainide Acetate (Tambocor Tablet) 100 mg BID PO 09/16/24 10:00 09/16/24 11:45 Docusate Sodium (Colace Capsule) 100 mg BID PO 09/16/24 10:00 09/16/24 10:06 Review of Systems Per HPI Vital Signs Vital Signs Date Time Temp Pulse Resp B/P (MAP) Pulse Ox O2 Delivery O2 Flow Rate FiO2 09/16/24 11:00 84 18 122/71 (88) 96 09/16/24 07:58 97.8 97.8 09/15/24 19:57 Room Air* 0 21 Physical Exam Vital Signs Date Time Temp Pulse Resp B/P (MAP) Pulse Ox O2 Delivery O2 Flow Rate FiO2 09/15/24 19:57 82 12 98 Room Air* 0 21 09/15/24 19:56 97.9 133/87 (102) 97.9 Exam Patient lying in bed, in no acute distress General: Lucid, afebrile, mucosae are moist Cardiovascular: Normal S1 and S2. No murmurs, gallops or rubs Respiratory: Normal ventilation mechanics. Clear lung sounds on auscultation Abdomen: Soft, per previous tenderness, rest of abdomen nontender, no organomegaly, normal bowel sounds MSK/skin: Mobilizes 4 limbs. Skin is dry and warm. Presents sacral wound grade three Neurological: Oriented in 3 spheres. Patient is paraplegic, but presents lift weakness greater than right, sensation is intact. Pupils are isocoric and reactive Labs/Diagnostic Data Labs Test 09/16/24 07:03 09/16/24 06:19 09/15/24 16:00 Range/Units White Blood Count 8.1 4.4-10.8 10^3/uL Red Blood Count 5.03 4.5-5.90 10^6/uL Hemoglobin 14.5 13.5-17.5 g/dL Hematocrit 45.2 41.0-53.0 % Mean Corpuscular Volume 89.9 80.0-100.0 fL Mean Corpuscular Hemoglobin 28.9 28.0-32.0 pg Mean Corpuscular Hemoglobin Concent 32.1 32.0-36.0 g/dL Red Cell Distribution Width 15.9 H 11.8-14.3 % Platelet Count 250 140-450 10^3/uL Mean Platelet Volume 7.6 6.9-10.8 fL Neutrophils (%) (Auto) 64.2 37.0-80.0 % Lymphocytes (%) (Auto) 26.3 10.0-50.0 % Monocytes (%) (Auto) 7.2 0.0-12.0 % Eosinophils (%) (Auto) 1.7 0.0-7.0 % Basophils (%) (Auto) 0.6 0.0-2.0 % Neutrophils # (Auto) 5.2 1.6-8.6 10 ^3/uL Lymphocytes # (Auto) 2.1 0.4-5.4 10 ^3/uL Monocytes # (Auto) 0.6 0-1.3 10 ^3/uL Eosinophils # (Auto) 0.1 0-0.8 10 ^3/uL Basophils # (Auto) 0 0-0.2 10 ^3/uL Nucleated Red Blood Cells 0.2 % Sodium Level 144 136-145 mmol/L Potassium Level 4.0 3.5-5.1 mmol/L Chloride Level 107 98-107 mmol/L Carbon Dioxide Level 27 20-31 mmol/L Anion Gap 10 5-15 Blood Urea Nitrogen 16 9-23 mg/dL Creatinine 1.29 0.700-1.30 mg/dL Glomerular Filtration Rate Calc 59 >90 mL/min BUN/Creatinine Ratio 12.4 10.0-20.0 Serum Glucose 116 H 74-106 mg/dL Calcium Level 9.9 8.7-10.4 mg/dL Urine Color Light-yellow Yellow Urine Clarity Turbid H Clear Urine pH 6.5 5.0-9.0 Urine Specific [place] 1.012 1.001-1.035 Urine Protein Trace H Negative Urine Ketones Negative Negative Urine Blood 1+ H Negative /uL Urine Nitrite Negative Negative Urine Bilirubin Negative Negative Urine Urobilinogen Normal Negative mg/dL Urine Leukocyte Esterase 3+ Negative /uL Urine RBC 5 0 - 3 /hpf Urine Microscopic WBC 231 H 0-3 /HPF Urine Squamous Epithelial Cells None seen <5 /hpf Urine Bacteria None seen None Seen /hpf Urine Glucose Normal Normal mg/dL Urine Opiates Screen Neg NEGATIVE Urine Fentanyl Screen Neg NEGATIVE Urine Barbiturates Screen Neg NEGATIVE Urine Phencyclidine Screen Neg NEGATIVE Urine Amphetamines Screen Neg NEGATIVE Urine Benzodiazepines Screen Neg NEGATIVE Urine Cocaine Screen Neg NEGATIVE Urine Cannabinoids Screen Neg NEGATIVE Lactic Acid Level 1.2 0.4-2.0 mmol/L Phosphorus Level 3.1 2.4-5.1 mg/dL Magnesium Level 2.0 1.6-2.6 mg/dL Total Bilirubin 0.6 0.2-1.0 mg/dL Direct Bilirubin 0.1 <0.3 mg/dL Aspartate Amino Transferase (AST) 22 13-40 U/L Alanine Aminotransferase (ALT) 25 7-40 U/L Alkaline Phosphatase 106 46-116 U/L Total Protein 7.9 5.7-8.2 g/dL Albumin 4.2 3.2-4.8 g/dL Triglycerides Level 145 < 150 mg/dL Cholesterol Level 129 < 200 mg/dL LDL Cholesterol 76 < 100 mg/dL HDL Cholesterol 31 L 40-59 mg/dL Vitamin B12 Level 604 211-911 pg/mL Vitamin D 25-Hydroxy 63.7 30.0-100 ng/mL Thyroid Stimulating Hormone (TSH) 1.54 0.55-4.78 uIU/mL Assessment Left nephrolithiasis Urinary tract infection Plan/Recommendation Luevano treat UTI with antibiotics Proceed with extracorporeal shockwave lithotripsy of the left kidney stones, possible stent placement, on Friday09/20/2024. (pending availability of the Lithotripter machine) Patient to be NPO after midnight on 08/2024 Plan discussed with: Patient, Other MICHEAL SANTOS MD Sep 16, 2024 12:14
--- NOTE | 2024-09-16 12:16 | DVH ---
INDICATION: R/O hydronephrosis and nephrolithiasis TECHNIQUE: Multiple real-time sonographic images of the kidneys and bladder were obtained. COMPARISON: US KIDNEY on DOS: 08/31/24, US KIDNEY on DOS: 03/19/24, US KIDNEY on DOS: 03/01/24 FINDINGS: The right kidney measures 11 cm in length, which is normal in size. There is normal echogen icity of the right kidney. No hydronephrosis. The left kidney measures 11 cm in length, which is normal in size. There is normal echogenicity of th e left kidney. No hydronephrosis. No large intraluminal masses are seen in the bladder. IMPRESSION: 1. Normal sonographic appearance of the kidneys. No hydronephrosis.
[2024-09-16 12:22] VITALS: BP 122/71; PULSE 90; RESP 16; TEMP 97.7; O2SAT 94
[2024-09-16 17:00] VITALS: BP 117/65; PULSE 79; TEMP 97.8; O2SAT 94
[2024-09-16] MEDS: TAMSULOSIN HYDROCHLORIDE 0.4 MG CAP PO SCH (17:30)
[2024-09-16] MEDS ORDERED: PATIENTS OWN MEDICATION (Atorvastatin Calcium 1 TAB) PO SCH (18:00)
[2024-09-16 19:30] VITALS: PULSE 87; RESP 12; O2SAT 97
[2024-09-16] MEDS: ATORVASTATIN 20 MG TAB PO SCH (22:35)
[2024-09-17] VITALS (7 sets, daily range): BP systolic 97–140; BP diastolic 62–84; PULSE 73–80; RESP 16–19; TEMP 97.6–98.1; O2SAT 92–98
[2024-09-17 07:58] LABS: Anion Gap 8 (5-15); Carbon Dioxide 28 mmol/L (20-31); Chloride 107 mmol/L (98-107); Potassium 4.1 mmol/L (3.5-5.1); Sodium 143 mmol/L (136-145)
[2024-09-17 07:59] LABS: Calcium 9.8 mg/dL (8.7-10.4)
[2024-09-17 08:04] LABS: BUN/Creatinine Ratio 14.8 (10.0-20.0); Blood Urea Nitrogen 20 mg/dL (9-23); Glucose 99 mg/dL (74-106)
--- NOTE | 2024-09-17 10:28 | DVHPNRES ---
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 Patient presented to the ED with chief complaint of severe suprapubic abdominal tenderness. Patient stated that he was recently hospitalized at our facility approximately 10 days ago and was diagnosed with UTI with a multi resistant bacteria which was Klebsiella pneumoniae ESBL. Upon admission, initial labs showed a normal CBC, creatinine was slightly elevated at 1.29 and BUN 16. UA came back suggesting UTI. We ordered urine, wound and bacterial cultures. Patient was admitted for IV antibiotics. Patient seen and examined at bedside. Patient still reports mild to moderate discomfort and pain to palpation in the suprapubic area. Patient denies fever/chills, chest pain, shortness of breath or any other complaint at this time. We will continue IV meropenem at this time. Urology assessed the patient and schedule the patient for extracorporeal shock wave lithotripsy of the left kidney stones with possible stent placement on 09/20/24. Meanwhile we will continue current medical management. ROS Constitutional: Denies weight loss, fever and chills. HEENT: Denies changes in vision and hearing. Respiratory: Denies shortness of breath and cough Cardiovascular: Denies chest discomfort or palpitations GI: Denies abdominal pain, nausea, vomiting and diarrhea. : Reports mild to moderate discomfort at the suprapubic area. Denies urgency or dysuria Musculoskeletal: Denies myalgias and joint pain Skin: Denies rash and pruritus. Neurological: Denies dizziness, headache, vision or hearing problems Objective vital signs Vital Sign Date Time Temp Pulse Resp B/P (MAP) Pulse Ox O2 Delivery O2 Flow Rate FiO2 09/17/24 10:07 73 117/69 09/17/24 09:00 97.6 16 95 97.6 09/16/24 21:54 Room Air* 0 21 Total Intake and Output 09/16/24 09/16/24 09/17/24 15:00 23:00 07:00 Intake Total 467 ml Output Total 600 ml Balance -133 ml medications Current Medications Medications Dose Ordered Sig/Karely Route Start Time Stop Time Status Last Admin Dose Admin Meropenem 50 ml @ 17 mls/hr Q8HR IV 09/16/24 06:00 09/17/24 05:38 17 MLS/HR Lorazepam 0.5 mg Q6HP PRN PO 09/15/24 23:15 Acetaminophen 650 mg Q6HP PRN PO 09/15/24 23:15 09/16/24 05:14 650 MG Morphine Sulfate 2 mg Q4HPRN PRN IV 09/15/24 23:15 Tamsulosin HCl 0.4 mg QPM PO 09/16/24 18:00 09/16/24 17:30 0.4 MG Acetaminophen 500 mg Q6HP PRN PO 09/16/24 05:00 Bisacodyl 10 mg DAILYP PRN [place] 09/16/24 05:00 Carvedilol 3.125 mg BID PO 09/16/24 10:00 09/17/24 10:07 3.125 MG Insulin Glargine 28 units UD SC 09/16/24 05:00 Hold Insulin Human Regular 15 units UD IV 09/16/24 05:00 Hold Magnesium Hydroxide 30 ml DAILYP PRN PO 09/16/24 05:00 Multivitamins/ Minerals 1 tab DAILY PO 09/16/24 10:00 09/17/24 10:07 1 TAB Pantoprazole Sodium 40 mg DAILY PO 09/16/24 10:00 09/17/24 10:07 40 MG Enoxaparin Sodium 110 mg Q12HR SC 09/16/24 10:00 09/17/24 10:10 110 MG Atorvastatin Calcium 10 mg HS PO 09/16/24 22:00 09/16/24 22:35 10 MG Flecainide Acetate 100 mg BID PO 09/16/24 10:00 09/17/24 10:07 100 MG Docusate Sodium 100 mg BID PO 09/16/24 10:00 09/17/24 10:07 100 MG Examination Physical Examination General: Patient alert and oriented in person, place and time. Patient following commands. HEENT: Normocephalic, atraumatic, moist mucous membranes Respiratory/pulmonary: Clear lungs bilaterally, no associated crackles or wheezes. Currently on room air. Cardiovascular: Normal heart sounds S1 and S2 with no associated murmurs Abdomen: Abdomen nondistended, there is no pain to palpation in any of the abdominal quadrants, no palpable masses. There is severe suprapubic tenderness to palpation. Extremities: There is no peripheral edema present at the lower extremities. Peripheral Pulses: 3+ Radial (R). 3+ Radial (L). 3+ Dorsalis pedis (R). 3+ Dorsalis pedis(L) Skin: No rashes or pruritus, there is no sacral edema present at this time. Neurological: Intact cranial nerves with no focal neurologic deficits laboratory and microbiology Laboratory Tests 09/17/24 07:13 09/16/24 07:03 Test 09/17/24 07:13 Range/Units Serum Glucose 99 74-106 mg/dL Microbiology Date/Time Source Procedure Growth Status 09/15/24 16:00 Blood Blood Culture - Preliminary NO GROWTH AFTER 24 HOURS OF INCUBATION. Resulted Problem List/Assessment/Plan Problem List/Assessment/Plan Assessment/Plan Acute suprapubic tenderness likelu do to UTI Acute UTI likely due to KP. ESBL -patient had a recent hospitalization 10 days ago where he got isolated Klebsiella pneumoniae ESBL in the urine culture -CT scan of the abdomen performed on 09/01/2024 showed nonobstructive left kidney stone and small right kidney cyst with mild bilateral perinephric edema -previous renal ultrasound at that time, showed calculi in the left kidney measuring 6 mm with no significant hydronephrosis -ordered new renal ultrasound to rule out obstructing kidney stone or hydronephrosis -UA came back suggesting UTI -Continue IV meropenem -ordered urine, blood and wound cultures -Luevano catheter is in place -Urology schedule the patient for extracorporeal shockwave lithotripsy of the left kidney stones with possible stent placement on 09/20/2024 STEFFEN on CKD stage IIIA likely postobstructive -creatinine is 1.29, BUN 16, Cr slightly worsening. today Cr 1.35 and BUN 20 -start IV fluids at 60 cc/hour -ordered renal ultrasound showed no hydronephrosis or abnormalities to the kidneys. Acute on chronic nephrolithiasis Status post lithotripsy and stent placed on March 2024 -ordered renal ultrasound which showed no hydronephrosis or abnormalities to the kidneys. Paroxysmal AFib, -chads Vasc score 5/has bled 3 -enoxaparin therapeutic dosage -currently on flecainide 100 mg b.i.d. -continue carvedilol 3.125 mg b.i.d. Primary hypertension -continue carvedilol 3.125 mg b.i.d. -monitor blood pressure closely Dyslipidemia -continue atorvastatin 10 mg daily GERD -continue pantoprazole 40 mg daily Type 2 diabetes mellitus -last hemoglobin A1c was 6.4% on 08/31/2024 -monitor blood glucose BPH -currently on tamsulosin 0.4 mg daily Bed-bound, cervical lipoma status postoperative complicated by paraplegia Decubitus ulcer present on admission -move the patient q.2 hours to prevent decubitus ulcers Goals of care discussed with the patient at bedside for > 25min, FULL CODE Plan discused with Dr. Han Plan discussed with: Patient My Orders My Orders Orders - REBECCA VALENZUELA Procedure Category Date Status Time Mrsa Screen BALDOMERO 09/16/24 In Process 22:24 NS PHA 09/17/24 Transmitted 10:30 Date of Service: Sep 17, 2024 Billing Provider: ALEXIA HAN MD Common Visit Codes: [id number] INP/OBS CARE(HIGH) REBECCA VALENZUELA RESIDENT Sep 17, 2024 10:28 ALEXIA HAN MD Sep 17, 2024 14:15
[2024-09-17] MEDS: SODIUM CHLORIDE 0.9% 1,000 ML IV SCH (10:30)
[2024-09-18] VITALS (7 sets, daily range): BP systolic 101–123; BP diastolic 56–74; PULSE 69–77; RESP 15–17; TEMP 97.2–98.2; O2SAT 92–96
[2024-09-18 05:50] LABS: Basophils # (auto) 0.1 10 ^3/uL (0-0.2); Basophils % (auto) 1.1 % (0.0-2.0); Eosinophils # (auto) 0.2 10 ^3/uL (0-0.8); Eosinophils % (auto) 2.5 % (0.0-7.0); Hematocrit 42.5 % (41.0-53.0); Hemoglobin 13.9 g/dL (13.5-17.5); Lymphocytes # (auto) 2.3 10 ^3/uL (0.4-5.4); Mean Corpuscular Hemoglobin 29.4 pg (28.0-32.0); Mean Corpuscular Hgb Conc. 32.7 g/dL (32.0-36.0); Monocytes # (auto) 0.6 10 ^3/uL (0-1.3); Monocytes % (auto) 8.3 % (0.0-12.0); Neutrophils # (auto) 4.1 10 ^3/uL (1.6-8.6); Neutrophils % (auto) 56.1 % (37.0-80.0); Nucleated Red Blood Cells % 0.1 %; Platelet Count (auto) 228 10^3/uL (140-450); Red Blood Cells 4.73 10^6/uL (4.5-5.90); Red Cell Distribution Width 15.8 % (11.8-14.3); White Blood Cell 7.3 10^3/uL (4.4-10.8)
[2024-09-18 06:02] LABS: Anion Gap 8 (5-15); Calcium 9.9 mg/dL (8.7-10.4); Carbon Dioxide 29 mmol/L (20-31); Sodium 144 mmol/L (136-145)
[2024-09-18 06:08] LABS: BUN/Creatinine Ratio 13.7 (10.0-20.0); Blood Urea Nitrogen 19 mg/dL (9-23); Glucose 93 mg/dL (74-106)
[2024-09-18 06:12] LABS: Chloride 107 mmol/L (98-107)
--- NOTE | 2024-09-18 12:57 | DVHPN2 ---
Subjective The patient is seen and examined at bedside. Still remained very weak. Reviewed: Care Plan, H&P, Labs, Medications, Previous Orders, Radiology Changes from previous H/P or p: No Changes Objective Vitals Vital Signs Date Time Temp Pulse Resp B/P (MAP) Pulse Ox O2 Delivery O2 Flow Rate FiO2 09/18/24 10:21 95 114/71 09/18/24 09:00 97.6 16 95 97.6 09/18/24 07:30 Room Air* 0 21 Intake/Output Intake and Output 09/18/24 07:00 Intake Total 1550 ml Output Total 1800 ml Balance -250 ml Intake Oral 1500 ml IV Total 50 ml Output Urine Total 1800 ml General Appearance: Alert, Oriented X3, Cooperative, No acute distress HEENT: Atraumatic, PERRLA, EOMI, Mucous membr. moist/pink Neck: Supple Lungs: Clear to auscultation, Normal air movement Cardiovascular: Regular rate, Normal S1, Normal S2, No murmurs, Gallops, Rubs Abdomen: Normal bowel sounds, Soft, No tenderness Neuro: Cranial nerves 3-12 NL Psych/Mental Status: Mental status NL Medications Current Medications Medications Dose Ordered Sig/Karely Route Start Time Stop Time Status Last Admin Dose Admin Meropenem 50 ml @ 17 mls/hr Q8HR IV 09/16/24 06:00 09/18/24 06:24 17 MLS/HR Lorazepam 0.5 mg Q6HP PRN PO 09/15/24 23:15 Acetaminophen 650 mg Q6HP PRN PO 09/15/24 23:15 09/16/24 05:14 650 MG Morphine Sulfate 2 mg Q4HPRN PRN IV 09/15/24 23:15 Tamsulosin HCl 0.4 mg QPM PO 09/16/24 18:00 09/17/24 17:51 0.4 MG Acetaminophen 500 mg Q6HP PRN PO 09/16/24 05:00 Bisacodyl 10 mg DAILYP PRN [place] 09/16/24 05:00 Carvedilol 3.125 mg BID PO 09/16/24 10:00 09/18/24 10:21 3.125 MG Insulin Glargine 28 units UD SC 09/16/24 05:00 Hold Insulin Human Regular 15 units UD IV 09/16/24 05:00 Hold Magnesium Hydroxide 30 ml DAILYP PRN PO 09/16/24 05:00 Multivitamins/ Minerals 1 tab DAILY PO 09/16/24 10:00 09/18/24 10:20 1 TAB Pantoprazole Sodium 40 mg DAILY PO 09/16/24 10:00 09/18/24 10:20 40 MG Enoxaparin Sodium 110 mg Q12HR SC 09/16/24 10:00 09/18/24 10:23 110 MG Atorvastatin Calcium 10 mg HS PO 09/16/24 22:00 09/17/24 21:58 10 MG Flecainide Acetate 100 mg BID PO 09/16/24 10:00 09/18/24 10:21 100 MG Docusate Sodium 100 mg BID PO 09/16/24 10:00 09/18/24 10:20 100 MG Sodium Chloride 1,000 ml @ 60 mls/hr [id number] IV 09/17/24 10:30 09/18/24 03:10 60 MLS/HR Laboratory Results Laboratory Tests 09/18/24 05:03 Chemistry Test 09/18/24 05:03 Calcium Level 9.9 mg/dL (8.7-10.4) Urinalysis Test 09/16/24 06:19 Urine Color Light-yellow (Yellow) Urine Clarity Turbid (Clear) H Urine pH 6.5 (5.0-9.0) Urine Specific Ralph 1.012 (1.001-1.035) Urine Protein Trace (Negative) H Urine Ketones Negative (Negative) Urine Blood 1+ /uL (Negative) H Urine Nitrite Negative (Negative) Urine Bilirubin Negative (Negative) Urine Urobilinogen Normal mg/dL (Negative) Urine Leukocyte Esterase 3+ /uL (Negative) Urine RBC 5 /hpf (0 - 3) Urine Microscopic WBC 231 /HPF (0-3) H Urine Squamous Epithelial Cells None seen /hpf (<5) Urine Bacteria None seen /hpf (None Seen) Urine Glucose Normal mg/dL (Normal) Microbiology Microbiology Date/Time Source Procedure Growth Status 09/17/24 00:08 Nose MRSA Screen - Final Complete 09/16/24 06:22 Voided Urine Urine Culture - Preliminary Resulted 09/15/24 16:00 Blood Blood Culture - Preliminary NO GROWTH AFTER 48 HOURS OF INCUBATION. Resulted Labs and/or images reviewed: Labs reviewed by me Assessment/Plan Assessment/Plan Acute suprapubic tenderness likelu do to UTI Acute UTI likely due to KP. ESBL -patient had a recent hospitalization 10 days ago where he got isolated Klebsiella pneumoniae ESBL in the urine culture -CT scan of the abdomen performed on 09/01/2024 showed nonobstructive left kidney stone and small right kidney cyst with mild bilateral perinephric edema -previous renal ultrasound at that time, showed calculi in the left kidney measuring 6 mm with no significant hydronephrosis -ordered new renal ultrasound to rule out obstructing kidney stone or hydronephrosis -UA came back suggesting UTI -Continue IV meropenem -ordered urine, blood and wound cultures -Luevano catheter is in place -Urology schedule the patient for extracorporeal shockwave lithotripsy of the left kidney stones with possible stent placement tomorrow AM STEFFEN on CKD stage IIIA likely postobstructive -creatinine is 1.29, BUN 16, Cr slightly worsening. today Cr 1.32 and BUN 17 -Continue IV fluids at 60 cc/hour -ordered renal ultrasound showed no hydronephrosis or abnormalities to the kidneys. Acute on chronic nephrolithiasis Status post lithotripsy and stent placed on March 2024 -ordered renal ultrasound which showed no hydronephrosis or abnormalities to the kidneys. Paroxysmal AFib, -chads Vasc score 5/has bled 3 -enoxaparin therapeutic dosage -currently on flecainide 100 mg b.i.d. -continue carvedilol 3.125 mg b.i.d. Primary hypertension -continue carvedilol 3.125 mg b.i.d. -monitor blood pressure closely Dyslipidemia -continue atorvastatin 10 mg daily GERD -continue pantoprazole 40 mg daily Type 2 diabetes mellitus -last hemoglobin A1c was 6.4% on 08/31/2024 -monitor blood glucose BPH -currently on tamsulosin 0.4 mg daily Bed-bound, cervical lipoma status postoperative complicated by paraplegia Decubitus ulcer present on admission -move the patient q.2 hours to prevent decubitus ulcers This medical document was created using an electronic medical record system with [employer] direct computerized dictation system. Although this document has been carefully reviewed, there may still be some phonetic and typographical errors. These areas are purely typographical due to imperfections of the software programs, and do not reflect any compromise in the patient's medical care. Plan discussed with: Patient Date of Service: Sep 18, 2024 Billing Provider: DONALD SUN MD Common Visit Codes: [id number] INP/OBS CARE(HIGH) DONALD SUN MD Sep 18, 2024 12:57
[2024-09-19] VITALS (7 sets, daily range): BP systolic 98–163; BP diastolic 63–84; PULSE 68–89; RESP 16–20; TEMP 97.3–97.8; O2SAT 92–97
[2024-09-19 05:46] LABS: Anion Gap 8 (5-15); Carbon Dioxide 26 mmol/L (20-31); Chloride 107 mmol/L (98-107); Potassium 3.6 mmol/L (3.5-5.1); Sodium 141 mmol/L (136-145)
[2024-09-19 05:47] LABS: Calcium 9.5 mg/dL (8.7-10.4)
[2024-09-19 05:52] LABS: BUN/Creatinine Ratio 12.9 (10.0-20.0); Basophils # (auto) 0.1 10 ^3/uL (0-0.2); Basophils % (auto) 0.8 % (0.0-2.0); Blood Urea Nitrogen 17 mg/dL (9-23); Eosinophils # (auto) 0.2 10 ^3/uL (0-0.8); Glucose 87 mg/dL (74-106); Hematocrit 40.1 % (41.0-53.0); Hemoglobin 13.2 g/dL (13.5-17.5); Lymphocytes # (auto) 2.6 10 ^3/uL (0.4-5.4); Lymphocytes % (auto) 34.5 % (10.0-50.0); Mean Corpuscular Hemoglobin 29.4 pg (28.0-32.0); Mean Corpuscular Hgb Conc. 32.8 g/dL (32.0-36.0); Mean Corpuscular Volume 89.6 fL (80.0-100.0); Monocytes # (auto) 0.6 10 ^3/uL (0-1.3); Monocytes % (auto) 8.2 % (0.0-12.0); Neutrophils # (auto) 4.2 10 ^3/uL (1.6-8.6); Neutrophils % (auto) 54.5 % (37.0-80.0); Nucleated Red Blood Cells % 0.1 %; Platelet Count (auto) 203 10^3/uL (140-450); Red Blood Cells 4.48 10^6/uL (4.5-5.90); Red Cell Distribution Width 15.4 % (11.8-14.3); White Blood Cell 7.6 10^3/uL (4.4-10.8)
--- NOTE | 2024-09-19 12:07 | DVHPNRES ---
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 Patient presented to the ED with chief complaint of severe suprapubic abdominal tenderness. Patient stated that he was recently hospitalized at our facility approximately 10 days ago and was diagnosed with UTI with a multi resistant bacteria which was Klebsiella pneumoniae ESBL. Upon admission, initial labs showed a normal CBC, creatinine was slightly elevated at 1.29 and BUN 16. UA came back suggesting UTI. We ordered urine, wound and bacterial cultures. Patient was admitted for IV antibiotics. Patient seen and examined at bedside. Patient is alert and oriented in person, place and time. Patient denies fever/chills, chest pain, shortness of breath or abdominal tenderness at this time. Patient still reports mild discomfort at the suprapubic region but states that he is feeling better overall. Patient we will get extracorporeal shock wave lithotripsy of left kidney stones with possible stent placement tomorrow a.m.. We will keep the patient NPO after midnight. ROS Constitutional: Denies weight loss, fever and chills. HEENT: Denies changes in vision and hearing. Respiratory: Denies shortness of breath and cough Cardiovascular: Denies chest discomfort or palpitations GI: Denies abdominal pain, nausea, vomiting and diarrhea. : Reports mild suprapubic discomfort. Denies dysuria or urgency. Musculoskeletal: Denies myalgias and joint pain Skin: Denies rash and pruritus. Neurological: Denies dizziness, headache, vision or hearing problems Objective vital signs Vital Sign Date Time Temp Pulse Resp B/P (MAP) Pulse Ox O2 Delivery O2 Flow Rate FiO2 09/19/24 10:16 89 111/67 09/19/24 09:00 97.8 18 92 97.8 09/19/24 08:00 Room Air* 0 21 Total Intake and Output 09/18/24 09/18/24 09/19/24 15:00 23:00 07:00 Intake Total 2850 ml 690 ml Output Total 700 ml 350 ml Balance 2150 ml 340 ml medications Current Medications Medications Dose Ordered Sig/Karely Route Start Time Stop Time Status Last Admin Dose Admin Meropenem 50 ml @ 17 mls/hr Q8HR IV 09/16/24 06:00 09/19/24 05:25 17 MLS/HR Lorazepam 0.5 mg Q6HP PRN PO 09/15/24 23:15 Acetaminophen 650 mg Q6HP PRN PO 09/15/24 23:15 09/19/24 05:57 650 MG Morphine Sulfate 2 mg Q4HPRN PRN IV 09/15/24 23:15 Tamsulosin HCl 0.4 mg QPM PO 09/16/24 18:00 09/18/24 17:12 0.4 MG Acetaminophen 500 mg Q6HP PRN PO 09/16/24 05:00 Bisacodyl [address] 09/16/24 05:00 Carvedilol 3.125 mg BID PO 09/16/24 10:00 09/19/24 10:16 3.125 MG Insulin Glargine 28 units UD SC 09/16/24 05:00 Hold Insulin Human Regular 15 units UD IV 09/16/24 05:00 Hold Magnesium Hydroxide 30 ml DAILYP PRN PO 09/16/24 05:00 Multivitamins/ Minerals 1 tab DAILY PO 09/16/24 10:00 09/19/24 10:14 1 TAB Pantoprazole Sodium 40 mg DAILY PO 09/16/24 10:00 09/19/24 10:14 40 MG Enoxaparin Sodium 110 mg Q12HR SC 09/16/24 10:00 09/18/24 21:56 110 MG Atorvastatin Calcium 10 mg HS PO 09/16/24 22:00 09/18/24 21:56 10 MG Flecainide Acetate 100 mg BID PO 09/16/24 10:00 09/19/24 10:15 100 MG Docusate Sodium 100 mg BID PO 09/16/24 10:00 09/19/24 10:14 100 MG Sodium Chloride 1,000 ml @ 60 mls/hr [id number] IV 09/17/24 10:30 09/18/24 21:56 60 MLS/HR Examination Physical Examination General: Patient alert and oriented in person, place and time. Patient following commands. HEENT: Normocephalic, atraumatic, moist mucous membranes Respiratory/pulmonary: Clear lungs bilaterally, no associated crackles or wheezes. Currently on room air. Cardiovascular: Normal heart sounds S1 and S2 with no associated murmurs Abdomen: Abdomen nondistended, there is no pain to palpation in any of the abdominal quadrants, no palpable masses. There is mild suprapubic tenderness to palpation. Extremities: There is no peripheral edema present at the lower extremities. Peripheral Pulses: 3+ Radial (R). 3+ Radial (L). 3+ Dorsalis pedis (R). 3+ Dorsalis pedis(L) Skin: No rashes or pruritus, there is no sacral edema present at this time. Neurological: Intact cranial nerves with no focal neurologic deficits laboratory and microbiology Laboratory Tests 09/19/24 05:09 Test 09/19/24 05:09 Range/Units Serum Glucose 87 74-106 mg/dL Microbiology Date/Time Source Procedure Growth Status 09/17/24 00:08 Nose MRSA Screen - Final Complete 09/16/24 06:22 Voided Urine Urine Culture - Final Complete 09/15/24 16:00 Blood Blood Culture - Preliminary NO GROWTH AFTER 72 HOURS OF INCUBATION. Resulted Problem List/Assessment/Plan Problem List/Assessment/Plan Assessment/Plan Acute suprapubic tenderness likelu do to UTI Acute UTI likely due to KP. ESBL -patient had a recent hospitalization 10 days ago where he got isolated Klebsiella pneumoniae ESBL in the urine culture -CT scan of the abdomen performed on 09/01/2024 showed nonobstructive left kidney stone and small right kidney cyst with mild bilateral perinephric edema -previous renal ultrasound at that time, showed calculi in the left kidney measuring 6 mm with no significant hydronephrosis -ordered new renal ultrasound to rule out obstructing kidney stone or hydronephrosis -UA came back suggesting UTI -Continue IV meropenem -ordered urine, blood and wound cultures -Luevano catheter is in place -Urology schedule the patient for extracorporeal shockwave lithotripsy of the left kidney stones with possible stent placement tomorrow AM STEFFEN on CKD stage IIIA likely postobstructive -creatinine is 1.29, BUN 16, Cr slightly worsening. today Cr 1.32 and BUN 17 -Continue IV fluids at 60 cc/hour -ordered renal ultrasound showed no hydronephrosis or abnormalities to the kidneys. Acute on chronic nephrolithiasis Status post lithotripsy and stent placed on March 2024 -ordered renal ultrasound which showed no hydronephrosis or abnormalities to the kidneys. Paroxysmal AFib, -chads Vasc score 5/has bled 3 -enoxaparin therapeutic dosage -currently on flecainide 100 mg b.i.d. -continue carvedilol 3.125 mg b.i.d. Primary hypertension -continue carvedilol 3.125 mg b.i.d. -monitor blood pressure closely Dyslipidemia -continue atorvastatin 10 mg daily GERD -continue pantoprazole 40 mg daily Type 2 diabetes mellitus -last hemoglobin A1c was 6.4% on 08/31/2024 -monitor blood glucose BPH -currently on tamsulosin 0.4 mg daily Bed-bound, cervical lipoma status postoperative complicated by paraplegia Decubitus ulcer present on admission -move the patient q.2 hours to prevent decubitus ulcers Goals of care discussed with the patient at bedside for > 25min, FULL CODE Plan discused with Dr. Goddard Plan discussed with: Patient My Orders My Orders Orders - REBECCA VALENZUELA Procedure Category Date Status Time Dietary NOTICE 09/18/24 Transmitted Recommendations 13:30 Consistent DIET 09/19/24 Transmitted Carb(Ccho)Diabetes Breakfast Npo (Nothing By DIET 09/20/24 Transmitted Mouth) Diet Breakfast Dietary Evaluation Review Comments: 1) CCHO 75 + cardiac 2) Nikunj 1 pk BID (ordered per [facility] protocol) 3) Vit C 500mg BID, Zinc sulfate 220mg daily x 10 days 4) Continue current plan of care Expected Outcomes/Goals: wound healing to improve FU 3-5 days Date of Service: Sep 19, 2024 Billing Provider: DONALD GODDARD MD Common Visit Codes: [id number] INP/OBS CARE(HIGH) REBECCA VALENZUELA RESIDENT Sep 19, 2024 12:07 DONALD GODDARD MD Sep 19, 2024 22:10
[2024-09-19 19:48] LABS: INR 1.09 (0.9-1.15); Partial Thromboplastin Time 35.4 SEC (24.5-34.5); Prothrombin Time 11.5 sec (9.3-11.8)
--- NOTE | 2024-09-19 21:00 | DVH ---
CHEST RADIOGRAPH Indication: protocol Technique: Single frontal view of the chest was obtained Comparison: XY CHEST XRAY 1 VIEW on DOS: 09/16/24, XY CHEST PORTABLE on DOS: 08/30/24, XY CHEST PORTABL E on DOS: 05/27/24 FINDINGS: Lines and Tubes: None Lungs: No focal consolidation. Diffuse interstitial prominence. Ccop-[id number] elevation of the rig ht hemidiaphragm. Pleura: No effusion. No pneumothorax. 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 Heart size is within normal limits. Bones: No acute osseous abnormality. IMPRESSION: Pulmonary vascular congestion.
[2024-09-20 01:00] VITALS: BP 161/89; PULSE 78; RESP 20; TEMP 97.6; O2SAT 95
[2024-09-20 05:00] VITALS: BP 121/79; PULSE 80; RESP 20; TEMP 97.9; O2SAT 95
[2024-09-20 08:20] LABS: Basophils # (auto) 0 10 ^3/uL (0-0.2); Basophils % (auto) 0.7 % (0.0-2.0); Eosinophils # (auto) 0.2 10 ^3/uL (0-0.8); Hematocrit 39.2 % (41.0-53.0); Hemoglobin 13.1 g/dL (13.5-17.5); Lymphocytes % (auto) 30.1 % (10.0-50.0); Mean Corpuscular Hemoglobin 29.7 pg (28.0-32.0); Mean Corpuscular Hgb Conc. 33.4 g/dL (32.0-36.0); Monocytes # (auto) 0.6 10 ^3/uL (0-1.3); Monocytes % (auto) 9.4 % (0.0-12.0); Neutrophils # (auto) 3.7 10 ^3/uL (1.6-8.6); Neutrophils % (auto) 56.8 % (37.0-80.0); Nucleated Red Blood Cells % 0.1 %; Platelet Count (auto) 199 10^3/uL (140-450); Red Cell Distribution Width 15.3 % (11.8-14.3); White Blood Cell 6.6 10^3/uL (4.4-10.8)
[2024-09-20 08:28] LABS: Anion Gap 10 (5-15); Calcium 9.6 mg/dL (8.7-10.4); Carbon Dioxide 25 mmol/L (20-31); Potassium 3.7 mmol/L (3.5-5.1); Sodium 142 mmol/L (136-145)
[2024-09-20 08:33] LABS: Glucose 89 mg/dL (74-106)
[2024-09-20 08:34] LABS: BUN/Creatinine Ratio 10.1 (10.0-20.0); Blood Urea Nitrogen 12 mg/dL (9-23)
[2024-09-20 08:38] LABS: Chloride 107 mmol/L (98-107)
[2024-09-20 08:56] VITALS: BP 116/64; PULSE 74; RESP 18; TEMP 97.6; O2SAT 96
--- NOTE | 2024-09-20 09:40 | DVHPNRES ---
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 Patient presented to the ED with chief complaint of severe suprapubic abdominal tenderness. Patient stated that he was recently hospitalized at our facility approximately 10 days ago and was diagnosed with UTI with a multi resistant bacteria which was Klebsiella pneumoniae ESBL. Upon admission, initial labs showed a normal CBC, creatinine was slightly elevated at 1.29 and BUN 16. UA came back suggesting UTI. We ordered urine, wound and bacterial cultures. Patient was admitted for IV antibiotics. Patient seen and examined at bedside. Patient is alert and oriented in person, place and time and has no complaints at this time. Patient denies fever/chills, chest pain, abdominal tenderness states that the suprapubic tenderness has decreased compared to admission. Patient is scheduled for shock wave lithotripsy with possible stent placement today at 4:00 p.m. ROS Constitutional: Denies weight loss, fever and chills. HEENT: Denies changes in vision and hearing. Respiratory: Denies shortness of breath and cough Cardiovascular: Denies chest discomfort or palpitations GI: Denies abdominal pain, nausea, vomiting and diarrhea. : Denies dysuria and urinary frequency. Musculoskeletal: Denies myalgias and joint pain Skin: Denies rash and pruritus. Neurological: Denies dizziness, headache, vision or hearing problems Objective vital signs Vital Sign Date Time Temp Pulse Resp B/P (MAP) Pulse Ox O2 Delivery O2 Flow Rate FiO2 09/20/24 08:56 97.6 74 18 116/64 (81) 96 97.6 09/19/24 20:00 Room Air* 0 21 Total Intake and Output 09/19/24 09/19/24 09/20/24 15:00 23:00 07:00 Intake Total 50 ml 1350 ml 500 ml Output Total 650 ml 2350 ml Balance 50 ml 700 ml -1850 ml medications Current Medications Medications Dose Ordered Sig/Karely Route Start Time Stop Time Status Last Admin Dose Admin Meropenem 50 ml @ 17 mls/hr Q8HR IV 09/16/24 06:00 09/20/24 06:00 17 MLS/HR Lorazepam 0.5 mg Q6HP PRN PO 09/15/24 23:15 Acetaminophen 650 mg Q6HP PRN PO 09/15/24 23:15 09/19/24 05:57 650 MG Morphine Sulfate 2 mg Q4HPRN PRN IV 09/15/24 23:15 Tamsulosin HCl 0.4 mg QPM PO 09/16/24 18:00 09/19/24 18:22 0.4 MG Acetaminophen 500 mg Q6HP PRN PO 09/16/24 05:00 Cancel Bisacodyl 10 mg DAILYP PRN [place] 09/16/24 05:00 Carvedilol 3.125 mg BID PO 09/16/24 10:00 09/19/24 21:27 3.125 MG Insulin Glargine 28 units UD SC 09/16/24 05:00 Hold Insulin Human Regular 15 units UD IV 09/16/24 05:00 Hold Magnesium Hydroxide 30 ml DAILYP PRN PO 09/16/24 05:00 Multivitamins/ Minerals 1 tab DAILY PO 09/16/24 10:00 09/19/24 10:14 1 TAB Pantoprazole Sodium 40 mg DAILY PO 09/16/24 10:00 09/19/24 10:14 40 MG Enoxaparin Sodium 110 mg Q12HR SC 09/16/24 10:00 09/19/24 21:33 110 MG Atorvastatin Calcium 10 mg HS PO 09/16/24 22:00 09/19/24 21:26 10 MG Flecainide Acetate 100 mg BID PO 09/16/24 10:00 09/19/24 21:31 100 MG Docusate Sodium 100 mg BID PO 09/16/24 10:00 09/19/24 21:25 100 MG Sodium Chloride 1,000 ml @ 60 mls/hr [id number] IV 09/17/24 10:30 09/20/24 05:10 60 MLS/HR Examination Physical Examination General: Patient alert and oriented in person, place and time. Patient following commands. HEENT: Normocephalic, atraumatic, moist mucous membranes Respiratory/pulmonary: Clear lungs bilaterally, no associated crackles or wheezes. Currently on room air. Cardiovascular: Normal heart sounds S1 and S2 with no associated murmurs Abdomen: Abdomen nondistended, there is no pain to palpation in any of the abdominal quadrants, no palpable masses. Extremities: There is no peripheral edema present at the lower extremities. Peripheral Pulses: 3+ Radial (R). 3+ Radial (L). 3+ Dorsalis pedis (R). 3+ Dorsalis pedis(L) Skin: No rashes or pruritus, there is no sacral edema present at this time. Neurological: Intact cranial nerves with no focal neurologic deficits laboratory and microbiology Laboratory Tests 09/20/24 07:44 Test 09/20/24 07:44 Range/Units Serum Glucose 89 74-106 mg/dL Microbiology Date/Time Source Procedure Growth Status 09/17/24 00:08 Nose MRSA Screen - Final Complete 09/16/24 06:22 Voided Urine Urine Culture - Final Complete 09/15/24 16:00 Blood Blood Culture - Preliminary NO GROWTH AFTER 72 HOURS OF INCUBATION. Resulted Problem List/Assessment/Plan Problem List/Assessment/Plan Assessment/Plan Acute suprapubic tenderness likelu do to UTI Acute UTI likely due to KP. ESBL -patient had a recent hospitalization 10 days ago where he got isolated Klebsiella pneumoniae ESBL in the urine culture -CT scan of the abdomen performed on 09/01/2024 showed nonobstructive left kidney stone and small right kidney cyst with mild bilateral perinephric edema -previous renal ultrasound at that time, showed calculi in the left kidney measuring 6 mm with no significant hydronephrosis -ordered new renal ultrasound to rule out obstructing kidney stone or hydronephrosis -UA came back suggesting UTI -Continue IV meropenem -ordered urine, blood and wound cultures -Luevano catheter is in place -Urology schedule the patient for extracorporeal shockwave lithotripsy of the left kidney stones with possible stent placement today at 4:00PM STEFFEN on CKD stage IIIA likely postobstructive -creatinine is 1.29, BUN 16, today improving Cr 1.19 and BUN 12 -Continue IV fluids at 60 cc/hour -ordered renal ultrasound showed no hydronephrosis or abnormalities to the kidneys. Acute on chronic nephrolithiasis Status post lithotripsy and stent placed on March 2024 -ordered renal ultrasound which showed no hydronephrosis or abnormalities to the kidneys. Paroxysmal AFib, -chads Vasc score 5/has bled 3 -enoxaparin therapeutic dosage -currently on flecainide 100 mg b.i.d. -continue carvedilol 3.125 mg b.i.d. Primary hypertension -continue carvedilol 3.125 mg b.i.d. -monitor blood pressure closely Dyslipidemia -continue atorvastatin 10 mg daily GERD -continue pantoprazole 40 mg daily Type 2 diabetes mellitus -last hemoglobin A1c was 6.4% on 08/31/2024 -monitor blood glucose BPH -currently on tamsulosin 0.4 mg daily Bed-bound, cervical lipoma status postoperative complicated by paraplegia Decubitus ulcer present on admission -move the patient q.2 hours to prevent decubitus ulcers Goals of care discussed with the patient at bedside for > 25min, FULL CODE Plan discused with Dr. Han Plan discussed with: Patient My Orders My Orders Orders - REBECCA VALENZUELA Procedure Category Date Status Time Chest Portable XY 09/19/24 Resulted 18:55 Dietary Evaluation Review Comments: 1) CCHO 75 + cardiac 2) Nikunj 1 pk BID (ordered per [facility] protocol) 3) Vit C 500mg BID, Zinc sulfate 220mg daily x 10 days 4) Continue current plan of care Expected Outcomes/Goals: wound healing to improve FU 3-5 days Date of Service: Sep 20, 2024 Billing Provider: ALEXIA HAN MD Common Visit Codes: [id number] INP/OBS CARE(MOD) REBECCA VALENZUELA RESIDENT Sep 20, 2024 09:40 ALEXIA HAN MD Sep 20, 2024 16:49
--- NOTE | 2024-09-20 12:20 | DVH ---
Date: 09/20/2024 11:00 AM Examination: XY KUB ABDOMEN SINGLE VIEW History: left renal stones Comparison: XY KUB ABDOMEN SINGLE VIEW on DOS: 05/27/24, XY KUB ABDOMEN SINGLE VIEW on DOS: 03/02/24, XY KUB ABDOMEN SINGLE VIEW on DOS: 03/01/24 TECHNIQUE: Frontal views of the abdomen was obtained. FINDINGS: Bowel gas pattern is unremarkable. Luevano catheter overlying the bladder. The lung bases are unremarkable. No acute osseous abnormality identified. IMPRESSION: Nonobstructive bowel gas pattern.
[2024-09-20 13:13] VITALS: BP 112/65; PULSE 77; RESP 18; TEMP 97.5; O2SAT 96
--- NOTE | 2024-09-20 13:31 | DVHPN2 ---
Progress Note - Dictate Date Seen: Sep 20, 2024 Has the PT tested + for MRSA If YES, has PT been informed?: No Medical Necessity Reason Pt with a Central, PICC or Fol: No Medical Necessity Reason Kidney stone for ESWL Subjective patient was scheduled to undergo lithotripsy today. unfortunately the truck with equipment broke down en route. Will have to reschedule for tomorrow vital signs Vital Sign Date Time Temp Pulse Resp B/P (MAP) Pulse Ox O2 Delivery O2 Flow Rate FiO2 09/20/24 13:13 97.5 77 18 112/65 (81) 96 97.5 09/20/24 08:30 Room Air* 0 21 Total Intake and Output 09/19/24 09/19/24 09/20/24 14:59 22:59 06:59 Intake Total 50 ml 1350 ml 500 ml Output Total 650 ml 2350 ml Balance 50 ml 700 ml -1850 ml medications Current Medications Medications Dose Ordered Sig/Karely Route Start Time Stop Time Status Last Admin Dose Admin Meropenem 50 ml @ 17 mls/hr Q8HR IV 09/16/24 06:00 09/20/24 06:00 17 MLS/HR Lorazepam 0.5 mg Q6HP PRN PO 09/15/24 23:15 Acetaminophen 650 mg Q6HP PRN PO 09/15/24 23:15 09/19/24 05:57 650 MG Morphine Sulfate 2 mg Q4HPRN PRN IV 09/15/24 23:15 Tamsulosin HCl 0.4 mg QPM PO 09/16/24 18:00 09/19/24 18:22 0.4 MG Acetaminophen 500 mg Q6HP PRN PO 09/16/24 05:00 Cancel Bisacodyl 10 mg DAILYP PRN [place] 09/16/24 05:00 Carvedilol 3.125 mg BID PO 09/16/24 10:00 09/20/24 10:24 3.125 MG Insulin Glargine 28 units UD SC 09/16/24 05:00 Hold Insulin Human Regular 15 units UD IV 09/16/24 05:00 Hold Magnesium Hydroxide 30 ml DAILYP PRN PO 09/16/24 05:00 Multivitamins/ Minerals 1 tab DAILY PO 09/16/24 10:00 09/19/24 10:14 1 TAB Pantoprazole Sodium 40 mg DAILY PO 09/16/24 10:00 09/20/24 10:24 40 MG Enoxaparin Sodium 110 mg Q12HR SC 09/16/24 10:00 09/19/24 21:33 110 MG Atorvastatin Calcium 10 mg HS PO 09/16/24 22:00 09/19/24 21:26 10 MG Flecainide Acetate 100 mg BID PO 09/16/24 10:00 09/20/24 10:24 100 MG Docusate Sodium 100 mg BID PO 09/16/24 10:00 09/19/24 21:25 100 MG Sodium Chloride 1,000 ml @ 60 mls/hr [id number] IV 09/17/24 10:30 09/20/24 05:10 60 MLS/HR laboratory and microbiology Laboratory Tests 09/20/24 07:44 Test 09/20/24 07:44 Range/Units Serum Glucose 89 74-106 mg/dL Assessment/Plan Left nephrolithiasis Urinary tract infection Left ESWL tomorrow Dietary Evaluation Review Comments: 1) CCHO 75 + cardiac 2) Nikunj 1 pk BID (ordered per [facility] protocol) 3) Vit C 500mg BID, Zinc sulfate 220mg daily x 10 days 4) Continue current plan of care Expected Outcomes/Goals: wound healing to improve FU 3-5 days Plan discussed with: Other MICHEAL SANTOS MD Sep 20, 2024 13:31
[2024-09-20 17:13] VITALS: BP 124/74; PULSE 73; RESP 18; TEMP 97.5; O2SAT 98
[2024-09-20 21:00] VITALS: BP 122/62; PULSE 69; RESP 18; TEMP 98; O2SAT 92
[2024-09-21] VITALS (8 sets, daily range): BP systolic 110–135; BP diastolic 59–94; PULSE 63–79; RESP 17–19; TEMP 97.2–97.9; O2SAT 94–99
[2024-09-21 06:39] LABS: Potassium 3.6 mmol/L (3.5-5.1); Sodium 144 mmol/L (136-145)
[2024-09-21 06:40] LABS: Anion Gap 10 (5-15); Carbon Dioxide 25 mmol/L (20-31)
[2024-09-21 06:41] LABS: Calcium 9.5 mg/dL (8.7-10.4)
[2024-09-21 06:46] LABS: Blood Urea Nitrogen 14 mg/dL (9-23); Glucose 93 mg/dL (74-106)
[2024-09-21 06:47] LABS: Chloride 109 mmol/L (98-107)
--- NOTE | 2024-09-21 11:44 | DVHPNRES ---
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 Patient presented to the ED with chief complaint of severe suprapubic abdominal tenderness. Patient stated that he was recently hospitalized at our facility approximately 10 days ago and was diagnosed with UTI with a multi resistant bacteria which was Klebsiella pneumoniae ESBL. Upon admission, initial labs showed a normal CBC, creatinine was slightly elevated at 1.29 and BUN 16. UA came back suggesting UTI. We ordered urine, wound and bacterial cultures. Patient was admitted for IV antibiotics. Patient seen and examined at bedside. Patient is alert oriented in person place and time. Patient was supposed to have shock wave lithotripsy with possible stent placement yesterday but was rescheduled for today at 2:00 p.m. patient denies chest pain, shortness of breath, fever/chills, abdominal tenderness or any other complaints. Patient will undergo surgical procedure this afternoon, we will we monitored afterwards and we will be discharged to SNF tomorrow early a.m.. ROS Constitutional: Denies weight loss, fever and chills. HEENT: Denies changes in vision and hearing. Respiratory: Denies shortness of breath and cough Cardiovascular: Denies chest discomfort or palpitations GI: Denies abdominal pain, nausea, vomiting and diarrhea. : Denies dysuria and urinary frequency. Musculoskeletal: Denies myalgias and joint pain Skin: Denies rash and pruritus. Neurological: Denies dizziness, headache, vision or hearing problems Objective vital signs Vital Sign Date Time Temp Pulse Resp B/P (MAP) Pulse Ox O2 Delivery O2 Flow Rate FiO2 09/21/24 09:49 70 120/69 09/21/24 08:50 97.5 18 96 97.5 09/21/24 08:00 Room Air* 0 21 Total Intake and Output 09/20/24 09/20/2425 15:00 23:00 07:00 Intake Total 350 ml 600 ml 500 ml Output Total 1300 ml 800 ml Balance 350 ml -700 ml -300 ml medications Current Medications Medications Dose Ordered Sig/Karely Route Start Time Stop Time Status Last Admin Dose Admin Meropenem 50 ml @ 17 mls/hr Q8HR IV 09/16/24 06:00 09/21/24 05:44 17 MLS/HR Lorazepam 0.5 mg Q6HP PRN PO 09/15/24 23:15 Acetaminophen 650 mg Q6HP PRN PO 09/15/24 23:15 09/19/24 05:57 650 MG Morphine Sulfate 2 mg Q4HPRN PRN IV 09/15/24 23:15 Tamsulosin HCl 0.4 mg QPM PO 09/16/24 18:00 09/20/24 18:42 0.4 MG Acetaminophen 500 mg Q6HP PRN PO 09/16/24 05:00 Cancel Bisacodyl 10 mg DAILYP PRN [place] 09/16/24 05:00 Carvedilol 3.125 mg BID PO 09/16/24 10:00 09/21/24 09:49 3.125 MG Insulin Glargine 28 units UD SC 09/16/24 05:00 Hold Insulin Human Regular 15 units UD IV 09/16/24 05:00 Hold Magnesium Hydroxide 30 ml DAILYP PRN PO 09/16/24 05:00 Multivitamins/ Minerals 1 tab DAILY PO 09/16/24 10:00 09/21/24 09:50 1 TAB Pantoprazole Sodium 40 mg DAILY PO 09/16/24 10:00 09/21/24 09:50 40 MG Enoxaparin Sodium 110 mg Q12HR SC 09/16/24 10:00 09/21/24 09:51 110 MG Atorvastatin Calcium 10 mg HS PO 09/16/24 22:00 09/20/24 22:15 10 MG Flecainide Acetate 100 mg BID PO 09/16/24 10:00 09/21/24 09:51 100 MG Docusate Sodium 100 mg BID PO 09/16/24 10:00 09/21/24 09:50 100 MG Sodium Chloride 1,000 ml @ 60 mls/hr [id number] IV 09/17/24 10:30 09/20/24 21:50 60 MLS/HR Examination Physical Examination General: Patient alert and oriented in person, place and time. Patient following commands. HEENT: Normocephalic, atraumatic, moist mucous membranes Respiratory/pulmonary: Clear lungs bilaterally, no associated crackles or wheezes. Currently on room air. Cardiovascular: Normal heart sounds S1 and S2 with no associated murmurs Abdomen: Abdomen nondistended, there is no pain to palpation in any of the abdominal quadrants, no palpable masses. Extremities: There is no peripheral edema present at the lower extremities. Peripheral Pulses: 3+ Radial (R). 3+ Radial (L). 3+ Dorsalis pedis (R). 3+ Dorsalis pedis(L) Skin: No rashes or pruritus, there is no sacral edema present at this time. Neurological: Intact cranial nerves with no focal neurologic deficits laboratory and microbiology Laboratory Tests 09/21/24 05:49 09/20/24 07:44 Test 09/21/24 05:49 Range/Units Serum Glucose 93 74-106 mg/dL Microbiology Date/Time Source Procedure Growth Status 09/17/24 00:08 Nose MRSA Screen - Final Complete 09/16/24 06:22 Voided Urine Urine Culture - Final Complete 09/15/24 16:00 Blood Blood Culture - Final NO GROWTH AFTER 5 DAYS OF INCUBATION. Complete Problem List/Assessment/Plan Problem List/Assessment/Plan Assessment/Plan Acute suprapubic tenderness likelu do to UTI Acute UTI likely due to KP. ESBL -patient had a recent hospitalization 10 days ago where he got isolated Klebsiella pneumoniae ESBL in the urine culture -CT scan of the abdomen performed on 09/01/2024 showed nonobstructive left kidney stone and small right kidney cyst with mild bilateral perinephric edema -previous renal ultrasound at that time, showed calculi in the left kidney measuring 6 mm with no significant hydronephrosis -ordered new renal ultrasound to rule out obstructing kidney stone or hydronephrosis -UA came back suggesting UTI -Continue IV meropenem -ordered urine, blood and wound cultures -Luevano catheter is in place -Urology schedule the patient for extracorporeal shockwave lithotripsy of the left kidney stones with possible stent placement. Was supposed to be yesterday but was rescheduled for today at 2:00 p.m. STEFFEN on CKD stage IIIA likely postobstructive -creatinine is 1.29, BUN 16, today improving Cr 1.17 and BUN 14 -Continue IV fluids at 60 cc/hour -ordered renal ultrasound showed no hydronephrosis or abnormalities to the kidneys. Acute on chronic nephrolithiasis Status post lithotripsy and stent placed on March 2024 -ordered renal ultrasound which showed no hydronephrosis or abnormalities to the kidneys. Paroxysmal AFib, -chads Vasc score 5/has bled 3 -enoxaparin therapeutic dosage -currently on flecainide 100 mg b.i.d. -continue carvedilol 3.125 mg b.i.d. Primary hypertension -continue carvedilol 3.125 mg b.i.d. -monitor blood pressure closely Dyslipidemia -continue atorvastatin 10 mg daily GERD -continue pantoprazole 40 mg daily Type 2 diabetes mellitus -last hemoglobin A1c was 6.4% on 08/31/2024 -monitor blood glucose BPH -currently on tamsulosin 0.4 mg daily Bed-bound, cervical lipoma status postoperative complicated by paraplegia Decubitus ulcer present on admission -move the patient q.2 hours to prevent decubitus ulcers Patient will undergo surgical procedure today, monitor afterwards and possibly discharge tomorrow a.m. back to SNF Goals of care discussed with the patient at bedside for > 25min, FULL CODE Plan discused with Dr. Han Plan discussed with: Patient My Orders My Orders Orders - REBECCA VALENZUELA Procedure Category Date Status Time * [employer] And Collections Analyst CONS 09/20/24 Transmitted Consult Communication Order ORDERS 09/20/24 Transmitted 19:24 Dietary Evaluation Review Comments: 1) CCHO 75 + cardiac 2) Nikunj 1 pk BID (ordered per [facility]NS protocol) 3) Vit C 500mg BID, Zinc sulfate 220mg daily x 10 days 4) Continue current plan of care Expected Outcomes/Goals: wound healing to improve FU 3-5 days Date of Service: Sep 21, 2024 Billing Provider: ALEXIA HAN MD Common Visit Codes: [id number] INP/OBS CARE(MOD) REBECCA VALENZUELA RESIDENT Sep 21, 2024 11:44 ALEXIA HAN MD Sep 21, 2024 21:37
[2024-09-21] MEDS ORDERED: GLYCOPYRROLATE 0.2 MG/ML 1ML VIAL ONE (13:57)
[2024-09-21] MEDS ORDERED: PROPOFOL 10 MG/ML 20 ML IV ONE (13:57)
[2024-09-21] MEDS ORDERED: KETAMINE 50mg/ML 1ml syringe ONE (13:57)
[2024-09-21] MEDS ORDERED: ONDANSETRON HCL 4 MG/2 ML VIAL ONE (13:57)
[2024-09-21] MEDS ORDERED: MIDAZOLAM HCL 2MG/2ML 2ml VIAL (1mg/ml) ONE (13:57)
[2024-09-21] MEDS ORDERED: fentaNYL CITRATE 100 MCG/2 ML VL ONE (14:42)
[2024-09-21] MEDS: CIPROFLOXACIN 400MG/200ML 200 ML IV ONE (14:45)
--- NOTE | 2024-09-21 15:01 | DVHNC2 ---
Procedure - OPERATIVE REPORT Pre-op. Diagnosis: Renal Stones, 4-5 mm Post-op. Diagnosis: Same as pre-op diagnosis Operation: Extracorporeal Shockwave Lithotripsy Anesthesia: General Indications: Patient was found to have persistent Urolithiasis. Patient is here to undergo ESWL therapy. Informed Consent: The procedure was explained to the patient. It's risks include but not limited to infection, bleeding, and damage to the kidney. Patient fully understood and signed the consent. Other options such as watchful waiting, Ureteroscopy, Percutaneous surgery and open surgery were also discussed. Details of Procedure: Under satisfactory anesthesia, the patient was positioned on the lithotripsy table. Using fluoroscopy the stone was localized. Starting at low energy levels, shockwave treatment was commenced. The energy level was gradually increased and stone was fragmented. Once the treatment was completed, patient was then taken off the lithotripsy table and sent to recovery room in stable condition. Specimens: None Complications: None Findings: Stone Laterality: left renal stones x 2 (4 and 5 mm) Stone Location: upper pole and lower pole left kidney Shocks Delivered: 24[address] [employer] settin Fragmentation Quality: MICHEAL Machuca MD Sep 21, 2024 15:00
[2024-09-21] MEDS ORDERED: HYDROmorphone HCL 2 MG/ML VL/or syr IV PRN (15:30)
[2024-09-22 01:00] VITALS: BP 120/62; PULSE 71; RESP 18; TEMP 97.8; O2SAT 95
[2024-09-22 05:00] VITALS: BP 125/62; PULSE 74; RESP 18; TEMP 97.8; O2SAT 97
[2024-09-22 05:44] LABS: Anion Gap 8 (5-15); Carbon Dioxide 27 mmol/L (20-31); Chloride 106 mmol/L (98-107); Potassium 3.8 mmol/L (3.5-5.1); Sodium 141 mmol/L (136-145)
[2024-09-22 05:46] LABS: Calcium 9.8 mg/dL (8.7-10.4)
[2024-09-22 05:50] LABS: Glucose 96 mg/dL (74-106)
[2024-09-22 05:51] LABS: BUN/Creatinine Ratio 8.9 (10.0-20.0); Blood Urea Nitrogen 11 mg/dL (9-23)
--- NOTE | 2024-09-22 06:59 | DVHDSRES ---
Discharge Summary Date of Admission Resident Creating Document: REBECCA VALENZUELA RESIDENT Sep 15, 2024 at 23:06 Date of Discharge: Sep 22, 2024 Admitting Diagnosis Suprapubic tenderness Wounds: No wounds present at this time. Labs/Diagnostic Data: Laboratory Results Test 09/22/24 05:03 09/20/24 07:44 09/19/24 19:20 09/16/24 06:19 Sodium Level 141 mmol/L (136-145) Potassium Level 3.8 mmol/L (3.5-5.1) Chloride Level 106 mmol/L (98-107) Carbon Dioxide Level 27 mmol/L (20-31) Anion Gap 8 (5-15) Blood Urea Nitrogen 11 mg/dL (9-23) Creatinine 1.23 mg/dL (0.700-1.30) Glomerular Filtration Rate Calc 63 mL/min (>90) BUN/Creatinine Ratio 8.9 (10.0-20.0) Serum Glucose 96 mg/dL (74-106) Calcium Level 9.8 mg/dL (8.7-10.4) White Blood Count 6.6 10^3/uL (4.4-10.8) Red Blood Count 4.40 10^6/uL (4.5-5.90) Hemoglobin 13.1 g/dL (13.5-17.5) Hematocrit 39.2 % (41.0-53.0) Mean Corpuscular Volume 89.0 fL (80.0-100.0) Mean Corpuscular Hemoglobin 29.7 pg (28.0-32.0) Mean Corpuscular Hemoglobin Concent 33.4 g/dL (32.0-36.0) Red Cell Distribution Width 15.3 % (11.8-14.3) Platelet Count 199 10^3/uL (140-450) Mean Platelet Volume 7.5 fL (6.9-10.8) Neutrophils (%) (Auto) 56.8 % (37.0-80.0) Lymphocytes (%) (Auto) 30.1 % (10.0-50.0) Monocytes (%) (Auto) 9.4 % (0.0-12.0) Eosinophils (%) (Auto) 3.0 % (0.0-7.0) Basophils (%) (Auto) 0.7 % (0.0-2.0) Neutrophils # (Auto) 3.7 10 ^3/uL (1.6-8.6) Lymphocytes # (Auto) 2.0 10 ^3/uL (0.4-5.4) Monocytes # (Auto) 0.6 10 ^3/uL (0-1.3) Eosinophils # (Auto) 0.2 10 ^3/uL (0-0.8) Basophils # (Auto) 0 10 ^3/uL (0-0.2) Nucleated Red Blood Cells 0.1 % Prothrombin Time 11.5 sec (9.3-11.8) Prothrombin Time INR 1.09 (0.9-1.15) Activated Partial Thromboplast Time 35.4 SEC (24.5-34.5) Urine Color Light-yellow (Yellow) Urine Clarity Turbid (Clear) Urine pH 6.5 (5.0-9.0) Urine Specific [place]er 1.012 (1.001-1.035) Urine Protein Trace (Negative) Urine Ketones Negative (Negative) Urine Blood 1+ /uL (Negative) Urine Nitrite Negative (Negative) Urine Bilirubin Negative (Negative) Urine Urobilinogen Normal mg/dL (Negative) Urine Leukocyte Esterase 3+ /uL (Negative) Urine RBC 5 /hpf (0 - 3) Urine Microscopic WBC 231 /HPF (0-3) Urine Squamous Epithelial Cells None seen /hpf (<5) Urine Bacteria None seen /hpf (None Seen) Urine Glucose Normal mg/dL (Normal) Urine Opiates Screen Neg (NEGATIVE) Urine Fentanyl Screen Neg (NEGATIVE) Urine Barbiturates Screen Neg (NEGATIVE) Urine Phencyclidine Screen Neg (NEGATIVE) Urine Amphetamines Screen Neg (NEGATIVE) Urine Benzodiazepines Screen Neg (NEGATIVE) Urine Cocaine Screen Neg (NEGATIVE) Urine Cannabinoids Screen Neg (NEGATIVE) Test 09/15/24 16:00 Lactic Acid Level 1.2 mmol/L (0.4-2.0) Phosphorus Level 3.1 mg/dL (2.4-5.1) Magnesium Level 2.0 mg/dL (1.6-2.6) Total Bilirubin 0.6 mg/dL (0.2-1.0) Direct Bilirubin 0.1 mg/dL (<0.3) Aspartate Amino Transferase (AST) 22 U/L (13-40) Alanine Aminotransferase (ALT) 25 U/L (7-40) Alkaline Phosphatase 106 U/L (46-116) Total Protein 7.9 g/dL (5.7-8.2) Albumin 4.2 g/dL (3.2-4.8) Triglycerides Level 145 mg/dL (< 150) Cholesterol Level 129 mg/dL (< 200) LDL Cholesterol 76 mg/dL (< 100) HDL Cholesterol 31 mg/dL (40-59) Vitamin B12 Level 604 pg/mL (211-911) Vitamin D 25-Hydroxy 63.7 ng/mL (30.0-100) Thyroid Stimulating Hormone (TSH) 1.54 uIU/mL (0.55-4.78) Other Laboratory Tests 09/22/24 05:03 09/20/24 07:44 Brief Hx & Hospital Course: This is a 73-year-old male with past medical history of hypertension, dyslipidemia, type 2 diabetes, CO in 2020 with no stent placement, COPD, CVA, left hemiplegia, 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 Patient presented to the ED with chief complaint of severe suprapubic abdominal tenderness. Patient stated that he was recently hospitalized at our facility approximately 10 days ago and was diagnosed with UTI with a multi resistant bacteria which was Klebsiella pneumoniae ESBL. Upon admission, initial labs showed a normal CBC, creatinine was slightly elevated at 1.29 and BUN 16. UA came back suggesting UTI. We ordered urine, wound and bacterial cultures. Patient was started on IV meropenem since the patient has a previous history of E coli ESBL. Urology was consulted for left-sided renal calculus. Patient was scheduled for show wave lithotripsy which was performed without complications. Patient seen and examined at bedside. Patient denies fever/chills, chest pain, shortness of breath, flank pain, suprapubic pain, dysuria or any other symptom. Patient states that he is feeling well overall. Patient will be discharged back to SNF today and continue his home medications. ROS Constitutional: Denies weight loss, fever and chills. HEENT: Denies changes in vision and hearing. Respiratory: Denies shortness of breath and cough Cardiovascular: Denies chest discomfort or palpitations GI: Denies abdominal pain, nausea, vomiting and diarrhea. : Denies dysuria and urinary frequency. Musculoskeletal: Denies myalgias and joint pain Skin: Denies rash and pruritus. Neurological: Denies dizziness, headache, vision or hearing problems Physical Examination General: Patient alert and oriented in person, place and time. Patient following commands. HEENT: Normocephalic, atraumatic, moist mucous membranes Respiratory/pulmonary: Clear lungs bilaterally, no associated crackles or wheezes. Currently on room air. Cardiovascular: Normal heart sounds S1 and S2 with no associated murmurs Abdomen: Abdomen nondistended, there is no pain to palpation in any of the abdominal quadrants, no palpable masses. Extremities: There is no peripheral edema present at the lower extremities. Peripheral Pulses: 3+ Radial (R). 3+ Radial (L). 3+ Dorsalis pedis (R). 3+ Dorsalis pedis(L) Skin: No rashes or pruritus, there is no sacral edema present at this time. Neurological: Intact cranial nerves with no focal neurologic deficits Consults/Reason for consult Urology for shockwave lithotripsy Operations or Procedures CHEST RADIOGRAPH Indication: poss chf Technique: Single frontal view of the chest was obtained Comparison: XY CHEST PORTABLE on DOS: 08/30/24, XY CHEST PORTABLE on DOS: 05/27/24, XY CHEST PORTABLE on DOS: 02/26/24, XY CHEST PORTABLE on DOS: 10/25/23, XY CHEST PORTABLE on DOS: 10/24/23 FINDINGS: Lines and Tubes: None Lungs: No focal consolidation. Pleura: No effusion. No pneumothorax. Cardiomediastinal contours: Unremarkable Bones: No acute osseous abnormality. IMPRESSION: No acute cardiopulmonary disease. INDICATION: R/O hydronephrosis and nephrolithiasis TECHNIQUE: Multiple real-time sonographic images of the kidneys and bladder were obtained. COMPARISON: US KIDNEY on DOS: 08/31/24, US KIDNEY on DOS: 03/19/24, US KIDNEY on DOS: 03/01/24 FINDINGS: The right kidney measures 11 cm in length, which is normal in size. There is normal echogenicity of the right kidney. No hydronephrosis. The left kidney measures 11 cm in length, which is normal in size. There is normal echogenicity of the left kidney. No hydronephrosis. No large intraluminal masses are seen in the bladder. IMPRESSION: 1. Normal sonographic appearance of the kidneys. No hydronephrosis. CHEST RADIOGRAPH Indication: protocol Technique: Single frontal view of the chest was obtained Comparison: XY CHEST XRAY 1 VIEW on DOS: 09/16/24, XY CHEST PORTABLE on DOS: 08/30/24, XY CHEST PORTABLE on DOS: 05/27/24 FINDINGS: Lines and Tubes: None Lungs: No focal consolidation. Diffuse interstitial prominence. [id number] elevation of the right hemidiaphragm. Pleura: No effusion. No pneumothorax. Cardiomediastinal contours: Widened mediastinum which appears to be from uncoiling of the aorta ; unchanged from prior imagings. Heart size is within normal limits. Bones: No acute osseous abnormality. IMPRESSION: Pulmonary vascular congestion. Date: 09/20/2024 11:00 AM Examination: XY KUB ABDOMEN SINGLE VIEW History: left renal stones Comparison: XY KUB ABDOMEN SINGLE VIEW on DOS: 05/27/24, XY KUB ABDOMEN SINGLE VIEW on DOS: 03/02/24, XY KUB ABDOMEN SINGLE VIEW on DOS: 03/01/24 TECHNIQUE: Frontal views of the abdomen was obtained. FINDINGS: Bowel gas pattern is unremarkable. Luevano catheter overlying the bladder. The lung bases are unremarkable. No acute osseous abnormality identified. IMPRESSION: Nonobstructive bowel gas pattern. Condition at Discharge: Stable Final Diagnosis/Problems List Acute suprapubic tenderness likelu do to UTI Acute UTI likely due to KP. ESBL S/P shockwave lithotripsy on left sided 2 kidney stones STEFFEN on CKD stage IIIA likely postobstructive Acute on chronic nephrolithiasis Status post lithotripsy and stent placed on March 2024 Paroxysmal AFib, Primary hypertension Dyslipidemia GERD Type 2 diabetes mellitus BPH Bed-bound, cervical lipoma status postoperative complicated by paraplegia Discharge Disposition: [facility] Facility Discharge Instruct/Medications Diet: Regular Activity: No Restrictions, As Tolerated Follow Up/Referral: F/U with his PCP in 1 week Medications: Cont. home medications Discharge Statement: "Patient was advised to return to the ER or call 911 if any headaches, dizziness, shortness of breath, chest pain, abdominal pain, bleeding, fevers, or worsening of medical condition. Patient was counseled about treatment plan, medications, possible side effects, patientverbalized understanding. All questions were answered to the best of my ability. This discharge took greater then 30 minutes in planning, reviewing documentation, counseling the patient, and discussing with other team members." ASSESSMENT ASSESSMENT Assessment Acute suprapubic tenderness likelu do to UTI Acute UTI likely due to KP. ESBL S/P shockwave lithotripsy on left sided 2 kidney stones STEFFEN on CKD stage IIIA likely postobstructive Acute on chronic nephrolithiasis Status post lithotripsy and stent placed on March 2024 Paroxysmal AFib, Primary hypertension Dyslipidemia GERD Type 2 diabetes mellitus BPH Bed-bound, cervical lipoma status postoperative complicated by paraplegia Date of Service: Sep 22, 2024 Billing Provider: ALEXIA LACKEY MD Common Visit Codes: 08951-KFH/OBS DISCH DAY >30min REBECCA VALENZUELA RESIDENT Sep 22, 2024 06:59 ALEXIA LACKEY MD Sep 22, 2024 21:06
[2024-09-22 07:50] VITALS: PULSE 72; RESP 18; O2SAT 96
[2024-09-22 08:00] VITALS: BP 75/51; PULSE 86; RESP 18; TEMP 97.9; O2SAT 93
[2024-09-22 10:46] VITALS: TEMP 97.8
[2024-09-22] MEDS: LORazepam 0.5 MG TAB PO PRN (12:43)
[2024-09-22 13:18] VITALS: TEMP 97.9
== END 2024-09-22 13:18 | DRG 660 ==
LOC: ER 15:46 → EDBD 15:46 → OVERFLOW 23:06 → EAST 09-16 21:30
PROVIDERS: ADMIT Internal Medicine; ATTEND Internal Medicine
PROC: 0TC17ZZ Extirpation of Matter from Left Kidney, Via Natural or Artificial Opening (ICD-10-PCS; principal; 2024-09-21 14:31)
DX: N30.00 Acute cystitis without hematuria (principal); G82.20 Paraplegia, unspecified; N17.9 Acute kidney failure, unspecified; N40.0 Benign prostatic hyperplasia without lower urinary tract symptoms; N20.0 Calculus of kidney; L89.152 Pressure ulcer of sacral region, stage 2; B96.1 Klebsiella pneumoniae [K. pneumoniae] as the cause of diseases classified elsewhere; E78.5 Hyperlipidemia, unspecified; Z74.01 Bed confinement status; N18.31 Chronic kidney disease, stage 3a; K21.9 Gastro-esophageal reflux disease without esophagitis; I48.0 Paroxysmal atrial fibrillation; I12.9 Hypertensive chronic kidney disease with stage 1 through stage 4 chronic kidney disease, or unspecified chronic kidney disease; D64.9 Anemia, unspecified; D17.9 Benign lipomatous neoplasm, unspecified; E11.22 Type 2 diabetes mellitus with diabetic chronic kidney disease; N28.1 Cyst of kidney, acquired; N27.0 Small kidney, unilateral; J44.9 Chronic obstructive pulmonary disease, unspecified; I25.2 Old myocardial infarction; Z87.442 Personal history of urinary calculi; Z83.3 Family history of diabetes mellitus; Z80.1 Family history of malignant neoplasm of trachea, bronchus and lung; Z79.899 Other long term (current) drug therapy; Z82.49 Family history of ischemic heart disease and other diseases of the circulatory system; Z86.73 Personal history of transient ischemic attack (TIA), and cerebral infarction without residual deficits; Z79.4 Long term (current) use of insulin; Z90.49 Acquired absence of other specified parts of digestive tract
CPT/HCPCS: 36415; 71045; 74018; 76775; 80048; 80061; 80076; 80307; 81001; 82306; 82607; 83605; 83735; 84100; 84443; 85025; 85610; 85730; 86850; 86900; 86901; 87040; 87077; 87081; 87086; 87186; 87205; G0378; J2185; J2250; J2405; J2704

== ENCOUNTER 2024-10-16 07:25 | Inpatient (IN) | payer MEDICARE, MEDICAID ==
[~2024-10-16] VITALS: Ht 188 cm; Wt 112.7 kg
[2024-10-16] VITALS (8 sets, daily range): BP systolic 91–115; BP diastolic 57–66; PULSE 75–104; RESP 17–20; TEMP 97.4–98.2; O2SAT 90–96
[2024-10-16 08:19] LABS: Basophils # (auto) 0.1 10 ^3/uL (0-0.2); Basophils % (auto) 0.7 % (0.0-2.0); Eosinophils # (auto) 0 10 ^3/uL (0-0.8); Eosinophils % (auto) 0.3 % (0.0-7.0); Hematocrit 46.3 % (41.0-53.0); Hemoglobin 15.2 g/dL (13.5-17.5); Lymphocytes # (auto) 1.2 10 ^3/uL (0.4-5.4); Lymphocytes % (auto) 9.2 % (10.0-50.0); Mean Corpuscular Hemoglobin 29.1 pg (28.0-32.0); Mean Corpuscular Hgb Conc. 32.8 g/dL (32.0-36.0); Mean Corpuscular Volume 88.8 fL (80.0-100.0); Monocytes # (auto) 0.7 10 ^3/uL (0-1.3); Monocytes % (auto) 5.3 % (0.0-12.0); Neutrophils # (auto) 11.4 10 ^3/uL (1.6-8.6); Neutrophils % (auto) 84.5 % (37.0-80.0); Platelet Count (auto) 164 10^3/uL (140-450); Red Blood Cells 5.21 10^6/uL (4.5-5.90); Red Cell Distribution Width 15.5 % (11.8-14.3); White Blood Cell 13.5 10^3/uL (4.4-10.8)
--- NOTE | 2024-10-16 08:20 | ED.PDOC ---
HPI Comments 73-year-old male BIBA with prior medical history of AFIB, Anemia, CKF, COPD, CVA being left bed bound, DM, GERD, High Lipids, HTN, Kidney Stones, MN, TIA, UTI'S;Surgical History of Appendectomy, Cholecystectomy, PTCA in chief complaint of chest pain. m EMS reports that the patient was picked up from [facility], stuff stated that the patient was complaining of N/V times 24 hours bilateral foot pain. Patient was given 18 gauge on the left AC in route to the ER. Patient reports on having chest pain since 1500 yesterday which has been sharp and constant. Denies chills, fever, /D, SOB. No other associated symptoms, modifiers, recent injuries or sick contacts present at this time. Denies radiation of chest discomfort. Chief Complaint: Lower Extremity Time Seen by MD: 07:30 Primary Care Provider: UNKNOWN Reviewed Notes: Nurses Notes, Flight Paramedic Notes, Medications, Allergies Allergies: Coded Allergies: NO KNOWN ALLERGIES (Unverified , 01/27/22) Home Meds Reported Medications Insulin Regular (Human) (Humulin R) 100 Unit/Ml Inj, UNIT IV UD for 15 Days, #10 05/26/24 Insulin Glargine (Lantus) 100 Unit/Ml Inj, UNIT SC UD for 28 Days, #10 05/26/24 Flecainide Acetate (Flecainide Acetate) 100 Mg Tab, 1 TAB PO BID for 31 Days, #62 05/26/24 Carvedilol (Carvedilol) 3.125 Mg Tab, 1 TAB PO BID for 31 Days, #62 05/26/24 Apixaban Base (ELIQUIS) 2.5 Mg Tab, 1 TAB PO BID for 28 Days, #14 08/15/23 Nitroglycerin (Nitrostat) 0.4 Mg Sub, 0.4 MG SL, INJ 04/03/23 Atorvastatin Calcium (ATORVASTATIN CALCIUM) 10 Mg Tab, 1 TAB PO QPM for 31 Days, #31 04/03/23 Tamsulosin Hcl (Flomax) 0.4 Mg Cap, 1 TAB PO DAILY for 31 Days, #31 04/03/23 Multiple Vitamins W/ Minerals (Centrum Silver) Silver Tab, 1 OR DAILY, TAB 04/03/23 Pantoprazole Sodium Sesquihydr (Protonix) 40 Mg Tab, 1 TAB PO DAILY for 31 Days, #31 04/03/23 Bisacodyl (DULCOLAX SUPPOSITORY) 10 Mg Rc, 10 MG [place] DAILYP PRN for FOR CONSTI PATION, MG 08/06/18 Magnesium Hydroxide (MILK OF MAGNESIA ORAL SUSPENSION) 30 Ml Ss, 30 ML PO DAILYP PRN for FOR CONSTIPATION 08/06/18 Sodium Phosphates (FLEET ENEMA SIX PACK) Enema Sharon, 1 RE DAILYP PRN for FOR CONSTIPATION 08/06/18 Acetaminophen (Acetaminophen) 325 Mg Tab, 500 MG PO Q6HP PRN for MILD PAIN, 0 Refills 08/06/18 Docusate Sodium (Docusate Sodium) 100 Mg Tab, 100 MG PO BID 08/06/18 Information Source: Patient, Emergency Med Personnel Mode of Arrival: EMS Severity: Moderate Timing: Hours Duration: Since onset, Hours Prehospital treatment: None Location: Chest (L) Radiation: No Radiation Quality: Sharp Onset: At Rest Cardiac Risk Factors: Hyperlipidemia, HTN, Diabetes Associated Signs and Symptoms: None Past Medical History PAST MEDICAL HISTORY: AFIB, Anemia, CKF, COPD, CVA (Left the patient bed bound), DM, GERD, High Lipids, HTN, Kidney Stones, MN, TIA, UTI'S Surgical History: Appendectomy, Cholecystectomy, PTCA Family History Family History: Reviewed,noncontributory to illness, Unknown Social History Smoker: Non-Smoker Alcohol: Denies ETOH Use Drugs: Denies Drug Use Lives In: Assisted Care, Senior Care Constitutional: denies: chills, diaphoresis, fatigue, fever, malaise, sweats, weakness, others EENTM: denies: blurred vision, double vision, ear bleeding, ear discharge, ear drainage, ear pain, ear ringing, eye pain, eye redness, hearing loss, mouth pain, mouth swelling, nasal discharge, nose bleeding, nose congestion, nose pain, photophobia, tearing, throat pain, throat swelling, voice changes, others Respiratory: denies: cough, hemoptysis, orthopnea, SOB at rest, shortness of breath, SOB with excertion, stridor, wheezing, others Cardiovascular: reports: chest pain; denies: dizzy spells, diaphoresis, Dyspnea on exertion, edema, irregular heart beat, left arm pain, lightheadedness, palpitations, PND, syncope, others Gastrointestinal: reports: nausea, vomiting; denies: abdomen distended, abdominal pain, blood streaked bowels, constipated, diarrhea, dysphagia, difficulty swallowing, hematemesis, melena, poor appetite, poor fluid intake, rectal bleeding, rectal pain, others Genitourinary: denies: burning, dysuria, flank pain, frequency, hematuria, incontinence, penile discharge, penile sore, pain, testicle pain, testicle swelling, urgency, others Neurological: denies: dizziness, fainting, headache, left sided numbness, left sided weakness, numbness, paresthesia, pre-existing deficit, right sided nu mbness, right sided weakness, seizure, speech problems, tingling, tremors, weakness, others Musculoskeletal: denies: back pain, gout, joint pain, joint swelling, muscle pain, muscle stiffness, neck pain, others Integumetry: denies: bruises, change in color, change in hair/nails, dryness, laceration, lesions, lumps, rash, wounds, others Allergic/Immunocompromised: denies: Difficulty Healing, Frequent Infections, Hives, Itching, others Hematologic/Lymphatic: denies: anemia, blood clots, easy bleeding, easy bruising, swollen glands, others Endocrine: denies: excessive hunger, excessive sweating, excessive thirst, excessive urination, flushing, intolerance to cold, intolerance to heat, unexplained weight gain, unexplained weight loss, others Psychiatric: denies: anxiety, bipolar disorder, depression, hopeless, panic disorder, schizophrenia, sleepless, suicidal, others All Other Systems: Reviewed and Negative Physical Exam General Appearance: No Apparent Distress, Normal HEENT: Normal ENT Inspection, Pharynx Normal, TMs Normal Neck: Full Range of Motion, Non-Tender, Normal, Normal Inspection Respiratory: Chest Non-Tender, Lungs Clear, No Accessory Muscle Use, No Respiratory Distress, Normal Breath Sounds Cardiovascular: Normal Peripheral Pulses, Regular Rate/Rhythm Breast Exam: Deferred Gastrointestinal: Non Tender, Normal Bowel Sounds, Soft Genitalia: Deferred Pelvic: Deferred Rectal: Deferred Extremities: No calf tenderness, Normal capillary refill, Non-tender, No pedal edema, Other (Patient with evidence of previous stroke. Chronic spasticity and weakness in all extremities and legs. Patient face, body and legs are turned towards the right side likely chronic from previous stroke. No evidence of erythema or infection to bilateral feet. No leg swelling.) Musculoskeletal : Apperance: Normal Neurologic: Alert, Normal Affect, Normal Mood Cerebellar Function: NOT DONE Reflexes: NOT DONE Skin: Dry, Normal Color, Warm Lymphatic: No Adenopathy EKG EKG : Comments EKG 1. 7:25 a.m. rate of 106, evidence of inferior infarct acute MN per EKG read., QTC of 475 Was a procedure done? Was a procedure done?: No CP Differential Dx Differential Diagnosis: Angina, N/A Other Differential Diagnosis Chest pain, cardiomegaly, STEMI, neuropathy X-Ray, Labs, Meds, VS Vital Signs Date Time Temp Pulse Resp B/P (MAP) Pulse Ox O2 Delivery O2 Flow Rate FiO2 10/16/24 08:00 103 17 90 Room Air* 0 21 10/16/24 08:00 97.5 103 17 124/88 (100) 90 97.5 10/16/24 07:31 98.6 99 16 204/149 (167) 92 98.6 10/16/24 07:25 106 Lab Test 10/16/24 08:11 Range/Units White Blood Count 13.5 H 4.4-10.8 10^3/uL Red Blood Count 5.21 4.5-5.90 10^6/uL Hemoglobin 15.2 13.5-17.5 g/dL Hematocrit 46.3 41.0-53.0 % Mean Corpuscular Volume 88.8 80.0-100.0 fL Mean Corpuscular Hemoglobin 29.1 28.0-32.0 pg Mean Corpuscular Hemoglobin Concent 32.8 32.0-36.0 g/dL Red Cell Distribution Width 15.5 H 11.8-14.3 % Platelet Count 164 140-450 10^3/uL Mean Platelet Volume 7.4 6.9-10.8 fL Neutrophils (%) (Auto) 84.5 H 37.0-80.0 % Lymphocytes (%) (Auto) 9.2 L 10.0-50.0 % Monocytes (%) (Auto) 5.3 0.0-12.0 % Eosinophils (%) (Auto) 0.3 0.0-7.0 % Basophils (%) (Auto) 0.7 0.0-2.0 % Neutrophils # (Auto) 11.4 H 1.6-8.6 10 ^3/uL Lymphocytes # (Auto) 1.2 0.4-5.4 10 ^3/uL Monocytes # (Auto) 0.7 0-1.3 10 ^3/uL Eosinophils # (Auto) 0 0-0.8 10 ^3/uL Basophils # (Auto) 0.1 0-0.2 10 ^3/uL Nucleated Red Blood Cells 0.0 % Erythrocyte Sedimentation Rate Pending Sodium Level 142 136-145 mmol/L Potassium Level 4.0 3.5-5.1 mmol/L Chloride Level 108 H 98-107 mmol/L Carbon Dioxide Level 25 20-31 mmol/L Anion Gap 9 5-15 Blood Urea Nitrogen 13 9-23 mg/dL Creatinine 1.60 H 0.700-1.30 mg/dL Glomerular Filtration Rate Calc 46 >90 mL/min BUN/Creatinine Ratio 8.1 L 10.0-20.0 Serum Glucose 157 H 74-106 mg/dL Hemoglobin A1c 5.9 H <5.7 % A1C Calcium Level 9.5 8.7-10.4 mg/dL Magnesium Level 1.9 1.6-2.6 mg/dL Total Bilirubin 1.1 H 0.2-1.0 mg/dL Aspartate Amino Transferase (AST) 16 13-40 U/L Alanine Aminotransferase (ALT) 14 7-40 U/L Alkaline Phosphatase 115 46-116 U/L Troponin I High Sensitivity 7 </=54 ng/L C-Reactive Protein High Sensitivity 2.20 H <1.0 mg/dL Total Protein 7.5 5.7-8.2 g/dL Albumin 4.0 3.2-4.8 g/dL [place] [address] Ph: [phone] DIAGNOSTIC IMAGING Diagnostic Imaging Report : [id number] Signed PATIENT: INA PENA ACCT: [id number] UNIT: [id number] : 1950 LOC: ER ROOM / BED: / AGE / SEX: 73 / M ADM STATUS: REG ER SERVICE [id number] ORDERING PHYSICIAN: CHARLY BROWNE MD PROCEDURE(s): CXRP - CHEST PORTABLE REASON: CP ORDER NUMBER(s): [id number], ACCESSION NUMBER(s): [id number] EXAM: XR Chest, 1 View CLINICAL INDICATION: CP TECHNIQUE: Frontal view of the chest. COMPARISON: XY CHEST PORTABLE on DOS: 09/19/24, XY CHEST XRAY 1 VIEW on DOS: 09/16/24, XY CHEST PORTABLE on DOS: 08/30/24, XY CHEST PORTABLE on DOS: 05/27/24, XY CHEST PORTABLE on DOS: 02/26/24 FINDINGS: LUNGS AND PLEURAL SPACES: See below. HEART: Cardiomegaly with mild congestion. MEDIASTINUM: Unremarkable. Normal mediastinal contour. BONES/JOINTS: Unremarkable. No acute fracture. OTHER FINDINGS: . . . IMPRESSION: Cardiomegaly with mild congestion. ATED BY: REENA ALEJANDRA MD DICTATED DATE/TIME: 10/16/24815 SIGNED BY: REENA ALEJANDRA MD SIGNED DATE/TIME: 10/16/24815 CC: 73-year-old male presents here from nursing care facility for chest pain and also bilateral feet pain. Per EMS there EKG stripped was read as acute MN. Our initial EKG here also did demonstrate acute MN but per my reading no obvious MN demonstrated. Multiple attempts were made to contact the experimental assembler on-call i ncluding Dr. Grant and Dr. Plaza Ultimately we were able to reach both and both agreed this did not meet STEMI criteria. At this time blood work has been done. Troponin is negative. At this time I believe patient would benefit for inpatient admission. Hospitalist team has been contacted. Patient did receive aspirin prior to arrival by EMS. Time of 1ST Reevaluation: 08:00 Reevaluation 1ST: Unchanged Patient Education/Counseling: Diagnosis, Treatment, Prognosis Family Education/Counseling: No Family Present Departure 1 Departure Time of Disposition: 09:30 Impression: Primary Impression: Chest pain Qualified Codes: R07.9 - Chest pain, unspecified Additional Impressions: Bilateral foot pain Acute kidney injury Hyperbilirubinemia Cardiomegaly Disposition: ADMITTED INPATIENT Condition: Fair Critical Care Note Critical Care Time?: Yes (35 min-critical care time only) Critical care comment: Patient was immediately evaluated by myself upon his arrival to the ER given he was potentially an acute STEMI. Immediate EKG was done. Time spent reviewing the EKG myself reviewing EMS rhythm strip, speaking to the patient, contacting cardiology physician on-call, and speaking to nursing staff and the experimental assembler. Stability Stability form required: No Heart Score Heart Score: Heart Score Response (Comments) Value History Moderate Suspicious 1 EKG Repolarization Disturb 1 Age >65 2 Risk Factors >3 or Hx ASHD 2 Troponin Normal limit 0 Total 6 I personally scribed for CHARLY BROWNE MD ([email or web address]) on 10/16/24 at 08:20. Electronically submitted by Earl Orosco ([facility]). I personally scribed for CHARLY BROWNE MD ([email or web address]) on 10/16/24 at 08:42. Electronically submitted by Earl Orosco ([facility]). I personally scribed for CHARLY BROWNE MD ([email or web address]) on 10/16/24 at 09:33. Electronically submitted by Earl Orosco ([facility]). I personally scribed for CHARLY BROWNE MD ([email or web address]) on 10/16/24 at 09:41. Electronically submitted by Earl Orosco ([facility]). CHARLY BROWNE MD October 16, 2024 08:20
[2024-10-16 08:38] LABS: Alanine Aminotransferase 14 U/L (7-40); Alkaline Phosphatase 115 U/L (46-116); Anion Gap 9 (5-15); Aspartate Aminotransferase 16 U/L (13-40); BUN/Creatinine Ratio 8.1 (10.0-20.0); Blood Urea Nitrogen 13 mg/dL (9-23); Calcium 9.5 mg/dL (8.7-10.4); Carbon Dioxide 25 mmol/L (20-31); Magnesium 1.9 mg/dL (1.6-2.6); Sodium 142 mmol/L (136-145); Total Protein 7.5 g/dL (5.7-8.2)
[2024-10-16 08:39] LABS: Bilirubin, Total 1.1 mg/dL (0.2-1.0)
[2024-10-16 08:40] LABS: Chloride 108 mmol/L (98-107); Glucose 157 mg/dL (74-106)
[2024-10-16] MEDS: ASPirin 81 mg TAB PO ONE (08:42)
[2024-10-16] MEDS ORDERED: DEXTROSE (50%) 50ML SYRG IV PRN (09:00)
[2024-10-16] MEDS ORDERED: ONDANSETRON HCL 4 MG/2 ML VIAL IV PRN (09:00)
[2024-10-16] MEDS ORDERED: MORPHINE SULFATE INJ 2 MG/ml SYRG IV PRN ×2 (09:00)
[2024-10-16] MEDS ORDERED: NITROGLYCERIN 0.4 MG SL TAB SL PRN (09:00)
--- NOTE | 2024-10-16 09:37 | DVHHP2 ---
History of Present Illness Reason for Visit: Bilateral lower extremity pain History of Present Illness Day, Harmeet Purdy is a 73-year-old male with past medical history of hypertension, hyperlipidemia, diabetes type 2, COPD, AFib, CKD, anemia, GERD, CVA with no deficits, kidney stones, PA, TIA, UTI, appendectomy, cholecystectomy, and cystoscopy with left ureteral stent who presents to the ED with bilateral lower extremity pain x1 day. In his history states that patient had a PTCA however patient denies. Patient reports that the pain was originally a 5 to 610 but now currently on up on examination 07/12 sharp and constant. Patient also reports that he is chronically bed-bound and resides at [facility]. He also states that he uses oxygen on and off. He denies any chest pain, fever, chills, lightheadedness, weakness, dizziness, abdominal pain, nausea, vomiting, diarrhea, recent trauma or injury, recent sick contacts, recent travels, or recent ingestion of spoiled food. Cardiovascular: AFIB, HTN, PA, hyperipidemia Pulmonary: COPD SPECIAL EDUCATION BUS DRIVER: Other (CVA and TIA) GI: GERD Heme/Onc: Anemia NOS Renal/: Chronic renal insuff, UTI Endocrine: Diabetes Past Medical History Nephrolithiasis Past Surgical History: Appendectomy, Cholecystectomy, Other (Cystoscopy with left ureteral stent) Family History: None Smoke: No ALCOHOL: none Drugs: None Lives: [facility] Domestic Violence: Neg Review of Systems Musculoskeletal: leg pain Allergies: Coded Allergies: NO KNOWN ALLERGIES (Unverified , 01/27/22) Exam Vital Signs Vital Signs Date Time Temp Pulse Resp B/P (MAP) Pulse Ox O2 Delivery O2 Flow Rate FiO2 10/16/24 07:31 98.6 99 16 204/149 (167 92 98.6 General Appearance: Alert, Oriented X3, Cooperative, No acute distress HEENT: Atraumatic, PERRLA, EOMI, Mucous membr. moist/pink Respiratory: Normal air movement Cardiovascular: Normal S1, Normal S2 Abdominal: Normal bowel sounds, Soft Extremities: No clubbing, No cyanosis, Normal pulses Skin: No significant lesion Neuro: Normal speech, Sensation intact Psych/Mental Status: Mental status NL, Mood NL Labs/Xrays Labs Test 10/16/24 08:11 Range/Units White Blood Count 13.5 H 4.4-10.8 10^3/uL Red Blood Count 5.21 4.5-5.90 10^6/uL Hemoglobin 15.2 13.5-17.5 g/dL Hematocrit 46.3 41.0-53.0 % Mean Corpuscular Volume 88.8 80.0-100.0 fL Mean Corpuscular Hemoglobin 29.1 28.0-32.0 pg Mean Corpuscular Hemoglobin Concent 32.8 32.0-36.0 g/dL Red Cell Distribution Width 15.5 H 11.8-14.3 % Platelet Count 164 140-450 10^3/uL Mean Platelet Volume 7.4 6.9-10.8 fL Neutrophils (%) (Auto) 84.5 H 37.0-80.0 % Lymphocytes (%) (Auto) 9.2 L 10.0-50.0 % Monocytes (%) (Auto) 5.3 0.0-12.0 % Eosinophils (%) (Auto) 0.3 0.0-7.0 % Basophils (%) (Auto) 0.7 0.0-2.0 % Neutrophils # (Auto) 11.4 H 1.6-8.6 10 ^3/uL Lymphocytes # (Auto) 1.2 0.4-5.4 10 ^3/uL Monocytes # (Auto) 0.7 0-1.3 10 ^3/uL Eosinophils # (Auto) 0 0-0.8 10 ^3/uL Basophils # (Auto) 0.1 0-0.2 10 ^3/uL Nucleated Red Blood Cells 0.0 % Sodium Level 142 136-145 mmol/L Potassium Level 4.0 3.5-5.1 mmol/L Chloride Level 108 H 98-107 mmol/L Carbon Dioxide Level 25 20-31 mmol/L Anion Gap 9 5-15 Blood Urea Nitrogen 13 9-23 mg/dL Creatinine 1.60 H 0.700-1.30 mg/dL Glomerular Filtration Rate Calc 46 >90 mL/min BUN/Creatinine Ratio 8.1 L 10.0-20.0 Serum Glucose 157 H 74-106 mg/dL Calcium Level 9.5 8.7-10.4 mg/dL Magnesium Level 1.9 1.6-2.6 mg/dL Total Bilirubin 1.1 H 0.2-1.0 mg/dL Aspartate Amino Transferase (AST) 16 13-40 U/L Alanine Aminotransferase (ALT) 14 7-40 U/L Alkaline Phosphatase 115 46-116 U/L Troponin I High Sensitivity 7 </=54 ng/L Total Protein 7.5 5.7-8.2 g/dL Albumin 4.0 3.2-4.8 g/dL EXAM: US Duplex Bilateral Lower Extremities Veins CLINICAL INDICATION: ro dvt TECHNIQUE: Real-time duplex ultrasound scan of the bilateral lower extremity v eins integrating B-mode two-dimensional vascular structure, Doppler spectral analysis, color flow Doppler imaging and compression. COMPARISON: US BILAT LOWER DVT on DOS: 08/30/24 FINDINGS: RIGHT DEEP VEINS: Unremarkable. No DVT in the right common femoral, femoral, proximal deep femoral or popliteal veins. The veins demonstrate normal color flow, are normally compressible, with normal phasic flow and/or augmentation response. RIGHT SUPERFICIAL VEINS: Unremarkable. No thrombus in the visualized right great saphenous vein. LEFT DEEP VEINS: Unremarkable. No DVT in the left common femoral, femoral, proximal deep femoral or popliteal veins. The veins demonstrate normal color flow, are normally compressible, with normal phasic flow and/or augmentation response. LEFT SUPERFICIAL VEINS: Unremarkable. No thrombus in the visualized left great saphenous vein. SOFT TISSUES: No acute findings. No popliteal cyst. OTHER FINDINGS: . IMPRESSION: No DVT. EXAM: XR Chest, 1 View CLINICAL INDICATION: CP TECHNIQUE: Frontal view of the chest. COMPARISON: XY CHEST PORTABLE on DOS: 09/19/24, XY CHEST XRAY 1 VIEW on DOS: 09/16/24, XY CHEST PORTABLE on DOS: 08/30/24, XY CHEST PORTABLE on DOS: 05/27/24, XY CHEST PORTABLE on DOS: 02/26/24 FINDINGS: LUNGS AND PLEURAL SPACES: See below. HEART: Cardiomegaly with mild congestion. MEDIASTINUM: Unremarkable. Normal mediastinal contour. BONES/JOINTS: Unremarkable. No acute fracture. OTHER FINDINGS: . . . IMPRESSION: Cardiomegaly with mild congestion. Assessment/Plan Assessment/Plan Assessment Acute hypoxic respiratory failure Hypertensive urgency Leukocytosis likely due to UTI Bilateral lower extremity pain rule out DVT Chronic bed-bound Hypertensive urgency Cardiomegaly STEFFEN Hyperbilirubinemia History of hypertension History of hyperlipidemia History of diabetes type 2 History of COPD History of AFib History of CKD History of anemia History of GERD History of CVA History of nephrolithiasis History of PA History of TIA History of UTIs History of appendectomy History of cholecystectomy History of cystoscopy with left ureteral stent ? History of PTCA Plan Admit to telemetry Blood cultures Lactic level ESR CRP Chest x-ray Aspirin given ED Mag level EKG Trend troponins IV antibiotics-Levaquin Hemoglobin A1c ISS and Accu-Cheks UA Ultrasound bilateral lower extremity venous [place] catheter Antiemetics Pain management Diet Home medications reconciled DVT prophylaxis-patient on apixaban PUD prophylaxis-PPIs Discussed plan of care with patient and nurse Patient is a resident from [facility] Plan discussed with: Patient My Orders Orders - MENDY BENOIT Procedure Category Date Status Time L[place]ano Catheters ED NURSING 10/16/24 Transmitted Date of Service: October 16, 2024 Billing Provider: MENDY BENOIT Common Visit Codes: [id number] INP/OBS CARE (HIGH) MENDY BENOIT October 16, 2024 09:37
[2024-10-16] MEDS ORDERED: ENOXAPARIN SOD 40 MG/0.4 ML SYRINGE SC SCH (10:00)
[2024-10-16 10:39] LABS: Erythrocyte Sedimentation Rate 34 mm/hr (0-20)
[2024-10-16] MEDS: CARVEDILOL 3.125 MG TAB PO SCH (10:39)
[2024-10-16] MEDS: APIXABAN 2.5 MG TAB PO SCH (10:39)
[2024-10-16] MEDS: PANTOPRAZOLE 40 MG TAB PO SCH (10:39)
[2024-10-16] MEDS: levoFLOXacin 500MG 100 ML IV SCH (10:39)
[2024-10-16] MEDS: TAMSULOSIN HYDROCHLORIDE 0.4 MG CAP PO SCH (10:40)
[2024-10-16] MEDS: MULTIPLE VITAMINS W/ MINERALS TAB PO SCH (10:40)
--- NOTE | 2024-10-16 10:42 | DVH ---
EXAM: US Duplex Bilateral Lower Extremities Veins CLINICAL INDICATION: ro dvt TECHNIQUE: Real-time duplex ultrasound scan of the bilateral lower extremity veins integrating B-mod e two-dimensional vascular structure, Doppler spectral analysis, color flow Doppler imaging and compr ession. COMPARISON: US BILAT LOWER DVT on DOS: 08/30/24 FINDINGS: RIGHT DEEP VEINS: Unremarkable. No DVT in the right common femoral, femoral, proximal deep femoral or popliteal veins. The veins demonstrate normal color flow, are normally compressible, with normal phasic flow and/or augmentation response. RIGHT SUPERFICIAL VEINS: Unremarkable. No thrombus in the visualized right great saphenous vein. LEFT DEEP VEINS: Unremarkable. No DVT in the left common femoral, femoral, proximal deep femoral o r popliteal veins. The veins demonstrate normal color flow, are normally compressible, with normal p hasic flow and/or augmentation response. LEFT SUPERFICIAL VEINS: Unremarkable. No thrombus in the visualized left great saphenous vein. SOFT TISSUES: No acute findings. No popliteal cyst. OTHER FINDINGS: . IMPRESSION: No DVT.
[2024-10-16 10:53] LABS: Urine Bacteria FEW /hpf (None Seen); Urine Blood 2+ /uL (Negative); Urine Clarity Cloudy (Clear); Urine Color Yellow (Yellow); Urine Protein, UAD 1+ (Negative); Urine Specific Gravity 1.012 (1.001-1.035); Urine Squamous Epithelial Cell FEW /hpf (<5); Urine Urobilinogen Normal (Negative); Urine WBC 1950 /HPF (0-3); Urine WBC Clumps PRESENT /hpf (None Seen); Urine pH 7.5 (5.0-9.0)
[2024-10-16] MEDS: InsuLIN REG 1unit/0.01ml Soln (100units/ml) SC SCH (12:09)
[2024-10-16] MEDS: ACCU-CHEK COMFORT CURVE STRIP VI SCH (12:10)
[2024-10-16] MEDS: HYDROcodone-ACET 5/325MG TAB PO PRN (12:37)
[2024-10-16] MEDS: FLECAINIDE ACETATE 50 MG TAB PO SCH (13:01)
[2024-10-16] MEDS: ACETAMINOPHEN 325 MG TAB PO PRN (14:30)
--- NOTE | 2024-10-16 15:58 | DVHPN2 ---
Subjective 73-year-old male history of hypertension, dyslipidemia, type 2 diabetes, COPD, coronary artery disease, CVA in the past, bed-bound, left hemiplegia who came from [facility] where he lives with a chief complaint of abdominal pain, and bilateral leg pain The patient has a history of recurrent UTI with Klebsiella ESBL Examination shows he is having abdominal pain, generalized but mostly concentrated in the periumbilical area Extremity venous study shows no DVT Chest x-ray shows cardiomegaly with mild congestion Creatinine 1.6 which is higher than his baseline Changes from previous H/P or p: Changes Musculoskeletal: leg pain Objective Vitals Vital Signs Date Time Temp Pulse Resp B/P (MAP) Pulse Ox O2 Delivery O2 Flow Rate FiO2 10/16/24 14:30 102.4 10/16/24 13:13 97 18 93 Nasal Cannula* 2 28 10/16/24 13:13 94/57 (69) General Appearance: Alert, Oriented X3, Cooperative, mild distress Lungs: Clear to auscultation, Normal air movement Cardiovascular: Regular rate, Normal S1 Abdomen: Normal bowel sounds, Soft, No tenderness Extremities: No edema Medications Current Medications Medications Dose Ordered Sig/Karely Route Start Time Stop Time Status Last Admin Dose Admin Acetaminophen/ Hydrocodone Bitart 1 tab Q4HP PRN PO 10/16/24 09:00 10/16/24 12:37 1 TAB Ondansetron HCl 4 mg Q4HP PRN IV 10/16/24 09:00 Acetaminophen 650 mg Q6HP PRN PO 10/16/24 09:00 10/16/24 14:30 650 MG Morphine Sulfate 2 mg Q4HPRN PRN IV 10/16/24 09:00 Nitroglycerin 0.4 mg Q5MINP PRN SL 10/16/24 09:00 Morphine Sulfate 2 mg Q30M PRN IV 10/16/24 09:00 Diagnostic Test (Pha) 1 strip ACHS 10/16/24 11:30 10/16/24 12:10 1 STRIP Insulin Human Regular ACHS SC 10/16/24 11:30 10/16/24 12:09 2 UNITS Dextrose 50 ml UD PRN IV 10/16/24 09:00 Levofloxacin/ Dextrose 100 ml @ 100 mls/hr DAILY IV 10/16/24 10:00 10/16/24 10:39 100 MLS/HR Apixaban 2.5 mg BID PO 10/16/24 10:00 10/16/24 10:39 2.5 MG Carvedilol 3.125 mg BID PO 10/16/24 10:00 Magnesium Hydroxide 30 ml DAILYP PRN PO 10/16/24 09:00 Multivitamins/ Minerals 1 tab DAILY PO 10/16/24 10:00 10/16/24 10:40 1 TAB Pantoprazole Sodium 40 mg DAILY@0700 PO 10/16/24 10:00 10/16/24 10:39 40 MG Tamsulosin HCl 0.4 mg DAILY PO 10/16/24 10:00 10/16/24 10:40 0.4 MG Atorvastatin Calcium 10 mg HS PO 10/16/24 22:00 Flecainide Acetate 100 mg BID PO 10/16/24 10:00 10/16/24 13:01 100 MG Laboratory Results Laboratory Tests 10/16/24 08:11 Chemistry Test 10/16/24 08:11 Albumin 4.0 g/dL (3.2-4.8) Calcium Level 9.5 mg/dL (8.7-10.4) Magnesium Level 1.9 mg/dL (1.6-2.6) Total Protein 7.5 g/dL (5.7-8.2) LFT Test 10/16/24 08:11 Alanine Aminotransferase (ALT) 14 U/L (7-40) Alkaline Phosphatase 115 U/L (46-116) Aspartate Amino Transferase (AST) 16 U/L (13-40) Total Bilirubin 1.1 mg/dL (0.2-1.0) H HgA1c, TSH Test 10/16/24 08:11 Hemoglobin A1c 5.9 % A1C (<5.7) H Urinalysis Test 10/16/24 10:39 Urine Color Yellow (Yellow) Urine Clarity Cloudy (Clear) H Urine pH 7.5 (5.0-9.0) Urine Specific [place] 1.012 (1.001-1.035) Urine Protein 1+ (Negative) H Urine Ketones Negative (Negative) Urine Blood 2+ /uL (Negative) H Urine Nitrite Negative (Negative) Urine Bilirubin Negative (Negative) Urine Urobilinogen Normal mg/dL (Negative) Urine Leukocyte Esterase 3+ /uL (Negative) Urine RBC 36 /hpf (0 - 3) Urine WBC Clumps Present /hpf (None Seen) Urine Microscopic WBC 1950 /HPF (0-3) H Urine Squamous Epithelial Cells Few /hpf (<5) Urine Bacteria Few /hpf (None Seen) H Urine Glucose Normal mg/dL (Normal) Assessment/Plan Assessment/Plan UTI Acute kidney injury due to vasomotor nephropathy Abdominal pain most likely due to UTI History of UTI with Klebsiella ESBL History of shock wave lithotripsy for kidney stones History of Chronic kidney disease stage IIIA GERD Type 2 diabetes Bed-bound BPH Dyslipidemia Hypertension Paroxysmal AFib Hypotension Sepsis due to UTI Plan Give IV fluids bolus and then continuous normal saline IV antibiotics empirically with meropenem Urine culture and blood culture Continue Eliquis 2.5 mg twice a day Aspirin Lipitor Coreg Flecainide Pain control with [place] p.r.n. Monitor the patient closely Full code Advance directives discussed for 22 minute Plan discussed with: Patient Date of Service: October 16, 2024 Billing Provider: JEANNE MCKNIGHT MD Common Visit Codes: [id number] INP/OBS CARE(HIGH) Secondary Visit Codes: [id number] CARE PLAN 30 MINUTES JEANNE MCKNIGHT MD October 16, 2024 15:58
[2024-10-16] MEDS: MEROPENEM 1GM IVPB 50 ML IV ONE (16:29)
[2024-10-16] MEDS: SODIUM CHLORIDE 0.9% 250 ML IV ONE (16:29)
[2024-10-16] MEDS: SODIUM CHLORIDE 0.9% 1,000 ML IV SCH (17:45)
--- NOTE | 2024-10-16 18:54 | ECG ---
[facility] Test Date: 2024-10-16 Test Time: 07:24:30 Pat Name: INA PENA Department: ED Room: 0236T A Gender: M Electronic Development Technician: TABBY : 1950 Requested By: CHARLY BROWNE Order Number: [id number] Reading MD: Mitch Plaza Measurements Intervals [place] Rate: 105 P: 0 AL: 0 QRS: 267 QRSD: 144 T: 39 QT: 360 QTc: 476 Interpretive Statements Junctional tachycardia Nonspecific IVCD with LAD Electronically Signed On 10-16-2024 21:04:50 PDT by Mitch Plaza Please click the below link to view image of tracing.
--- NOTE | 2024-10-16 18:54 | ECG ---
[facility] Test Date: 2024-10-16 Test Time: 07:25:10 Pat Name: INA PENA Department: ED Room: 0236T A Gender: M Heart Doctor: TABBY : 1950 Requested By: CHARLY BROWNE Order Number: [id number] Reading MD: Mitch Plaza Measurements Intervals [place] Rate: 106 P: 0 MT: 0 QRS: -86 QRSD: 145 T: 46 QT: 357 QTc: 475 Interpretive Statements AV dissociation Nonspecific IVCD with LAD Inferior infarct, acute (LCx) Electronically Signed On 10-16-2024 21:04:56 PDT by Mitch Plaza Please click the below link to view image of tracing.
[2024-10-16] MEDS: ATORVASTATIN 20 MG TAB PO SCH (21:30)
[2024-10-16] MEDS: MEROPENEM 1GM IVPB 50 ML IV SCH (21:40)
[2024-10-17 05:00] VITALS: BP 97/53; PULSE 62; RESP 18; TEMP 98.6; O2SAT 94
[2024-10-17 06:14] LABS: Basophils # (auto) 0.1 10 ^3/uL (0-0.2); Basophils % (auto) 0.3 % (0.0-2.0); Eosinophils # (auto) 0 10 ^3/uL (0-0.8); Eosinophils % (auto) 0.1 % (0.0-7.0); Hematocrit 39.7 % (41.0-53.0); Hemoglobin 12.8 g/dL (13.5-17.5); Lymphocytes # (auto) 1.7 10 ^3/uL (0.4-5.4); Lymphocytes % (auto) 11.1 % (10.0-50.0); Mean Corpuscular Hemoglobin 29.2 pg (28.0-32.0); Mean Corpuscular Hgb Conc. 32.3 g/dL (32.0-36.0); Mean Corpuscular Volume 90.5 fL (80.0-100.0); Monocytes # (auto) 1.1 10 ^3/uL (0-1.3); Neutrophils # (auto) 12.5 10 ^3/uL (1.6-8.6); Neutrophils % (auto) 81.5 % (37.0-80.0); Platelet Count (auto) 128 10^3/uL (140-450); Red Blood Cells 4.39 10^6/uL (4.5-5.90); Red Cell Distribution Width 15.4 % (11.8-14.3); White Blood Cell 15.3 10^3/uL (4.4-10.8)
[2024-10-17 06:28] LABS: INR 1.52 (0.9-1.15); Partial Thromboplastin Time 41.5 SEC (24.5-34.5); Prothrombin Time 15.5 sec (9.3-11.8)
[2024-10-17 06:31] LABS: Alkaline Phosphatase 78 U/L (46-116); Anion Gap 10 (5-15); BUN/Creatinine Ratio 11.3 (10.0-20.0); Blood Urea Nitrogen 14 mg/dL (9-23); Glucose 77 mg/dL (74-106); Magnesium 1.6 mg/dL (1.6-2.6); Sodium 143 mmol/L (136-145)
[2024-10-17 06:33] LABS: Alanine Aminotransferase < 9 U/L (7-40); Albumin 2.9 g/dL (3.2-4.8); Aspartate Aminotransferase 10 U/L (13-40); Bilirubin, Total 1.3 mg/dL (0.2-1.0); Calcium 7.3 mg/dL (8.7-10.4); Carbon Dioxide 20 mmol/L (20-31); Chloride 113 mmol/L (98-107); Potassium 3.3 mmol/L (3.5-5.1); Total Protein 5.6 g/dL (5.7-8.2)
[2024-10-17 08:00] VITALS: PULSE 69
[2024-10-17 08:37] VITALS: BP 106/65; PULSE 78; RESP 18; TEMP 97.8; O2SAT 92
[2024-10-17] MEDS: POTASSIUM CHL 20 Meq TABLET PO ONE (10:29)
[2024-10-17 12:34] VITALS: BP 110/66; PULSE 70; RESP 18; TEMP 98.8; O2SAT 98
--- NOTE | 2024-10-17 13:57 | DVHPN2 ---
Subjective He is doing better More alert and oriented Changes from previous H/P or p: Changes Musculoskeletal: leg pain Objective Vitals Vital Signs Date Time Temp Pulse Resp B/P (MAP) Pulse Ox O2 Delivery O2 Flow Rate FiO2 10/17/24 12:34 98.8 70 18 110/66 (81) 98 98.8 10/17/24 07:30 Room Air* 0 21 Intake/Output Intake and Output 10/17/24 07:00 Intake Total 1270 ml Output Total 550 ml Balance 720 ml Intake Oral 230 ml IV Total 1040 ml Output Urine Total 550 ml General Appearance: Alert, Oriented X3, Cooperative, mild distress Lungs: Clear to auscultation, Normal air movement Cardiovascular: Regular rate, Normal S1 Abdomen: Normal bowel sounds, Soft, No tenderness Extremities: No edema Medications Current Medications Medications Dose Ordered Sig/Karely Route Start Time Stop Time Status Last Admin Dose Admin Acetaminophen/ Hydrocodone Bitart 1 tab Q4HP PRN PO 10/16/24 09:00 10/16/24 12:37 1 TAB Ondansetron HCl 4 mg Q4HP PRN IV 10/16/24 09:00 Acetaminophen 650 mg Q6HP PRN PO 10/16/24 09:00 10/16/24 14:30 650 MG Morphine Sulfate 2 mg Q4HPRN PRN IV 10/16/24 09:00 Nitroglycerin 0.4 mg Q5MINP PRN SL 10/16/24 09:00 Morphine Sulfate 2 mg Q30M PRN IV 10/16/24 09:00 Diagnostic Test (Pha) 1 strip ACHS 10/16/24 11:30 10/17/24 10:36 1 STRIP Insulin Human Regular ACHS SC 10/16/24 11:30 10/16/24 12:09 2 UNITS Dextrose 50 ml UD PRN IV 10/16/24 09:00 Apixaban 2.5 mg BID PO 10/16/24 10:00 10/17/24 09:32 2.5 MG Carvedilol 3.125 mg BID PO 10/16/24 10:00 10/17/24 09:33 3.125 MG Magnesium Hydroxide 30 ml DAILYP PRN PO 10/16/24 09:00 Multivitamins/ Minerals 1 tab DAILY PO 10/16/24 10:00 10/17/24 09:32 1 TAB Pantoprazole Sodium 40 mg DAILY@0700 PO 10/16/24 10:00 10/17/24 05:50 40 MG Tamsulosin HCl 0.4 mg DAILY PO 10/16/24 10:00 10/17/24 09:31 0.4 MG Atorvastatin Calcium 10 mg HS PO 10/16/24 22:00 10/16/24 21:30 10 MG Flecainide Acetate 100 mg BID PO 10/16/24 10:00 10/17/24 09:33 100 MG Meropenem 50 ml @ 17 mls/hr Q8HR IV 10/16/24 22:00 10/17/24 13:50 17 MLS/HR Sodium Chloride 1,000 ml @ 60 mls/hr [id number] IV 10/16/24 17:45 10/17/24 10:30 60 MLS/HR Laboratory Results Laboratory Tests 10/17/24 05:50 Chemistry Test 10/17/24 05:50 Albumin 2.9 g/dL (3.2-4.8) L Calcium Level 7.3 mg/dL (8.7-10.4) L Magnesium Level 1.6 mg/dL (1.6-2.6) Total Protein 5.6 g/dL (5.7-8.2) L Coagulation Test 10/17/24 05:50 Prothrombin Time 15.5 sec (9.3-11.8) H Prothrombin Time INR 1.52 (0.9-1.15) H Activated Partial Thromboplast Time 41.5 SEC (24.5-34.5) H LFT Test 10/17/24 05:50 Alanine Aminotransferase (ALT) < 9 U/L (7-40) Alkaline Phosphatase 78 U/L (46-116) Aspartate Amino Transferase (AST) 10 U/L (13-40) L Total Bilirubin 1.3 mg/dL (0.2-1.0) H HgA1c, TSH Test 10/17/24 05:50 Thyroid Stimulating Hormone (TSH) 0.52 uIU/mL (0.55-4.78) L Urinalysis Test 10/16/24 10:39 Urine Color Yellow (Yellow) Urine Clarity Cloudy (Clear) H Urine pH 7.5 (5.0-9.0) Urine Specific [place] 1.012 (1.001-1.035) Urine Protein 1+ (Negative) H Urine Ketones Negative (Negative) Urine Blood 2+ /uL (Negative) H Urine Nitrite Negative (Negative) Urine Bilirubin Negative (Negative) Urine Urobilinogen Normal mg/dL (Negative) Urine Leukocyte Esterase 3+ /uL (Negative) Urine RBC 36 /hpf (0 - 3) Urine WBC Clumps Present /hpf (None Seen) Urine Microscopic WBC 1950 /HPF (0-3) H Urine Squamous Epithelial Cells Few /hpf (<5) Urine Bacteria Few /hpf (None Seen) H Urine Glucose Normal mg/dL (Normal) Microbiology Microbiology Date/Time Source Procedure Growth Status 10/16/24 10:39 Urine - [place] Urine Culture - Preliminary Resulted 10/16/24 09:50 Blood Blood Culture - Preliminary NO GROWTH AFTER 24 HOURS OF INCUBATION. Resulted Assessment/Plan Assessment/Plan UTI Acute kidney injury due to vasomotor nephropathy Abdominal pain most likely due to UTI History of UTI with Klebsiella ESBL History of shock wave lithotripsy for kidney stones History of Chronic kidney disease stage IIIA GERD Type 2 diabetes Bed-bound BPH Dyslipidemia Hypertension Paroxysmal AFib Hypotension Sepsis due to UTI Plan Give IV fluids bolus and then continuous normal saline IV antibiotics empirically with meropenem Urine culture and blood culture Continue Eliquis 2.5 mg twice a day Aspirin Lipitor Coreg Flecainide Pain control with [place] p.r.n. Monitor the patient closely Full code Advance directives discussed for 22 minute 10/17/2024: Continue IV fluids normal saline Continue meropenem The urine culture is still pending, however the preliminary is showing Gram- negative rods Continue the other treatments as ordered including Eliquis Hypokalemia: Replace Hypomagnesemia: Replace Monitor closely Plan discussed with: Patient My Orders Orders - JEANNE MCKNIGHT MD Procedure Category Date Status Time Meropenem 1gm Ivpb PHA 10/16/24 In Process (Merrem 1gm/ Ns) 22:00 Sodium Chloride 0.9% PHA 10/16/24 In Process 17:45 Date of Service: October 17, 2024 Billing Provider: JEANNE MCKNIGHT MD Common Visit Codes: [id number] INP/OBS CARE(HIGH) JEANNE MCKNIGHT MD October 17, 2024 13:57
[2024-10-17] MEDS: MAGNESIUM OXIDE 400 MG TAB PO ONE (15:53)
[2024-10-17 16:44] VITALS: BP 98/56; PULSE 74; RESP 18; TEMP 99.3; O2SAT 93
[2024-10-17 20:00] VITALS: PULSE 68; PULSE 71; RESP 18; O2SAT 91
[2024-10-18] VITALS (7 sets, daily range): BP systolic 100–134; BP diastolic 57–83; PULSE 70–77; RESP 16–20; TEMP 97.7–98.5; O2SAT 95–97
[2024-10-18] MEDS: MAGNESIUM OXIDE 400 MG TAB PO SCH (09:18)
--- NOTE | 2024-10-18 11:27 | DVHPN2 ---
Subjective Complains of neuropathy pain in his feet Changes from previous H/P or p: Changes Musculoskeletal: leg pain Objective Vitals Vital Signs Date Time Temp Pulse Resp B/P (MAP) Pulse Ox O2 Delivery O2 Flow Rate FiO2 10/18/24 10:20 70 102/61 10/18/24 08:49 98.5 20 97 98.5 10/17/24 20:00 Room Air* 0 21 Intake/Output Intake and Output 10/18/24 07:00 Intake Total 1770 ml Output Total 1200 ml Balance 570 ml Intake Oral 1100 ml IV Total 670 ml Output Urine Total 1200 ml General Appearance: Alert, Oriented X3, Cooperative, mild distress Lungs: Clear to auscultation, Normal air movement Cardiovascular: Regular rate, Normal S1 Abdomen: Normal bowel sounds, Soft, No tenderness Extremities: No edema Medications Current Medications Medications Dose Ordered Sig/Karely Route Start Time Stop Time Status Last Admin Dose Admin Acetaminophen/ Hydrocodone Bitart 1 tab Q4HP PRN PO 10/16/24 09:00 10/18/24 01:26 1 TAB Ondansetron HCl 4 mg Q4HP PRN IV 10/16/24 09:00 Acetaminophen 650 mg Q6HP PRN PO 10/16/24 09:00 10/16/24 14:30 650 MG Morphine Sulfate 2 mg Q4HPRN PRN IV 10/16/24 09:00 Nitroglycerin 0.4 mg Q5MINP PRN SL 10/16/24 09:00 Morphine Sulfate 2 mg Q30M PRN IV 10/16/24 09:00 Diagnostic Test (Pha) 1 strip ACHS 10/16/24 11:30 10/18/24 07:30 1 STRIP Insulin Human Regular ACHS SC 10/16/24 11:30 10/16/24 12:09 2 UNITS Dextrose 50 ml UD PRN IV 10/16/24 09:00 Apixaban 2.5 mg BID PO 10/16/24 10:00 10/18/24 09:18 2.5 MG Carvedilol 3.125 mg BID PO 10/16/24 10:00 10/18/24 09:20 3.125 MG Magnesium Hydroxide 30 ml DAILYP PRN PO 10/16/24 09:00 Multivitamins/ Minerals 1 tab DAILY PO 10/16/24 10:00 10/18/24 09:18 1 TAB Pantoprazole Sodium 40 mg DAILY@0700 PO 10/16/24 10:00 10/18/24 06:02 40 MG Tamsulosin HCl 0.4 mg DAILY PO 10/16/24 10:00 10/18/24 09:18 0.4 MG Atorvastatin Calcium 10 mg HS PO 10/16/24 22:00 10/17/24 21:52 10 MG Flecainide Acetate 100 mg BID PO 10/16/24 10:00 10/18/24 09:19 100 MG Meropenem 50 ml @ 17 mls/hr Q8HR IV 10/16/24 22:00 10/18/24 06:02 17 MLS/HR Sodium Chloride 1,000 ml @ 60 mls/hr [id number] IV 10/16/24 17:45 10/18/24 06:06 60 MLS/HR Magnesium Oxide 800 mg DAILY PO 10/18/24 10:00 10/18/24 09:18 800 MG Laboratory Results Laboratory Tests 10/17/24 05:50 Urinalysis Test 10/16/24 10:39 Urine Color Yellow (Yellow) Urine Clarity Cloudy (Clear) H Urine pH 7.5 (5.0-9.0) Urine Specific [place] 1.012 (1.001-1.035) Urine Protein 1+ (Negative) H Urine Ketones Negative (Negative) Urine Blood 2+ /uL (Negative) H Urine Nitrite Negative (Negative) Urine Bilirubin Negative (Negative) Urine Urobilinogen Normal mg/dL (Negative) Urine Leukocyte Esterase 3+ /uL (Negative) Urine RBC 36 /hpf (0 - 3) Urine WBC Clumps Present /hpf (None Seen) Urine Microscopic WBC 1950 /HPF (0-3) H Urine Squamous Epithelial Cells Few /hpf (<5) Urine Bacteria Few /hpf (None Seen) H Urine Glucose Normal mg/dL (Normal) Microbiology Microbiology Date/Time Source Procedure Growth Status 10/16/24 10:56 Nose MRSA Screen - Final Complete 10/16/24 10:39 Urine - [place] Urine Culture - Preliminary Resulted 10/16/24 09:50 Blood Blood Culture - Preliminary NO GROWTH AFTER 48 HOURS OF INCUBATION. Resulted Assessment/Plan Assessment/Plan UTI Acute kidney injury due to vasomotor nephropathy Abdominal pain most likely due to UTI History of UTI with Klebsiella ESBL History of shock wave lithotripsy for kidney stones History of Chronic kidney disease stage IIIA GERD Type 2 diabetes Bed-bound BPH Dyslipidemia Hypertension Paroxysmal AFib Hypotension Sepsis due to UTI Plan Give IV fluids bolus and then continuous normal saline IV antibiotics empirically with meropenem Urine culture and blood culture Continue Eliquis 2.5 mg twice a day Aspirin Lipitor Coreg Flecainide Pain control with [place] p.r.n. Monitor the patient closely Full code Advance directives discussed for 22 minute 10/17/2024: Continue IV fluids normal saline Continue meropenem The urine culture is still pending, however the preliminary is showing Gram- negative rods Continue the other treatments as ordered including Eliquis Hypokalemia: Replace Hypomagnesemia: Replace Monitor closely 10/18/2024: UTI: Continue meropenem Culture is still pending Check the kidney ultrasound to rule out obstruction or hydronephrosis STEFFEN continue IV fluids Neuropathy: Neurontin 100 mg t.i.d. Continue Eliquis and Coreg Plan discussed with: Patient My Orders Orders - JEANNE MCKNIGHT MD Procedure Category Date Status Time Magnesium Oxide PHA 10/18/24 In Process Tablet (Mag-Ox Tablet) 10:00 Date of Service: October 18, 2024 Billing Provider: JEANNE MCKNIGHT MD Common Visit Codes: [id number] INP/OBS CARE(HIGH) JEANNE MCKNIGHT MD October 18, 2024 11:27
[2024-10-18] MEDS: GABAPENTIN 100 MG CAP PO SCH (14:57)
--- NOTE | 2024-10-18 15:02 | DVH ---
INDICATION: UTI TECHNIQUE: Multiple real-time sonographic images of the kidneys and bladder were obtained. COMPARISON: US KIDNEY on DOS: 09/16/24, US KIDNEY on DOS: 08/31/24, US KIDNEY on DOS: 03/19/24, US KIDNE Y on DOS: 03/01/24 FINDINGS: RIGHT kidney measures 10.7 cm in length. No hydronephrosis. LEFT kidney measures 10.6 cm in length. No hydronephrosis. Mild fullness of the left proximal ureter and renal pelvis. Multiple nonobstructin g stones in the left kidney measuring up to 0.9 cm in the lower pole. IMPRESSION: Multiple nonobstructing stones in the left kidney measuring up to 0.9 cm. Mild fullness of the left proximal ureter and renal pelvis. No hydronephrosis.
[2024-10-19] VITALS (8 sets, daily range): BP systolic 120–146; BP diastolic 56–91; PULSE 60–67; RESP 15–18; TEMP 96.3–98.4; O2SAT 95–99
[2024-10-19 06:09] LABS: Basophils # (auto) 0 10 ^3/uL (0-0.2); Basophils % (auto) 0.6 % (0.0-2.0); Eosinophils # (auto) 0.1 10 ^3/uL (0-0.8); Eosinophils % (auto) 1.4 % (0.0-7.0); Hematocrit 39.4 % (41.0-53.0); Hemoglobin 13.2 g/dL (13.5-17.5); Lymphocytes # (auto) 1.5 10 ^3/uL (0.4-5.4); Lymphocytes % (auto) 23.3 % (10.0-50.0); Mean Corpuscular Hemoglobin 29.8 pg (28.0-32.0); Mean Corpuscular Hgb Conc. 33.6 g/dL (32.0-36.0); Mean Corpuscular Volume 88.8 fL (80.0-100.0); Monocytes # (auto) 0.7 10 ^3/uL (0-1.3); Monocytes % (auto) 10.2 % (0.0-12.0); Neutrophils # (auto) 4.2 10 ^3/uL (1.6-8.6); Neutrophils % (auto) 64.5 % (37.0-80.0); Nucleated Red Blood Cells % 0.1 %; Platelet Count (auto) 149 10^3/uL (140-450); Red Blood Cells 4.44 10^6/uL (4.5-5.90); White Blood Cell 6.6 10^3/uL (4.4-10.8)
[2024-10-19 06:28] LABS: Anion Gap 8 (5-15); Carbon Dioxide 25 mmol/L (20-31); Chloride 106 mmol/L (98-107); Potassium 3.9 mmol/L (3.5-5.1); Sodium 139 mmol/L (136-145)
[2024-10-19 06:29] LABS: Calcium 9.5 mg/dL (8.7-10.4)
[2024-10-19 06:34] LABS: Blood Urea Nitrogen 14 mg/dL (9-23); Glucose 91 mg/dL (74-106); Magnesium 2.1 mg/dL (1.6-2.6)
[2024-10-19 08:19] LABS: BUN/Creatinine Ratio 11.3 (10.0-20.0)
--- NOTE | 2024-10-19 09:00 | ECG ---
[facility] Test Date: 2024-10-16 Test Time: 14:21:26 Pat Name: INA PENA Department: Respiratoy Room: 0236T A Gender: M Accounts Payable Analyst: : [id number] Requested By: MENDY BENOIT Order Number: [id number] Reading MD: Mitch Plaza Measurements Intervals Umpire Rate: 109 P: 0 CT: 0 QRS: -65 QRSD: 147 T: 33 QT: 362 QTc: 488 Interpretive Statements Junctional tachycardia Nonspecific IVCD with LAD Left ventricular hypertrophy Electronically Signed On 10-25-2024 10:25:10 PDT by Mitch Plaza Please click the below link to view image of tracing.
--- NOTE | 2024-10-19 12:03 | DVHPN2 ---
Subjective Doing well More alert and oriented Urine culture showed E coli ESBL sensitive to meropenem The renal ultrasound showed multiple nonobstructing stones in the left kidney measuring up to 0.9 cm with a fullness of the left proximal ureter and renal pelvis but no hydronephrosis Changes from previous H/P or p: Changes Musculoskeletal: leg pain Objective Vitals Vital Signs Date Time Temp Pulse Resp B/P (MAP) Pulse Ox O2 Delivery O2 Flow Rate FiO2 10/19/24 09:24 67 120/68 10/19/24 09:00 97.9 15 95 97.9 10/18/24 20:00 Nasal Cannula* 1 24 Intake/Output Intake and Output 10/19/24 07:00 Intake Total 900 ml Output Total 3000 ml Balance -2100 ml Intake Oral 800 ml IV Total 100 ml Output Urine Total 3000 ml General Appearance: Alert, Oriented X3, Cooperative, mild distress Lungs: Clear to auscultation, Normal air movement Cardiovascular: Regular rate, Normal S1 Abdomen: Normal bowel sounds, Soft, No tenderness Extremities: No edema Medications Current Medications Medications Dose Ordered Sig/Karely Route Start Time Stop Time Status Last Admin Dose Admin Acetaminophen/ Hydrocodone Bitart 1 tab Q4HP PRN PO 10/16/24 09:00 10/18/24 13:01 1 TAB Ondansetron HCl 4 mg Q4HP PRN IV 10/16/24 09:00 Acetaminophen 650 mg Q6HP PRN PO 10/16/24 09:00 10/16/24 14:30 650 MG Morphine Sulfate 2 mg Q4HPRN PRN IV 10/16/24 09:00 Nitroglycerin 0.4 mg Q5MINP PRN SL 10/16/24 09:00 Morphine Sulfate 2 mg Q30M PRN IV 10/16/24 09:00 Diagnostic Test (Pha) 1 strip ACHS 10/16/24 11:30 10/19/24 11:41 1 STRIP Insulin Human Regular ACHS SC 10/16/24 11:30 10/16/24 12:09 2 UNITS Dextrose 50 ml UD PRN IV 10/16/24 09:00 Apixaban 2.5 mg BID PO 10/16/24 10:00 10/19/24 09:23 2.5 MG Carvedilol 3.125 mg BID PO 10/16/24 10:00 10/19/24 09:24 3.125 MG Magnesium Hydroxide 30 ml DAILYP PRN PO 10/16/24 09:00 Multivitamins/ Minerals 1 tab DAILY PO 10/16/24 10:00 10/19/24 09:23 1 TAB Pantoprazole Sodium 40 mg DAILY@0700 PO 10/16/24 10:00 10/19/24 06:19 40 MG Tamsulosin HCl 0.4 mg DAILY PO 10/16/24 10:00 10/19/24 09:23 0.4 MG Atorvastatin Calcium 10 mg HS PO 10/16/24 22:00 10/18/24 21:47 10 MG Flecainide Acetate 100 mg BID PO 10/16/24 10:00 10/19/24 09:23 100 MG Meropenem 50 ml @ 17 mls/hr Q8HR IV 10/16/24 22:00 10/19/24 05:10 17 MLS/HR Magnesium Oxide 800 mg DAILY PO 10/18/24 10:00 10/19/24 09:23 800 MG Gabapentin 100 mg TID PO 10/18/24 14:00 10/19/24 05:11 100 MG Laboratory Results Laboratory Tests 10/19/24 05:32 Chemistry Test 10/19/24 05:32 Calcium Level 9.5 mg/dL (8.7-10.4) Magnesium Level 2.1 mg/dL (1.6-2.6) Urinalysis Test 10/16/24 10:39 Urine Color Yellow (Yellow) Urine Clarity Cloudy (Clear) H Urine pH 7.5 (5.0-9.0) Urine Specific [place] 1.012 (1.001-1.035) Urine Protein 1+ (Negative) H Urine Ketones Negative (Negative) Urine Blood 2+ /uL (Negative) H Urine Nitrite Negative (Negative) Urine Bilirubin Negative (Negative) Urine Urobilinogen Normal mg/dL (Negative) Urine Leukocyte Esterase 3+ /uL (Negative) Urine RBC 36 /hpf (0 - 3) Urine WBC Clumps Present /hpf (None Seen) Urine Microscopic WBC 1950 /HPF (0-3) H Urine Squamous Epithelial Cells Few /hpf (<5) Urine Bacteria Few /hpf (None Seen) H Urine Glucose Normal mg/dL (Normal) Microbiology Microbiology Date/Time Source Procedure Growth Status 10/16/24 10:56 Nose MRSA Screen - Final Complete 10/16/24 10:39 Urine - [place] Urine Culture - Final Escherichia coli - ESBL Complete 10/16/24 09:50 Blood Blood Culture - Preliminary NO GROWTH AFTER 72 HOURS OF INCUBATION. Resulted Assessment/Plan Assessment/Plan UTI Acute kidney injury due to vasomotor nephropathy Abdominal pain most likely due to UTI History of UTI with Klebsiella ESBL History of shock wave lithotripsy for kidney stones History of Chronic kidney disease stage IIIA GERD Type 2 diabetes Bed-bound BPH Dyslipidemia Hypertension Paroxysmal AFib Hypotension Sepsis due to UTI Plan Give IV fluids bolus and then continuous normal saline IV antibiotics empirically with meropenem Urine culture and blood culture Continue Eliquis 2.5 mg twice a day Aspirin Lipitor Coreg Flecainide Pain control with [place] p.r.n. Monitor the patient closely Full code Advance directives discussed for 22 minute 10/17/2024: Continue IV fluids normal saline Continue meropenem The urine culture is still pending, however the preliminary is showing Gram- negative rods Continue the other treatments as ordered including Eliquis Hypokalemia: Replace Hypomagnesemia: Replace Monitor closely 10/18/2024: UTI: Continue meropenem Culture is still pending Check the kidney ultrasound to rule out obstruction or hydronephrosis STEFFEN continue IV fluids Neuropathy: Neurontin 100 mg t.i.d. Continue Eliquis and Coreg 10/19/2024: UTI with E coli ESBL: Continue meropenem IV Left nephrolithiasis: Consult Urology STEFFEN: Discontinue the IV fluids since the kidney function is better, monitor daily Neuropathy: Continue Neurontin Continue Eliquis and Coreg The rest of the management will depend on the hospital course Plan discussed with: Patient Date of Service: October 19, 2024 Billing Provider: JEANNE MCKNIGHT MD Common Visit Codes: [id number] INP/OBS CARE(HIGH) JEANNE MCKNIGHT MD October 19, 2024 12:03
--- NOTE | 2024-10-19 15:25 | DVHINCON2 ---
Date of service: October 19, 2024 Referring Physician Hospitalist Reason for Consultation Left renal stones History of Present Illness 73-year-old male s/p Left ESWL on 09/21/24. He is admitted to [facility] with past medical history of hypertension, hyperlipidemia, diabetes type 2, COPD, AFib, CKD, anemia, GERD, CVA with no deficits, kidney stones, VT, TIA, UTI, appendectomy, cholecystectomy, with bilateral lower extremity pain x1 day. In his history states that patient had a PTCA however patient denies. Patient reports that the pain was originally a 5 to 610 but now currently on upon examination 07/12 sharp and constant. Patient also reports that he is chronically bed-bound and resides at [facility]. He also states that he uses oxygen on and off. He denies any chest pain, fever, chills, lightheadedness, weakness, dizziness, abdominal pain, nausea, vomiting, diarrhea, recent trauma or injury, recent sick contacts, recent travels, or recent ingestion of spoiled food. Past Medical History Cardiovascular: AFIB, HTN, VT, hyperipidemia Pulmonary: COPD PLASTERER SPOT: Other (CVA and TIA) GI: GERD Heme/Onc: Anemia NOS Renal/: Chronic renal insuff, UTI Endocrine: Diabetes Past Medical History Nephrolithiasis Past Surgical History 09/21/24 Left ESWL Family History: Cardiovascular disease G8 MOTHER Diabetes mellitus G8 MOTHER FH: lung cancer G8 FATHER Sepsis G8 MOTHER Allergies: Coded Allergies: NO KNOWN ALLERGIES (Unverified , 01/27/22) Home Meds Reported Medications Insulin Regular (Human) (Humulin R) 100 Unit/Ml Inj, UNIT IV UD for 15 Days, #10 05/26/24 Insulin Glargine (Lantus) 100 Unit/Ml Inj, UNIT SC UD for 28 Days, #10 05/26/24 Flecainide Acetate (Flecainide Acetate) 100 Mg Tab, 1 TAB PO BID for 31 Days, #62 05/26/24 Carvedilol (Carvedilol) 3.125 Mg Tab, 1 TAB PO BID for 31 Days, #62 05/26/24 Apixaban Base (ELIQUIS) 2.5 Mg Tab, 1 TAB PO BID for 28 Days, #14 08/15/23 Nitroglycerin (Nitrostat) 0.4 Mg Sub, 0.4 MG SL, INJ 04/03/23 Atorvastatin Calcium (ATORVASTATIN CALCIUM) 10 Mg Tab, 1 TAB PO QPM for 31 Days, #31 04/03/23 Tamsulosin Hcl (Flomax) 0.4 Mg Cap, 1 TAB PO DAILY for 31 Days, #31 04/03/23 Multiple Vitamins W/ Minerals (Centrum Silver) Silver Tab, 1 OR DAILY, TAB 04/03/23 Pantoprazole Sodium Sesquihydr (Protonix) 40 Mg Tab, 1 TAB PO DAILY for 31 Days, #31 04/03/23 Bisacodyl (DULCOLAX SUPPOSITORY) 10 Mg Rc, 10 MG OK DAILYP PRN for FOR CONSTIPATION, MG 08/06/18 Magnesium Hydroxide (MILK OF MAGNESIA ORAL SUSPENSION) 30 Ml Ss, 30 ML PO DAILYP PRN for FOR CONSTIPATION 08/06/18 Sodium Phosphates (FLEET ENEMA SIX PACK) Enema [place], 1 RE DAILYP PRN for FOR CONSTIPATION 08/06/18 Acetaminophen (Acetaminophen) 325 Mg Tab, 500 MG PO Q6HP PRN for MILD PAIN, 0 Refills 08/06/18 Docusate Sodium (Docusate Sodium) 100 Mg Tab, 100 MG PO BID 08/06/18 Review of Systems Musculoskeletal: leg pain Allergies: Coded Allergies: NO KNOWN ALLERGIES (Unverified , 01/27/22) Vital Signs Vital Signs Date Time Temp Pulse Resp B/P (MAP) Pulse Ox O2 Delivery O2 Flow Rate FiO2 10/19/24 09:24 67 120/68 10/19/24 09:00 97.9 15 95 97.9 10/18/24 20:00 Nasal Cannula* 1 24 Physical Exam Vital Signs Date Time Temp Pulse Resp B/P (MAP) Pulse Ox O2 Delivery O2 Flow Rate FiO2 10/16/24 07:31 98.6 99 16 204/149 (247) 92 98.6 General Appearance: Alert, Oriented X3, Cooperative, No acute distress HEENT: Atraumatic, PERRLA, EOMI, Mucous membr. moist/pink Respiratory: Normal air movement Cardiovascular: Normal S1, Normal S2 Abdominal: Normal bowel sounds, Soft : costa in place with clear urine Extremities: No clubbing, No cyanosis, Normal pulses Skin: No significant lesion Neuro: Normal speech, Sensation intact Psych/Mental Status: Mental status NL, Mood NL Labs/Diagnostic Data Labs Test 10/19/24 11:37 10/19/24 05:32 10/17/24 05:50 10/16/24 11:22 Range/Units POC Glucose 88 70-106 mg/dl White Blood Count 6.6 # 4.4-10.8 10^3/uL Red Blood Count 4.44 L 4.5-5.90 10^6/uL Hemoglobin 13.2 L 13.5-17.5 g/dL Hematocrit 39.4 L 41.0-53.0 % Mean Corpuscular Volume 88.8 80.0-100.0 fL Mean Corpuscular Hemoglobin 29.8 28.0-32.0 pg Mean Corpuscular Hemoglobin Concent 33.6 32.0-36.0 g/dL Red Cell Distribution Width 15.0 H 11.8-14.3 % Platelet Count 149 140-450 10^3/uL Mean Platelet Volume 7.8 6.9-10.8 fL Neutrophils (%) (Auto) 64.5 37.0-80.0 % Lymphocytes (%) (Auto) 23.3 10.0-50.0 % Monocytes (%) (Auto) 10.2 0.0-12.0 % Eosinophils (%) (Auto) 1.4 0.0-7.0 % Basophils (%) (Auto) 0.6 0.0-2.0 % Neutrophils # (Auto) 4.2 1.6-8.6 10 ^3/uL Lymphocytes # (Auto) 1.5 0.4-5.4 10 ^3/uL Monocytes # (Auto) 0.7 0-1.3 10 ^3/uL Eosinophils # (Auto) 0.1 0-0.8 10 ^3/uL Basophils # (Auto) 0 0-0.2 10 ^3/uL Nucleated Red Blood Cells 0.1 % Sodium Level 139 136-145 mmol/L Potassium Level 3.9 3.5-5.1 mmol/L Chloride Level 106 98-107 mmol/L Carbon Dioxide Level 25 20-31 mmol/L Anion Gap 8 5-15 Blood Urea Nitrogen 14 9-23 mg/dL Creatinine 1.24 0.700-1.30 mg/dL Glomerular Filtration Rate Calc 62 >90 mL/min BUN/Creatinine Ratio 11.3 10.0-20.0 Serum Glucose 91 74-106 mg/dL Calcium Level 9.5 8.7-10.4 mg/dL Magnesium Level 2.1 1.6-2.6 mg/dL Prothrombin Time 15.5 H 9.3-11.8 sec Prothrombin Time INR 1.52 H 0.9-1.15 Activated Partial Thromboplast Time 41.5 H 24.5-34.5 SEC Total Bilirubin 1.3 H 0.2-1.0 mg/dL Aspartate Amino Transferase (AST) 10 L 13-40 U/L Alanine Aminotransferase (ALT) < 9 7-40 U/L Alkaline Phosphatase 78 46-116 U/L Total Protein 5.6 L 5.7-8.2 g/dL Albumin 2.9 L 3.2-4.8 g/dL Thyroid Stimulating Hormone (TSH) 0.52 L 0.55-4.78 uIU/mL Troponin I High Sensitivity 12 </=54 ng/L Test 10/16/24 10:39 10/16/24 09:50 10/16/24 08:11 Range/Units Urine Color Yellow Yellow Urine Clarity Cloudy H Clear Urine pH 7.5 5.0-9.0 Urine Specific [place] 1.012 1.001-1.035 Urine Protein 1+ H Negative Urine Ketones Negative Negative Urine Blood 2+ H Negative /uL Urine Nitrite Negative Negative Urine Bilirubin Negative Negative Urine Urobilinogen Normal Negative mg/dL Urine Leukocyte Esterase 3+ Negative /uL Urine RBC 36 0 - 3 /hpf Urine WBC Clumps Present None Seen /hpf Urine Microscopic WBC 1950 H 0-3 /HPF Urine Squamous Epithelial Cells Few <5 /hpf Urine Bacteria Few H None Seen /hpf Urine Glucose Normal Normal mg/dL Lactic Acid Level 1.6 0.4-2.0 mmol/L Erythrocyte Sedimentation Rate 34 H 0-20 mm/hr Hemoglobin A1c 5.9 H <5.7 % A1C C-Reactive Protein High Sensitivity 2.20 H <1.0 mg/dL Microbiology Date/Time Source Procedure Growth Status 10/16/24 10:56 Nose MRSA Screen - Final Complete 10/16/24 10:39 Urine - [place] Urine Culture - Final Escherichia coli - ESBL Complete 10/16/24 09:50 Blood Blood Culture - Preliminary NO GROWTH AFTER 72 HOURS OF INCUBATION. Resulted Assessment Left renal stones- persistent s/p Left ESWL Plan/Recommendation Left URSLL with CVAC on Friday Hold Eliquis. Start Lovenox. Plan discussed with: Patient MICHEAL SANTOS MD October 19, 2024 15:25
[2024-10-19] MEDS: LACTULOSE 20Gm/30ML SOLN PO ONE (17:15)
--- NOTE | 2024-10-19 17:58 | MEDREC ---
[facility] Intervention Section I [facility] Intervention: Review courses of therapy (PLEASE CONSIDER SWITCHING TO ERTAPENEM (DAILY INSTEAD OF Q8H)) MACIEL CARVER PHARMACIST October 19, 2024 17:58
--- NOTE | 2024-10-19 19:15 | DVH ---
Exam: CT CT AB PEL WO CON-NO ORAL OR IV History: left renal stones Comparison Study: CT CT AB PEL WO CON-NO ORAL OR IV on DOS: 09/01/24, CT CT AB PEL WO CON-NO ORAL OR IV on DOS: 08/30/24, CT CT AB PEL WO CON-NO ORAL OR IV on DOS: 05/25/24, CT CT AB PEL WO CON-NO ORAL OR IV on DOS: 04/24/24, CT CT AB PEL WO CON-NO ORAL OR IV on DOS: 02/28/24 TECHNIQUE: Multidetector CT of the abdomen was performed from lung bases to pubic symphysis. Imaging was performed without IV contrast. Axial, coronal and sagittal multiplanar reformats were obtained fr om the axial data set by the technologist. Radiation Dose Information: CT Dose: CTDI volume is 18.37 mGy. Dose-length product is 1132.15 mGy*cm FINDINGS: Evaluation of solid organs is limited due to lack of intravenous contrast use. Findings: Lung Bases: No acute or significant lung base finding. Normal heart size. No pleural or pericardial effusion. Liver: The liver is normal in size. No focal lesions. Gallbladder and Biliary Tree: Gallbladder is surgically absent with clips in the gallbladder fossa. Spleen: Unremarkable Pancreas: The pancreas is grossly normal in appearance. Adrenal Glands: Unremarkable Kidneys: Both kidneys have perinephric fat stranding suggesting of pyelonephritis. Nonobstructing presley culi seen in the left kidney. Small cortical cysts in both kidneys.. Bladder: Grossly unremarkable for degree of distention. Bowel: The stomach is grossly normal in appearance. Small bowel and colon are normal in caliber and d istribution. The appendix is not visualized; however, no secondary findings of acute appendicitis id entified. Diverticulosis Ascites: Absent Lymphadenopathy: No mesenteric, retroperitoneal or periportal lymphadenopathy. Abdominal Wall and Mesentery: Unremarkable. Vasculature: The visualized abdominal aorta is normal in size and caliber. There is scattered atheros clerotic change abdominal aorta iliac vessels with calcified plaque. Evaluation of abdominal and pel eveline vessels is limited due to lack of intravenous contrast. Pelvic Organs: Unremarkable Musculoskeletal: No aggressive focal bony lesions, acute fractures or dislocation. Multilevel osteoar thritic disease of the lumbar spine. This is most severe at L2-L3 and L3-L4 and L4-L5. Soft tissues: Unremarkable IMPRESSION: 1. No acute abdominal or pelvic finding. 2. Both kidneys have fat stranding suggesting pyelonephritis 3. Multiple Nonobstructive calculi seen in the left kidney 4. 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 Diffuse atherosclerotic changes of abdominal aorta iliac vessels. Radiation optimization: All CT scans at this facility use at least one of these dose optimization rosendo hniques: automated exposure control mA and/or kV adjustment per patient size (includes targeted exam s where dose is matched to clinical indication) or iterative reconstruction.
[2024-10-19] MEDS: ENOXAPARIN SOD 120 MG/0.8 ML SYRINGE SC SCH (21:08)
[2024-10-19] MEDS: DOCUSATE SOD 100 MG CAP PO SCH (21:10)
[2024-10-20] VITALS (9 sets, daily range): BP systolic 110–144; BP diastolic 66–92; PULSE 61–92; RESP 16–18; TEMP 96–97.8; O2SAT 93–97
[2024-10-20] MEDS: ERTAPENEM SOD INJ 1 GM in SODIUM CHL 0.9% 50 ML IV SCH (10:37)
--- NOTE | 2024-10-20 21:04 | DVHPN2 ---
Subjective Doing well Scheduled for lithotripsy on 10/22 Changes from previous H/P or p: Changes Musculoskeletal: leg pain Objective Vitals Vital Signs Date Time Temp Pulse Resp B/P (MAP) Pulse Ox O2 Delivery O2 Flow Rate FiO2 10/20/24 20:00 Room Air* 0 21 10/20/24 16:20 97.4 92 18 110/76 (87) 93 97.4 Intake/Output Intake and Output 10/20/24 07:00 Intake Total 1300 ml Output Total 2400 ml Balance -1100 ml Intake Oral 1300 ml Output Urine Total 2400 ml # Bowel Movements 1 General Appearance: Alert, Oriented X3, Cooperative, mild distress Lungs: Clear to auscultation, Normal air movement Cardiovascular: Regular rate, Normal S1 Abdomen: Normal bowel sounds, Soft, No tenderness Extremities: No edema Medications Current Medications Medications Dose Ordered Sig/Karely Route Start Time Stop Time Status Last Admin Dose Admin Acetaminophen/ Hydrocodone Bitart 1 tab Q4HP PRN PO 10/16/24 09:00 10/18/24 13:01 1 TAB Ondansetron HCl 4 mg Q4HP PRN IV 10/16/24 09:00 Acetaminophen 650 mg Q6HP PRN PO 10/16/24 09:00 10/16/24 14:30 650 MG Morphine Sulfate 2 mg Q4HPRN PRN IV 10/16/24 09:00 Nitroglycerin 0.4 mg Q5MINP PRN SL 10/16/24 09:00 Morphine Sulfate 2 mg Q30M PRN IV 10/16/24 09:00 Diagnostic Test (Pha) 1 strip ACHS 10/16/24 11:30 10/20/24 16:58 1 STRIP Insulin Human Regular ACHS SC 10/16/24 11:30 10/20/24 16:58 2 UNITS Dextrose 50 ml UD PRN IV 10/16/24 09:00 Carvedilol 3.125 mg BID PO 10/16/24 10:00 10/20/24 10:25 3.125 MG Magnesium Hydroxide 30 ml DAILYP PRN PO 10/16/24 09:00 Multivitamins/ Minerals 1 tab DAILY PO 10/16/24 10:00 10/20/24 10:23 1 TAB Pantoprazole Sodium 40 mg DAILY@0700 PO 10/16/24 10:00 10/20/24 06:47 40 MG Tamsulosin HCl 0.4 mg DAILY PO 10/16/24 10:00 10/20/24 10:24 0.4 MG Atorvastatin Calcium 10 mg HS PO 10/16/24 22:00 10/19/24 21:11 10 MG Flecainide Acetate 100 mg BID PO 10/16/24 10:00 10/20/24 10:24 100 MG Magnesium Oxide 800 mg DAILY PO 10/18/24 10:00 10/20/24 10:25 800 MG Gabapentin 100 mg TID PO 10/18/24 14:00 10/20/24 14:29 100 MG Enoxaparin Sodium 110 mg Q12HR SC 10/19/24 22:00 10/20/24 10:26 110 MG Docusate Sodium 100 mg BID PO 10/19/24 22:00 10/20/24 10:25 100 MG Ertapenem 1 gm/ Sodium Chloride 50 ml @ 100 mls/hr DAILY IV 10/20/24 10:00 10/20/24 10:37 100 MLS/HR Laboratory Results Laboratory Tests 10/19/24 05:32 Urinalysis Test 10/16/24 10:39 Urine Color Yellow (Yellow) Urine Clarity Cloudy (Clear) H Urine pH 7.5 (5.0-9.0) Urine Specific [place] 1.012 (1.001-1.035) Urine Protein 1+ (Negative) H Urine Ketones Negative (Negative) Urine Blood 2+ /uL (Negative) H Urine Nitrite Negative (Negative) Urine Bilirubin Negative (Negative) Urine Urobilinogen Normal mg/dL (Negative) Urine Leukocyte Esterase 3+ /uL (Negative) Urine RBC 36 /hpf (0 - 3) Urine WBC Clumps Present /hpf (None Seen) Urine Microscopic WBC 1950 /HPF (0-3) H Urine Squamous Epithelial Cells Few /hpf (<5) Urine Bacteria Few /hpf (None Seen) H Urine Glucose Normal mg/dL (Normal) Microbiology Microbiology Date/Time Source Procedure Growth Status 10/16/24 10:56 Nose MRSA Screen - Final Complete 10/16/24 10:39 Urine - [place] Urine Culture - Final Escherichia coli - ESBL Complete 10/16/24 09:50 Blood Blood Culture - Preliminary NO GROWTH AFTER 72 HOURS OF INCUBATION. Resulted Assessment/Plan Assessment/Plan UTI Acute kidney injury due to vasomotor nephropathy Abdominal pain most likely due to UTI History of UTI with Klebsiella ESBL History of shock wave lithotripsy for kidney stones History of Chronic kidney disease stage IIIA GERD Type 2 diabetes Bed-bound BPH Dyslipidemia Hypertension Paroxysmal AFib Hypotension Sepsis due to UTI Plan Give IV fluids bolus and then continuous normal saline IV antibiotics empirically with meropenem Urine culture and blood culture Continue Eliquis 2.5 mg twice a day Aspirin Lipitor Coreg Flecainide Pain control with [place] p.r.n. Monitor the patient closely Full code Advance directives discussed for 22 minute 10/17/2024: Continue IV fluids normal saline Continue meropenem The urine culture is still pending, however the preliminary is showing Gram- negative rods Continue the other treatments as ordered including Eliquis Hypokalemia: Replace Hypomagnesemia: Replace Monitor closely 10/18/2024: UTI: Continue meropenem Culture is still pending Check the kidney ultrasound to rule out obstruction or hydronephrosis STEFFEN continue IV fluids Neuropathy: Neurontin 100 mg t.i.d. Continue Eliquis and Coreg 10/19/2024: UTI with E coli ESBL: Continue meropenem IV Left nephrolithiasis: Consult Urology STEFFEN: Discontinue the IV fluids since the kidney function is better, monitor daily Neuropathy: Continue Neurontin Continue Eliquis and Coreg The rest of the management will depend on the hospital course 10/20/24: Ertapenem IV Lithotripsy 10/20/24 Plan discussed with: Patient My Orders Orders - JEANNE MCKNIGHT MD Procedure Category Date Status Time Ertapenem Sod Inj PHA 10/20/24 In Process (Invanz) 10:00 Apply Barrier Cream GUANAKO 10/20/24 In Process 10:35 Date of Service: October 20, 2024 Billing Provider: JEANNE MCKNIGHT MD Common Visit Codes: [id number] INP/OBS CARE(HIGH) JEANNE MCKNIGHT MD October 20, 2024 21:04
[2024-10-21] VITALS (8 sets, daily range): BP systolic 122–145; BP diastolic 73–86; PULSE 57–66; RESP 16–18; TEMP 96–98.5; O2SAT 95–100
--- NOTE | 2024-10-21 10:16 | DVHPN2 ---
Subjective No new complaints Scheduled for lithotripsy tomorrow Changes from previous H/P or p: Changes Musculoskeletal: leg pain Objective Vitals Vital Signs Date Time Temp Pulse Resp B/P (MAP) Pulse Ox O2 Delivery O2 Flow Rate FiO2 10/21/24 08:30 97.6 57 16 145/73 (97) 96 97.6 10/20/24 20:00 Room Air* 0 21 Intake/Output Intake and Output 10/21/24 07:00 Intake Total 1500 ml Output Total 2350 ml Balance -850 ml Intake Oral 1400 ml IV Total 100 ml Output Urine Total 2350 ml General Appearance: Alert, Oriented X3, Cooperative, mild distress Lungs: Clear to auscultation, Normal air movement Cardiovascular: Regular rate, Normal S1 Abdomen: Normal bowel sounds, Soft, No tenderness Extremities: No edema Medications Current Medications Medications Dose Ordered Sig/Karely Route Start Time Stop Time Status Last Admin Dose Admin Acetaminophen/ Hydrocodone Bitart 1 tab Q4HP PRN PO 10/16/24 09:00 10/18/24 13:01 1 TAB Ondansetron HCl 4 mg Q4HP PRN IV 10/16/24 09:00 Acetaminophen 650 mg Q6HP PRN PO 10/16/24 09:00 10/16/24 14:30 650 MG Morphine Sulfate 2 mg Q4HPRN PRN IV 10/16/24 09:00 Nitroglycerin 0.4 mg Q5MINP PRN SL 10/16/24 09:00 Morphine Sulfate 2 mg Q30M PRN IV 10/16/24 09:00 Diagnostic Test (Pha) 1 strip ACHS 10/16/24 11:30 10/21/24 06:47 1 STRIP Insulin Human Regular ACHS SC 10/16/24 11:30 10/20/24 16:58 2 UNITS Dextrose 50 ml UD PRN IV 10/16/24 09:00 Carvedilol 3.125 mg BID PO 10/16/24 10:00 10/20/24 21:10 3.125 MG Magnesium Hydroxide 30 ml DAILYP PRN PO 10/16/24 09:00 Multivitamins/ Minerals 1 tab DAILY PO 10/16/24 10:00 10/21/24 09:52 1 TAB Pantoprazole Sodium 40 mg DAILY@0700 PO 10/16/24 10:00 10/21/24 05:29 40 MG Tamsulosin HCl 0.4 mg DAILY PO 10/16/24 10:00 10/21/24 09:52 0.4 MG Atorvastatin Calcium 10 mg HS PO 10/16/24 22:00 10/20/24 21:10 10 MG Flecainide Acetate 100 mg BID PO 10/16/24 10:00 10/20/24 21:07 100 MG Magnesium Oxide 800 mg DAILY PO 10/18/24 10:00 10/21/24 09:52 800 MG Gabapentin 100 mg TID PO 10/18/24 14:00 10/21/24 05:29 100 MG Enoxaparin Sodium 110 mg Q12HR SC 10/19/24 22:00 10/21/24 09:54 110 MG Docusate Sodium 100 mg BID PO 10/19/24 22:00 10/21/24 09:52 100 MG Ertapenem 1 gm/ Sodium Chloride 50 ml @ 100 mls/hr DAILY IV 10/20/24 10:00 10/21/24 10:05 100 MLS/HR Laboratory Results Laboratory Tests 10/19/24 05:32 Urinalysis Test 10/16/24 10:39 Urine Color Yellow (Yellow) Urine Clarity Cloudy (Clear) H Urine pH 7.5 (5.0-9.0) Urine Specific [place] 1.012 (1.001-1.035) Urine Protein 1+ (Negative) H Urine Ketones Negative (Negative) Urine Blood 2+ /uL (Negative) H Urine Nitrite Negative (Negative) Urine Bilirubin Negative (Negative) Urine Urobilinogen Normal mg/dL (Negative) Urine Leukocyte Esterase 3+ /uL (Negative) Urine RBC 36 /hpf (0 - 3) Urine WBC Clumps Present /hpf (None Seen) Urine Microscopic WBC 1950 /HPF (0-3) H Urine Squamous Epithelial Cells Few /hpf (<5) Urine Bacteria Few /hpf (None Seen) H Urine Glucose Normal mg/dL (Normal) Microbiology Microbiology Date/Time Source Procedure Growth Status 10/16/24 10:56 Nose MRSA Screen - Final Complete 10/16/24 10:39 Urine - [place] Urine Culture - Final Escherichia coli - ESBL Complete 10/16/24 09:50 Blood Blood Culture - Final NO GROWTH AFTER 5 DAYS OF INCUBATION. Complete Assessment/Plan Assessment/Plan UTI Acute kidney injury due to vasomotor nephropathy Abdominal pain most likely due to UTI History of UTI with Klebsiella ESBL History of shock wave lithotripsy for kidney stones History of Chronic kidney disease stage IIIA GERD Type 2 diabetes Bed-bound BPH Dyslipidemia Hypertension Paroxysmal AFib Hypotension Sepsis due to UTI Plan Give IV fluids bolus and then continuous normal saline IV antibiotics empirically with meropenem Urine culture and blood culture Continue Eliquis 2.5 mg twice a day Aspirin Lipitor Coreg Flecainide Pain control with [place] p.r.n. Monitor the patient closely Full code Advance directives discussed for 22 minute 10/17/2024: Continue IV fluids normal saline Continue meropenem The urine culture is still pending, however the preliminary is showing Gram- negative rods Continue the other treatments as ordered including Eliquis Hypokalemia: Replace Hypomagnesemia: Replace Monitor closely 10/18/2024: UTI: Continue meropenem Culture is still pending Check the kidney ultrasound to rule out obstruction or hydronephrosis STEFFEN continue IV fluids Neuropathy: Neurontin 100 mg t.i.d. Continue Eliquis and Coreg 10/19/2024: UTI with E coli ESBL: Continue meropenem IV Left nephrolithiasis: Consult Urology STEFFEN: Discontinue the IV fluids since the kidney function is better, monitor daily Neuropathy: Continue Neurontin Continue Eliquis and Coreg The rest of the management will depend on the hospital course 10/20/24: Ertapenem IV Lithotripsy 10/20/24 10/21/2024: Continue current management Lithotripsy tomorrow Plan discussed with: Patient My Orders Orders - JEANNE MCKNIGHT MD Procedure Category Date Status Time Apply Barrier Cream GUANAKO 10/20/24 In Process 10:35 Date of Service: October 21, 2024 Billing Provider: JEANNE MCKNIGHT MD Common Visit Codes: [id number] INP/OBS CARE(HIGH) JEANNE MCKNIGHT MD October 21, 2024 10:16
[2024-10-22] VITALS (12 sets, daily range): BP systolic 108–165; BP diastolic 74–105; PULSE 57–90; RESP 11–18; TEMP 97–98.3; O2SAT 94–98
[2024-10-22 05:47] LABS: Chloride 104 mmol/L (98-107); Potassium 4.3 mmol/L (3.5-5.1); Sodium 138 mmol/L (136-145)
[2024-10-22 05:48] LABS: Anion Gap 7 (5-15); Carbon Dioxide 27 mmol/L (20-31)
[2024-10-22 05:49] LABS: Calcium 9.5 mg/dL (8.7-10.4)
[2024-10-22 05:53] LABS: Glucose 96 mg/dL (74-106)
[2024-10-22 05:54] LABS: BUN/Creatinine Ratio 11.9 (10.0-20.0); Blood Urea Nitrogen 13 mg/dL (9-23)
[2024-10-22] MEDS ORDERED: ROCURONIUM 10MG/ML 10ML VIAL IV ONE (06:43)
[2024-10-22] MEDS ORDERED: LIDOCAINE 2% (LOCAL ANESTH.) PF 5ml SDV ONE (06:43)
[2024-10-22] MEDS ORDERED: LIDOCAINE HCL 2% TOP JELLY 5ML TOP ONE (06:43)
[2024-10-22] MEDS ORDERED: DexAMETHasone SOD PHOS 10MG/1ML VIAL INJ ONE (06:43)
[2024-10-22] MEDS ORDERED: GLYCOPYRROLATE 0.2 MG/ML 1ML VIAL ONE (06:43)
[2024-10-22] MEDS ORDERED: PROPOFOL 10 MG/ML 20 ML IV ONE (06:43)
[2024-10-22] MEDS ORDERED: KETOROLAC TROMETH 30 MG/ML 1ML VIAL ONE (06:43)
[2024-10-22] MEDS ORDERED: SUGAMMADEX 200mg/2ml Vial (100MG/ML) IV ONE (06:43)
[2024-10-22] MEDS ORDERED: fentaNYL CITRATE 100 MCG/2 ML VL ONE (06:45)
[2024-10-22] MEDS ORDERED: KETAMINE 50mg/ML 1ml syringe ONE (06:45)
[2024-10-22] MEDS ORDERED: ePHEDrine SULFATE 50 MG/ML AMP ONE (08:02)
[2024-10-22] MEDS: IOHEXOL 300 MG/ML 100ML BOTTLE IJ ONE (08:24)
[2024-10-22] MEDS: hydrALAZINE HCL 20 MG/ML VL IV PRN (08:55)
[2024-10-22] MEDS ORDERED: FLUMAZENIL 0.1 MG/ML INJ 10ML MDV IV PRN (09:00)
[2024-10-22] MEDS ORDERED: ePHEDrine SULFATE 50 MG/ML AMP IV PRN (09:00)
[2024-10-22] MEDS ORDERED: ONDANSETRON HCL 4 MG/2 ML VIAL IV PRN (09:00)
[2024-10-22] MEDS ORDERED: HYDROmorphone HCL 2 MG/ML VL/or syr IV PRN (09:00)
[2024-10-22] MEDS ORDERED: NALOXONE HCL 0.4 MG/ML VIAL IV PRN (09:00)
[2024-10-22] MEDS ORDERED: fentaNYL CITRATE 100 MCG/2 ML VL IV PRN (09:00)
--- NOTE | 2024-10-22 09:05 | DVHNC2 ---
Procedure - OPERATIVE REPORT Pre-op. Diagnosis: Kidney Stones -Left- 1.0 cm (total) Post-op. Diagnosis: Same as pre-op diagnosis Operation: Left ureteroscopy/pyeloscopy, laser lithotripsy with renal evacuation Anesthesia: General Indications: Patient with multiple residual renal stones following ESWL on 09/21/24. Stone sizes range from 3-6 mm. The indications, risks, complications, alternatives and benefits were discussed. All questions were encouraged and answered. Patient is aware of risks/complications including but not limited to infection, bleeding, persistent pain, possible ureteral injury/ureteral stricture requiring additional surgical management, urethral injury, urethral stricture and meatal stenosis. Details of Procedure: After obtaining the consent, patient was taken to OR suite and underwent general anesthesia. Preop antibiotic was given. Timeout was performed and deemed to be correct. With the patient positioned in the lithotomy, the area of the genitalia prepped and draped in usual sterile fashion. 22 F Cystoscope was used to access the urethra and bladder. A sensor tip guide wire was advanced through the scope into the left ureter all the way to the left collecting system under fluoroscopic control. I advanced 12/14 Fr 36 cm access sheet over the working wire all the way to the proximal ureter under fluoroscopy control, then the inner sheet and the working wire was removed. The Digital flexible ureteroscope was advanced through the access sheet. The stones were visualized. Now using a 200 micron laser fiber the stone was blasted into small fragments and suctioned out while in dusting mode. Ureteroscope was then removed and guidewire replaced. Ureteral sheath was then removed. Bladder was decompressed. All of the instruments were removed. Patient was placed in supine position in the OR table. Anesthesia was reversed, patient was extubated and transferred awake and in stable conditions to recovery room. Specimens: renal stone fragments Complications: None MICHEAL SANTOS MD October 22, 2024 09:05
--- NOTE | 2024-10-22 11:47 | DVH ---
C-ARM FLUOROSCOPY: PROCEDURE: Left laser lithotripsy FLUOROSCOPY TIME: 23.7 sec DAP: 6.86 mgy FINDINGS: Spot intraoperative C arm radiographs demonstrating left laser lithrotripsy. IMPRESSION: Please refer to surgical report for detailed findings.
--- NOTE | 2024-10-22 11:48 | DVHPN2 ---
Subjective Status post lithotripsy Stable No new complaints Changes from previous H/P or p: Changes Musculoskeletal: leg pain Objective Vitals Vital Signs Date Time Temp Pulse Resp B/P (MAP) Pulse Ox O2 Delivery O2 Flow Rate FiO2 10/22/24 10:32 68 165/105 10/22/24 10:02 97.0 17 98 97.0 10/22/24 09:45 Nasal Cannula 2.0 93 Intake/Output Intake and Output 10/22/24 07:00 Intake Total 995 ml Output Total 2100 ml Balance -1105 ml Intake Oral 970 ml IV Total 25 ml Output Urine Total 2100 ml General Appearance: Alert, Oriented X3, Cooperative, mild distress Lungs: Clear to auscultation, Normal air movement Cardiovascular: Regular rate, Normal S1 Abdomen: Normal bowel sounds, Soft, No tenderness Extremities: No edema Medications Current Medications Medications Dose Ordered Sig/Karely Route Start Time Stop Time Status Last Admin Dose Admin Acetaminophen/ Hydrocodone Bitart 1 tab Q4HP PRN PO 10/16/24 09:00 10/18/24 13:01 1 TAB Ondansetron HCl 4 mg Q4HP PRN IV 10/16/24 09:00 Acetaminophen 650 mg Q6HP PRN PO 10/16/24 09:00 10/16/24 14:30 650 MG Morphine Sulfate 2 mg Q4HPRN PRN IV 10/16/24 09:00 Nitroglycerin 0.4 mg Q5MINP PRN SL 10/16/24 09:00 Morphine Sulfate 2 mg Q30M PRN IV 10/16/24 09:00 Diagnostic Test (Pha) 1 strip ACHS 10/16/24 11:30 10/22/24 11:37 1 STRIP Insulin Human Regular ACHS SC 10/16/24 11:30 10/22/24 11:42 2 UNITS Dextrose 50 ml UD PRN IV 10/16/24 09:00 Carvedilol 3.125 mg BID PO 10/16/24 10:00 10/22/24 10:32 3.125 MG Magnesium Hydroxide 30 ml DAILYP PRN PO 10/16/24 09:00 Multivitamins/ Minerals 1 tab DAILY PO 10/16/24 10:00 10/22/24 10:32 1 TAB Pantoprazole Sodium 40 mg DAILY@0700 PO 10/16/24 10:00 10/21/24 05:29 40 MG Tamsulosin HCl 0.4 mg DAILY PO 10/16/24 10:00 10/22/24 10:32 0.4 MG Atorvastatin Calcium 10 mg HS PO 10/16/24 22:00 10/21/24 21:53 10 MG Flecainide Acetate 100 mg BID PO 10/16/24 10:00 10/22/24 10:33 100 MG Magnesium Oxide 800 mg DAILY PO 10/18/24 10:00 10/22/24 10:31 800 MG Gabapentin 100 mg TID PO 10/18/24 14:00 10/21/24 21:53 100 MG Enoxaparin Sodium 110 mg Q12HR SC 10/19/24 22:00 10/21/24 09:54 110 MG Docusate Sodium 100 mg BID PO 10/19/24 22:00 10/22/24 10:32 100 MG Ertapenem 1 gm/ Sodium Chloride 50 ml @ 100 mls/hr DAILY IV 10/20/24 10:00 10/22/24 10:33 100 MLS/HR Laboratory Results Laboratory Tests 10/19/24 05:32 10/22/24 05:26 Chemistry Test 10/22/24 05:26 Calcium Level 9.5 mg/dL (8.7-10.4) Urinalysis Test 10/16/24 10:39 Urine Color Yellow (Yellow) Urine Clarity Cloudy (Clear) H Urine pH 7.5 (5.0-9.0) Urine Specific [place] 1.012 (1.001-1.035) Urine Protein 1+ (Negative) H Urine Ketones Negative (Negative) Urine Blood 2+ /uL (Negative) H Urine Nitrite Negative (Negative) Urine Bilirubin Negative (Negative) Urine Urobilinogen Normal mg/dL (Negative) Urine Leukocyte Esterase 3+ /uL (Negative) Urine RBC 36 /hpf (0 - 3) Urine WBC Clumps Present /hpf (None Seen) Urine Microscopic WBC 1950 /HPF (0-3) H Urine Squamous Epithelial Cells Few /hpf (<5) Urine Bacteria Few /hpf (None Seen) H Urine Glucose Normal mg/dL (Normal) Microbiology Microbiology Date/Time Source Procedure Growth Status 10/16/24 10:56 Nose MRSA Screen - Final Complete 10/16/24 10:39 Urine - [place] Urine Culture - Final Escherichia coli - ESBL Complete 10/16/24 09:50 Blood Blood Culture - Final NO GROWTH AFTER 5 DAYS OF INCUBATION. Complete Assessment/Plan Assessment/Plan UTI Acute kidney injury due to vasomotor nephropathy Abdominal pain most likely due to UTI History of UTI with Klebsiella ESBL History of shock wave lithotripsy for kidney stones History of Chronic kidney disease stage IIIA GERD Type 2 diabetes Bed-bound BPH Dyslipidemia Hypertension Paroxysmal AFib Hypotension Sepsis due to UTI Plan Give IV fluids bolus and then continuous normal saline IV antibiotics empirically with meropenem Urine culture and blood culture Continue Eliquis 2.5 mg twice a day Aspirin Lipitor Coreg Flecainide Pain control with [place] p.r.n. Monitor the patient closely Full code Advance directives discussed for 22 minute 10/17/2024: Continue IV fluids normal saline Continue meropenem The urine culture is still pending, however the preliminary is showing Gram- negative rods Continue the other treatments as ordered including Eliquis Hypokalemia: Replace Hypomagnesemia: Replace Monitor closely 10/18/2024: UTI: Continue meropenem Culture is still pending Check the kidney ultrasound to rule out obstruction or hydronephrosis STEFFEN continue IV fluids Neuropathy: Neurontin 100 mg t.i.d. Continue Eliquis and Coreg 10/19/2024: UTI with E coli ESBL: Continue meropenem IV Left nephrolithiasis: Consult Urology STEFFEN: Discontinue the IV fluids since the kidney function is better, monitor daily Neuropathy: Continue Neurontin Continue Eliquis and Coreg The rest of the management will depend on the hospital course 10/20/24: Ertapenem IV Lithotripsy 10/20/24 10/21/2024: Continue current management Lithotripsy tomorrow 10/22/2024: Continue IV Invanz [place] catheter was removed Continue pain management as needed Discharge to SNF possibly tomorrow if there is no hematuria when the patient starts voiding Plan discussed with: Patient Date of Service: October 22, 2024 Billing Provider: JEANNE MCKNIGHT MD Common Visit Codes: [id number] INP/OBS CARE(HIGH) JEANNE MCKNIGHT MD October 22, 2024 11:48
[2024-10-22] MEDS: CIPROFLOXACIN 400MG/200ML 200 ML IV ONE (22:42)
[2024-10-23] VITALS (8 sets, daily range): BP systolic 92–128; BP diastolic 58–85; PULSE 59–76; RESP 16–19; TEMP 96.9–98.1; O2SAT 91–97
[2024-10-23] MEDS: MILK OF MAGNESIA 30ML SUSP PO PRN (10:51)
--- NOTE | 2024-10-23 16:37 | DVHPN2 ---
Subjective Doing well Voiding well but with some mild hematuria Changes from previous H/P or p: Changes Musculoskeletal: leg pain Objective Vitals Vital Signs Date Time Temp Pulse Resp B/P (MAP) Pulse Ox O2 Delivery O2 Flow Rate FiO2 10/23/24 13:04 97.6 59 18 128/61 (83) 97 97.6 10/23/24 07:30 Room Air* 0 21 Intake/Output Intake and Output 10/23/24 07:00 Intake Total 1410 ml Balance 1410 ml Intake Oral 1360 ml IV Total 50 ml # Voids 4 # Bowel Movements 2 General Appearance: Alert, Oriented X3, Cooperative, mild distress Lungs: Clear to auscultation, Normal air movement Cardiovascular: Regular rate, Normal S1 Abdomen: Normal bowel sounds, Soft, No tenderness Extremities: No edema Medications Current Medications Medications Dose Ordered Sig/Karely Route Start Time Stop Time Status Last Admin Dose Admin Acetaminophen/ Hydrocodone Bitart 1 tab Q4HP PRN PO 10/16/24 09:00 10/18/24 13:01 1 TAB Ondansetron HCl 4 mg Q4HP PRN IV 10/16/24 09:00 Acetaminophen 650 mg Q6HP PRN PO 10/16/24 09:00 10/16/24 14:30 650 MG Morphine Sulfate 2 mg Q4HPRN PRN IV 10/16/24 09:00 Nitroglycerin 0.4 mg Q5MINP PRN SL 10/16/24 09:00 Morphine Sulfate 2 mg Q30M PRN IV 10/16/24 09:00 Diagnostic Test (Pha) 1 strip ACHS 10/16/24 11:30 10/23/24 12:15 1 STRIP Insulin Human Regular ACHS SC 10/16/24 11:30 10/23/24 12:14 2 UNITS Dextrose 50 ml UD PRN IV 10/16/24 09:00 Carvedilol 3.125 mg BID PO 10/16/24 10:00 10/23/24 10:41 3.125 MG Magnesium Hydroxide 30 ml DAILYP PRN PO 10/16/24 09:00 10/23/24 10:51 30 ML Multivitamins/ Minerals 1 tab DAILY PO 10/16/24 10:00 10/23/24 10:40 1 TAB Pantoprazole Sodium 40 mg DAILY@0700 PO 10/16/24 10:00 10/23/24 06:50 40 MG Tamsulosin HCl 0.4 mg DAILY PO 10/16/24 10:00 10/23/24 10:39 0.4 MG Atorvastatin Calcium 10 mg HS PO 10/16/24 22:00 10/22/24 23:00 10 MG Flecainide Acetate 100 mg BID PO 10/16/24 10:00 10/23/24 10:39 100 MG Magnesium Oxide 800 mg DAILY PO 10/18/24 10:00 10/23/24 10:40 800 MG Gabapentin 100 mg TID PO 10/18/24 14:00 10/23/24 16:04 100 MG Enoxaparin Sodium 110 mg Q12HR SC 10/19/24 22:00 10/21/24 09:54 110 MG Docusate Sodium 100 mg BID PO 10/19/24 22:00 10/23/24 10:40 100 MG Ertapenem 1 gm/ Sodium Chloride 50 ml @ 100 mls/hr DAILY IV 10/20/24 10:00 10/23/24 10:39 100 MLS/HR Laboratory Results Laboratory Tests 10/19/24 05:32 10/22/24 05:26 Urinalysis Test 10/16/24 10:39 Urine Color Yellow (Yellow) Urine Clarity Cloudy (Clear) H Urine pH 7.5 (5.0-9.0) Urine Specific [place] 1.012 (1.001-1.035) Urine Protein 1+ (Negative) H Urine Ketones Negative (Negative) Urine Blood 2+ /uL (Negative) H Urine Nitrite Negative (Negative) Urine Bilirubin Negative (Negative) Urine Urobilinogen Normal mg/dL (Negative) Urine Leukocyte Esterase 3+ /uL (Negative) Urine RBC 36 /hpf (0 - 3) Urine WBC Clumps Present /hpf (None Seen) Urine Microscopic WBC 1950 /HPF (0-3) H Urine Squamous Epithelial Cells Few /hpf (<5) Urine Bacteria Few /hpf (None Seen) H Urine Glucose Normal mg/dL (Normal) Microbiology Microbiology Date/Time Source Procedure Growth Status 10/16/24 10:56 Nose MRSA Screen - Final Complete 10/16/24 10:39 Urine - [place] Urine Culture - Final Escherichia coli - ESBL Complete 10/16/24 09:50 Blood Blood Culture - Final NO GROWTH AFTER 5 DAYS OF INCUBATION. Complete Assessment/Plan Assessment/Plan UTI Acute kidney injury due to vasomotor nephropathy Abdominal pain most likely due to UTI History of UTI with Klebsiella ESBL History of shock wave lithotripsy for kidney stones History of Chronic kidney disease stage IIIA GERD Type 2 diabetes Bed-bound BPH Dyslipidemia Hypertension Paroxysmal AFib Hypotension Sepsis due to UTI Plan Give IV fluids bolus and then continuous normal saline IV antibiotics empirically with meropenem Urine culture and blood culture Continue Eliquis 2.5 mg twice a day Aspirin Lipitor Coreg Flecainide Pain control with [place] p.r.n. Monitor the patient closely Full code Advance directives discussed for 22 minute 10/17/2024: Continue IV fluids normal saline Continue meropenem The urine culture is still pending, however the preliminary is showing Gram- negative rods Continue the other treatments as ordered including Eliquis Hypokalemia: Replace Hypomagnesemia: Replace Monitor closely 10/18/2024: UTI: Continue meropenem Culture is still pending Check the kidney ultrasound to rule out obstruction or hydronephrosis STEFFEN continue IV fluids Neuropathy: Neurontin 100 mg t.i.d. Continue Eliquis and Coreg 10/19/2024: UTI with E coli ESBL: Continue meropenem IV Left nephrolithiasis: Consult Urology STEFFEN: Discontinue the IV fluids since the kidney function is better, monitor daily Neuropathy: Continue Neurontin Continue Eliquis and Coreg The rest of the management will depend on the hospital course 10/20/24: Ertapenem IV Lithotripsy 10/20/24 10/21/2024: Continue current management Lithotripsy tomorrow 10/22/2024: Continue IV Invanz [place] catheter was removed Continue pain management as needed Discharge to SNF possibly tomorrow if there is no hematuria when the patient starts voiding 10/23/2024: Continue the current management with Invanz Hematuria: Continue to hold Lovenox Atrial fibrillation: Restart Eliquis tonight Status post lithotripsy Monitor closely The rest of the management will depend on the hospital course The patient will need to go back to [facility] to [facility] in the next 1-2 days Plan discussed with: Patient My Orders Orders - JEANNE MCKNIGHT MD Procedure Category Date Status Time Stone Analysis Urinary LAB 10/22/24 In Process 08:32 Date of Service: October 23, 2024 Billing Provider: JEANNE MCKNIGHT MD Common Visit Codes: [id number] INP/OBS CARE(HIGH) JEANNE MCKNIGHT MD October 23, 2024 16:37
[2024-10-23] MEDS: APIXABAN 2.5 MG TAB PO SCH (22:00)
[2024-10-23 23:25] LABS: Urine Bacteria None Seen /hpf (None Seen)
[2024-10-23 23:31] LABS: Basophils # (auto) 0.1 10 ^3/uL (0-0.2); Basophils % (auto) 1.1 % (0.0-2.0); Eosinophils # (auto) 0.1 10 ^3/uL (0-0.8); Eosinophils % (auto) 1.7 % (0.0-7.0); Hematocrit 42.1 % (41.0-53.0); Hemoglobin 14.1 g/dL (13.5-17.5); Lymphocytes # (auto) 2.5 10 ^3/uL (0.4-5.4); Lymphocytes % (auto) 36.5 % (10.0-50.0); Mean Corpuscular Hemoglobin 29.4 pg (28.0-32.0); Mean Corpuscular Hgb Conc. 33.4 g/dL (32.0-36.0); Mean Corpuscular Volume 87.9 fL (80.0-100.0); Monocytes # (auto) 0.6 10 ^3/uL (0-1.3); Monocytes % (auto) 9.1 % (0.0-12.0); Neutrophils # (auto) 3.5 10 ^3/uL (1.6-8.6); Neutrophils % (auto) 51.6 % (37.0-80.0); Nucleated Red Blood Cells % 0.1 %; Platelet Count (auto) 184 10^3/uL (140-450); Red Blood Cells 4.79 10^6/uL (4.5-5.90); White Blood Cell 6.8 10^3/uL (4.4-10.8)
[2024-10-23 23:45] LABS: Urine Blood 3+ /uL (Negative); Urine Clarity Turbid (Clear); Urine Color Brown (Yellow); Urine Protein, UAD 1+ (Negative); Urine Specific Gravity 1.013 (1.001-1.035); Urine Squamous Epithelial Cell None Seen /hpf (<5); Urine Urobilinogen Normal (Negative); Urine WBC 227 /HPF (0-3); Urine WBC Clumps PRESENT /hpf (None Seen)
[2024-10-24] VITALS (7 sets, daily range): BP systolic 99–135; BP diastolic 52–73; PULSE 56–63; RESP 17–20; TEMP 96.8–97.7; O2SAT 95–100
--- NOTE | 2024-10-24 12:20 | DVHPN2 ---
Subjective Mild hematuria Changes from previous H/P or p: Changes Musculoskeletal: leg pain Objective Vitals Vital Signs Date Time Temp Pulse Resp B/P (MAP) Pulse Ox O2 Delivery O2 Flow Rate FiO2 10/24/24 09:16 61 105/73 10/24/24 09:00 97.1 18 95 97.1 10/23/24 20:00 Room Air* 0 21 Intake/Output Intake and Output 10/24/24 07:00 Intake Total 1000 ml Output Total 200 ml Balance 800 ml Intake Oral 950 ml IV Total 50 ml Output Urine Total 200 ml # Voids 3 # Bowel Movements 4 General Appearance: Alert, Oriented X3, Cooperative, mild distress Lungs: Clear to auscultation, Normal air movement Cardiovascular: Regular rate, Normal S1 Abdomen: Normal bowel sounds, Soft, No tenderness Extremities: No edema Medications Current Medications Medications Dose Ordered Sig/Karely Route Start Time Stop Time Status Last Admin Dose Admin Acetaminophen/ Hydrocodone Bitart 1 tab Q4HP PRN PO 10/16/24 09:00 10/18/24 13:01 1 TAB Ondansetron HCl 4 mg Q4HP PRN IV 10/16/24 09:00 Acetaminophen 650 mg Q6HP PRN PO 10/16/24 09:00 10/16/24 14:30 650 MG Morphine Sulfate 2 mg Q4HPRN PRN IV 10/16/24 09:00 Nitroglycerin 0.4 mg Q5MINP PRN SL 10/16/24 09:00 Morphine Sulfate 2 mg Q30M PRN IV 10/16/24 09:00 Diagnostic Test (Pha) 1 strip ACHS 10/16/24 11:30 10/24/24 06:17 1 STRIP Insulin Human Regular ACHS SC 10/16/24 11:30 10/23/24 12:14 2 UNITS Dextrose 50 ml UD PRN IV 10/16/24 09:00 Carvedilol 3.125 mg BID PO 10/16/24 10:00 10/24/24 09:16 3.125 MG Magnesium Hydroxide 30 ml DAILYP PRN PO 10/16/24 09:00 10/24/24 09:16 30 ML Multivitamins/ Minerals 1 tab DAILY PO 10/16/24 10:00 10/24/24 09:15 1 TAB Pantoprazole Sodium 40 mg DAILY@0700 PO 10/16/24 10:00 10/24/24 06:20 40 MG Tamsulosin HCl 0.4 mg DAILY PO 10/16/24 10:00 10/24/24 09:16 0.4 MG Atorvastatin Calcium 10 mg HS PO 10/16/24 22:00 10/23/24 22:10 10 MG Flecainide Acetate 100 mg BID PO 10/16/24 10:00 10/24/24 09:15 100 MG Magnesium Oxide 800 mg DAILY PO 10/18/24 10:00 10/24/24 09:16 800 MG Gabapentin 100 mg TID PO 10/18/24 14:00 10/24/24 06:20 100 MG Docusate Sodium 100 mg BID PO 10/19/24 22:00 10/24/24 09:16 100 MG Ertapenem 1 gm/ Sodium Chloride 50 ml @ 100 mls/hr DAILY IV 10/20/24 10:00 10/24/24 09:16 100 MLS/HR Apixaban 2.5 mg BID PO 10/23/24 22:00 Laboratory Results Laboratory Tests 10/22/24 05:26 10/23/24 23:22 Urinalysis Test 10/23/24 23:15 Urine Color Brown (Yellow) H Urine Clarity Turbid (Clear) H Urine pH 6.0 (5.0-9.0) Urine Specific [place] 1.013 (1.001-1.035) Urine Protein 1+ (Negative) H Urine Ketones Negative (Negative) Urine Blood 3+ /uL (Negative) H Urine Nitrite Negative (Negative) Urine Bilirubin Negative (Negative) Urine Urobilinogen Normal mg/dL (Negative) Urine Leukocyte Esterase 2+ /uL (Negative) Urine RBC 2251 /hpf (0 - 3) Urine WBC Clumps Present /hpf (None Seen) Urine Microscopic WBC 227 /HPF (0-3) H Urine Squamous Epithelial Cells None seen /hpf (<5) Urine Bacteria None seen /hpf (None Seen) Urine Glucose Normal mg/dL (Normal) Microbiology Microbiology Date/Time Source Procedure Growth Status 10/16/24 10:56 Nose MRSA Screen - Final Complete 10/16/24 10:39 Urine - [place] Urine Culture - Final Escherichia coli - ESBL Complete 10/16/24 09:50 Blood Blood Culture - Final NO GROWTH AFTER 5 DAYS OF INCUBATION. Complete Assessment/Plan Assessment/Plan UTI Acute kidney injury due to vasomotor nephropathy Abdominal pain most likely due to UTI History of UTI with Klebsiella ESBL History of shock wave lithotripsy for kidney stones History of Chronic kidney disease stage IIIA GERD Type 2 diabetes Bed-bound BPH Dyslipidemia Hypertension Paroxysmal AFib Hypotension Sepsis due to UTI Plan Give IV fluids bolus and then continuous normal saline IV antibiotics empirically with meropenem Urine culture and blood culture Continue Eliquis 2.5 mg twice a day Aspirin Lipitor Coreg Flecainide Pain control with [place] p.r.n. Monitor the patient closely Full code Advance directives discussed for 22 minute 10/17/2024: Continue IV fluids normal saline Continue meropenem The urine culture is still pending, however the preliminary is showing Gram- negative rods Continue the other treatments as ordered including Eliquis Hypokalemia: Replace Hypomagnesemia: Replace Monitor closely 10/18/2024: UTI: Continue meropenem Culture is still pending Check the kidney ultrasound to rule out obstruction or hydronephrosis STEFFEN continue IV fluids Neuropathy: Neurontin 100 mg t.i.d. Continue Eliquis and Coreg 10/19/2024: UTI with E coli ESBL: Continue meropenem IV Left nephrolithiasis: Consult Urology STEFFEN: Discontinue the IV fluids since the kidney function is better, monitor daily Neuropathy: Continue Neurontin Continue Eliquis and Coreg The rest of the management will depend on the hospital course 10/20/24: Ertapenem IV Lithotripsy 10/20/24 10/21/2024: Continue current management Lithotripsy tomorrow 10/22/2024: Continue IV Invanz [place] catheter was removed Continue pain management as needed Discharge to SNF possibly tomorrow if there is no hematuria when the patient starts voiding 10/23/2024: Continue the current management with Invanz Hematuria: Continue to hold Lovenox Atrial fibrillation: Restart Eliquis tonight Status post lithotripsy Monitor closely The rest of the management will depend on the hospital course The patient will need to go back to [facility] to [facility] in the next 1-2 days 10/24/2024: Continue the current management with IV antibiotics on Eliquis for AFib Hematuria is stable, monitor closely : Hold Eliquis for now We will discharge to SNF once a bed is available Plan discussed with: Patient My Orders Orders - JEANNE MCKNIGHT MD Procedure Category Date Status Time Apixaban (Eliquis) PHA 10/23/24 In Process 22:00 Date of Service: October 24, 2024 Billing Provider: JEANNE MCKNIGHT MD Common Visit Codes: [id number] INP/OBS CARE(HIGH) JEANNE MCKNIGHT MD October 24, 2024 12:20
[2024-10-25] VITALS (8 sets, daily range): BP systolic 92–125; BP diastolic 57–66; PULSE 64–82; RESP 17–19; TEMP 97.1–98.4; O2SAT 92–97
--- NOTE | 2024-10-25 11:43 | DVHPN2 ---
Subjective He is still having hematuria Changes from previous H/P or p: Changes Musculoskeletal: leg pain Objective Vitals Vital Signs Date Time Temp Pulse Resp B/P (MAP) Pulse Ox O2 Delivery O2 Flow Rate FiO2 10/25/24 09:43 77 125/66 10/25/24 08:54 97.9 19 97 97.9 10/25/24 08:00 Room Air* 0 21 Intake/Output Intake and Output 10/25/24 07:00 Intake Total 2380 ml Balance 2380 ml Intake Oral 2330 ml IV Total 50 ml # Voids 5 # Bowel Movements 1 General Appearance: Alert, Oriented X3, Cooperative, mild distress Lungs: Clear to auscultation, Normal air movement Cardiovascular: Regular rate, Normal S1 Abdomen: Normal bowel sounds, Soft, No tenderness Extremities: No edema Medications Current Medications Medications Dose Ordered Sig/Karely Route Start Time Stop Time Status Last Admin Dose Admin Acetaminophen/ Hydrocodone Bitart 1 tab Q4HP PRN PO 10/16/24 09:00 10/25/24 02:21 1 TAB Ondansetron HCl 4 mg Q4HP PRN IV 10/16/24 09:00 Acetaminophen 650 mg Q6HP PRN PO 10/16/24 09:00 10/16/24 14:30 650 MG Morphine Sulfate 2 mg Q4HPRN PRN IV 10/16/24 09:00 Nitroglycerin 0.4 mg Q5MINP PRN SL 10/16/24 09:00 Morphine Sulfate 2 mg Q30M PRN IV 10/16/24 09:00 Diagnostic Test (Pha) 1 strip ACHS 10/16/24 11:30 10/25/24 11:40 1 STRIP Insulin Human Regular ACHS SC 10/16/24 11:30 10/24/24 12:18 2 UNITS Dextrose 50 ml UD PRN IV 10/16/24 09:00 Carvedilol 3.125 mg BID PO 10/16/24 10:00 10/25/24 09:43 3.125 MG Magnesium Hydroxide 30 ml DAILYP PRN PO 10/16/24 09:00 10/24/24 09:16 30 ML Multivitamins/ Minerals 1 tab DAILY PO 10/16/24 10:00 10/25/24 09:42 1 TAB Pantoprazole Sodium 40 mg DAILY@0700 PO 10/16/24 10:00 10/25/24 05:47 40 MG Tamsulosin HCl 0.4 mg DAILY PO 10/16/24 10:00 10/25/24 09:42 0.4 MG Atorvastatin Calcium 10 mg HS PO 10/16/24 22:00 10/24/24 22:43 10 MG Flecainide Acetate 100 mg BID PO 10/16/24 10:00 10/25/24 09:42 100 MG Magnesium Oxide 800 mg DAILY PO 10/18/24 10:00 10/25/24 09:43 800 MG Gabapentin 100 mg TID PO 10/18/24 14:00 10/25/24 05:47 100 MG Docusate Sodium 100 mg BID PO 10/19/24 22:00 10/25/24 09:43 100 MG Ertapenem 1 gm/ Sodium Chloride 50 ml @ 100 mls/hr DAILY IV 10/20/24 10:00 10/25/24 09:43 100 MLS/HR Apixaban 2.5 mg BID PO 10/23/24 22:00 Laboratory Results Laboratory Tests 10/22/24 05:26 10/23/24 23:22 Urinalysis Test 10/23/24 23:15 Urine Color Brown (Yellow) H Urine Clarity Turbid (Clear) H Urine pH 6.0 (5.0-9.0) Urine Specific [place] 1.013 (1.001-1.035) Urine Protein 1+ (Negative) H Urine Ketones Negative (Negative) Urine Blood 3+ /uL (Negative) H Urine Nitrite Negative (Negative) Urine Bilirubin Negative (Negative) Urine Urobilinogen Normal mg/dL (Negative) Urine Leukocyte Esterase 2+ /uL (Negative) Urine RBC 2251 /hpf (0 - 3) Urine WBC Clumps Present /hpf (None Seen) Urine Microscopic WBC 227 /HPF (0-3) H Urine Squamous Epithelial Cells None seen /hpf (<5) Urine Bacteria None seen /hpf (None Seen) Urine Glucose Normal mg/dL (Normal) Microbiology Microbiology Date/Time Source Procedure Growth Status 10/16/24 10:56 Nose MRSA Screen - Final Complete 10/16/24 10:39 Urine - [place] Urine Culture - Final Escherichia coli - ESBL Complete 10/16/24 09:50 Blood Blood Culture - Final NO GROWTH AFTER 5 DAYS OF INCUBATION. Complete Assessment/Plan Assessment/Plan UTI Acute kidney injury due to vasomotor nephropathy Abdominal pain most likely due to UTI History of UTI with Klebsiella ESBL History of shock wave lithotripsy for kidney stones History of Chronic kidney disease stage IIIA GERD Type 2 diabetes Bed-bound BPH Dyslipidemia Hypertension Paroxysmal AFib Hypotension Sepsis due to UTI Plan Give IV fluids bolus and then continuous normal saline IV antibiotics empirically with meropenem Urine culture and blood culture Continue Eliquis 2.5 mg twice a day Aspirin Lipitor Coreg Flecainide Pain control with [place] p.r.n. Monitor the patient closely Full code Advance directives discussed for 22 minute 10/17/2024: Continue IV fluids normal saline Continue meropenem The urine culture is still pending, however the preliminary is showing Gram- negative rods Continue the other treatments as ordered including Eliquis Hypokalemia: Replace Hypomagnesemia: Replace Monitor closely 10/18/2024: UTI: Continue meropenem Culture is still pending Check the kidney ultrasound to rule out obstruction or hydronephrosis STEFFEN continue IV fluids Neuropathy: Neurontin 100 mg t.i.d. Continue Eliquis and Coreg 10/19/2024: UTI with E coli ESBL: Continue meropenem IV Left nephrolithiasis: Consult Urology STEFFEN: Discontinue the IV fluids since the kidney function is better, monitor daily Neuropathy: Continue Neurontin Continue Eliquis and Coreg The rest of the management will depend on the hospital course 10/20/24: Ertapenem IV Lithotripsy 10/20/24 10/21/2024: Continue current management Lithotripsy tomorrow 10/22/2024: Continue IV Invanz [place] catheter was removed Continue pain management as needed Discharge to SNF possibly tomorrow if there is no hematuria when the patient starts voiding 10/23/2024: Continue the current management with Invanz Hematuria: Continue to hold Lovenox Atrial fibrillation: Restart Eliquis tonight Status post lithotripsy Monitor closely The rest of the management will depend on the hospital course The patient will need to go back to [facility] to [facility] in the next 1-2 days 10/24/2024: Continue the current management with IV antibiotics on Eliquis for AFib Hematuria is stable, monitor closely : Hold Eliquis for now We will discharge to [facility] once a bed is available 10/25/2024: Continue the current management Continue to hold Eliquis for now Hematuria, monitor Plan discussed with: Patient Date of Service: October 25, 2024 Billing Provider: JEANNE MCKNIGHT MD Common Visit Codes: [id number] INP/OBS CARE(HIGH) JEANNE MCKNIGHT MD October 25, 2024 11:43
[2024-10-26] VITALS (7 sets, daily range): BP systolic 109–129; BP diastolic 70–77; PULSE 69–76; RESP 14–19; TEMP 96.1–98.3; O2SAT 93–96
--- NOTE | 2024-10-26 09:04 | DVHPN2 ---
Subjective He is still complaining of hematuria He says the urine is still dark No pain Changes from previous H/P or p: Changes Musculoskeletal: leg pain Objective Vitals Vital Signs Date Time Temp Pulse Resp B/P (MAP) Pulse Ox O2 Delivery O2 Flow Rate FiO2 10/26/24 08:00 75 16 93 Room Air* 0 21 10/26/24 05:00 96.7 129/71 (90) 96.7 Intake/Output Intake and Output 10/26/24 07:00 Intake Total 500 ml Balance 500 ml Intake Oral 450 ml IV Total 50 ml # Voids 2 # Bowel Movements 1 General Appearance: Alert, Oriented X3, Cooperative, mild distress Lungs: Clear to auscultation, Normal air movement Cardiovascular: Regular rate, Normal S1 Abdomen: Normal bowel sounds, Soft, No tenderness Extremities: No edema Medications Current Medications Medications Dose Ordered Sig/Karely Route Start Time Stop Time Status Last Admin Dose Admin Ondansetron HCl 4 mg Q4HP PRN IV 10/16/24 09:00 Acetaminophen 650 mg Q6HP PRN PO 10/16/24 09:00 10/16/24 14:30 650 MG Nitroglycerin 0.4 mg Q5MINP PRN SL 10/16/24 09:00 Diagnostic Test (Pha) 1 strip ACHS 10/16/24 11:30 10/26/24 06:09 1 STRIP Insulin Human Regular ACHS SC 10/16/24 11:30 10/25/24 21:42 3 UNITS Dextrose 50 ml UD PRN IV 10/16/24 09:00 Carvedilol 3.125 mg BID PO 10/16/24 10:00 10/25/24 09:43 3.125 MG Magnesium Hydroxide 30 ml DAILYP PRN PO 10/16/24 09:00 10/24/24 09:16 30 ML Multivitamins/ Minerals 1 tab DAILY PO 10/16/24 10:00 10/25/24 09:42 1 TAB Pantoprazole Sodium 40 mg DAILY@0700 PO 10/16/24 10:00 10/26/24 06:09 40 MG Tamsulosin HCl 0.4 mg DAILY PO 10/16/24 10:00 10/25/24 09:42 0.4 MG Atorvastatin Calcium 10 mg HS PO 10/16/24 22:00 10/25/24 21:36 10 MG Flecainide Acetate 100 mg BID PO 10/16/24 10:00 10/25/24 21:35 100 MG Magnesium Oxide 800 mg DAILY PO 10/18/24 10:00 10/25/24 09:43 800 MG Gabapentin 100 mg TID PO 10/18/24 14:00 10/26/24 06:09 100 MG Docusate Sodium 100 mg BID PO 10/19/24 22:00 10/25/24 21:35 100 MG Ertapenem 1 gm/ Sodium Chloride 50 ml @ 100 mls/hr DAILY IV 10/20/24 10:00 10/25/24 09:43 100 MLS/HR Apixaban 2.5 mg BID PO 10/23/24 22:00 Laboratory Results Laboratory Tests 10/22/24 05:26 10/23/24 23:22 Urinalysis Test 10/23/24 23:15 Urine Color Brown (Yellow) H Urine Clarity Turbid (Clear) H Urine pH 6.0 (5.0-9.0) Urine Specific [place] 1.013 (1.001-1.035) Urine Protein 1+ (Negative) H Urine Ketones Negative (Negative) Urine Blood 3+ /uL (Negative) H Urine Nitrite Negative (Negative) Urine Bilirubin Negative (Negative) Urine Urobilinogen Normal mg/dL (Negative) Urine Leukocyte Esterase 2+ /uL (Negative) Urine RBC 2251 /hpf (0 - 3) Urine WBC Clumps Present /hpf (None Seen) Urine Microscopic WBC 227 /HPF (0-3) H Urine Squamous Epithelial Cells None seen /hpf (<5) Urine Bacteria None seen /hpf (None Seen) Urine Glucose Normal mg/dL (Normal) Microbiology Microbiology Date/Time Source Procedure Growth Status 10/16/24 10:56 Nose MRSA Screen - Final Complete 10/16/24 10:39 Urine - [place] Urine Culture - Final Escherichia coli - ESBL Complete 10/16/24 09:50 Blood Blood Culture - Final NO GROWTH AFTER 5 DAYS OF INCUBATION. Complete Assessment/Plan Assessment/Plan UTI Acute kidney injury due to vasomotor nephropathy Abdominal pain most likely due to UTI History of UTI with Klebsiella ESBL History of shock wave lithotripsy for kidney stones History of Chronic kidney disease stage IIIA GERD Type 2 diabetes Bed-bound BPH Dyslipidemia Hypertension Paroxysmal AFib Hypotension Sepsis due to UTI Plan Give IV fluids bolus and then continuous normal saline IV antibiotics empirically with meropenem Urine culture and blood culture Continue Eliquis 2.5 mg twice a day Aspirin Lipitor Coreg Flecainide Pain control with [place] p.r.n. Monitor the patient closely Full code Advance directives discussed for 22 minute 10/17/2024: Continue IV fluids normal saline Continue meropenem The urine culture is still pending, however the preliminary is showing Gram- negative rods Continue the other treatments as ordered including Eliquis Hypokalemia: Replace Hypomagnesemia: Replace Monitor closely 10/18/2024: UTI: Continue meropenem Culture is still pending Check the kidney ultrasound to rule out obstruction or hydronephrosis STEFFEN continue IV fluids Neuropathy: Neurontin 100 mg t.i.d. Continue Eliquis and Coreg 10/19/2024: UTI with E coli ESBL: Continue meropenem IV Left nephrolithiasis: Consult Urology STEFFEN: Discontinue the IV fluids since the kidney function is better, monitor daily Neuropathy: Continue Neurontin Continue Eliquis and Coreg The rest of the management will depend on the hospital course 10/20/24: Ertapenem IV Lithotripsy 10/20/24 10/21/2024: Continue current management Lithotripsy tomorrow 10/22/2024: Continue IV Invanz [place] catheter was removed Continue pain management as needed Discharge to SNF possibly tomorrow if there is no hematuria when the patient starts voiding 10/23/2024: Continue the current management with Invanz Hematuria: Continue to hold Lovenox Atrial fibrillation: Restart Eliquis tonight Status post lithotripsy Monitor closely The rest of the management will depend on the hospital course The patient will need to go back to SNF to [facility] in the next 1-2 days 10/24/2024: Continue the current management with IV antibiotics on Eliquis for AFib Hematuria is stable, monitor closely : Hold Eliquis for now We will discharge to SNF once a bed is available 10/25/2024: Continue the current management Continue to hold Eliquis for now Hematuria, monitor 10/26/2021: Hematuria: Get urinalysis and culture Continue to hold Eliquis Consult with Dr. Hagan again On Invanz Plan discussed with: Patient My Orders Orders - JEANNE MCKNIGHT MD Procedure Category Date Status Time Urinalysis LAB 10/26/24 Verified 09:02 Date of Service: October 26, 2024 Billing Provider: JEANNE MCKNIGHT MD Common Visit Codes: [id number] INP/OBS CARE(MOD) JEANNE MCKNIGHT MD October 26, 2024 09:04
--- NOTE | 2024-10-26 12:15 | DVHDS2 ---
Discharge Summary Date of Admission October 16, 2024 at 08:59 Date of Discharge: October 26, 2024 Admitting Diagnosis Sepsis Labs/Diagnostic Data: Laboratory Results Test 10/26/24 10:56 10/23/24 23:22 10/23/24 23:15 10/22/24 08:32 POC Glucose 150 mg/dl (70-106) White Blood Count 6.8 10^3/uL (4.4-10.8) Red Blood Count 4.79 10^6/uL (4.5-5.90) Hemoglobin 14.1 g/dL (13.5-17.5) Hematocrit 42.1 % (41.0-53.0) Mean Corpuscular Volume 87.9 fL (80.0-100.0) Mean Corpuscular Hemoglobin 29.4 pg (28.0-32.0) Mean Corpuscular Hemoglobin Concent 33.4 g/dL (32.0-36.0) Red Cell Distribution Width 15.0 % (11.8-14.3) Platelet Count 184 10^3/uL (140-450) Mean Platelet Volume 7.4 fL (6.9-10.8) Neutrophils (%) (Auto) 51.6 % (37.0-80.0) Lymphocytes (%) (Auto) 36.5 % (10.0-50.0) Monocytes (%) (Auto) 9.1 % (0.0-12.0) Eosinophils (%) (Auto) 1.7 % (0.0-7.0) Basophils (%) (Auto) 1.1 % (0.0-2.0) Neutrophils # (Auto) 3.5 10 ^3/uL (1.6-8.6) Lymphocytes # (Auto) 2.5 10 ^3/uL (0.4-5.4) Monocytes # (Auto) 0.6 10 ^3/uL (0-1.3) Eosinophils # (Auto) 0.1 10 ^3/uL (0-0.8) Basophils # (Auto) 0.1 10 ^3/uL (0-0.2) Nucleated Red Blood Cells 0.1 % Urine Color Brown (Yellow) Urine Clarity Turbid (Clear) Urine pH 6.0 (5.0-9.0) Urine Specific Gilbert 1.013 (1.001-1.035) Urine Protein 1+ (Negative) Urine Ketones Negative (Negative) Urine Blood 3+ /uL (Negative) Urine Nitrite Negative (Negative) Urine Bilirubin Negative (Negative) Urine Urobilinogen Normal mg/dL (Negative) Urine Leukocyte Esterase 2+ /uL (Negative) Urine RBC 2251 /hpf (0 - 3) Urine WBC Clumps Present /hpf (None Seen) Urine Microscopic WBC 227 /HPF (0-3) Urine Squamous Epithelial Cells None seen /hpf (<5) Urine Bacteria None seen /hpf (None Seen) Urine Glucose Normal mg/dL (Normal) Test 10/22/24 05:26 10/19/24 05:32 10/17/24 05:50 10/16/24 11:22 Sodium Level 138 mmol/L (136-145) Potassium Level 4.3 mmol/L (3.5-5.1) Chloride Level 104 mmol/L (98-107) Carbon Dioxide Level 27 mmol/L (20-31) Anion Gap 7 (5-15) Blood Urea Nitrogen 13 mg/dL (9-23) Creatinine 1.09 mg/dL (0.700-1.30) Glomerular Filtration Rate Calc 73 mL/min (>90) BUN/Creatinine Ratio 11.9 (10.0-20.0) Serum Glucose 96 mg/dL (74-106) Calcium Level 9.5 mg/dL (8.7-10.4) Magnesium Level 2.1 mg/dL (1.6-2.6) Prothrombin Time 15.5 sec (9.3-11.8) Prothrombin Time INR 1.52 (0.9-1.15) Activated Partial Thromboplast Time 41.5 SEC (24.5-34.5) Total Bilirubin 1.3 mg/dL (0.2-1.0) Aspartate Amino Transferase (AST) 10 U/L (13-40) Alanine Aminotransferase (ALT) < 9 U/L (7-40) Alkaline Phosphatase 78 U/L (46-116) Total Protein 5.6 g/dL (5.7-8.2) Albumin 2.9 g/dL (3.2-4.8) Thyroid Stimulating Hormone (TSH) 0.52 uIU/mL (0.55-4.78) Troponin I High Sensitivity 12 ng/L (</=54) Test 10/16/24 09:50 10/16/24 08:11 Lactic Acid Level 1.6 mmol/L (0.4-2.0) Erythrocyte Sedimentation Rate 34 mm/hr (0-20) Hemoglobin A1c 5.9 % A1C (<5.7) C-Reactive Protein High Sensitivity 2.20 mg/dL (<1.0) Other Laboratory Tests 10/23/24 23:22 10/22/24 05:26 Brief Hx & Hospital Course: Harmeet Clark is a 73-year-old male with past medical history of hypertension, hyperlipidemia, diabetes type 2, COPD, AFib, CKD, anemia, GERD, CVA with no deficits, kidney stones, [place], TIA, UTI, appendectomy, cholecystectomy, and cystoscopy with left ureteral stent who presents to the ED with bilateral lower extremity pain x1 day. In his history states that patient had a PTCA however patient denies. Patient underwent Urological procedure. See operative report. Patient will be discharged to [facility] for Invanz 1gm daily for ESBL Operations or Procedures OPERATIVE REPORT Pre-op. Diagnosis: Kidney Stones -Left- 1.0 cm (total) Post-op. Diagnosis: Same as pre-op diagnosis Operation: Left ureteroscopy/pyeloscopy, laser lithotripsy with renal evacuation Anesthesia: General Indications: Patient with multiple residual renal stones following ESWL on 09/21/24. Stone sizes range from 3-6 mm. The indications, risks, complications, alternatives and benefits were discussed. All questions were encouraged and answered. Patient is aware of risks/complications including but not limited to infection, bleeding, persistent pain, possible ureteral injury/ureteral stricture requiring additional surgical management, urethral injury, urethral stricture and meatal stenosis. Details of Procedure: After obtaining the consent, patient was taken to OR suite and underwent general anesthesia. Preop antibiotic was given. Timeout was performed and deemed to be correct. With the patient positioned in the lithotomy, the area of the genitalia prepped and draped in usual sterile fashion. 22 F Cystoscope was used to access the urethra and bladder. A sensor tip guide wire was advanced through the scope into the left ureter all the way to the left collecting system under fluoroscopic control. I advanced 12/14 Fr 36 cm access sheet over the working wire all the way to the proximal ureter under fluoroscopy control, then the inner sheet and the working wire was removed. The Digital flexible ureteroscope was advanced through the access sheet. The stones were visualized. Now using a 200 micron laser fiber the stone was blasted into small fragments and suctioned out while in dusting mode. Ureteroscope was then removed and guidewire replaced. Ureteral sheath was then removed. Bladder was decompressed. All of the instruments were removed. Patient was placed in supine position in the OR table. Anesthesia was reversed, patient was extubated and transferred awake and in stable conditions to recovery room. Specimens: renal stone fragments Complications: None MICHEAL HAGAN MD October 22, 2024 09:05 Condition at Discharge: Poor Final Diagnosis/Problems List Sepsis due to UTI Acute kidney injury due to vasomotor nephropathy Abdominal pain most likely due to UTI History of UTI with Klebsiella ESBL History of shock wave lithotripsy for kidney stones History of Chronic kidney disease stage IIIA GERD Type 2 diabetes Bed-bound BPH Dyslipidemia Hypertension Paroxysmal AFib Hypotension Discharge Disposition: [facility] Facility Discharge Instruct/Medications Diet: Consistent carbohydrate Activity: Light activity Follow Up/Referral: Dr. Hagan Urology in 2 weeks Medications: see [facility] Discharge Statement: "Patient was advised to return to the ER or call 911 if any headaches, dizziness, shortness of breath, chest pain, abdominal pain, bleeding, fevers, or worsening of medical condition. Patient was counseled about treatment plan, medications, possible side effects, patientverbalized understanding. All questions were answered to the best of my ability. This discharge took greater then 30 minutes in planning, reviewing documentation, counseling the patient, and discussing with other team members." ASSESSMENT ASSESSMENT Assessment Date of Service: October 26, 2024 Billing Provider: ALEXIA LACKEY MD Common Visit Codes: 72954-VUW/OBS DISCH DAY >30min ALEXIA LACKEY MD October 26, 2024 12:15
[2024-10-26 13:30] LABS: Urine Amorphous Crystal FEW /hpf (None Seen); Urine Bacteria FEW /hpf (None Seen); Urine Blood 3+ /uL (Negative); Urine Clarity Turbid (Clear); Urine Color Yellow (Yellow); Urine Protein, UAD TRACE (Negative); Urine Specific Gravity 1.013 (1.001-1.035); Urine Squamous Epithelial Cell FEW /hpf (<5); Urine Urobilinogen 2 mg/dL (Negative); Urine WBC 29 /HPF (0-3); Urine pH 6.5 (5.0-9.0)
== END 2024-10-26 18:29 | DRG 871 ==
LOC: EDUNIT# 07:25 → ER 07:25 → EDBD 07:25 → OVERFLOW 08:59 → TELE-EAST 11:08
PROVIDERS: ADMIT Internal Medicine; ATTEND Internal Medicine
PROC: 0TC18ZZ Extirpation of Matter from Left Kidney, Via Natural or Artificial Opening Endoscopic (ICD-10-PCS; principal; 2024-10-22 07:42)
DX: A41.51 Sepsis due to Escherichia coli [E. coli] (principal); J96.01 Acute respiratory failure with hypoxia; N17.0 Acute kidney failure with tubular necrosis; N39.0 Urinary tract infection, site not specified; E11.22 Type 2 diabetes mellitus with diabetic chronic kidney disease; E78.5 Hyperlipidemia, unspecified; I16.0 Hypertensive urgency; I48.0 Paroxysmal atrial fibrillation; K21.9 Gastro-esophageal reflux disease without esophagitis; N18.31 Chronic kidney disease, stage 3a; N40.0 Benign prostatic hyperplasia without lower urinary tract symptoms; N20.0 Calculus of kidney; E80.6 Other disorders of bilirubin metabolism; J44.9 Chronic obstructive pulmonary disease, unspecified; E83.42 Hypomagnesemia; E87.6 Hypokalemia; E11.40 Type 2 diabetes mellitus with diabetic neuropathy, unspecified; I25.10 Atherosclerotic heart disease of native coronary artery without angina pectoris; Z86.73 Personal history of transient ischemic attack (TIA), and cerebral infarction without residual deficits; Z90.49 Acquired absence of other specified parts of digestive tract; Z79.01 Long term (current) use of anticoagulants; Z74.01 Bed confinement status; Z82.49 Family history of ischemic heart disease and other diseases of the circulatory system; Z80.1 Family history of malignant neoplasm of trachea, bronchus and lung; Z83.3 Family history of diabetes mellitus; Z79.4 Long term (current) use of insulin; Z98.61 Coronary angioplasty status; I25.2 Old myocardial infarction
CPT/HCPCS: 36415; 71045; 74018; 74176; 76000; 76775; 80048; 80053; 81001; 82360; 82962; 83036; 83605; 83735; 84443; 84484; 85025; 85610; 85652; 85730; 86141; 87040; 87081; 87086; 87088; 87186; 93005; 93970; 96365; 99291; G0378; J1100; J1335; J1815; J1885; J1956; J2003; J2185; J2704